=== PATIENT | female | born 1955 | race African-American/Black ===

== ENCOUNTER 2016-07-08 07:00 | Day surgery (SDC) | payer MEDICARE ==
[2016-07-04 11:07] LABS: HEMATOCRIT 27.6 % (36.0-47.0); HEMOGLOBIN 8.9 g/dL (12.0-15.5); HGB HCT DIFFERENCE -0.9; MEAN CORPUSCULAR HEMOGLOBIN 25.9 pg (27.0-33.4); MEAN CORPUSCULAR HGB CONC 32.2 g/dL (32.0-36.0); MEAN CORPUSCULAR VOLUME 81 fl (80-97); RED BLOOD COUNT 3.43 10^6/uL (3.72-5.28); RED CELL DISTRIBUTION WIDTH 14.9 % (11.5-14.0); WHITE BLOOD COUNT 9.8 10^3/uL (4.0-10.5)
[2016-07-04 11:33] LABS: ANION GAP 12 (5-19); BLOOD UREA NITROGEN 49 mg/dL (7-20); CALCIUM 9.1 mg/dL (8.4-10.2); CARBON DIOXIDE 24 mmol/L (22-30); CHLORIDE 107 mmol/L (98-107); CREATININE RESULT 3.34 mg/dL (0.52-1.25); GLUCOSE 105 mg/dL (75-110); POTASSIUM 4.7 mmol/L (3.6-5.0); SODIUM 142.8 mmol/L (137-145)
--- NOTE | 2016-07-04 18:55 | EKG REPORT ---
SEVERITY:- ABNORMAL ECG - SINUS RHYTHM LVH WITH SECONDARY REPOLARIZATION ABNORMALITY : Confirmed by: Oumar Gregory MD 04-Jul-2016 18:54:53
[~2016-07-08 07:00] MED LIST: BACITRACIN INJ 50,000 UNIT VIAL ONE; BUPIVACAINE HCL 0.25 % INJ/PF (2.5 MG/1 ML) 30 ML VIAL ONE; CEFAZOLIN SODIUM 1 GM in DEXTROSE 5%-WATER 50 ML IV PRN; HEPARIN SOD (PORCINE) 1,000 UNIT/ML 10 ML VIAL ONE; LIDOCAINE 0.5% INJ-PF (5 MG/ML) 50 ML SDV ONE; LIDOCAINE 0.5% INJ-PF (5 MG/ML) 50 ML SDV SUBCUT PRN; LIDOCAINE 1% INJ-PF (10 MG/ML) 30 ML SDV ONE; NORMAL SALINE 1000 ML (RENAL PATIENTS) IV PRN
[2016-07-08] MEDS ORDERED: NITROGLYCERIN/D5W 0 MG/0 ML RTUINJ IV ONE (09:23)
[2016-07-08] MEDS ORDERED: KETAMINE HCL INJ 500 MG/10 ML VIAL ONE (09:31)
[2016-07-08] MEDS ORDERED: PROPOFOL INJ 200 MG/20 ML VIAL IV ONE (09:31)
[2016-07-08] MEDS ORDERED: FENTANYL CITRATE INJ/PF 100 MCG/2 ML AMPUL ONE (09:31)
[2016-07-08] MEDS ORDERED: MIDAZOLAM 2 MG/2 ML INJ ONE (09:31)
[2016-07-08] MEDS ORDERED: DEXMEDETOMIDINE INJ 80 MCG/20 ML VIAL IV ONE (09:32)
[2016-07-08] MEDS ORDERED: MEPERIDINE HCL/PF INJ 25 MG/1 ML DISP.SYRIN IV PRN (10:41)
[2016-07-08] MEDS ORDERED: OXYCODONE-ACETAMINOPHEN 5-325 MG TABLET PO PRN ×2 (10:41)
[2016-07-08] MEDS ORDERED: MORPHINE SULFATE 10 MG/ML INJ IV PRN (10:41)
[2016-07-08] MEDS ORDERED: PROMETHAZINE HCL INJ 25 MG/1 ML VIAL IV PRN ×2 (10:41)
[2016-07-08] MEDS ORDERED: FENTANYL CITRATE INJ/PF 100 MCG/2 ML AMPUL IV PRN ×3 (10:41)
[2016-07-08] MEDS ORDERED: DIPHENHYDRAMINE HCL 50 MG/ML VIAL IV PRN (10:41)
--- NOTE | 2016-07-08 11:16 | PDOC DISCHARGE SUMMARY ---
Discharge Summary (SDC) - Discharge Final Diagnosis: #1 chronic kidney disease stage III #2 is mellitus type II. #3 legally blind. #4 hypertension. Date of Surgery: 07/08/16 Discharge Date: 07/08/16 Condition: Good Treatment or Instructions: #1 activities within moderation encouraged. #2 follow up in my office by appointment in about 1 week. Call for appointment. #3 the wounds covered clean and dry until office visit. #4 hold off on school/work until evaluation in office. #5 may shower in 48 hours, keep operated area as dry as possible. #6 discharge from ambulatory to when ASU criteria met. #7 medications per medication reconciliation sheet. #8 Percocet per prescription. May have a for hourly in ambulatory. Prescriptions: Oxycodone HCl/Acetaminophen [Percocet 5-325 mg Tablet] 1 tab PO ASDIR PRN #15 tab PRN Reason: Discharge Diet: Other (Comments) - Renal Respiratory Treatments at Home: Deep Breathing/Coughing Discharge Activity: Activity As Tolerated Report the Following to Your Physician Immediately: Shortness of Breath, Unusual Bleeding
--- NOTE | 2016-07-08 11:27 | Operative Report ---
Operative Report DATE OF SURGERY: 07/08/16 PREOPERATIVE DIAGNOSIS: #1 chronic kidney disease stage III. #2 is mellitus type II. #3 legally blind. #4 hypertension. POSTOPERATIVE DIAGNOSIS: #1 chronic kidney disease stage III. #2 is mellitus type II. #3 legally blind. #4 hypertension. OPERATION: Insertion of left forearm radiocephalic fistula. SURGEON: GT GRULLON RN PEDIATRIC: CAMMY HOOD ANESTHESIA: LMAC TISSUE REMOVED OR ALTERED: Not applicable COMPLICATIONS: None ESTIMATED BLOOD LOSS: 5 mils INTRAOPERATIVE FINDINGS: Of a satisfactory cephalic vein accommodating a 3.5 mm dilator without difficulty. Nice topographic fistula with appropriate bruit, flow in the proximal and distal radial artery after the procedure. The arterial wall was somewhat thickened but not much disease. The vein was soft and supple. The hope is for accessible fistula in 4 weeks plus. PROCEDURE: Operative Report PROCEDURE: After reviewing the procedure with the patient, she was taken to the operating room. The patient was sedated and the left upper external] prepared with chlorhexidine and draped out with sterile linen. After the "" universal timeout", in which it was verified that the patient [received IV antibiotics] the procedure commenced. The sterilely sheathed ultrasound probe was used to evaluate the size and topographic location of the existing cephalic vein in the forearm. This was transcribed topographical using a marking pen. Local anesthesia was infiltrated and a longitudinal incision started from just below the elbow and dissection proceeded down towards the wrist, on the posterior surface of the forearm. Sequential infiltration of local anesthesia, incision and dissection of the vein proceeded up to the distal most extent of usable vein. The cephalic vein was now dissected away from its branches which were either clipped and/or ligated and divided. In this way the cephalic vein was freed up for its usable length. The radial artery was now evaluated by ultrasound and a suitable location for its dissection marked. Local anesthesia was infiltrated in the radial artery was dissected out for a distance of about 2 cm. Rubber loops were placed on either end. The patient had been given 2500 units of heparin intravenously and the artery controlled proximally and distally with the rubber loops. The venotomy was made using the fish mouth technique. An arteriotomy was made 1.5 cm in length. The artery was irrigated with heparinized solution. The adjacent vein was now tailored to fit the arteriotomy and an end vein to side artery anastomosis constructed. The fistula was evaluated and found to be working fine. Closure was commenced. It was kept away from the vein, the wound was now closed using interrupted 3-0 PDS in the subcutaneous tissues. The skin was closed with a continuous subcutaneous suture of 4-0 Monocryl. Steri-Strips were applied over benzoin and then Telfa and then a Kerlix wrap. The procedure was concluded.
[2016-07-08] MEDS ORDERED: GLYCOPYRROLATE INJ 0.4 MG/2 ML VIAL ONE (11:59)
[2016-07-08] MEDS ORDERED: LIDOCAINE 2% INJ-PF (20 MG/ML) 10 ML AMPUL ONE (11:59)
[2016-07-08] MEDS ORDERED: DEXTROSE 50%-WATER 25 GM/50 ML DISP.SYRIN IV ONE (12:20)
[2016-07-08] MEDS ORDERED: ONDANSETRON HCL INJ/PF 4 MG/2 ML SDV ONE (12:59)
[2016-07-08 14:38] VITALS: BP 119/59
== END 2016-07-08 14:35 | disposition home or self-care (01) ==
LOC: OROUT 07:00
PROVIDERS: ATTEND Surgery
PROC: 05SF0ZZ Reposition Left Cephalic Vein, Open Approach (ICD-10-PCS; principal; 2016-07-08 09:30)
DX: E11.9 Type 2 diabetes mellitus without complications (principal); I12.9 Hypertensive chronic kidney disease with stage 1 through stage 4 chronic kidney disease, or unspecified chronic kidney disease; N18.3 Chronic kidney disease, stage 3 (moderate); I25.10 Atherosclerotic heart disease of native coronary artery without angina pectoris; G62.9 Polyneuropathy, unspecified; E61.1 Iron deficiency; H54.8 Legal blindness, as defined in USA; M19.90 Unspecified osteoarthritis, unspecified site; E55.9 Vitamin D deficiency, unspecified; E66.9 Obesity, unspecified; Z79.899 Other long term (current) drug therapy; Z79.4 Long term (current) use of insulin; Z79.82 Long term (current) use of aspirin; Z99.2 Dependence on renal dialysis; Z68.42 Body mass index [BMI] 45.0-49.9, adult
CPT/HCPCS: 93005; 36415 ×2; 82962; 84132; 85027; 80048; 71020; 93010; 36818; J2250; J3490 ×7; J0690; J3010; J1644; J2405; J2704

== ENCOUNTER 2016-08-16 14:55 | Outpatient (CLI) | payer MEDICARE ==
[2016-08-16] MEDS ORDERED: FUROSEMIDE INJ/PF 40 MG/4 ML SDV IV PRN (15:32)
[2016-08-16 16:36] LABS: HEMATOCRIT 22.9 % (36.0-47.0); HGB HCT DIFFERENCE 0.2; MEAN CORPUSCULAR HEMOGLOBIN 26.7 pg (27.0-33.4); MEAN CORPUSCULAR HGB CONC 33.4 g/dL (32.0-36.0); MEAN CORPUSCULAR VOLUME 80 fl (80-97); RED BLOOD COUNT 2.86 10^6/uL (3.72-5.28); RED CELL DISTRIBUTION WIDTH 14.4 % (11.5-14.0)
[2016-08-16 16:38] LABS: HEMOGLOBIN 7.7 g/dL (12.0-15.5)
[2016-08-17 00:50] LABS: HEMATOCRIT 35.2 % (36.0-47.0); HGB HCT DIFFERENCE -1.6; MEAN CORPUSCULAR HEMOGLOBIN 27.2 pg (27.0-33.4); RED BLOOD COUNT 4.13 10^6/uL (3.72-5.28); RED CELL DISTRIBUTION WIDTH 15.5 % (11.5-14.0); WHITE BLOOD COUNT 18.1 10^3/uL (4.0-10.5)
[2016-08-17 01:11] VITALS: BP 173/70
[2016-08-17 01:11] LABS: HEMOGLOBIN 11.2 g/dL (12.0-15.5); MEAN CORPUSCULAR VOLUME 85 fl (80-97)
== END 2016-08-17 00:32 | disposition home or self-care (01) ==
LOC: II 14:55 → 2N 14:57 → II 08-17 00:32
PROVIDERS: ATTEND Internal Medicine Nephrology
DX: N18.9 Chronic kidney disease, unspecified (principal)
CPT/HCPCS: 86900; 86901; 36415; 36430; 86850; 85027; 86920; P9016; J1940

== ENCOUNTER 2016-10-07 07:44 | Day surgery (SDC) | payer MEDICARE ==
[2016-10-07 08:33] LABS: HEMATOCRIT 29.2 % (36.0-47.0); HEMOGLOBIN 9.9 g/dL (12.0-15.5); HGB HCT DIFFERENCE 0.5; MEAN CORPUSCULAR HEMOGLOBIN 28.3 pg (27.0-33.4); MEAN CORPUSCULAR HGB CONC 33.7 g/dL (32.0-36.0); MEAN CORPUSCULAR VOLUME 84 fl (80-97); RED BLOOD COUNT 3.49 10^6/uL (3.72-5.28); RED CELL DISTRIBUTION WIDTH 15.1 % (11.5-14.0); WHITE BLOOD COUNT 9.3 10^3/uL (4.0-10.5)
[2016-10-07 08:49] LABS: ANION GAP 13 (5-19); BLOOD UREA NITROGEN 43 mg/dL (7-20); CALCIUM 9.8 mg/dL (8.4-10.2); CARBON DIOXIDE 25 mmol/L (22-30); CHLORIDE 104 mmol/L (98-107); CREATININE RESULT 4.25 mg/dL (0.52-1.25); GLUCOSE 302 mg/dL (75-110); POTASSIUM 5.5 mmol/L (3.6-5.0); SODIUM 142.3 mmol/L (137-145)
[2016-10-07] MEDS ORDERED: DIAZEPAM 5 MG TABLET ONE (09:04)
[2016-10-07] MEDS ORDERED: OXYCODONE-ACETAMINOPHEN 5-325 MG TABLET ONE (09:04)
[2016-10-07] MEDS ORDERED: FENTANYL CITRATE INJ/PF 100 MCG/2 ML AMPUL ONE (09:34)
[2016-10-07] MEDS ORDERED: MIDAZOLAM 2 MG/2 ML INJ ONE (09:34)
[2016-10-07] MEDS ORDERED: HEPARIN SOD (PORCINE) 5,000 UNIT/ML 1 ML SYRINGE ONE (09:34)
[2016-10-07] MEDS ORDERED: LIDOCAINE 0.5% INJ-PF (5 MG/ML) 50 ML SDV ONE (09:48)
--- NOTE | 2016-10-07 11:32 | PDOC H&P ---
General Chief Complaint: This patient with a relatively new fistula is being dialyzed. Access flows have been on the low side. She is therefore referred across for optimization. - Current Medications/Allergies Home Medications: Clonidine HCl [Catapres 0.1 mg Tablet] 2 mg PO TID 11/21/15 Furosemide [Lasix 40 mg Tablet] 40 mg PO QAM 11/21/15 Hydralazine HCl [Apresoline 50 mg Tablet] 100 mg PO TID 11/21/15 Insulin Lispro [Humalog Insulin 100 Unit/1 ml 3 ml Vial] See Protocol SUBCUT ACHS 11/21/15 Aspirin [Aspirin 325 mg Tablet] 325 mg PO DAILY 01/11/16 Cholecalciferol (Vitamin D3) [Vitamin D3] 50,000 unit PO DAILY 01/15/16 Febuxostat [Uloric 40 mg Tablet] 40 mg PO DAILY 07/04/16 Allergies/Adverse Reactions: No Known Allergies Allergy (Verified 04/18/16 11:25) Past Medical History Cardiac Medical History: Reports: Coronary Artery Disease - HX CARDIAC STENT, Hypertension - on meds Denies: Myocardial Infarction Pulmonary Medical History: Denies: Asthma, Bronchitis, Chronic Obstructive Pulmonary Disease (COPD), Pneumonia Neurological Medical History: Denies: Seizures Endocrine Medical History: Reports: Diabetes Mellitus Type 1, Diabetes Mellitus Type 2 Musculoskeltal Medical History: Reports: Arthritis - R SHOULDER, B/L KNEES Hematology: Reports: Anemia - CURRENT/IRON Past Surgical History Past Surgical History: Reports: Hysterectomy Family History Family History: Reviewed & Not Pertinent Parental Family History Reviewed: No Children Family History Reviewed: No Sibling(s) Family History Reviewed.: No Social History Smoking Status: Never Smoker Frequency of Alcohol Use: None Hx Recreational Drug Use: No Drugs: None Hx Prescription Drug Abuse: No Physical Exam Vital Signs: Temp Pulse Resp BP Pulse Ox 97.8 F 73 16 158/54 H 97 10/07/16 08:38 10/07/16 10:52 10/07/16 08:38 10/07/16 08:38 10/07/16 08:38 Intake & Output 10/06/16 10/07/16 10/08/16 06:59 06:59 06:59 Weight 112.491 kg Additional comments: A well-developed well-nourished -[place]ian female. Much increased body habitus. No acute distress. Eyes: Diminished visual acuity. Respiratory no shortness of breath. Breath sounds are normal and equal bilaterally. Cardiac: Heart sounds 1 and 2 heard, no murmurs. Upper extremities show normal range of movement and pulsatile to the radials. Normal capillary refill. A cephalic to radial fistula is appreciated. In the left upper extremity. Somewhat soft, suggesting inflow stenosis. Psychiatric the patient is alert, oriented, judgment, memory, insight normal Impression/Plan Impression: #1 malfunctioning AV fistula left radiocephalic. #2 end-stage renal disease on hemodialysis. #3 diabetes mellitus type II. #4 coronary artery disease. #5 hypertension. Plan: In this patient who is on dialysis through her arteriovenous fistula, optimalization is indicated to facilitate long-term use of fistula for dialysis access.
--- NOTE | 2016-10-07 11:33 | PDOC DISCHARGE SUMMARY ---
Discharge Summary (SDC) - Discharge Final Diagnosis: #1 malfunctioning AV fistula left radiocephalic. #2 end-stage renal disease on hemodialysis. #3 diabetes mellitus type II. #4 coronary artery disease. #5 hypertension. Date of Surgery: 10/07/16 Discharge Date: 10/07/16 Forms: Sedation D/C Instructions, Discharge POC-Surgical Service Treatment or Instructions: Call Dr. Orozco office tomorrow, and make a followup appt. for 1 week from today .#1 activities within moderation encouraged. #2 follow up in my office by appointment in about 1 week. Call for appointment. #3 the wounds covered clean and dry until hemodialysis. #4 hold off on school/work until evaluation in office. #5 may shower in 48 hours, keep operated area as dry as possible. #6 discharge from ambulatory when ASU criteria met. Referrals: GT OROZCO MD [ACTIVE STAFF] - Discharge Diet: Other (Comments) - Renal Respiratory Treatments at Home: Deep Breathing/Coughing Discharge Activity: Activity As Tolerated Home Care Assistance: None Needed Report the Following to Your Physician Immediately: Shortness of Breath, Nausea , Vomiting, Increase in Pain, Fever over 101 Degrees, Unusual Bleeding, Redness , Swelling, Warmth, Numbness, Tingling Sensation
--- NOTE | 2016-10-07 11:39 | Operative Report ---
Operative Report DATE OF SURGERY: 10/07/16 PREOPERATIVE DIAGNOSIS: #1 malfunctioning AV fistula left radiocephalic. #2 end -stage renal disease on hemodialysis. #3 diabetes mellitus type II. #4 coronary artery disease. #5 hypertension. POSTOPERATIVE DIAGNOSIS: #1 malfunctioning AV fistula left radiocephalic. #2 end-stage renal disease on hemodialysis. #3 diabetes mellitus type II. #4 coronary artery disease. #5 hypertension. OPERATION: #1 needle access into arteriovenous fistula under real-time ultrasound guidance. #2 ultrasound evaluation of fistula. #3 angioplasty in the arterial inflow. #4 angioplasty in the venous fistula. #5 angiogram and interpretation. SURGEON: GT GRULLON GRAFFITI CLEANER: none ANESTHESIA: Moderate Sedation TISSUE REMOVED OR ALTERED: Not applicable. COMPLICATIONS: None ESTIMATED BLOOD LOSS: 2 mL. INTRAOPERATIVE FINDINGS: Upper well-founded but relatively small arteriovenous fistula in the left forearm. Somewhat soft initially suggesting inflow stenosis. Angiogram demonstrated a narrowing at the artery to vein interface. Also noted is an area of stenosis about 70% at about 4 cm away from the arteriovenous anastomosis. Both of these were eliminated on angioplasty. In addition the main body of the fistula was gently dilated up to 6 mm. Ultrasound showed it to be 5 mm in diameter. Post angioplasty demonstrated improvement and examination of the fistula postprocedure demonstrated more appropriate slight firmness. Suggesting that the inflow stenosis had been eliminated functionally. PROCEDURE: PROCEDURE: After verifying the procedure and having obtained informed consent, the patient's left arm and forearm were prepared with Chlorhexidine and draped out with sterile linen. Local anesthesia infiltrated. Percutaneous access into the fistula ,[retrograde], obtained about [20 cm] from the arteriovenous anastomosis using a micro puncture needle followed by micro puncture wire and then a micro puncture catheter. This was done on ultrasound guidance using real-time access into the vein. Ultrasound was also used to size the vein. Angiogram demonstrated the aforementioned findings. Angioplasty was elected. A 0.035 [place] wire was inserted, and over this, a 6 Gibraltarian short introducer was placed, this was followed by a [5] angioplasty balloon . Angioplasty was now done at the distal radial artery just before the anastomosis and over the anastomotic and perianastomotic segment. This was done very carefully and in the up to estimated at 12 mame by hand injection for 1 minute. Angiogram demonstrated successful outcome. The balloon was now swapped over the wire for a 6 mm angioplasty balloon. Angioplasty was serially done from the upper fistula down to the introducer. Inflating up to 12 atmospheres for a minute at a time.]. Completion angiogram demonstrated [satisfactory result]. The instrumentation was now withdrawn over moderate hand pressure. Dressings applied, procedure concluded. Exposure time: 1.8 minutes Radiation: 1 dereck per centimeter squared Contrast: 25 mL of Isovue-M 300 low osmolality. DICTATING PHYSICIAN: GT VAUGHN M.D. cc: GT VAUGHN M.D. ([id number]) >>
[2016-10-07 13:19] VITALS: BP 155/59
== END 2016-10-07 12:45 | disposition home or self-care (01) ==
LOC: CCL 07:44
PROVIDERS: ATTEND Surgery
PROC: 057F3DZ Dilation of Left Cephalic Vein with Intraluminal Device, Percutaneous Approach (ICD-10-PCS; principal; 2016-10-07)
DX: T82.858A Stenosis of other vascular prosthetic devices, implants and grafts, initial encounter (principal); Y83.2 Surgical operation with anastomosis, bypass or graft as the cause of abnormal reaction of the patient, or of later complication, without mention of misadventure at the time of the procedure; E10.22 Type 1 diabetes mellitus with diabetic chronic kidney disease; I12.0 Hypertensive chronic kidney disease with stage 5 chronic kidney disease or end stage renal disease; N18.6 End stage renal disease; Z99.2 Dependence on renal dialysis; I25.10 Atherosclerotic heart disease of native coronary artery without angina pectoris; J44.9 Chronic obstructive pulmonary disease, unspecified; M19.011 Primary osteoarthritis, right shoulder; M17.0 Bilateral primary osteoarthritis of knee; E55.9 Vitamin D deficiency, unspecified; G62.9 Polyneuropathy, unspecified; H54.8 Legal blindness, as defined in USA; E61.1 Iron deficiency; Z79.82 Long term (current) use of aspirin; Z79.4 Long term (current) use of insulin; Z79.899 Other long term (current) drug therapy; Z98.61 Coronary angioplasty status
CPT/HCPCS: 36415; 85027; 80048; 36902; 76937; C1725 ×2; C1752; C1887; Q9967; C1769; J2250; J1644 ×2; A9270 ×2; J3010; J3490

== ENCOUNTER → 2016-10-28 | Outpatient (CLI) | payer MEDICARE | LOC: WI 14:27 | PROVIDERS: ATTEND Family Medicine | DX: Z12.31 Encounter for screening mammogram for malignant neoplasm of breast (principal) | CPT/HCPCS: 77063; G0202; 77067 ==

== ENCOUNTER 2016-11-25 06:55 | Day surgery (SDC) | payer MEDICARE ==
[2016-11-25] MEDS ORDERED: LIDOCAINE 0.5% INJ-PF (5 MG/ML) 50 ML SDV ONE (07:19)
[2016-11-25 07:33] LABS: HEMATOCRIT 34.2 % (36.0-47.0); HEMOGLOBIN 11.3 g/dL (12.0-15.5); HGB HCT DIFFERENCE -0.3; MEAN CORPUSCULAR HEMOGLOBIN 27.7 pg (27.0-33.4); MEAN CORPUSCULAR HGB CONC 32.9 g/dL (32.0-36.0); MEAN CORPUSCULAR VOLUME 84 fl (80-97); RED BLOOD COUNT 4.07 10^6/uL (3.72-5.28); WHITE BLOOD COUNT 9.4 10^3/uL (4.0-10.5)
[2016-11-25 07:56] LABS: ANION GAP 11 (5-19); BLOOD UREA NITROGEN 52 mg/dL (7-20); CALCIUM 9.4 mg/dL (8.4-10.2); CARBON DIOXIDE 23 mmol/L (22-30); CHLORIDE 107 mmol/L (98-107); CREATININE RESULT 5.63 mg/dL (0.52-1.25); GLUCOSE 131 mg/dL (75-110); POTASSIUM 4.7 mmol/L (3.6-5.0); SODIUM 141.4 mmol/L (137-145)
[2016-11-25] MEDS ORDERED: HEPARIN SOD (PORCINE) 5,000 UNIT/ML 1 ML SYRINGE ONE (08:09)
[2016-11-25] MEDS ORDERED: MIDAZOLAM 2 MG/2 ML INJ ONE (08:09)
[2016-11-25] MEDS ORDERED: FENTANYL CITRATE INJ/PF 100 MCG/2 ML AMPUL ONE (08:09)
--- NOTE | 2016-11-25 08:32 | PDOC H&P ---
General Chief Complaint: The patient was referred across from dialysis, as the fistula is" pulling clots ". - Current Medications/Allergies Home Medications: Clonidine HCl [Catapres 0.1 mg Tablet] 0.2 mg PO BID 11/21/15 Furosemide [Lasix 40 mg Tablet] 40 mg PO QAM 11/21/15 Hydralazine HCl [Apresoline 50 mg Tablet] 100 mg PO TID 11/21/15 Insulin Lispro [Humalog Insulin 100 Unit/1 ml 3 ml Vial] See Protocol SUBCUT ACHS 11/21/15 Aspirin [Aspirin 325 mg Tablet] 325 mg PO DAILY 01/11/16 Cholecalciferol (Vitamin D3) [Vitamin D3] 50,000 unit PO DAILY 01/15/16 Benzonatate 200 mg PO TID 11/25/16 Colchicine/Probenecid [Probenecid-Colchicine Tabs] 1 each PO BID 11/25/16 Ergocalciferol (Vitamin D2) [Vitamin D2] 50,000 unit PO ASDIR PRN 11/25/16 Hydromorphone HCl 2 mg PO TID PRN 11/25/16 Allergies/Adverse Reactions: No Known Allergies Allergy (Verified 04/18/16 11:25) Past Medical History Cardiac Medical History: Reports: Coronary Artery Disease - HX CARDIAC STENT, Hypertension - on meds Denies: Myocardial Infarction Pulmonary Medical History: Denies: Asthma, Bronchitis, Chronic Obstructive Pulmonary Disease (COPD), Pneumonia Neurological Medical History: Denies: Seizures Endocrine Medical History: Reports: Diabetes Mellitus Type 1, Diabetes Mellitus Type 2 Musculoskeltal Medical History: Reports: Arthritis - R SHOULDER, B/L KNEES Hematology: Reports: Anemia - CURRENT/IRON Past Surgical History Past Surgical History: Reports: Hysterectomy Family History Family History: Reviewed & Not Pertinent Parental Family History Reviewed: No Children Family History Reviewed: No Sibling(s) Family History Reviewed.: No Social History Smoking Status: Never Smoker Frequency of Alcohol Use: None Hx Recreational Drug Use: No Drugs: None Hx Prescription Drug Abuse: No Physical Exam Vital Signs: Temp Pulse Resp BP Pulse Ox 98.1 F 73 14 173/84 H 100 11/25/16 07:00 11/25/16 07:00 11/25/16 07:00 11/25/16 07:00 11/25/16 07:00 Intake & Output 11/24/16 11/25/16 11/26/16 06:59 06:59 06:59 Weight 113.398 kg Additional comments: Constitutional: Well-developed well-nourished -[place]ogolese lady, much increased body mass in. No apparent acute distress. Eyes: Legally blind ENT: Hearing grossly normal. External pinna normal to inspection. Teeth intact. Tongue normal to inspection. Chest: Normal to inspection. Respiratory breath sounds are present bilaterally, normal. Normal respiratory effort. Cardiac: Heart sounds 1 and 2 normal, no murmurs. Psychiatric: Judgment, memory, insight seem normal. Mood is pleasant and appropriate. Extremities: Upper extremities show normal range of movement. Pulses present noted to the radial arteries. Capillary refill normal. No cyanosis noted. No muscle wasting noted. Left forearm arteriovenous fistula, radiocephalic noted. Comparatively soft, suggesting inflow issues. Impression/Plan Impression: #1 malfunctioning AV fistula left radiocephalic. 2. End-stage renal disease on hemodialysis. 3. Diabetes mellitus type 2. 4. Hypertension. Plan: This patient who is fistula appears to be malfunctioning is indicated for angiogram possible angioplasty. Possibly inflow versus open lesions. The risks, benefits, expected outcome and alternatives are familiar to her. She wishes to proceed. Overall goal is to improve the function of the fistula so that adequate dialysis can be had on a routine. Also prolonged use of fistula.
--- NOTE | 2016-11-25 09:58 | PDOC DISCHARGE SUMMARY ---
Discharge Summary (SDC) - Discharge Final Diagnosis: #1 malfunctioning AV fistula left radiocephalic. Post angioplasty 2. End-stage renal disease on hemodialysis. 3. Diabetes mellitus type 2. 4. Hypertension. Date of Surgery: 11/25/16 Discharge Date: 11/25/16 Condition: Fair Treatment or Instructions: Discharge home [after recovery per ASU criteria]. Diet , [renal], diabetic, month as tolerated, when fully awake advance as tolerated. Activities within moderation encouraged. Follow up in my office by appointment in about [1 month]. Call for appointment. Leave wounds [covered], [keep clean and dry, until hemodialysis]. Hold of on school/work [until evaluation in office]. May shower [in 48 hrs], [try to keep operated area as dry as possible]. Discharge Diet: Other (Comments) - Renal, diabetic Respiratory Treatments at Home: Deep Breathing/Coughing Discharge Activity: Balance Activity w/Rest, No Lifting Over 10 Pounds, No Lifting/Push/Pulling Home Care Assistance: None Needed Report the Following to Your Physician Immediately: Increase in Pain, Fever over 101 Degrees, Unusual Bleeding, Redness, Swelling, Warmth, Numbness, Tingling Sensation
--- NOTE | 2016-11-25 10:02 | Operative Report ---
Operative Report DATE OF SURGERY: 11/25/16 PREOPERATIVE DIAGNOSIS: #1 malfunctioning AV fistula left radiocephalic. 2. End-stage renal disease on hemodialysis. 3. Diabetes mellitus type 2. 4. Hypertension. POSTOPERATIVE DIAGNOSIS: #1 malfunctioning AV fistula left radiocephalic. Post angioplasty. 2. End-stage renal disease on hemodialysis. 3. Diabetes mellitus type 2. 4. Hypertension. OPERATION: 1. Ultrasound evaluation left radiocephalic fistula. 2. Real-time ultrasound-guided active, needle into the fistula. 3. Angioplasty. 4. Angiogram and interpretation. SURGEON: GT GRULLON FLIGHT OPERATIONS INSPECTOR: None ANESTHESIA: Moderate Sedation TISSUE REMOVED OR ALTERED: Not applicable. COMPLICATIONS: None. ESTIMATED BLOOD LOSS: 2 mL. INTRAOPERATIVE FINDINGS: Of a well founded left radiocephalic fistula. Slightly firm. Ultrasound demonstrated clot within the lumen at about 17 cm for about 1-2 cm. This is concordant with the angiogram which demonstrated narrowing of this area. Otherwise flow was satisfactory. Good inflow with a decent size radial artery, nice side anastomosis need to be about 5 mm. Fistula up to about 7 mm.. Post angioplasty the area of stenosis and thrombus seen resolved on angiogram. PROCEDURE: PROCEDURE: After verifying the procedure and having obtained informed consent, the patient's left arm was prepared with Chlorhexidine and draped out with sterile linen. Local anesthesia infiltrated. Percutaneous access into the fistula ,[ antegrade], obtained about [2 cm] from the arteriovenous anastomosis using a micro puncture needle followed by micro puncture wire and then a micro puncture catheter. Angiogram demonstrated the aforementioned findings. Angioplasty was elected. A 0.035 [place] wire was inserted, and over this, a 6 Amharic short introducer was placed, this was followed by a [7-mm ] angioplasty balloon . Angioplasty was done from the upper fistula down to the introducer. Inflating by hand injection with 3 mils syringe for 2 minutes.]. Completion angiogram demonstrated [satisfactory result]. The instrumentation was now withdrawn over 10 pressure for 10 minutes. Dressings applied, procedure concluded. Exposure time: 0.7 minutes Radiation: 0.126 mcg/cm Contrast: 25 mL of Isovue-300, low osmolality. DICTATING PHYSICIAN: GT VAUGHN M.D. cc: GT VAUGHN M.D. ([id number]) >>
[2016-11-25 11:32] VITALS: BP 156/79
--- NOTE | 2016-11-25 14:48 | RADIOLOGY REPORT (SQ) ---
EXAM DESCRIPTION: FISTULAGRAM W/PLASTY COMPLETED DATE/TIME: 11/25/2016 1:07 pm REASON FOR STUDY: T82.858A T82.858A STENOSIS OF OTHER VASCULAR PROSTH DEV/GRFT, INIT Z79.899 OTHER JAIL (CURRENT) DRUG THERAPY COMPARISON: None. FLUOROSCOPY TIME: 0.7 minutes. 10 images saved to PACS. TECHNIQUE: Intra-operative images acquired during surgical procedure to evaluate progress. NUMBER OF IMAGES: 10 images. LIMITATIONS: None. FINDINGS: Imaging in fluoroscopy during upper extremity dialysis access evaluation and plasty by Dr. Orozco . Please refer to the operative report for further details. IMPRESSION: INTRA PROCEDURAL IMAGING ABOVE . COMMENT: Quality ID [id number]: Final reports for procedures using fluoroscopy that document radiation exp osure indices, or exposure time and number of fluorographic images (if radiation exposure indices are not available) Please consult full operative report of the attending physician for description of the procedure. TECHNICAL DOCUMENTATION: JOB ID: [id number] [employer]- All Rights Reserved
== END 2016-11-25 11:00 | disposition home or self-care (01) ==
LOC: CCL 06:55
PROVIDERS: ATTEND Surgery
PROC: 057F3DZ Dilation of Left Cephalic Vein with Intraluminal Device, Percutaneous Approach (ICD-10-PCS; principal; 2016-11-25)
DX: T82.858A Stenosis of other vascular prosthetic devices, implants and grafts, initial encounter (principal); Y83.2 Surgical operation with anastomosis, bypass or graft as the cause of abnormal reaction of the patient, or of later complication, without mention of misadventure at the time of the procedure; I12.0 Hypertensive chronic kidney disease with stage 5 chronic kidney disease or end stage renal disease; E10.22 Type 1 diabetes mellitus with diabetic chronic kidney disease; N18.6 End stage renal disease; Z99.2 Dependence on renal dialysis; I25.10 Atherosclerotic heart disease of native coronary artery without angina pectoris; M19.90 Unspecified osteoarthritis, unspecified site; D64.9 Anemia, unspecified; H54.8 Legal blindness, as defined in USA; Z98.61 Coronary angioplasty status; Z79.4 Long term (current) use of insulin; Z79.899 Other long term (current) drug therapy
CPT/HCPCS: 36415; 82962; 85027; 80048; 36902; 76937; C1725; Q9967; C1769; J2250; J1644 ×2; J3010; J3490

== ENCOUNTER 2017-02-01 17:01 | Emergency (ER) | payer MEDICARE ==
--- NOTE | 2017-02-01 17:42 | ER Document Report ---
ED Medical Screen (RME) - General Chief Complaint: Weakness Stated Complaint: WEAKNESS Time Seen by Provider: 02/01/17 17:36 Mode of Arrival: Ambulatory Information source: Patient TRAVEL OUTSIDE OF THE [place] IN LAST 30 DAYS: No - HPI Onset: Yesterday Quality of pain: No pain Severity: Moderate Associated Symptoms: Weakness Exacerbated by: Other - ANY ACTIVITY Relieved by: Other - REST Similar symptoms previously: Yes - BEFORE BEGINNING DIALYSIS Notes: 02/01/17 17:47 Patient states she normally receives hemodialysis on Friday, , and Friday. She had an uneventful dialysis session Friday, but yesterday and today the text at the dialysis clinic were unable to access her fistula. - Related Data Smoking: Non-smoker Frequency of alcohol use: None Drug Abuse: None Allergies/Adverse Reactions: No Known Allergies Allergy (Verified 02/01/17 17:33) Past Medical History - General Information source: Patient - Social History Cigarette use (# per day): No Chew tobacco use (# tins/day): No Frequency of alcohol use: None Drug Abuse: None - Past Medical History Cardiac Medical History: Reports: Hx Coronary Artery Disease - HX CARDIAC STENT , Hx Hypertension - on meds Denies: Hx Heart Attack Pulmonary Medical History: Denies: Hx Asthma, Hx Bronchitis, Hx COPD, Hx Pneumonia Neurological Medical History: Denies: Hx Cerebrovascular Accident, Hx Seizures Endocrine Medical History: Reports: Hx Diabetes Mellitus Type 1, Hx Diabetes Mellitus Type 2 Renal/ Medical History: Reports: Hx End Stage Renal Disease, Hx Hemodialysis. Denies: Hx Peritoneal Dialysis Musculoskeltal Medical History: Reports Hx Arthritis - R SHOULDER, B/L KNEES Past Surgical History: Reports: Hx Hysterectomy, Hx Kidney (Renal Surgery) - Immunizations Hx Diphtheria, Pertussis, Tetanus Vaccination: Yes Review of Systems - Review of Systems Constitutional: Weakness EENT: No symptoms reported Cardiovascular: No symptoms reported. denies: Chest pain, Palpitations, Edema Respiratory: No symptoms reported Gastrointestinal: No symptoms reported Female Genitourinary: Post menopausal Musculoskeletal: No symptoms reported Skin: No symptoms reported Neurological/Psychological: No symptoms reported Physical Exam - Vital signs Vitals: Temp Pulse Resp BP Pulse Ox 97.6 F 83 16 171/72 H 99 02/01/17 17:14 02/01/17 17:14 02/01/17 17:14 02/01/17 17:14 02/01/17 17:14 Interpretation: Hypertensive. No: Tachycardic, Tachypneic - General General appearance: Appears well, Alert In distress: None Course - Vital Signs Vital signs: Temp Pulse Resp BP Pulse Ox 97.6 F 83 16 171/72 H 99 02/01/17 17:14 02/01/17 17:14 02/01/17 17:14 02/01/17 17:14 02/01/17 17:14
[2017-02-01 18:39] LABS: ABSOLUTE BASOPHILS # (AUTO) 0.1 10^3/uL (0.0-0.2); ABSOLUTE EOSINOPHILS # (AUTO) 0.2 10^3/uL (0.0-0.6); ABSOLUTE LYMPHOCYTES (AUTO) 2.6 10^3/uL (0.5-4.7); ABSOLUTE MONOCYTES (AUTO) 0.5 10^3/uL (0.1-1.4); ABSOLUTE NEUT (AUTO) 5.5 10^3/uL (1.7-8.2); BASOPHILS % (AUTO) 0.7 % (0-2); EOSINOPHILS % (AUTO) 2.2 % (0-6); HEMATOCRIT 35.5 % (36.0-47.0); HGB HCT DIFFERENCE 0.5; LYMPHOCYTES % (AUTO) 29.1 % (13-45); MEAN CORPUSCULAR HEMOGLOBIN 27.6 pg (27.0-33.4); MEAN CORPUSCULAR HGB CONC 33.9 g/dL (32.0-36.0); MEAN CORPUSCULAR VOLUME 81 fl (80-97); MONOCYTES % (AUTO) 6.1 % (3-13); RED BLOOD COUNT 4.36 10^6/uL (3.72-5.28); RED CELL DISTRIBUTION WIDTH 16.9 % (11.5-14.0); SEGMENTED NEUTROPHILS % (AUTO) 61.9 % (42-78); WHITE BLOOD COUNT 8.9 10^3/uL (4.0-10.5)
[2017-02-01 18:57] LABS: ALANINE AMINOTRANSFERASE 22 U/L (9-52); ALBUMIN 4.3 g/dL (3.5-5.0); ALKALINE PHOSPHATASE 172 U/L (38-126); ANION GAP 16 (5-19); ASPARTATE AMINO TRANSFERASE 12 U/L (14-36); BILIRUBIN,DIRECT 0.5 mg/dL (0.0-0.4); BILIRUBIN,TOTAL 0.5 mg/dL (0.2-1.3); BLOOD UREA NITROGEN 69 mg/dL (7-20); CALCIUM 9.5 mg/dL (8.4-10.2); CARBON DIOXIDE 20 mmol/L (22-30); CHLORIDE 104 mmol/L (98-107); CREATININE RESULT 4.97 mg/dL (0.52-1.25); GLUCOSE 243 mg/dL (75-110); MAGNESIUM 1.9 mg/dL (1.6-2.3); PHOSPHORUS 4.8 mg/dL (2.5-4.5); POTASSIUM 5.3 mmol/L (3.6-5.0); SODIUM 139.8 mmol/L (137-145)
--- NOTE | 2017-02-01 19:22 | ER Document Report ---
HPI - HPI Pain Level: 2 Notes: Patient with a history of diabetes, hypertension, chronic kidney disease and on dialysis presents the ED complaining of general weakness 1 day. Patient is scheduled for dialysis on Tuesdays, , and Saturdays. Patient states that she was unable to have her dialysis session because they were unable to access her port. Patient states that she is scheduled on Friday with a vascular surgeon for work on her port/fistula. patient states that aside from the weakness she is otherwise feeling well. Patient states that she is still urinating normally and having normal BM's. Patient states that she is still ambulating with a single-point cane normally without any dyspnea on exertion or chest pain. Patient states that she is still eating and drinking without any difficulties. Patient denies any drug allergies. Her blade sharpener is Dr. Sadler and her PCM is Dr. Fontanez. Denies any headache, fever,neck pain/ stiffness, changes in vision/speech/mentation/hearing, URI, sore throat, chest pain, palpitations, syncope, cough, shortness of breath, wheeze, dyspnea, abdominal pain, nausea/vomiting/diarrhea, urinary retention, dysuria, hematuria , muscle paralysis/weakness, or rash. - ROS Notes: REVIEW OF SYSTEMS: CONSTITUTIONAL : Denies fever, chills, or sweats. Denies recent illness. EENT: Denies eye, ear, throat, or mouth pain or symptoms. Denies nasal or sinus congestion or discharge. Denies throat, tongue, or mouth swelling or difficulty swallowing. CARDIOVASCULAR: Denies chest pain. Denies palpitations or racing or irregular heart beat. Denies ankle edema. RESPIRATORY: Denies cough, cold, or chest congestion. Denies shortness of breath, difficulty breathing, or wheezing. GASTROINTESTINAL: Denies abdominal pain or distention. Denies nausea, vomiting , or diarrhea. Denies blood in vomitus, stools, or per rectum. Denies black, tarry stools. Denies constipation. GENITOURINARY: Denies difficulty urinating, painful urination, burning, frequency, blood in urine, or discharge. MUSCULOSKELETAL: chronic. Denies acute back or neck pain or stiffness. Denies joint pain or swelling. SKIN: Denies rash, lesions or sores. NEUROLOGICAL: Denies confusion or altered mental status. Denies passing out or loss of consciousness. Denies dizziness or lightheadedness. Denies headache. Denies weakness or paralysis or loss of use of either side. Denies problems with gait or speech. Denies sensory loss, numbness, or tingling. Denies seizures. PSYCHIATRIC: Denies anxiety or stress. Denies depression, suicidal ideation, or homicidal ideation. ALL OTHER SYSTEMS REVIEWED AND NEGATIVE. Dictation was performed using thesixtyone voice recognition software - REPRODUCTIVE Reproductive: DENIES: : - DERM Skin Color: Normal Past Medical History - General Information source: Patient - Social History Smoking Status: Never Smoker Cigarette use (# per day): No Chew tobacco use (# tins/day): No Frequency of alcohol use: None Drug Abuse: None Family History: Reviewed & Not Pertinent - Past Medical History Cardiac Medical History: Reports: Hx Coronary Artery Disease - HX CARDIAC STENT , Hx Hypertension - on meds Denies: Hx Heart Attack Pulmonary Medical History: Denies: Hx Asthma, Hx Bronchitis, Hx COPD, Hx Pneumonia Neurological Medical History: Denies: Hx Cerebrovascular Accident, Hx Seizures Endocrine Medical History: Reports: Hx Diabetes Mellitus Type 1, Hx Diabetes Mellitus Type 2 Renal/ Medical History: Reports: Hx End Stage Renal Disease, Hx Hemodialysis. Denies: Hx Peritoneal Dialysis Musculoskeltal Medical History: Reports Hx Arthritis - R SHOULDER, B/L KNEES Past Surgical History: Reports: Hx Hysterectomy, Hx Kidney (Renal Surgery) - Immunizations Hx Diphtheria, Pertussis, Tetanus Vaccination: Yes Vertical Provider Document - CONSTITUTIONAL Agree With Documented VS: Yes Notes: PHYSICAL EXAMINATION: GENERAL: Well-appearing, well-nourished and in no acute distress. HEAD: Atraumatic, normocephalic. EYES: Pupils equal round and reactive to light, extraocular movements intact, sclera anicteric, conjunctiva are normal. Lt eye blind-normal. ENT: Nares patent and without discharge. oropharynx clear without exudates. No tonsilar hypertrophy or erythema. Moist mucous membranes. NECK: Normal range of motion, supple without lymphadenopathy. No rigidity. LUNGS: Breath sounds clear to auscultation bilaterally and equal. No wheezes rales or rhonchi. HEART: Regular rate and rhythm without murmurs, rubs, gallops. ABDOMEN: Soft, nontender, nondistended abdomen. No guarding, no rebound. No masses appreciated. Normal bowel sounds present. No CVA tenderness bilaterally. Musculoskeletal: Ext b/l: FROM to passive/active. Strength 5+/5. No focal deficits noted Extremities: No cyanosis, clubbing, or edema b/l. Peripheral pulses 2+. Capillary refill less than 3 seconds. NEUROLOGICAL: MMSE intact. Cranial nerves grossly intact. Normal speech, normal gait. Normal sensory, motor exams. GILMA's intact. Pronator neg. heel: ashley, finger:nose intact. PSYCH: Normal mood, normal affect. SKIN: Warm, Dry, normal turgor, no rashes or lesions noted. - INFECTION CONTROL TRAVEL OUTSIDE OF THE [place] IN LAST 30 DAYS: No - RESPIRATORY O2 Sat by Pulse Oximetry: 99 Course - Re-evaluation Re-evalutation: 02/01/17 20:40 Patient is an afebrile, well-hydrated, 61-year-old female who presents the ED with general weakness, suspect due to not being dialyzed over her last two scheduled days due to accessing issues. vitals are stable. PE otherwise unremarkable for any focal neurological deficits. CBC, EKG, & CXR unremarkable. CMP showed mildly elevated potassium and stable chronic kidney disease. Patient is tolerating p.o. intake and is urinating. Reviewed with Dr. Pickett who recommended consult with a Bow Maker Machine Tender. We do not have any on -call from [place]. Called and spoke with [facility] Bow Maker Machine Tender Dr. Vanessa who recommended Kayexalate 15g daily until her next visit (Friday for fistula work with a vascular surgeon). He was not concerned about her current lab results. Kayexalate 15g given PO today. Low suspicion for any ACS, PE, dissection, pericarditis, pneumothorax, sepsis, meningitis, or other systemic emergent condition at this time. Patient is aware that condition can change from initial presentation and she needs to monitor symptoms closely and seek medical attention if any acute changes. Advised patient to call her blade sharpener and PCM in the next 1-2 days for a recheck. Return to the ED with any worsening/concerning symptoms otherwise as reviewed in discharge. Patient is in agreement. - Vital Signs Vital signs: Temp Pulse Resp BP Pulse Ox 97.6 F 83 16 171/72 H 99 02/01/17 17:14 02/01/17 17:14 02/01/17 17:14 02/01/17 17:14 02/01/17 17:14 - Laboratory Result Diagrams: 02/01/17 18:23 02/01/17 18:23 Laboratory results interpreted by me: 02/01/17 02/01/17 18:23 18:23 Hct 35.5 L RDW 16.9 H Potassium 5.3 H Carbon Dioxide 20 L BUN 69 H Creatinine 4.97 H Est GFR ( Amer) 11 L Est GFR (Non-Af Amer) 9 L Glucose 243 H Phosphorus 4.8 H Direct Bilirubin 0.5 H AST 12 L Alkaline Phosphatase 172 H Discharge - Discharge Clinical Impression: Generalized weakness, Chronic kidney disease, stage 3, End-stage renal disease on hemodialysis Condition: Stable Disposition: HOME, SELF-CARE Additional Instructions: Maintain adequate fluid and food intake Take medication as directed Make sure you are still urinating normally Monitor for any acute changes in her symptoms Recheck with her PCM in 1-2 days Call your blade sharpener in 1-2 days as well for recheck Return to the ED with any worsening symptoms and/or development of fever, headache, chest pain, palpitations, syncope, shortness of breath, trouble breathing, abdominal pain, n/v/d, blood in stool/urine, loss of control of bowel /bladder, urinary retention, muscle weakness/paralysis, saddle anesthesia, numbness/tingling, or other worsening symptoms that are concerning to you. Prescriptions: Sodium Polystyrene Sulfonate [Kayexalate 15 Gm/60 Ml Susp 60 Ml] 15 gm PO DAILY #1 bottle Forms: Elevated Blood Pressure Referrals: MACARIO FONTANEZ MD [Primary Care Provider] - 02/03/17 SHARLA SADLER MD [ACTIVE STAFF] - 02/03/17
[2017-02-01] MEDS ORDERED: SODIUM POLYSTYRENE SULFONATE 15 GM/60 ML PO ONE (19:57)
--- NOTE | 2017-02-01 20:32 | RADIOLOGY REPORT (SQ) ---
EXAM DESCRIPTION: CHEST SINGLE VIEW COMPLETED DATE/TIME: 02/01/2017 8:15 pm REASON FOR STUDY: ckd, elevated K+ COMPARISON: 07/04/2016 EXAM PARAMETERS: NUMBER OF VIEWS: One view. TECHNIQUE: Single frontal radiographic view of the chest acquired. RADIATION DOSE: NA LIMITATIONS: None. FINDINGS: LUNGS AND PLEURA: Chronic blunting right lateral costophrenic sulcus. No acute infiltrate s, pleural effusions, pneumothorax. MEDIASTINUM AND HILAR STRUCTURES: No masses. Contour normal. HEART AND VASCULAR STRUCTURES: Stable mild cardiomegaly. BONES: No acute findings. HARDWARE: None in the chest. OTHER: No other significant finding. IMPRESSION: No acute changes TECHNICAL DOCUMENTATION: JOB ID: [id number]
[2017-02-01 21:47] VITALS: BP 170/76
--- NOTE | 2017-02-02 07:26 | EKG REPORT ---
SEVERITY:- ABNORMAL ECG - SINUS RHYTHM LVH WITH SECONDARY REPOLARIZATION ABNORMALITY : Confirmed by: Oumar Gregory MD 02-Feb-2017 07:25:22
== END 2017-02-01 21:00 | disposition home or self-care (01) ==
LOC: ER 17:01
DX: R53.1 Weakness (principal); I12.0 Hypertensive chronic kidney disease with stage 5 chronic kidney disease or end stage renal disease; E11.22 Type 2 diabetes mellitus with diabetic chronic kidney disease; N18.6 End stage renal disease; Z99.2 Dependence on renal dialysis
CPT/HCPCS: 36415; 71010; 80053; 83735; 84100; 85025; 93005; 93010; 99285

== ENCOUNTER → 2017-02-01 | Outpatient (CLI) | payer MEDICARE | LOC: LAB 16:32 | PROVIDERS: ATTEND Internal Medicine Nephrology | DX: Z53.8 Procedure and treatment not carried out for other reasons (principal) | CPT/HCPCS: 36415; 84132 ==

== ENCOUNTER → 2017-12-26 | Outpatient (CLI) | payer MEDICARE ==
--- NOTE | 2017-12-26 13:48 | WOMENS IMAGING REPORT ---
EXAM DESCRIPTION: 3D SCREENING MAMMO BILAT COMPLETED DATE/TIME: 12/26/2017 11:12 am REASON FOR STUDY: BILATERAL SCREENING MAMMO 3D/Z12.31 Z12.31 ENCNTR SCREEN MAMMOGRAM FOR MALIGNANT NEOPLASM OF LAURIE COMPARISON: October 2016 and October 2015 TECHNIQUE: Standard craniocaudal and mediolateral oblique views of each breast recorded using digita l acquisition and breast tomosynthesis. LIMITATIONS: None. FINDINGS: Findings present which are benign by mammographic criteria. No suspicious masses, calcifi cations or architectural distortion. Pertinent benign findings: Bilateral benign-appearing vascular and ductal calcifications are identifi ed. Read with the assistance of CAD. .[facility] - R2 Cenova Version 1.3 .[facility] Imaging - R2 Cenova Version 1.3 .[facility] - R2 Cenova Version 2.4 .[facility] [place] - R2 Cenova Version 2.4 .[facility] - R2 Hairspring Setter Version 9.2 Benign mammographic findings may include one or more of the following: Smooth masses, popcorn/rim/co arse calcifications, asymmetries, post-procedure changes, and lesions with long-standing stability. IMPRESSION: BENIGN MAMMOGRAPHIC FINDINGS. BIRADS 2 BREAST DENSITY: b. There are scattered areas of fibroglandular density. BIRAD: 2 BENIGN FINDING(S) RECOMMENDATION: RECOMMENDATION: ROUTINE SCREENING COMMENT: The patient has been notified of the results by letter per SA requirements. Additional no tification policies are in place for contacting patient with suspicious or incomplete findings. Quality ID #225: The [employer] recommends an annual screening mammogram for women aged 40 years or over. This facility utilizes a reminder system to ensure that all patients receive reminder letters, and/or direct phone calls for appointments. This includes reminders for routine scr eening mammograms, diagnostic mammograms, or other Breast Imaging Interventions when appropriate. Th is patient will be placed in the appropriate reminder system. The [employer] (ACR) has developed recommendations for screening MRI of the breast s in certain patient populations, to be used in conjunction with mammography. Breast MRI surveillanc e may be appropriate for women with more than 20% lifetime risk of developing breast cancer as deter mined by genetic testing, significant family history of the disease, or history of mantle radiation f or Hodgkins Disease. ACR Practice Guidelines 2008. DBT Technology DBT is a type of tomographic mammography. With conventional mammography, overlapping breast tissue ma y make lesions difficult to detect, even with good compression. DBT uses an x-ray tube that rotates a round the breast, taking images at different angles. These images are then combined to create thin sl ices of the breast that the radiologist can view as a 3D reconstruction. The griddig unit can perform full-field digital mammograms (2D imaging); or DBT (3D imaging); or both, in a combination mode that quickly performs both the mammogram and the tomosynthesis scan while the breast is still compressed. PQRS 6045F: Fluoroscopic imaging is not utilized for breast tomosynthesis. TECHNICAL DOCUMENTATION: FINDING NUMBER: (1) ASSESSMENT: (1) JOB ID: [id number] [employer]- All Rights Reserved Reading location - IP/workstation name: [email or web address]
== END ==
LOC: WI 10:21
PROVIDERS: ATTEND Family Medicine
DX: Z12.31 Encounter for screening mammogram for malignant neoplasm of breast (principal)
CPT/HCPCS: 77063; 77067

== ENCOUNTER → 2018-12-23 | Outpatient (CLI) | payer MEDICARE ==
--- NOTE | 2018-12-23 11:31 | WOMENS IMAGING REPORT ---
EXAM DESCRIPTION: 3D SCREENING MAMMO BILAT COMPLETED DATE/TIME: 12/23/2018 9:08 am REASON FOR STUDY: Z12.31 ROUTINE 3D BILATERAL SCREENING Z12.31 ENCNTR SCREEN MAMMOGRAM FOR MALIGNAN T NEOPLASM OF LAURIE COMPARISON: Multiple since 2008 EXAM PARAMETERS: Standard craniocaudal and mediolateral oblique views of each breast recorded using digital acquisition and breast tomosynthesis. Read with the assistance of CAD. .[facility] - [employer] Ceramic Engineer Version 9.2 LIMITATIONS: None. FINDINGS: Findings present which are benign by mammographic criteria. No suspicious masses, calcific ations or architectural distortion. Pertinent benign findings: Benign bilateral breast parenchymal and vascular calcifications Benign mammographic findings may include one or more of the following: Smooth masses, popcorn/rim/coa rse calcifications, asymmetries, post-procedure changes, and lesions with long-standing stability. IMPRESSION: BENIGN MAMMOGRAPHIC FINDINGS. BIRADS 2 BREAST DENSITY: b. There are scattered areas of fibroglandular density. BIRAD: ASSESSMENT: 2 BENIGN FINDING(S) RECOMMENDATION: ROUTINE SCREENING COMMENT: The patient has been notified of the results by letter per SA requirements. Additional no tification policies are in place for contacting patient with suspicious or incomplete findings. Quality ID #225: The [employer] recommends an annual screening mammogram for women aged 40 years or over. This facility utilizes a reminder system to ensure that all patients receive reminder letters, and/or direct phone calls for appointments. This includes reminders for routine scr eening mammograms, diagnostic mammograms, or other Breast Imaging Interventions when appropriate. Th is patient will be placed in the appropriate reminder system. TECHNICAL DOCUMENTATION: FINDING NUMBER: (1) ASSESSMENT: (1) JOB ID: [id number] 1895 [employer]- All Rights Reserved Reading location - IP/workstation name: [email or web address]
== END ==
LOC: WI 08:41
PROVIDERS: ATTEND Family Medicine
DX: Z12.31 Encounter for screening mammogram for malignant neoplasm of breast (principal)
CPT/HCPCS: 77063; 77067

== ENCOUNTER 2019-08-06 09:58 | Emergency (ER) | payer MEDICARE ==
--- NOTE | 2019-08-06 10:07 | ER Document Report ---
ED General - General Chief Complaint: Flu Symptoms Stated Complaint: FLU SYMPTOMS Primary Care Provider: MACARIO KWOK MD [Primary Care Provider] - Follow up as needed Notes: 64-year-old female history of dialysis presents with chest pressure shortness of breath cough and malaise with fever onset about 2 days ago. History of dialysis Friday had a normal run of dialysis this past Friday TRAVEL OUTSIDE OF THE [place] IN LAST 30 DAYS: No - Related Data Allergies/Adverse Reactions: No Known Allergies Allergy (Verified 02/01/17 17:33) Past Medical History - Social History Smoking Status: Never Smoker Family History: Reviewed & Not Pertinent - Past Medical History Cardiac Medical History: Reports: Hx Coronary Artery Disease - HX CARDIAC STENT, Hx Hypertension - on meds Denies: Hx Heart Attack Pulmonary Medical History: Denies: Hx Asthma, Hx Bronchitis, Hx COPD, Hx Pneumonia Neurological Medical History: Denies: Hx Cerebrovascular Accident, Hx Seizures Endocrine Medical History: Reports: Hx Diabetes Mellitus Type 1, Hx Diabetes Me llitus Type 2 Renal/ Medical History: Reports: Hx End Stage Renal Disease, Hx Hemodialysis. Denies: Hx Peritoneal Dialysis Musculoskeletal Medical History: Reports Hx Arthritis - R SHOULDER, B/L KNEES Past Surgical History: Reports: Hx Hysterectomy, Hx Kidney (Renal Surgery) - Immunizations Hx Diphtheria, Pertussis, Tetanus Vaccination: Yes Physical Exam - Vital signs Vitals: Temp Pulse BP Pulse Ox 98.2 F 74 162/74 H 100 08/06/19 10:07 08/06/19 10:07 08/06/19 10:07 08/06/19 10:07 Course - Re-evaluation Re-evalutation: 08/06/19 11:24 Patient presents with chest pressure with some features typical for ACS and some not, missed dialysis yesterday. Saturation normal. EKG does not show acute T wave or QRS changes from prior. The patient does not have a history of IN. On her labs she has some hyperkalemia of 6.5 and an elevated troponin which is likely secondary to dialysis, however 08/06/19 11:34 Potassium 6.5. Influenza negative chest x-ray clear Mild white countcould be viral Troponin is detectable but not horribly elevated and with no EKG changes is likely secondary to renal failure Discussed with Dr. Gorman from renal. Recommended single dose IV calcium and that he will dialyze patient. Discussed with Dr. Sanchez the hospitalist service who does not want to admit yet but would rather repeat a troponin So plan at this time is to give IV calcium send patient up for dialysisher vitals are normal and she looks good at about 10:35 AM, then bring her back down repeat a troponin and decide on disposition. 08/06/19 16:09 Patient's dialysis went smoothly. Vital signs normal. Second troponin is runn ing lower so I do not think this reflects acute coronary syndrome especially given her normal EKG and atypical symptoms. Is likely a viral issue given her elevated white count I do not see any evidence of bacterial infection or sepsis. She will be discharged home to follow-up with her primary. I have discussed with the patient there likely diagnosis, aftercare plan, follow-up plans and my usual and customary return precautions. They verbalized understanding of this. - Vital Signs Vital signs: Temp Pulse Resp BP Pulse Ox 97.4 F 74 18 169/86 H 100 08/06/19 10:32 08/06/19 10:07 08/06/19 11:36 08/06/19 11:36 08/06/19 11:36 - Laboratory Result Diagrams: 08/06/19 10:20 08/06/19 10:20 Laboratory results interpreted by me: 08/06/19 08/06/19 10:20 10:20 WBC 13.9 H RBC 3.45 L Hgb 10.4 L Hct 29.4 L RDW 15.3 H Absolute Neuts (auto) 10.2 H Potassium 6.5 H* BUN 80 H Creatinine 10.34 H Est GFR ( Amer) 5 L Est GFR (MDRD) Non-Af 4 L Glucose 139 H - Diagnostic Test Radiology reviewed: Image reviewed, Reports reviewed - EKG Interpretation by Me EKG shows normal: Sinus rhythm Rate: Normal Rhythm: NSR Critical Care Note - Critical Care Note Total time excluding time spent on procedures (mins): 32 Comments: The above patient is critically ill. Not including procedures, but including direct re-evaluations, speaking with patient and/or consultants, interpreting results, and documenting, I spent the total amount of minute listed listed above on critical care time Discharge - Discharge Clinical Impression: Chest discomfort Condition: Good Disposition: HOME, SELF-CARE Instructions: Chest Pain of Unclear Cause ([facility]) Additional Instructions: No influenza detected. No pneumonia. No evidence of heart attack. You were dialyzed appropriately while in the emergency room and are safely discharged home. Please follow-up with your primary care on Friday Referrals: MACARIO KWOK MD [Primary Care Provider] - Follow up as needed
--- NOTE | 2019-08-06 10:34 | RADIOLOGY REPORT (SQ) ---
EXAM DESCRIPTION: CHEST SINGLE VIEW COMPLETED DATE/TIME: 08/06/2019 10:17 am REASON FOR STUDY: Chest pressure shortness of breath dialysis COMPARISON: None. NUMBER OF VIEWS: One view. TECHNIQUE: Single frontal radiographic view of the chest acquired. LIMITATIONS: None. FINDINGS: LUNGS AND PLEURA: No opacities, masses or pneumothorax. No pleural effusion. MEDIASTINUM AND HILAR STRUCTURES: No masses. Contour normal. HEART AND VASCULAR STRUCTURES: Heart enlarged without failure. Normal vasculature. BONES: No acute findings. HARDWARE: None in the chest. OTHER: No other significant finding. IMPRESSION: HEART ENLARGED WITHOUT FAILURE. NO OTHER SIGNIFICANT RADIOGRAPHIC FINDING IN THE CHEST. TECHNICAL DOCUMENTATION: JOB ID: [id number] 2010 [employer]- All Rights Reserved Reading location - IP/workstation name: [email or web address]
[2019-08-06 10:39] LABS: ABSOLUTE BASOPHILS # (AUTO) 0.1 10^3/uL (0.0-0.2); ABSOLUTE EOSINOPHILS # (AUTO) 0.6 10^3/uL (0.0-0.6); ABSOLUTE LYMPHOCYTES (AUTO) 2.2 10^3/uL (0.5-4.7); ABSOLUTE MONOCYTES (AUTO) 0.8 10^3/uL (0.1-1.4); ABSOLUTE NEUT (AUTO) 10.2 10^3/uL (1.7-8.2); BASOPHILS % (AUTO) 0.6 % (0-2); EOSINOPHILS % (AUTO) 4.3 % (0-6); HEMATOCRIT 29.4 % (36.0-47.0); HEMOGLOBIN 10.4 g/dL (12.0-15.5); LYMPHOCYTES % (AUTO) 15.9 % (13-45); MEAN CORPUSCULAR HGB CONC 35.2 g/dL (32.0-36.0); MEAN CORPUSCULAR VOLUME 85 fl (80-97); MONOCYTES % (AUTO) 5.4 % (3-13); PLATELET COUNT 371 10^3/uL (150-450); RED BLOOD COUNT 3.45 10^6/uL (3.72-5.28); RED CELL DISTRIBUTION WIDTH 15.3 % (11.5-14.0); SEGMENTED NEUTROPHILS % (AUTO) 73.8 % (42-78); TOTAL CELLS COUNTED % (AUTO) 100 %; WHITE BLOOD COUNT 13.9 10^3/uL (4.0-10.5)
[2019-08-06 10:41] LABS: A TYPE INFLUENZA AG NEGATIVE (NEGATIVE); B INFLUENZA AG NEGATIVE (NEGATIVE)
--- NOTE | 2019-08-06 10:42 | EKG REPORT ---
SEVERITY:- ABNORMAL ECG - SINUS RHYTHM LVH WITH SECONDARY REPOLARIZATION ABNORMALITY TALL R WAVE IN V2, CONSIDER RVH OR PMI : Confirmed by: Zelda Hernandez 06-Aug-2019 10:41:41
[2019-08-06 11:09] LABS: ANION GAP 15 (5-19); BLOOD UREA NITROGEN 80 mg/dL (7-20); CALCIUM 9.3 mg/dL (8.4-10.2); CARBON DIOXIDE 25 mmol/L (22-30); CHLORIDE 100 mmol/L (98-107); GLUCOSE 139 mg/dL (75-110)
[2019-08-06 11:14] LABS: POTASSIUM 6.5 mmol/L (3.6-5.0)
[2019-08-06] MEDS ORDERED: CALCIUM GLUCONATE 1000 MG/10 ML INJ IV ONE (11:28)
--- NOTE | 2019-08-06 16:40 | PDOC CONSULTATION ---
Consultation Consult Date: 08/06/19 Provider Consulted: Rocky [facility] Consult reason:: ESRD for dialysis. History of Present Illness Admission Date/PCP: MACARIO KWOK MD History of Present Illness: ANGELIC ROBIN is a 64 year old female with history of ESRD in the background of diabetes mellitus, hypertension with other comorbidities that includes CAD, COPD was admitted with history of progressive generalized myalgia, intermittent fever without chills, cough with no expectoration, intermittent diarrhea for the last couple of weeks. Her last dialysis was on Friday and she says she could not go for dialysis yesterday on because of her generalized myalgia and intermittent diarrhea and so she stayed home. Today she found that she was getting progressively worse and decided initially to go to the urgent care where she was referred to go to the ER. Currently she is being seen while undergoing dialysis. Has history of noncompliance with diet and medications and and well known to cut short her dialysis treatments in the past. No complaints of any fever or chills at the moment. Labs and medications were reviewed. Her potassium was high without any EKG changes. Dialysis orders were reviewed with the treating dialysis nurse. She denies any history of chest pain even though she has had generalized ache all over the chest as part of her generalized myalgia.She also has some shortness of breath which has been chronic. Past Medical History Cardiac Medical History: Reports: Coronary Artery Disease - HX CARDIAC STENT, Hypertension-primary Denies: Myocardial Infarction Pulmonary Medical History: Denies: Asthma, Bronchitis, Chronic Obstructive Pulmonary Disease (COPD), Pneumonia Neurological Medical History: Denies: Seizures Endocrine Medical History: Reports: Diabetes Mellitus Type 2 Renal/ Medical History: Reports: End Stage Renal Disease, Secondary Hyperparathyroidism Musculoskeltal Medical History: Reports: Arthritis - R SHOULDER, B/L KNEES Hematology Medical History: Reports Anemia of Chronic Kidney Disease Past Surgical History Past Surgical History: Reports: Hysterectomy Social History Smoking Status: Never Smoker Frequency of Alcohol Use: None Hx Recreational Drug Use: No Drugs: None Hx Prescription Drug Abuse: No Family History Parental Family History Reviewed: Yes - Negative for ESRD Children Family History Reviewed: No Sibling(s) Family History Reviewed.: No Medication/Allergy Allergies/Adverse Reactions: No Known Allergies Allergy (Verified 02/01/17 17:33) Review of Systems Constitutional: PRESENT: anorexia, fatigue, fever(s), weakness. ABSENT: chills, headache(s), night sweats Ears: ABSENT: hearing changes Nose, Mouth, and Throat: ABSENT: headache(s), mouth pain, sore throat Cardiovascular: PRESENT: dyspnea on exertion. ABSENT: chest pain, edema, orthropnea Respiratory: PRESENT: cough, dyspnea. ABSENT: hemoptysis Gastrointestinal: PRESENT: diarrhea. ABSENT: abdominal pain, bloating, coffee ground emesis, constipation, dysphagia, heartburn, hematemesis, hematochezia, nausea, vomiting Genitourinary: ABSENT: difficulty urinating, dysuria, hematuria Musculoskeletal: ABSENT: deformity, joint swelling Integumentary: ABSENT: lesions, pruritus, rash Neurological: ABSENT: abnormal movements, abnormal speech, confusion, focal weakness, frequent falls Hematologic/Lymphatic: ABSENT: easy bleeding, lymphadenopathy Physical Exam Vital Signs: Temp Pulse Resp BP Pulse Ox 97.4 F 74 18 169/86 H 100 08/06/19 10:32 08/06/19 10:07 08/06/19 11:36 08/06/19 11:36 08/06/19 11:36 Intake & Output 08/05/19 08/06/19 08/07/19 06:59 06:59 06:59 Intake Total 1000 Output Total 1573 Balance -573 Weight 102.5 kg General appearance: PRESENT: no acute distress Eye exam: PRESENT: EOMI, PERRLA. ABSENT: scleral icterus Ear exam: PRESENT: normal external ear exam Mouth exam: PRESENT: moist Neck exam: ABSENT: lymphadenopathy, meningismus, tenderness, thyromegaly, tracheal deviation Respiratory exam: PRESENT: clear to auscultation genia. ABSENT: crackles Cardiovascular exam: PRESENT: +S1, +S2 GI/Abdominal exam: PRESENT: normal bowel sounds, soft. ABSENT: organomegaly, tenderness Extremities exam: ABSENT: pedal edema Neurological exam: PRESENT: alert, awake, oriented to person, oriented to place Psychiatric exam: PRESENT: appropriate affect Skin exam: ABSENT: cyanosis, erythema, mottled Results Laboratory Results: 08/06/19 10:20 08/06/19 10:20 08/06/19 08/06/19 10:20 10:20 WBC 13.9 H RBC 3.45 L Hgb 10.4 L Hct 29.4 L MCV 85 MCH 30.0 MCHC 35.2 RDW 15.3 H Plt Count 371 Seg Neutrophils % 73.8 Sodium 139.7 Potassium 6.5 H* Chloride 100 Carbon Dioxide 25 Anion Gap 15 BUN 80 H Creatinine 10.34 H Est GFR ( Amer) 5 L Glucose 139 H Calcium 9.3 08/06/19 08/06/19 10:20 15:00 Troponin I 0.154 0.140 Impressions: Chest X-Ray 08/06/19 10:06 IMPRESSION: HEART ENLARGED WITHOUT FAILURE. NO OTHER SIGNIFICANT RADIOGRAPHIC FINDING IN THE CHEST. Assessment & Plan - Diagnosis (1) ESRD (end stage renal disease) on dialysis Plan: She is being dialyzed because of her hyperkalemia and the fact that she missed her last dialysis treatment. Dialysis is going well. Vital signs are stable. Plan to remove between 1-2 L of fluid. Dialysis is being supervised to ensure safe and smooth procedure. Dialysis orders were reviewed with the treating dialysis nurse. She denies any specific chest pain other than the generalized myalgia that she has. (2) Viral illness Plan: Symptoms are indicative of such. Influenza serologies negative. Further management as per hospitalist. (3) Hypertension Plan: Controlled. Monitor. See response to dialysis. (4) Diabetes mellitus Plan: Advised tight control.
[2019-08-06 17:28] VITALS: BP 133/62
== END 2019-08-06 17:27 | disposition home or self-care (01) ==
LOC: ER 09:58
DX: R07.89 Other chest pain (principal); E87.5 Hyperkalemia; I12.0 Hypertensive chronic kidney disease with stage 5 chronic kidney disease or end stage renal disease; N18.6 End stage renal disease; R53.81 Other malaise; Z99.2 Dependence on renal dialysis; Z91.15 Patient's noncompliance with renal dialysis; R06.02 Shortness of breath; R05 Cough; R50.9 Fever, unspecified; D72.829 Elevated white blood cell count, unspecified; I25.10 Atherosclerotic heart disease of native coronary artery without angina pectoris; R79.89 Other specified abnormal findings of blood chemistry; Z95.5 Presence of coronary angioplasty implant and graft
CPT/HCPCS: 93005; 99285; 96365; 36415; 85025; 80048; 84484; 87804; 71045; 93010; J0610; G0257

== ENCOUNTER 2019-08-15 23:20 | Emergency (ER) | payer MEDICARE ==
--- NOTE | 2019-08-15 23:26 | ER Document Report ---
ED General - General Stated Complaint: SHORTNESS OF BREATH Time Seen by Provider: 08/15/19 23:24 Primary Care Provider: HANS QUIROZ MD [ACTIVE STAFF] - Follow up as needed MACARIO KWOK MD [Primary Care Provider] - Follow up as needed Mode of Arrival: Medic Information source: Patient, Relative, Emergency Med Personnel TRAVEL OUTSIDE OF THE [place] IN LAST 30 DAYS: No - HPI Onset: This evening Onset/Duration: Gradual Quality of pain: Pressure Severity: Severe Pain Level: 3 Associated symptoms: Nonproductive cough, Shortness of breath Exacerbated by: Other - exertion Relieved by: Denies Similar symptoms previously: No Notes: 64 year old female with a history of ESRD (she missed dialysis friday), CAD, HTN, DM here for chest pain and shortness of breath since this evening. The patient says the pain feels like a pressure and she felt like she could not get a breath at all. The patient has had a recent viral illness in the last few weeks but she denies any fevers, chills, sweats. The patient denies radiation of chest pain. - Related Data Allergies/Adverse Reactions: No Known Allergies Allergy (Verified 02/01/17 17:33) Past Medical History - General Information source: Patient, Emergency Med Personnel - Social History Smoking Status: Former Smoker Frequency of alcohol use: None Drug Abuse: None Lives with: Spouse/Significant other Family History: Reviewed & Not Pertinent - Past Medical History Cardiac Medical History: Reports: Hx Coronary Artery Disease - HX CARDIAC STENT, Hx Hypertension - on meds Denies: Hx Heart Attack Pulmonary Medical History: Denies: Hx Asthma, Hx Bronchitis, Hx COPD, Hx Pneumonia Neurological Medical History: Denies: Hx Cerebrovascular Accident, Hx Seizures Endocrine Medical History: Reports: Hx Diabetes Mellitus Type 1, Hx Diabetes Mellitus Type 2 Renal/ Medical History: Reports: Hx End Stage Renal Disease, Hx Hemodialysis. Denies: Hx Peritoneal Dialysis Musculoskeletal Medical History: Reports Hx Arthritis - R SHOULDER, B/L KNEES Past Surgical History: Reports: Hx Hysterectomy, Hx Kidney (Renal Surgery) - Immunizations Hx Diphtheria, Pertussis, Tetanus Vaccination: Yes Review of Systems - Review of Systems Constitutional: No symptoms reported EENT: No symptoms reported Cardiovascular: Chest pain Respiratory: Cough, Short of breath, Wheezing Gastrointestinal: No symptoms reported Genitourinary: No symptoms reported Female Genitourinary: No symptoms reported Musculoskeletal: No symptoms reported Skin: No symptoms reported Hematologic/Lymphatic: No symptoms reported Neurological/Psychological: No symptoms reported -: Yes All other systems reviewed and negative Physical Exam - Vital signs Vitals: Resp 23 H 08/15/19 23:25 - Notes Notes: GENERAL: Short of breath with increased work or breathing, chronically ill- appearing, well-nourished and in no acute distress. HEAD: Atraumatic, normocephalic. EYES: Pupils equal round and reactive to light, extraocular movements intact, sclera anicteric, conjunctiva are normal. ENT: TMs normal, nares patent, oropharynx clear without exudates. Moist mucous membranes. NECK: Normal range of motion, supple without lymphadenopathy or JVD. LUNGS: Decreased breath sounds but clear to auscultation bilaterally and equal. Mild rales present. HEART: Tachycardic, normal rhythm without murmurs, rubs or gallops. ABDOMEN: Soft, nontender, normoactive bowel sounds. No guarding, no rebound. No masses appreciated. EXTREMITIES: Normal range of motion, no pitting or edema. No clubbing or cyanosis. NEUROLOGICAL: Cranial nerves II through XII grossly intact. Normal speech, nor mal gait. PSYCH: Normal mood, normal affect. SKIN: Warm, Dry, normal turgor, no rashes or lesions noted. Course - Re-evaluation Re-evalutation: 08/16/19 03:56 The patient came to the ER by EMS for shortness of breath and chest pain in the setting of skipping her dialysis this last Friday. Patient's K is only 5.5 and her chest xray is not terribly volume over loaded. The patient was kept on bipap for several hours until her breathing normalized. Patient is now stable but is in need of semi urgent dialysis. There is no dialysis available at [facility] at the moment since there is no Kids [employer] Attendant ventilation worker. Patient was told to call her Kids [employer] Attendant and have dialysis today (08/16/19) instead of waiting until her normall scheduled appointment on Friday since she skipped this last Friday. Patient also told to have an outpatient cardiac stress test. Patient's Trop is chronically elevated but around her baseline and her EKG is unremarkable. - Vital Signs Vital signs: Temp Pulse Resp BP Pulse Ox 97.9 F 17 149/67 H 100 08/16/19 01:45 08/16/19 03:46 08/16/19 03:31 08/16/19 03:46 - Laboratory Result Diagrams: 08/16/19 00:05 08/15/19 23:30 Laboratory results interpreted by me: 08/15/19 08/15/19 08/16/19 23:30 23:30 00:05 WBC 16.1 H RBC 3.15 L Hgb 9.3 L Hct 27.6 L RDW 15.2 H Lymph % (Auto) 8.5 L Absolute Neuts (auto) 13.4 H Seg Neutrophils % 83.4 H Potassium 5.5 H Carbon Dioxide 21 L BUN 62 H Creatinine 9.41 H Est GFR ( Amer) 5 L Est GFR (MDRD) Non-Af 4 L Glucose 323 H Calcium 8.0 L Direct Bilirubin 0.5 H NT-Pro-B Natriuret Pep 34439 H - Diagnostic Test Radiology reviewed: Image reviewed, Reports reviewed - EKG Interpretation by Me EKG shows normal: Sinus rhythm, [place], Intervals, QRS Complexes Rate: Normal Additional EKG results interpreted by me: 08/15/19 23:30 T wave inversions in I, aVR, aVL Discharge - Discharge Clinical Impression: End stage kidney disease Volume overload Qualifiers: Hypervolemia type: unspecified Qualified Code(s): E87.70 - Fluid overload, unspecified Condition: Stable Disposition: HOME, SELF-CARE Instructions: Chest Pain of Unclear Cause ([facility]), Kidney Failure ([facility]) Additional Instructions: Call your [facility] today and make an appointment for dialysis today (08/16/19). Tell your doctor you came to the ER for shortness of breath and chest pain in the setting of missing dialysis this last Friday. Follow up with your primary care doctor and with a Diet Clerk and schedule an outpatient Cardiac Stress test. Referrals: MACARIO KWOK MD [Primary Care Provider] - Follow up as needed HANS QUIROZ MD [ACTIVE STAFF] - Follow up as needed
[2019-08-15 23:56] LABS: ALBUMIN 3.5 g/dL (3.5-5.0); ALKALINE PHOSPHATASE 91 U/L (38-126); ANION GAP 17 (5-19); ASPARTATE AMINO TRANSFERASE 16 U/L (14-36); BILIRUBIN,DIRECT 0.5 mg/dL (0.0-0.4); BILIRUBIN,TOTAL 0.5 mg/dL (0.2-1.3); BLOOD UREA NITROGEN 62 mg/dL (7-20); CARBON DIOXIDE 21 mmol/L (22-30); CHLORIDE 102 mmol/L (98-107); GLUCOSE 323 mg/dL (75-110); POTASSIUM 5.5 mmol/L (3.6-5.0)
--- NOTE | 2019-08-16 00:01 | RADIOLOGY REPORT (SQ) ---
EXAM DESCRIPTION: XR CHEST 1 VIEW COMPLETED DATE/TME: 08/15/2019 23:27 CLINICAL HISTORY: 64 years, Female, short of breath COMPARISON: None. NUMBER OF VIEWS: TECHNIQUE: LIMITATIONS: None. FINDINGS: There is a small right pleural effusion. No evidence of pulmonary consolidation. The heart is top normal to mildly enlarged. Pulmonary vascularity appears normal. There are atherosclerotic changes and tortuosity of the thoracic aorta. IMPRESSION: Small right pleural effusion. copyright 2010 [employer]- All Rights Reserved
[2019-08-16 00:18] LABS: ABSOLUTE BASOPHILS # (AUTO) 0.1 10^3/uL (0.0-0.2); ABSOLUTE EOSINOPHILS # (AUTO) 0.4 10^3/uL (0.0-0.6); ABSOLUTE LYMPHOCYTES (AUTO) 1.4 10^3/uL (0.5-4.7); ABSOLUTE MONOCYTES (AUTO) 0.9 10^3/uL (0.1-1.4); ABSOLUTE NEUT (AUTO) 13.4 10^3/uL (1.7-8.2); BASOPHILS % (AUTO) 0.4 % (0-2); EOSINOPHILS % (AUTO) 2.3 % (0-6); HEMATOCRIT 27.6 % (36.0-47.0); HEMOGLOBIN 9.3 g/dL (12.0-15.5); LYMPHOCYTES % (AUTO) 8.5 % (13-45); MEAN CORPUSCULAR HEMOGLOBIN 29.7 pg (27.0-33.4); MEAN CORPUSCULAR HGB CONC 33.8 g/dL (32.0-36.0); MONOCYTES % (AUTO) 5.4 % (3-13); PLATELET COUNT 329 10^3/uL (150-450); RED BLOOD COUNT 3.15 10^6/uL (3.72-5.28); RED CELL DISTRIBUTION WIDTH 15.2 % (11.5-14.0); SEGMENTED NEUTROPHILS % (AUTO) 83.4 % (42-78); TOTAL CELLS COUNTED % (AUTO) 100 %; WHITE BLOOD COUNT 16.1 10^3/uL (4.0-10.5)
[2019-08-16 00:20] LABS: TROPONIN I 0.16 ng/mL
[2019-08-16 00:30] LABS: MEAN CORPUSCULAR VOLUME 88 fl (80-97)
[2019-08-16 03:58] VITALS: BP 149/67
--- NOTE | 2019-08-16 07:09 | EKG REPORT ---
SEVERITY:- ABNORMAL ECG - SINUS RHYTHM NONSPECIFIC T ABNORMALITIES DIFFUSE LEADS : Confirmed by: Oumar Gregory MD 16-Aug-2019 07:09:19
== END 2019-08-16 04:22 | disposition home or self-care (01) ==
LOC: ER 23:20
DX: I12.0 Hypertensive chronic kidney disease with stage 5 chronic kidney disease or end stage renal disease (principal); E11.22 Type 2 diabetes mellitus with diabetic chronic kidney disease; N18.6 End stage renal disease; Z99.2 Dependence on renal dialysis; Z91.15 Patient's noncompliance with renal dialysis; E87.70 Fluid overload, unspecified; I25.10 Atherosclerotic heart disease of native coronary artery without angina pectoris; R06.02 Shortness of breath; R06.2 Wheezing; R07.89 Other chest pain; Z87.891 Personal history of nicotine dependence; R00.0 Tachycardia, unspecified
CPT/HCPCS: 36415; 71045; 80053; 83605; 83735; 83880; 84484; 85025; 93005; 93010; 99285

== ENCOUNTER 2019-11-01 11:09 | Inpatient (IN) | payer MEDICARE ==
--- NOTE | 2019-11-01 11:21 | ER Document Report ---
ED General - General Chief Complaint: Shortness Of Breath Stated Complaint: SHORTNESS OF BREATH Primary Care Provider: MACARIO KWOK MD [Primary Care Provider] - Follow up as needed Information source: Patient Notes: Patient is a 64-year-old female presenting to the emergency department chief complaint of shortness of breath. At time of examination patient states that the shortness of breath is because of chest pain with deep inspiration. Patient states it is been ongoing for the past 2 to 3 days worse this morning. Patient states the pain is severe. She states that it is all the way across the front of her chest patient cannot localize. Patient is a Friday dialysis patient. Patient states on Friday it was normal dialysis. Patient denies fevers or chills cough or cold type symptoms patient denies nausea vomiting or diarrhea. TRAVEL OUTSIDE OF THE [place] IN LAST 30 DAYS: No - HPI Onset: Last week Onset/Duration: Intermittent, Worse Quality of pain: Throbbing Severity: Severe Pain Level: 5 Associated symptoms: Shortness of breath. denies: Chills, Nonproductive cough, Productive cough, Fever, Nausea, Vomiting Exacerbated by: Movement, Walking, Coughing, Deep breathing Relieved by: Denies Similar symptoms previously: No Recently seen / treated by doctor: No - Related Data Allergies/Adverse Reactions: No Known Allergies Allergy (Verified 02/01/17 17:33) Past Medical History - General Information source: Patient, [facility] Records - Social History Smoking Status: Unknown if Ever Smoked Cigarette use (# per day): No Chew tobacco use (# tins/day): No Smoking Education Provided: No Frequency of alcohol use: None Drug Abuse: None Lives with: Family Family History: Reviewed & Not Pertinent Patient has suicidal ideation: No Patient has homicidal ideation: No - Past Medical History Cardiac Medical History: Reports: Hx Coronary Artery Disease - HX CARDIAC STENT, Hx Hypertension - on meds Denies: Hx Heart Attack Pulmonary Medical History: Denies: Hx Asthma, Hx Bronchitis, Hx COPD, Hx Pneumonia Neurological Medical History: Denies: Hx Cerebrovascular Accident, Hx Seizures Endocrine Medical History: Reports: Hx Diabetes Mellitus Type 1, Hx Diabetes Mellitus Type 2 Renal/ Medical History: Reports: Hx End Stage Renal Disease, Hx Hemodialysis. Denies: Hx Peritoneal Dialysis Musculoskeletal Medical History: Reports Hx Arthritis - R SHOULDER, B/L KNEES Past Surgical History: Reports: Hx Hysterectomy, Hx Kidney (Renal Surgery) - Immunizations Hx Diphtheria, Pertussis, Tetanus Vaccination: Yes Review of Systems - Review of Systems Notes: REVIEW OF SYSTEMS: CONSTITUTIONAL : Denies fever, chills, or sweats. Denies recent illness. EENT: Denies eye, ear, throat, or mouth pain or symptoms. Denies nasal or sinus congestion. CARDIOVASCULAR: Per HPI RESPIRATORY: Per HPI GASTROINTESTINAL: Denies abdominal pain. Denies nausea, vomiting, or diarrhea. Denies constipation. GENITOURINARY: Denies difficulty urinating, painful urination, burning, frequency, or blood in urine. MUSCULOSKELETAL: Denies neck or back pain or joint pain or swelling. SKIN: Denies rash or skin lesions. HEMATOLOGIC : Denies easy bruising or bleeding. NEUROLOGICAL: Denies altered mental status or loss of consciousness. Denies headache. Denies weakness or paralysis or loss of use of either side. Denies problems with gait or speech. Denies sensory or motor loss. PSYCHIATRIC: Denies suicidal or homicidal ideations 10 Systems are negative unless otherwise specified above Physical Exam - Vital signs Vitals: Temp 98.7 F 11/01/19 11:19 - Notes Notes: PHYSICAL EXAMINATION: GENERAL: Patient is a 64-year-old female presenting to the emergency department chief complaint of chest pain and shortness of breath in obvious discomfort. HEAD: Atraumatic, normocephalic. EYES: Pupils equal round and reactive to light, extraocular movements intact, sclera anicteric, conjunctiva are normal. ENT: nares patent, oropharynx clear without exudates. Moist mucous membranes. NECK: Normal range of motion, supple without lymphadenopathy, no appreciable JVD LUNGS: Lungs clear to auscultation bilaterally poor excursion secondary to chest pain HEART: Regular rate and rhythm without murmurs ABDOMEN: Soft, nontender, normal bowel sounds. No guarding, no rebound. No masses appreciated. EXTREMITIES: Active full range of motion, palpable thrill to left arm/forearm fistula, lower extremity 1+ edema and firmness. NEUROLOGICAL: No focal neurological deficits. Moves all extremities spontaneously and on command. SKIN: Warm, Dry, and intact. Normal turgor, no rashes or lesions noted. Course - Re-evaluation Re-evalutation: 11/01/19 12:04 Called and spoke with Dr Saucedo, Cardiology communication lecturer and he states he will see the patient in the ER. 11/01/19 12:42 Patient has been seen by Dr. Vazquez the design analyst communication lecturer who did a bedside echo he feels that this is pericarditis and recommends patient be admitted under the hospitalist service to telemetry. I have spoken with Dr. Maldonado hospitalist communication lecturer who has accepted the patient tentatively and is requesting call back after laboratory studies have resulted. 11/01/19 14:15 Patient has been maintained on a residential support specialist and has been re-evaluated several times while in the ER. I have spoken to Dr. Sadler nephrology communication lecturer and she is agreeable with having the patient brought into the hospital for admission she is requesting that the patient be moved upstairs as soon as possible so dialysis may be accomplished today. I have spoken to the hospitalist he is aware of the patient's lab results and is agreeable with admission. Patient is stable at this time. - Vital Signs Vital signs: Temp Pulse Resp BP Pulse Ox 98.7 F 80 22 H 142/65 H 98 11/01/19 11:22 11/01/19 11:22 11/01/19 11:22 11/01/19 11:22 11/01/19 11:22 - Laboratory Result Diagrams: 11/01/19 11:55 11/01/19 11:55 Laboratory results interpreted by me: 11/01/19 11/01/19 11/01/19 11:55 11:55 11:55 WBC 15.2 H RBC 3.03 L Hgb 8.3 L Hct 24.8 L RDW 17.4 H Lymph % (Auto) 7.9 L Absolute Neuts (auto) 12.3 H Absolute Monos (auto) 1.5 H Seg Neutrophils % 80.9 H PT 17.2 H APTT 36.3 H D-Dimer 6.52 H Sodium Chloride BUN Creatinine Est GFR ( Amer) Est GFR (MDRD) Non-Af Glucose Direct Bilirubin ALT NT-Pro-B Natriuret Pep 54044 H 11/01/19 11:55 WBC RBC Hgb Hct RDW Lymph % (Auto) Absolute Neuts (auto) Absolute Monos (auto) Seg Neutrophils % PT APTT D-Dimer Sodium 132.1 L Chloride 91 L BUN 47 H Creatinine 9.74 H Est GFR ( Amer) 5 L Est GFR (MDRD) Non-Af 4 L Glucose 241 H Direct Bilirubin 0.5 H ALT 45 H NT-Pro-B Natriuret Pep - Diagnostic Test Radiology reviewed: Reports reviewed - EKG Interpretation by Me EKG shows normal: Sinus rhythm Rate: Normal Rhythm: NSR When compared to previous EKG there are: Previous EKG unavailable Additional EKG results interpreted by me: 11/01/19 13:[address] elevation in 2 aVF, V1 through V6 indicative of pericarditis At 1300 and repeat EKG was obtained demonstrating similar morphology rate of 80 bpm. Critical Care Note - Critical Care Note Total time excluding time spent on procedures (mins): 40 Comments: Please allow 40 minutes of critical care time spent obtaining history from patient or surrogate, discussions with consultants, development of treatment plan with patient or surrogate, evaluation of patient's response to treatment, examination of patient. This also includes ordering and reviewing laboratory, EKG and / or radiologic studies, performing and reassessing treatments and interventions as well as reviewing previous visits and old charts. This is exclusive of separately billable procedures. Discharge - Discharge Clinical Impression: ESRD (end stage renal disease) on dialysis Pericarditis Qualifiers: Pericarditis type: unspecified type Chronicity: acute Qualified Code(s): I30.9 - Acute pericarditis, unspecified Chest pain Qualifiers: Chest pain type: other chest pain Qualified Code(s): R07.89 - Other chest pain; R07.8 - Other chest pain Condition: Fair Disposition: ADMITTED INPATIENT Admitting Provider: Erica (Hospitalist) Unit Admitted: Telemetry Referrals: MACARIO KWOK MD [Primary Care Provider] - Follow up as needed
[2019-11-01] MEDS ORDERED: ASPIRIN 81 MG TABLET, CHEWABLE PO ONE (11:51)
[2019-11-01] MEDS ORDERED: NITROGLYCERIN 0.4 MG/TAB 25 TAB/BOTTLE SL PRN (11:52)
[2019-11-01 12:06] LABS: ABSOLUTE BASOPHILS # (AUTO) 0.1 10^3/uL (0.0-0.2); ABSOLUTE EOSINOPHILS # (AUTO) 0.2 10^3/uL (0.0-0.6); ABSOLUTE LYMPHOCYTES (AUTO) 1.2 10^3/uL (0.5-4.7); ABSOLUTE MONOCYTES (AUTO) 1.5 10^3/uL (0.1-1.4); ABSOLUTE NEUT (AUTO) 12.3 10^3/uL (1.7-8.2); BASOPHILS % (AUTO) 0.5 % (0-2); EOSINOPHILS % (AUTO) 1.1 % (0-6); HEMATOCRIT 24.8 % (36.0-47.0); HEMOGLOBIN 8.3 g/dL (12.0-15.5); LYMPHOCYTES % (AUTO) 7.9 % (13-45); MEAN CORPUSCULAR HEMOGLOBIN 27.4 pg (27.0-33.4); MEAN CORPUSCULAR HGB CONC 33.5 g/dL (32.0-36.0); MEAN CORPUSCULAR VOLUME 82 fl (80-97); MONOCYTES % (AUTO) 9.6 % (3-13); PLATELET COUNT 311 10^3/uL (150-450); RED BLOOD COUNT 3.03 10^6/uL (3.72-5.28); RED CELL DISTRIBUTION WIDTH 17.4 % (11.5-14.0); SEGMENTED NEUTROPHILS % (AUTO) 80.9 % (42-78); TOTAL CELLS COUNTED % (AUTO) 100 %; WHITE BLOOD COUNT 15.2 10^3/uL (4.0-10.5)
[2019-11-01 12:11] LABS: INTERNATIONAL RATION (INR) 1.39; PROTHROMBIN TIME 17.2 SEC (11.4-15.4)
[2019-11-01 12:12] LABS: PARTIAL THROMBOPLASTIN TIME 36.3 SEC (23.5-35.8)
[2019-11-01 12:36] LABS: CREATINE KINASE MB 2.1 ng/mL (<4.55)
[2019-11-01] MEDS ORDERED: COLCHICINE 0.6 MG TABLET PO ONE (12:42)
--- NOTE | 2019-11-01 12:46 | RADIOLOGY REPORT (SQ) ---
EXAM DESCRIPTION: CHEST SINGLE VIEW IMAGES COMPLETED DATE/TIME: 11/01/2019 12:31 pm REASON FOR STUDY: cp COMPARISON: 08/15/2019 EXAM PARAMETERS: NUMBER OF VIEWS: One view. TECHNIQUE: Single frontal radiographic view of the chest acquired. RADIATION DOSE: NA LIMITATIONS: None. FINDINGS: LUNGS AND PLEURA: Blunting the right costophrenic angle. There is ill-defined retrocardia c opacification on the left that blurred is the left hemidiaphragm. MEDIASTINUM AND HILAR STRUCTURES: No masses. Contour normal. HEART AND VASCULAR STRUCTURES: Cardiomegaly. No chantel pulmonary edema. BONES: No acute findings. HARDWARE: None in the chest. OTHER: No other significant finding. IMPRESSION: Cardiomegaly without pulmonary edema. Small pleural effusions. Cannot exclude limited left lower lobe pneumonia. TECHNICAL DOCUMENTATION: JOB ID: [id number] 2010 [employer]- All Rights Reserved Reading location - IP/workstation name: [email or web address]
[2019-11-01 12:48] LABS: D-DIMER 6.52 ug/mL (0.00-0.50)
[2019-11-01 12:52] LABS: TROPONIN I 0.23 ng/mL
[2019-11-01 13:38] LABS: ALBUMIN 3.6 g/dL (3.5-5.0); ALKALINE PHOSPHATASE 115 U/L (38-126); ANION GAP 16 (5-19); ASPARTATE AMINO TRANSFERASE 32 U/L (14-36); BILIRUBIN,DIRECT 0.5 mg/dL (0.0-0.4); BILIRUBIN,TOTAL 0.8 mg/dL (0.2-1.3); BLOOD UREA NITROGEN 47 mg/dL (7-20); CALCIUM 8.6 mg/dL (8.4-10.2); CARBON DIOXIDE 25 mmol/L (22-30); CHLORIDE 91 mmol/L (98-107); GLUCOSE 241 mg/dL (75-110); POTASSIUM 4.6 mmol/L (3.6-5.0); TOTAL PROTEIN 7.1 g/dL (6.3-8.2)
--- NOTE | 2019-11-01 14:17 | EKG REPORT ---
SEVERITY:- ABNORMAL ECG - SINUS RHYTHM ATRIAL PREMATURE COMPLEX ST ELEVATION SUGGESTS PERICARDITIS : Confirmed by: Brittanie Romero MD 01-Nov-2019 14:16:21
--- NOTE | 2019-11-01 14:17 | EKG REPORT ---
SEVERITY:- ABNORMAL ECG - SINUS RHYTHM ATRIAL PREMATURE COMPLEX ST ELEVATION SUGGESTS PERICARDITIS : Confirmed by: Brittanie Romero MD 01-Nov-2019 14:16:32
--- NOTE | 2019-11-01 16:47 | XCELERA REPORT ---
[address] [address] Transthoracic Echocardiogram Report Name: ANGELIC ROBIN Age: 64 yrs Gender: Female : 1955 Patient Status: Inpatient Patient Location: [place] [address]^A Study Date: 11/01/2019 12:35 PM Height: 63 in Weight: 240 lb BSA: 2.1 m2 Procedure: A complete two-dimensional transthoracic echocardiogram was performed (2D, M-mode, spectral and color flow Doppler). The study was technically difficult with many images being suboptimal in quality. Reason For Study: CP Ordering Physician: KIRK VAZQUEZ Performed By: Zoie Zhang Interpretation Summary The left ventricle is grossly normal size. The left ventricular ejection fraction is within normal limits. The Ejection Fraction estimate is 60-65%. Doppler measurements suggest impaired left ventricular relaxation, which is associated with grade I/IV or mild diastolic dysfunction. No regional wall motion abnormalities noted. There is no thrombus. Mild LAE. Trace MR, mild TR. Trace to small, hemodynamically insignificant posterior and apical pericardial effusion. No prior studies for comparison. MMode/2D Measurements & Calculations RVDd: 3.5 cm LVIDd: 4.0 cm FS: 41.1 % Ao root diam: 2.8 cm IVSd: 1.6 cm LVIDs: 2.3 cm EDV(Teich): 68.6 ml Ao root area: 6.3 cm2 LVPWd: 1.3 cm ESV(Teich): 18.8 ml LA dimension: 4.2 cm EF(Teich): 72.6 % Doppler Measurements & Calculations MV E max farhat: MV P1/2t max farhat: Ao V2 max: LV V1 max P.1 cm/sec 106.1 cm/sec 215.8 cm/sec 4.7 mmHg MV A max farhat: MV P1/2t: 66.9 msec Ao max PG: LV V1 max: 125.9 cm/sec MVA(P1/2t): 3.3 cm2 18.6 mmHg 108.1 cm/sec MV E/A: 0.84 MV dec slope: LV dP/dt: 2272 mmHg/s 464.4 cm/sec2 MV dec time: 0.23 sec PA V2 max: TR max farhat: MV P1/2t-pr_phl: 72.6 cm/sec 249.8 cm/sec 66.9 msec PA max P.1 mmHgTR max P.0 mmHg Left Ventricle The left ventricle is grossly normal size. The left ventricular ejection fraction is within normal limits. The Ejection Fraction estimate is 60-65%. Doppler measurements suggest impaired left ventricular relaxation, which is associated with grade I/IV or mild diastolic dysfunction. No regional wall motion abnormalities noted. There is no thrombus. Right Ventricle The right ventricle is grossly normal size. The right ventricular systolic function is normal. Atria The right atrium is normal. The left atrium is mildly dilated. Interarterial septum not well visualized and not well dopplered. Cannot comment on ASD/PFO presence. Mitral Valve Calcified mitral apparatus. No significant mitral valve stenosis. There is a trace amount of mitral regurgitation. Aortic Valve The aortic valve is calcified. No aortic regurgitation is present. Tricuspid Valve The tricuspid valve is not well visualized, but is grossly normal. There is a mild amount of tricuspid regurgitation. Pulmonic Valve The pulmonic valve is not well visualized. There is no pulmonic valvular regurgitation. Great Vessels The inferior vena cava appeared normal and decreased < 50% with respiration (RAP 10-15 mmHg). Effusions Trace to small, hemodynamically insignificant posterior and apical pericardial effusion. : KIRK VAZQUEZ, Kirk
[2019-11-01] MEDS ORDERED: NORMAL SALINE 1000 ML 1,000 ML IV PRN (16:49)
[2019-11-01] MEDS ORDERED: EPOETIN ALFA-EPBX 20,000 UNIT in SYRINGE, DISPOSABLE, 1 EACH IV PRN (16:49)
--- NOTE | 2019-11-01 17:24 | PDOC CONSULTATION ---
Consultation Consult Date: 11/01/19 Provider Consulted: SHARLA ARROYO Consult reason:: ESRD requiring HD History of Present Illness Admission Date/PCP: 11/01/19 14:24 MACARIO KWOK MD History of Present Illness: ANGELIC ROBIN is a 64 year old female known to me with history of end-stage renal disease on maintenance hemodialysis on Tuesdays, and Saturdays, coronary artery disease, diabetes mellitus type 2, and hypertension who presented to the emergency room today complaining of chest pains and shortness of breath. Patient stated that for the last 3 days she has been having this chest pain felt across her chest from right to left described as constant associated with shortness of breath. She otherwise denies any cough, fever, chills. She also mentioned that her ears are hurting while on dialysis more on the right than on the left. Her last dialysis was last Friday and she stated that she completed. It is worth mentioning though that the patient does Short h er dialysis treatments every once in a while may be more often than not. In the emergency room cardiology consult was obtained from Dr. Vazquez who did a bedside echo and I was told by Dr. Abreu, ED provider that Dr. Vazquez thought patient has acute pericarditis. So patient is admitted for further management for that. I am seeing the patient during dialysis treatment this afternoon. She is comfortably tolerating dialysis. Her system clotted one time that needed to be changed. Otherwise she thinks that she actually feels a little bit better than earlier today. She is being monitored closely. Past Medical History Cardiac Medical History: Reports: Coronary Artery Disease - HX CARDIAC STENT, Hypertension-primary Endocrine Medical History: Reports: Diabetes Mellitus Type 2 Complications of Diabetes: Reports: Autonomic Neuropathy, Nephropathy, Retinopathy Renal/ Medical History: Reports: End Stage Renal Disease, Proteinuria, Secondary Hyperparathyroidism Musculoskeltal Medical History: Reports: Arthritis - R SHOULDER, B/L KNEES, Gout Hematology Medical History: Reports Anemia of Chronic Kidney Disease, Reports Iron Deficiency Anemia Past Surgical History Past Surgical History: Reports: Coronary Stent, Dialysis Access Surgery AVF - Cataract surgery, Hysterectomy - Partial with oophorectomy, Tubal Ligation Social History Information Source: Patient, [facility] Records Lives with: Family Smoking Status: Former Smoker Frequency of Alcohol Use: None Hx Recreational Drug Use: No Drugs: None Hx Prescription Drug Abuse: No Family History Family History: Chronic Kidney Disease - Mother, Malignancy - Breast cancer on her paternal grandmother; lung cancer Father, Other - Sickle cell anemia, mother Parental Family History Reviewed: Yes Children Family History Reviewed: Yes Sibling(s) Family History Reviewed.: Yes Medication/Allergy Home Medications: Amlodipine Besylate [Norvasc 10 mg Tablet] 10 mg PO DAILY 11/01/19 Calcium Acetate [Phoslo 667 mg Capsule] 1,334 mg PO TID 11/01/19 Calcium Acetate [Phoslo 667 mg Capsule] 667 mg PO ASDIR PRN 11/01/19 Clonidine HCl [Catapres 0.2 mg Tablet] 0.2 mg PO Q6 11/01/19 Cyclobenzaprine HCl [Flexeril 10 mg Tablet] 10 mg PO BID 11/01/19 Ergocalciferol (Vitamin D2) [Drisdol 50,000 unit (1.25MG) Capsule] 50,000 unit PO MO@1000 11/01/19 Meloxicam [Mobic 7.5 mg Tablet] 7.5 mg PO ASDIR PRN 11/01/19 Allergies/Adverse Reactions: No Known Allergies Allergy (Verified 02/01/17 17:33) Review of Systems All systems: reviewed and no additional remarkable complaints except as stated Review of Systems: Constitutional: ABSENT: chills, fatigue, fever(s), headache(s), weight gain, [place] ght loss Eyes: ABSENT: visual disturbances Ears: ABSENT: hearing changes; admits bilateral ear pain more on the right than left. Cardiovascular: ABSENT: Edema, orthropnea, palpitations; admits chest pains and shortness of breath Respiratory: ABSENT: cough, dyspnea, hemoptysis Gastrointestinal: ABSENT: abdominal pain, constipation, diarrhea, hematemesis, hematochezia, nausea, vomiting Genitourinary: ABSENT: dysuria, hematuria Musculoskeletal: ABSENT: joint swelling Integumentary: ABSENT: rash, wounds Neurological: ABSENT: abnormal gait, abnormal speech, confusion, dizziness, focal weakness, numbness, syncope Psychiatric: ABSENT: anxiety, depression Endocrine: ABSENT: cold intolerance, heat intolerance, polydipsia, polyuria Hematologic/Lymphatic: ABSENT: easy bleeding, easy bruising, lymphadenopathy Physical Exam Vital Signs: Temp Pulse Resp BP Pulse Ox 98.7 F 80 21 H 148/91 H 92 11/01/19 11:22 11/01/19 11:22 11/01/19 14:01 11/01/19 14:01 11/01/19 14:01 Intake & Output 10/31/19 11/01/19 11/02/19 06:59 06:59 06:59 Weight 108.862 kg Vitals during dialysis: Blood pressure 168/85, heart rate of 80, blood flow rate of 400 mL/min and dialysate flow rate of 800 mL/min. Exam: General appearance: No acute distress, cooperative, well-developed, well- nourished Head exam: PRESENT: atraumatic, normocephalic Eye exam: PRESENT: Conjunctiva [place], EOMI, PERRLA. ABSENT: conjunctival injection, scleral icterus Mouth exam: PRESENT: moist, neck supple, tongue midline Neck exam: PRESENT: full ROM. ABSENT: carotid bruit, JVD, lymphadenopathy, thyromegaly Respiratory exam: PRESENT: clear but diminished to auscultation bilaterally. ABSENT: rales, rhonchi, stridor, wheezes Cardiovascular exam: PRESENT: RRR, +S1, +S2. Grade 2/6 systolic murmur; no pericardial rub heard Pulses: PRESENT: normal radial pulses, normal dorsalis pedis pulses GI/Abdominal exam: PRESENT: normal bowel sounds, soft. ABSENT: guarding, mass, tenderness Rectal exam: Deferred Extremities exam: PRESENT: full ROM. Lower extremity skin feels tight as always as her baseline. ABSENT: calf tenderness, pedal edema Musculoskeletal: PRESENT: full ROM. ABSENT: deformity Neurological exam: PRESENT: alert, Awake, Oriented to person, Oriented to place, Oriented to time, reflexes normal, CN II-XII grossly intact. ABSENT: motor sensory deficit Psychiatric exam: PRESENT: appropriate affect, normal mood. ABSENT: homicidal ideation, suicidal ideation Skin exam: PRESENT: intact, dry, warm. ABSENT: rash Results Laboratory Results: 11/01/19 11:55 11/01/19 11:55 11/01/19 11/01/19 11/01/19 11:55 11:55 11:55 WBC 15.2 H RBC 3.03 L Hgb 8.3 L Hct 24.8 L MCV 82 MCH 27.4 MCHC 33.5 RDW 17.4 H Plt Count 311 Seg Neutrophils % 80.9 H Sodium 132.1 L Potassium 4.6 Chloride 91 L Carbon Dioxide 25 Anion Gap 16 BUN 47 H Creatinine 9.74 H Est GFR ( Amer) 5 L Glucose 241 H Calcium 8.6 Total Bilirubin 0.8 AST 32 Alkaline Phosphatase 115 Total Protein 7.1 Albumin 3.6 Lipase 44.8 11/01/19 11/01/19 11:55 11:55 Creatine Kinase 68 CK-MB (CK-2) 2.10 Troponin I 0.230 NT-Pro-B Natriuret Pep [id number] H Impressions: Chest X-Ray 11/01/19 11:50 IMPRESSION: Cardiomegaly without pulmonary edema. Small pleural effusions. Cannot exclude limited left lower lobe pneumonia. Assessment & Plan - Diagnosis (1) ESRD (end stage renal disease) on dialysis Is this a current diagnosis for this admission?: Yes Plan: We will do dialysis today for 3 hours, using the patient's AV fistula, with 2 potassium bath, blood flow rate of 400 mL per minute, dialysate flow rate of 800 mL per minute, ultrafiltration 3 L as tolerated, no heparin and Procrit with 20,000 units during dialysis intravenously. Patient will be monitored continuously throughout dialysis treatment. Will optimize dialysis while here in the hospital. (2) Pericarditis Qualifiers: Pericarditis type: unspecified type Chronicity: acute Qualified Code(s): I30.9 - Acute pericarditis, unspecified Is this a current diagnosis for this admission?: Yes Plan: Will optimize dialysis treatment. Will wait for the official echocardiogram report and see if she also has associated pericardial effusion. If she has significant pericardial effusion she might need daily dialysis. I also advised the patient that she should be compliant with her treatment prescription for dialysis so that she does not get off early like previously as an outpatient. Skidder Operator, Dr. Vazquez is on the case. (3) Anemia in chronic kidney disease (CKD) Is this a current diagnosis for this admission?: Yes Plan: I will give Retacrit as needed. (4) Hypertension Is this a current diagnosis for this admission?: Yes Plan: Resume home blood pressure medications. (5) Diabetes mellitus Is this a current diagnosis for this admission?: Yes - Notes Notes: Thank you very much for this consultation. Discussed with Luis Masters Jr, MARY. - Time Time Spent: 50 to 70 Minutes
[2019-11-01] MEDS ORDERED: ONDANSETRON HCL INJ/PF 4 MG/2 ML SDV IV PRN (17:29)
[2019-11-01] MEDS ORDERED: MAG HYDROX/AL HYDROX/SIMETH SUSP 30 ML UDCUP PO PRN (17:29)
[2019-11-01] MEDS ORDERED: ACETAMINOPHEN 325 MG TABLET PO PRN (17:29)
[2019-11-01] MEDS ORDERED: OXYCODONE-ACETAMINOPHEN 5-325 MG TABLET PO PRN (17:29)
[2019-11-01] MEDS ORDERED: ONDANSETRON 4 MG TAB.RAPDIS PO PRN (17:29)
--- NOTE | 2019-11-01 17:54 | PDOC CONSULTATION ---
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 The patient had been in her usual state of health until 3 days prior to admission when she began with progressive chest discomfort which she describes as a severe pressure, diffusely across her chest, worse when laying flat, better when sitting up, worsened by deep inspiration, constant in nature and without relief for at least 3 days and not associated with palpitations, dizziness, lightheadedness, syncope or presyncope. Past Medical History Cardiac Medical History: Reports: Coronary Artery Disease - HX CARDIAC STENT, Hypertension - on meds Denies: Myocardial Infarction Pulmonary Medical History: Denies: Asthma, Bronchitis, Chronic Obstructive Pulmonary Disease (COPD), Pneumonia Neurological Medical History: Denies: Seizures Endocrine Medical History: Reports: Diabetes Mellitus Type 1, Diabetes Mellitus Type 2 Renal/ Medical History: Reports: End Stage Renal Disease Musculoskeltal Medical History: Reports: Arthritis - R SHOULDER, B/L KNEES Hematology: Reports: Anemia - CURRENT/IRON Past Surgical History Past Surgical History: Reports: Hysterectomy Social History Lives with: Family Smoking Status: Unknown if Ever Smoked Frequency of Alcohol Use: None Hx Recreational Drug Use: No Drugs: None Hx Prescription Drug Abuse: No Family History Family History: Reviewed & Not Pertinent Parental Family History Reviewed: Yes Children Family History Reviewed: Yes Sibling(s) Family History Reviewed.: Yes Medication/Allergy Home Medications: Amlodipine Besylate [Norvasc 10 mg Tablet] 10 mg PO DAILY 11/01/19 Calcium Acetate [Phoslo 667 mg Capsule] 1,334 mg PO TID 11/01/19 Calcium Acetate [Phoslo 667 mg Capsule] 667 mg PO ASDIR PRN 11/01/19 Clonidine HCl [Catapres 0.2 mg Tablet] 0.2 mg PO Q6 11/01/19 Cyclobenzaprine HCl [Flexeril 10 mg Tablet] 10 mg PO BID 11/01/19 Ergocalciferol (Vitamin D2) [Drisdol 50,000 unit (1.25MG) Capsule] 50,000 unit PO MO@1000 11/01/19 Meloxicam [Mobic 7.5 mg Tablet] 7.5 mg PO ASDIR PRN 11/01/19 Allergies/Adverse Reactions: No Known Allergies Allergy (Verified 02/01/17 17:33) Physical Exam Vital Signs: Temp Pulse Resp BP Pulse Ox 98.7 F 80 21 H 148/91 H 92 11/01/19 11:22 11/01/19 11:22 11/01/19 14:01 11/01/19 14:01 11/01/19 14:01 Intake & Output 10/31/19 11/01/19 11/02/19 06:59 06:59 06:59 Weight 108.862 kg General appearance: PRESENT: cooperative, disheveled, morbidly obese, severe distress - The patient is in severe pain and appears uncomfortable., well- developed, well-nourished. ABSENT: no acute distress Head exam: PRESENT: atraumatic, normocephalic Neck exam: ABSENT: carotid bruit, JVD Respiratory exam: PRESENT: clear to auscultation genia. ABSENT: accessory muscle use, chest wall tenderness Cardiovascular exam: PRESENT: RRR, +S1, +S2. ABSENT: gallop, rubs, systolic murmur Pulses: PRESENT: normal carotid pulses Vascular exam: PRESENT: normal capillary refill Extremities exam: PRESENT: +1 edema Neurological exam: PRESENT: alert, awake, oriented to place, oriented to time Results Laboratory Results: 11/01/19 11:55 11/01/19 11:55 11/01/19 11/01/19 11/01/19 11:55 11:55 11:55 WBC 15.2 H RBC 3.03 L Hgb 8.3 L Hct 24.8 L MCV 82 MCH 27.4 MCHC 33.5 RDW 17.4 H Plt Count 311 Seg Neutrophils % 80.9 H Sodium 132.1 L Potassium 4.6 Chloride 91 L Carbon Dioxide 25 Anion Gap 16 BUN 47 H Creatinine 9.74 H Est GFR ( Amer) 5 L Glucose 241 H Calcium 8.6 Total Bilirubin 0.8 AST 32 Alkaline Phosphatase 115 Total Protein 7.1 Albumin 3.6 Lipase 44.8 11/01/19 11/01/19 11:55 11:55 Creatine Kinase 68 CK-MB (CK-2) 2.10 Troponin I 0.230 NT-Pro-B Natriuret Pep [id number] H Impressions: Chest X-Ray 11/01/19 11:50 IMPRESSION: Cardiomegaly without pulmonary edema. Small pleural effusions. Cannot exclude limited left lower lobe pneumonia. 11/01/19 11:55 11/01/19 11:55 MCV 82 fl (80-97) 11/01/19 11:55 MCH 27.4 pg (27.0-33.4) 11/01/19 11:55 MCHC 33.5 g/dL (32.0-36.0) 11/01/19 11:55 RDW 17.4 % (11.5-14.0) H 11/01/19 11:55 Seg Neutrophils % 80.9 % (42-78) H 11/01/19 11:55 Chloride 91 mmol/L (98-107) L 11/01/19 11:55 Carbon Dioxide 25 mmol/L (22-30) 11/01/19 11:55 Anion Gap 16 (5-19) 11/01/19 11:55 Est GFR ( Amer) 5 (>60) L 11/01/19 11:55 Glucose 241 mg/dL (75-110) H 11/01/19 11:55 Calcium 8.6 mg/dL (8.4-10.2) 11/01/19 11:55 Total Bilirubin 0.8 mg/dL (0.2-1.3) 11/01/19 11:55 AST 32 U/L (14-36) 11/01/19 11:55 Alkaline Phosphatase 115 U/L (38-126) 11/01/19 11:55 Total Protein 7.1 g/dL (6.3-8.2) 11/01/19 11:55 Albumin 3.6 g/dL (3.5-5.0) 11/01/19 11:55 Lipase 44.8 U/L (23-300) 11/01/19 11:55 11/01/19 11/01/19 11:55 11:55 Creatine Kinase 68 CK-MB (CK-2) 2.10 Troponin I 0.230 NT-Pro-B Natriuret Pep [id number] H Current Medication List Generic Name Dose Route Start Last Admin Trade Name Freq PRN Reason Stop Dose Admin Sodium Chloride 1,000 mls @ 0 mls/hr 11/01/19 16:49 Nacl 0.9% 1000 Ml Iv Soln IV 11/01/19 23:59 .DIALYSIS PRN THIS MED IS NOT "PRN" As Directed Epoetin Devan-epbx 20,000 unit/ 2 mls @ 0 mls/hr 11/01/19 16:49 Syringe IV 11/01/19 23:59 .DIALYSIS PRN THIS MED IS NOT "PRN" As Directed Nitroglycerin 1 tab 11/01/19 11:52 Nitrostat 0.4 Mg (1/150 Gr) Tabs 25/Bottle SL 12/01/19 11:51 Q5MP PRN FOR CHEST PAIN Discontinued Medications Generic Name Dose Route Start Last Admin Trade Name Freq PRN Reason Stop Dose Admin Aspirin 324 mg 11/01/19 11:51 11/01/19 12:22 Aspirin 81 Mg Chewable Tablet PO 11/01/19 11:52 Not Given NOW ONE Colchicine 0.6 mg 11/01/19 12:42 11/01/19 13:17 Colcrys 0.6 Mg Tablet PO 11/01/19 12:43 0.6 mg NOW ONE Administration Assessment & Plan - Diagnosis (1) Pericarditis Qualifiers: Pericarditis type: unspecified type Chronicity: acute Qualified Code(s): I30.9 - Acute pericarditis, unspecified Is this a current diagnosis for this admission?: Yes Plan: The patient has classical symptoms of pericarditis/myopericarditis. Her ekg is compatible with acute pericarditis with diffuse ST elevation, mild NH depression with an echocardiogram demonstrating normal LVSF with trace to minimal and hemodynamically insignificant pericardial effusion. She does have a mildly elevated troponin with a significant elevation in her proBNP which may indicate myopericarditis vs just plain pericarditis however her ESRD can actually explain both cardiac marker elevations particularly when she is almost due to be dialyzed again. She does not have clinical evidence of HF. We will treat her conservatively with pain control management, anti-inflammatory medications and colchicine. Recommendations: -Continue trending cardiac enzymes. -Daily ekg's. -Pain control. -Anti-inflammatory of your choice. -Colchicine 0.6mg bid. -Cardiac telemetry. -Avoid steroids. (2) Hypertension Qualifiers: Hypertension type: essential hypertension Qualified Code(s): I10 - Esse ntial (primary) hypertension Is this a current diagnosis for this admission?: Yes Plan: The patient is followed by nephrology. Recommendations: -Defer further management to nephrology and primary team. (3) ESRD (end stage renal disease) on dialysis Plan: Patient is followed by Dr. Sadler.
--- NOTE | 2019-11-01 18:10 | PDOC H&P ---
History of Present Illness Admission Date/PCP: 11/01/19 14:24 MACARIO KWOK MD History of Present Illness: ANGELIC ROBIN is a 64 year old female presented to the emergency room for a history of chest pain for 1 week but worsening in the last 3 to 4 days. Patient tells me she is also more short of breath in the last 3 to 4 days.. Patient has been on hemodialysis for some time now and comes on every Friday and Friday. Patient admits that occasionally she will cut her dialysis short. Patient describes her chest pain is a pressure all across the entire chest, she denies lightheadedness or syncope, or crushing type chest pain. In the emergency room patient was seen by cardiology who feels that she has classic physical findings as well as EKG findings of pericarditis. Pericardial effusion is very minimal and patient will be treated medically with the colchi cine twice daily for anti-inflammation as well as pain medication. Patient will also aggressively be dialyzed the possibility of a mild CHF component. She is also complained of some right ear pain the last few days. 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 Patient will be seen by cardiology as well as nephrology. Past Medical History Cardiac Medical History: Reports: Coronary Artery Disease - HX CARDIAC STENT, Hypertension - on meds Denies: Myocardial Infarction Pulmonary Medical History: Denies: Asthma, Bronchitis, Chronic Obstructive Pulmonary Disease (COPD), Pneumonia Neurological Medical History: Denies: Seizures Endocrine Medical History: Reports: Diabetes Mellitus Type 1, Diabetes Mellitus Type 2 Renal/ Medical History: Reports: End Stage Renal Disease Musculoskeltal Medical History: Reports: Arthritis - R SHOULDER, B/L KNEES, Gout Hematology: Reports: Anemia - CURRENT/IRON Past Surgical History Past Surgical History: Reports: Coronary Stent, Hysterectomy, Tubal Ligation Social History Lives with: Family Smoking Status: Unknown if Ever Smoked Frequency of Alcohol Use: None Hx Recreational Drug Use: No Drugs: None Hx Prescription Drug Abuse: No - Advance Directive Resuscitation Status: Full Code Family History Family History: Reviewed & Not Pertinent Parental Family History Reviewed: No Children Family History Reviewed: No Sibling(s) Family History Reviewed.: No Medication/Allergy Home Medications: Amlodipine Besylate [Norvasc 10 mg Tablet] 10 mg PO DAILY 11/01/19 Calcium Acetate [Phoslo 667 mg Capsule] 1,334 mg PO TID 11/01/19 Calcium Acetate [Phoslo 667 mg Capsule] 667 mg PO ASDIR PRN 11/01/19 Clonidine HCl [Catapres 0.2 mg Tablet] 0.2 mg PO Q6 11/01/19 Cyclobenzaprine HCl [Flexeril 10 mg Tablet] 10 mg PO BID 11/01/19 Ergocalciferol (Vitamin D2) [Drisdol 50,000 unit (1.25MG) Capsule] 50,000 unit PO MO@1000 11/01/19 Meloxicam [Mobic 7.5 mg Tablet] 7.5 mg PO ASDIR PRN 11/01/19 Allergies/Adverse Reactions: No Known Allergies Allergy (Verified 02/01/17 17:33) Review of Systems Constitutional: ABSENT: chills, fever(s), headache(s), weight gain, weight loss Eyes: ABSENT: visual disturbances Ears: ABSENT: hearing changes Cardiovascular: PRESENT: chest pain, dyspnea on exertion Respiratory: PRESENT: dyspnea Neurological: ABSENT: abnormal gait, abnormal speech, confusion, dizziness, focal weakness, syncope Psychiatric: ABSENT: anxiety, depression, homidical ideation, suicidal ideation Physical Exam Vital Signs: Temp Pulse Resp BP Pulse Ox 98.7 F 80 21 H 148/91 H 92 11/01/19 11:22 11/01/19 11:22 11/01/19 14:01 11/01/19 14:01 11/01/19 14:01 Intake & Output 10/31/19 11/01/19 11/02/19 06:59 06:59 06:59 Weight 108.862 kg General appearance: PRESENT: mild distress - Secondary to shortness of breath and chest pain Ear exam: PRESENT: other - Both TMs are visualized no bulging or redness patient's external canals are full of cerumen Respiratory exam: PRESENT: decreased breath sounds Cardiovascular exam: PRESENT: RRR. ABSENT: diastolic murmur, rubs, systolic murmur Neurological exam: PRESENT: alert, awake, oriented to person, oriented to place, oriented to time, oriented to situation, CN II-XII grossly intact. ABSENT: motor sensory deficit Psychiatric exam: PRESENT: appropriate affect, normal mood. ABSENT: homicidal i deation, suicidal ideation Results Laboratory Results: 11/01/19 11:55 11/01/19 11:55 11/01/19 11/01/19 11/01/19 11:55 11:55 11:55 WBC 15.2 H RBC 3.03 L Hgb 8.3 L Hct 24.8 L MCV 82 MCH 27.4 MCHC 33.5 RDW 17.4 H Plt Count 311 Seg Neutrophils % 80.9 H Sodium 132.1 L Potassium 4.6 Chloride 91 L Carbon Dioxide 25 Anion Gap 16 BUN 47 H Creatinine 9.74 H Est GFR ( Amer) 5 L Glucose 241 H Calcium 8.6 Total Bilirubin 0.8 AST 32 Alkaline Phosphatase 115 Total Protein 7.1 Albumin 3.6 Lipase 44.8 11/01/19 11/01/19 11:55 11:55 Creatine Kinase 68 CK-MB (CK-2) 2.10 Troponin I 0.230 NT-Pro-B Natriuret Pep 81040 H Impressions: Chest X-Ray 11/01/19 11:50 IMPRESSION: Cardiomegaly without pulmonary edema. Small pleural effusions. Cannot exclude limited left lower lobe pneumonia. Assessment and Plan - Plan Summary Summary: Patient will be managed medically with dialysis as well as nonsteroidal anti- inflammatory drugs and pain medication. She has already had a dose of colchicine in the ER. I had originally written for her to just double up on her Mobic, twice daily since she was taking this Friday and Saturdays with dialysis , but will instead defer to cardiology's recommendation Colchicine 0.6 mg twice daily. The patient will be followed with serial labs as well as serial EKGs, possibly repeat echo if patient fails to improve or worsens, treat her medical problems with her routine medicines. Watch patient closely on IMCU. I believe patient's right ear pain is coming from impacted cerumen and have ordered a lavage therapy for tomorrow - Time Time Spent with patient: 35 or more minutes
[2019-11-01] MEDS ORDERED: MELOXICAM 7.5 MG TABLET PO SCH (19:00)
[2019-11-01 20:21] LABS: ANION GAP 17 (5-19); BLOOD UREA NITROGEN 28 mg/dL (7-20); CARBON DIOXIDE 26 mmol/L (22-30); CHLORIDE 94 mmol/L (98-107); GLUCOSE 141 mg/dL (75-110); POTASSIUM 3.8 mmol/L (3.6-5.0)
[2019-11-01 20:33] LABS: CREATINE KINASE MB 2.1 ng/mL (<4.55)
[2019-11-01 20:40] LABS: TROPONIN I 0.264 ng/mL
[2019-11-01] MEDS: CALCIUM ACETATE 667 MG CAPSULE PO SCH (21:34)
[2019-11-01] MEDS: CLONIDINE HCL 0.2 MG TABLET PO SCH (21:34)
[2019-11-01] MEDS: CYCLOBENZAPRINE HCL 10 MG TABLET PO SCH (21:35)
[2019-11-01] MEDS: HEPARIN SOD (PORCINE) 5,000 UNIT/ML 1 ML VIAL SUBCUT SCH (21:36)
[2019-11-02] MEDS: CLONIDINE HCL 0.2 MG TABLET PO SCH ×4 (00:58→17:47)
[2019-11-02 03:18] LABS: CREATINE KINASE MB 1.62 ng/mL (<4.55)
[2019-11-02 03:23] LABS: TROPONIN I 0.172 ng/mL
[2019-11-02] MEDS ORDERED: PANTOPRAZOLE SODIUM 20 MG TABLET.DR PO SCH (06:00)
[2019-11-02] MEDS: HEPARIN SOD (PORCINE) 5,000 UNIT/ML 1 ML VIAL SUBCUT SCH ×3 (06:16→23:26)
--- NOTE | 2019-11-02 08:12 | EKG REPORT ---
SEVERITY:- ABNORMAL ECG - SINUS RHYTHM LEFT VENTRICULAR HYPERTROPHY INFEROLATERA ST ELEVATION CONSISTENT WITH PERICARDITIS. : Confirmed by: Brittanie Romero MD 02-Nov-2019 08:12:19
[2019-11-02 08:35] LABS: ABSOLUTE BASOPHILS # (AUTO) 0.1 10^3/uL (0.0-0.2); ABSOLUTE EOSINOPHILS # (AUTO) 0.2 10^3/uL (0.0-0.6); ABSOLUTE LYMPHOCYTES (AUTO) 1.5 10^3/uL (0.5-4.7); ABSOLUTE MONOCYTES (AUTO) 1.2 10^3/uL (0.1-1.4); BASOPHILS % (AUTO) 0.4 % (0-2); EOSINOPHILS % (AUTO) 1.9 % (0-6); HEMATOCRIT 24.6 % (36.0-47.0); HEMOGLOBIN 8.1 g/dL (12.0-15.5); LYMPHOCYTES % (AUTO) 11.4 % (13-45); MEAN CORPUSCULAR HGB CONC 33.1 g/dL (32.0-36.0); MEAN CORPUSCULAR VOLUME 82 fl (80-97); MONOCYTES % (AUTO) 9.1 % (3-13); PLATELET COUNT 272 10^3/uL (150-450); RED BLOOD COUNT 3.01 10^6/uL (3.72-5.28); RED CELL DISTRIBUTION WIDTH 17.2 % (11.5-14.0); SEGMENTED NEUTROPHILS % (AUTO) 77.2 % (42-78); TOTAL CELLS COUNTED % (AUTO) 100 %
[2019-11-02 09:40] LABS: TROPONIN I 0.169 ng/mL
[2019-11-02] MEDS: CYCLOBENZAPRINE HCL 10 MG TABLET PO SCH ×2 (09:45→17:47)
[2019-11-02] MEDS: CALCIUM ACETATE 667 MG CAPSULE PO SCH ×3 (09:45→17:48)
[2019-11-02] MEDS: COLCHICINE 0.6 MG TABLET PO SCH ×2 (09:45→23:26)
[2019-11-02] MEDS ORDERED: DOCUSATE SODIUM 100 MG CAPSULE PO SCH (10:00)
[2019-11-02] MEDS ORDERED: AMLODIPINE BESYLATE 10 MG TABLET PO SCH (10:00)
--- NOTE | 2019-11-02 11:58 | PDOC PROGRESS REPORT ---
Subjective Progress Note for:: 11/02/19 Subjective:: ANGELIC ROBIN is a 64 year old female with multiple medical problems most notable for hypertension, hyperlipidemia, DM, obesity, left eye blindness from bleeding, ESRD with dialysis on Friday, and Friday who is consulted to our service for evaluation of chest pain. The patient had been in her usual state of health until 3 days prior to admission when she began with progressive chest discomfort which she describes as a severe pressure, diffusely across her chest, worse when laying flat, better when sitting up, worsened by deep inspiration, constant in nature and without relief for at least 3 days and not associated with palpitations, dizziness, lightheadedness, syncope or presyncope. 11/02/2019: The patient had an uneventful night. She is found sleep, lying flat on her back and easily arousable. She underwent dialysis yesterday without complications. She feels 100% better and with complete resolution of her chest pain. There has been no recurrence of it. Her troponin is downtrending. Her EKG continues to show diffuse ST elevations and essentially unchanged from her prior one. Her echocardiogram yesterday demonstrated a normal ejection fraction with grossly normal wall motion among other findings. Her telemetry shows normal sinus rhythm with artifact and no sustained dysrhythmias. Physical exam on 11/02/2019: GENERAL: Pleasant and conversational. Oriented x3 with normal mood. Not in acute distress. Well groomed and well developed. Morbidly obese. HEENT: Normocephalic, atraumatic. Pupils equal. Sclerae anicteric. Oropharynx moist. NECK: No JVD. No carotid bruits. LUNGS: Clear to auscultation bilaterally. Normal respiratory effort without the use of accessory muscles or intercostal retractions. CARDIOVASCULAR: Regular rate and rhythm, normal S1 and S2 without murmurs, rubs, or gallops. PMI not displaced. EXTREMITIES: Trace pitting edema, no cyanosis, no clubbing. +2 pulses femoral and pedal pulses bilaterally. SKIN: No lesions or rashes. MUSCULOSKELETAL: No chest tenderness to palpation. NEUROLOGIC: Nonfocal. No gross sensory or motor deficits bilateral upper or lower extremities. Cardiac studies: Echocardiogram on 11/01/2019: -LV is normal in size. -EF 60 to 65%. -Grade 1 diastolic dysfunction. -No wall motion abnormalities. -Mild LAE. -Trace MR, mild TR. -Trace to small, hemodynamically insignificant posterior and apical pericardial effusion. -No prior studies for comparison. Reason For Visit: ESRD ON HEMODIALYSIS,PERICARDITIS,SHORTNESS OF LAURIE Physical Exam Vital Signs: Temp Pulse Resp BP Pulse Ox 98.6 F 76 18 108/54 L 95 11/02/19 03:05 11/02/19 03:05 11/02/19 03:05 11/02/19 03:05 11/02/19 03:05 Intake & Output 10/31/19 11/01/19 11/02/19 06:59 06:59 06:59 Intake Total 210 Output Total 2800 Balance -2590 Weight 108.8 kg Results Laboratory Results: 11/01/19 11:55 11/01/19 19:57 11/01/19 11/01/19 11/01/19 11:55 11:55 11:55 WBC 15.2 H RBC 3.03 L Hgb 8.3 L Hct 24.8 L MCV 82 MCH 27.4 MCHC 33.5 RDW 17.4 H Plt Count 311 Seg Neutrophils % 80.9 H Sodium 132.1 L Potassium 4.6 Chloride 91 L Carbon Dioxide 25 Anion Gap 16 BUN 47 H Creatinine 9.74 H Est GFR ( Amer) 5 L Glucose 241 H Calcium 8.6 Phosphorus Total Bilirubin 0.8 AST 32 Alkaline Phosphatase 115 Total Protein 7.1 Albumin 3.6 Lipase 44.8 11/01/19 11/01/19 11:55 19:57 WBC RBC Hgb Hct MCV MCH MCHC RDW Plt Count Seg Neutrophils % Sodium 136.5 L Potassium 3.8 Chloride 94 L Carbon Dioxide 26 Anion Gap 17 BUN 28 H Creatinine 6.02 H Est GFR ( Amer) 8 L Glucose 141 H Calcium 9.0 Phosphorus 5.8 H Total Bilirubin AST Alkaline Phosphatase Total Protein Albumin Lipase 11/01/19 11/01/19 11/01/19 11:55 11:55 19:57 Creatine Kinase 68 70 CK-MB (CK-2) 2.10 Troponin I 0.230 NT-Pro-B Natriuret Pep 90049 H 11/01/19 11/02/19 11/02/19 19:57 02:13 02:13 Creatine Kinase 58 CK-MB (CK-2) 2.10 1.62 Troponin I 0.264 0.172 NT-Pro-B Natriuret Pep Impressions: Chest X-Ray 11/01/19 11:50 IMPRESSION: Cardiomegaly without pulmonary edema. Small pleural effusions. Cannot exclude limited left lower lobe pneumonia. 11/01/19 11:55 11/01/19 19:57 MCV 82 fl (80-97) 11/01/19 11:55 MCH 27.4 pg (27.0-33.4) 11/01/19 11:55 MCHC 33.5 g/dL (32.0-36.0) 11/01/19 11:55 RDW 17.4 % (11.5-14.0) H 11/01/19 11:55 Seg Neutrophils % 80.9 % (42-78) H 11/01/19 11:55 Chloride 94 mmol/L (98-107) L 11/01/19 19:57 Carbon Dioxide 26 mmol/L (22-30) 11/01/19 19:57 Anion Gap 17 (5-19) 11/01/19 19:57 Est GFR ( Amer) 8 (>60) L 11/01/19 19:57 Glucose 141 mg/dL (75-110) H 11/01/19 19:57 Calcium 9.0 mg/dL (8.4-10.2) 11/01/19 19:57 Phosphorus 5.8 mg/dL (2.5-4.5) H 11/01/19 11:55 Total Bilirubin 0.8 mg/dL (0.2-1.3) 11/01/19 11:55 AST 32 U/L (14-36) 11/01/19 11:55 Alkaline Phosphatase 115 U/L (38-126) 11/01/19 11:55 Total Protein 7.1 g/dL (6.3-8.2) 11/01/19 11:55 Albumin 3.6 g/dL (3.5-5.0) 11/01/19 11:55 Lipase 44.8 U/L (23-300) 11/01/19 11:55 11/01/19 11/01/19 11/01/19 11:55 11:55 19:57 Creatine Kinase 68 70 CK-MB (CK-2) 2.10 Troponin I 0.230 NT-Pro-B Natriuret Pep 51681 H 11/01/19 11/02/19 11/02/19 19:57 02:13 02:13 Creatine Kinase 58 CK-MB (CK-2) 2.10 1.62 Troponin I 0.264 0.172 NT-Pro-B Natriuret Pep Current Medication List Generic Name Dose Route Start Last Admin Trade Name Freq PRN Reason Stop Dose Admin Acetaminophen 650 mg 11/01/19 17:29 Tylenol 325 Mg Tablet PO 12/01/19 17:28 Q4HP PRN FOR PAIN OR TEMP Al Hydrox/Mg Hydrox/Simethicone 30 ml 11/01/19 17:29 Maalox Plus Susp 30 Udcup PO 12/01/19 17:28 Q6HP PRN [facility] Amlodipine Besylate 10 mg 11/02/19 10:00 Norvasc 10 Mg Tablet PO 12/02/19 09:59 DAILY [facility] Calcium Acetate 1,334 mg 11/01/19 18:00 11/01/19 21:34 Phoslo 667 Mg Capsule PO 12/01/19 17:59 Not Given TID [facility] Clonidine 0.2 mg 11/01/19 18:00 11/02/19 06:16 Catapres 0.2 Mg Tablet PO 12/01/19 17:59 Not Given Q6 [facility] Colchicine 0.6 mg 11/02/19 08:00 Colcrys 0.6 Mg Tablet PO 12/02/19 07:59 Q12 [facility] Cyclobenzaprine HCl 10 mg 11/01/19 18:00 11/01/19 21:35 Flexeril 10 Mg Tablet PO 12/01/19 17:59 10 mg BID [facility] Administration Docusate Sodium 100 mg 11/02/19 10:00 Colace 100 Mg Capsule PO 12/02/19 09:59 DAILY [facility] Ergocalciferol 50,000 unit 11/08/19 10:00 Drisdol 50,000 Unit (1.25mg) Capsule PO 12/08/19 09:59 MO@1000 [facility] Heparin Sodium (Porcine) 5,000 unit 11/01/19 22:00 11/02/19 06:16 Heparin Inj 5,000 Units/Ml 1 Ml Vial SUBCUT 12/01/19 21:59 Not Given Q8 [facility] Nitroglycerin 1 tab 11/01/19 11:52 Nitrostat 0.4 Mg (1/150 Gr) Tabs 25/Bottle SL 12/01/19 11:51 Q5MP PRN FOR CHEST PAIN Ondansetron HCl 4 mg 11/01/19 17:29 Zofran Odt 4 Mg Tablet PO 12/01/19 17:28 Q6HP PRN FOR NAUSEA/VOMITING Ondansetron HCl 4 mg 11/01/19 17:29 Zofran Inj/Pf 4 Mg/2 Ml Sdv IV 12/01/19 17:28 Q6HP PRN FOR NAUSEA/VOMITING Oxycodone/Acetaminophen 1 tab 11/01/19 17:29 Percocet 5-325 Mg Tablet PO 11/08/19 17:28 Q4HP PRN FOR PAIN Pantoprazole Sodium 20 mg 11/02/19 06:00 11/02/19 06:[address] Tablet PO 12/02/19 05:59 Not Given Q6AM [facility] Discontinued Medications Generic Name Dose Route Start Last Admin Trade Name Freq PRN Reason Stop Dose Admin Aspirin 324 mg 11/01/19 11:51 11/01/19 12:22 Aspirin 81 Mg Chewable Tablet PO 11/01/19 11:52 Not Given NOW ONE Colchicine 0.6 mg 11/01/19 12:42 11/01/19 13:17 Colcrys 0.6 Mg Tablet PO 11/01/19 12:43 0.6 mg NOW ONE Administration Sodium Chloride 1,000 mls @ 0 mls/hr 11/01/19 16:49 Nacl 0.9% 1000 Ml Iv Soln IV 11/01/19 23:59 .DIALYSIS PRN THIS MED IS NOT "PRN" As Directed Epoetin Devan-epbx 20,000 unit/ 2 mls @ 0 mls/hr 11/01/19 16:49 11/01/19 18:00 Syringe IV 11/01/19 23:59 20,000 mls/hr .DIALYSIS PRN Administration THIS MED IS NOT "PRN" As Directed Meloxicam 7.5 mg 11/01/19 19:00 Mobic 7.5 Mg Tablet PO 12/01/19 18:59 BIDPCBS [facility] Assessment & Plan - Diagnosis (1) Pericarditis Qualifiers: Pericarditis type: unspecified type Chronicity: acute Qualified Code(s): I30.9 - Acute pericarditis, unspecified Is this a current diagnosis for this admission?: Yes Plan: The patient feels 100% better and continues to be hemodynamically stable. She has remained also electrically stable. At this point she can be discharged with cardiology follow-up with in 1 week. Recommendations: -Continue with anti-inflammatory of your choice. -Continue with colchicine 0.6mg bid. -Avoid steroids. -Follow-up with Dr. Foreman in 1 week, I will arrange for that follow-up. (2) Hypertension Qualifiers: Hypertension type: essential hypertension Qualified Code(s): I10 - Essential (primary) hypertension Plan: The patient is followed by nephrology. Recommendations: -Defer further management to nephrology and primary team. (3) ESRD (end stage renal disease) on dialysis Plan: Patient is followed by Dr. Sadler.
--- NOTE | 2019-11-02 13:55 | PDOC PROGRESS REPORT ---
Subjective Progress Note for:: 11/02/19 Subjective:: Patient states her chest pain has improved. Denies any shortness of breath at this time. Denies using oxygen at home. Reason For Visit: ESRD ON HEMODIALYSIS,PERICARDITIS,SHORTNESS OF LAURIE Physical Exam Vital Signs: Temp Pulse Resp BP Pulse Ox 98.1 F 81 16 105/42 L 98 11/02/19 11:31 11/02/19 11:31 11/02/19 11:31 11/02/19 11:31 11/02/19 11:31 Intake & Output 11/01/19 11/02/19 11/03/19 06:59 06:59 06:59 Intake Total 210 Output Total 2800 Balance -2590 Weight 108.8 kg General appearance: PRESENT: no acute distress, cooperative Eye exam: ABSENT: scleral icterus Mouth exam: PRESENT: neck supple Respiratory exam: PRESENT: symmetrical, unlabored. ABSENT: crackles, tachypnea, wheezes Cardiovascular exam: PRESENT: rubs, +S1, +S2. ABSENT: tachycardia GI/Abdominal exam: PRESENT: soft. ABSENT: rebound, rigid, tenderness Neurological exam: PRESENT: alert, awake, oriented to person, oriented to place, oriented to time Psychiatric exam: ABSENT: agitated, anxious Focused psych exam: ABSENT: pressured speech Skin exam: ABSENT: jaundice Results Laboratory Results: 11/02/19 08:12 11/01/19 19:57 11/01/19 11/01/19 11/02/19 11:55 19:57 08:12 WBC 13.0 H RBC 3.01 L Hgb 8.1 L Hct 24.6 L MCV 82 MCH 27.0 MCHC 33.1 RDW 17.2 H Plt Count 272 Seg Neutrophils % 77.2 Sodium 136.5 L Potassium 3.8 Chloride 94 L Carbon Dioxide 26 Anion Gap 17 BUN 28 H Creatinine 6.02 H Est GFR ( Amer) 8 L Glucose 141 H Calcium 9.0 Phosphorus 5.8 H Magnesium 11/02/19 08:12 WBC RBC Hgb Hct MCV MCH MCHC RDW Plt Count Seg Neutrophils % Sodium Potassium Chloride Carbon Dioxide Anion Gap BUN Creatinine Est GFR ( Amer) Glucose Calcium Phosphorus Magnesium 1.9 11/01/19 11/01/19 11/01/19 11:55 11:55 19:57 Creatine Kinase 68 70 CK-MB (CK-2) 2.10 Troponin I 0.230 NT-Pro-B Natriuret Pep 16530 H 11/01/19 11/02/19 11/02/19 19:57 02:13 02:13 Creatine Kinase 58 CK-MB (CK-2) 2.10 1.62 Troponin I 0.264 0.172 NT-Pro-B Natriuret Pep 11/02/19 11/02/19 08:12 08:12 Creatine Kinase 66 CK-MB (CK-2) 2.00 Troponin I 0.169 NT-Pro-B Natriuret Pep Impressions: Chest X-Ray 11/01/19 11:50 IMPRESSION: Cardiomegaly without pulmonary edema. Small pleural effusions. Cannot exclude limited left lower lobe pneumonia. Assessment and Plan - Diagnosis (3) Chest pain Qualifiers: Chest pain type: other chest pain Qualified Code(s): R07.89 - Other chest pain; R07.8 - Other chest pain Is this a current diagnosis for this admission?: Yes (4) ESRD (end stage renal disease) on dialysis Is this a current diagnosis for this admission?: Yes - Plan Summary Summary: 11/02/2019 Continue colchicine for treatment of pericarditis. EKG reviewed showing multiple ST elevations. Troponin trend was flat. Findings suggestive of pericarditis. Patient evaluated by cardiology. Denies any symptoms of viral illness. ESRD and states that she misses dialysis only once in a while. Continue scheduled dialysis sessions. Nephrology following. Patient is still on 5 L nasal cannula this morning. We will try to wean off oxygen today. Denies history of home oxygen. Hopefully fluid removal during dialysis will help allow for this. Continue to monitor blood count. - Time Time Spent with patient: Less than 15 minutes
[2019-11-02] MEDS ORDERED: HYDROXYZINE HCL 2 MG/ML SYRUP 60 ML PO PRN (17:38)
[2019-11-02] MEDS ORDERED: MINERAL OIL ENEMA 133 ML PR ONE ×2 (22:30→23:04)
[2019-11-02 23:23] VITALS: BP 121/66
[2019-11-03] MEDS: CLONIDINE HCL 0.2 MG TABLET PO SCH (00:30)
[2019-11-03] MEDS ORDERED: EPOETIN ALFA-EPBX 20,000 UNIT in SYRINGE, DISPOSABLE, 1 EACH IV PRN (05:00)
[2019-11-03] MEDS ORDERED: NORMAL SALINE 1000 ML 1,000 ML IV PRN (05:00)
--- NOTE | 2019-11-03 19:09 | Left Against Medical Advice ---
Against Medical Advice Admission Date/Time: 11/01/19 14:24 Primary Care Provider: MACARIO KWOK MD Date of Patient Emigration: 11/03/19 - Diagnosis: (1) Acute pericarditis Is this a current diagnosis for this admission?: Yes (2) Chest pain Is this a current diagnosis for this admission?: Yes (3) ESRD (end stage renal disease) on dialysis Is this a current diagnosis for this admission?: Yes - Summary: Summary: Please see Admission and Progress Notes as well. ANGELIC ROBIN is a 64 F, who LEFT AGAINST MEDICAL ADVICE. The Patient was admitted on 11/01/19 14:24. Please see nursing notes of 3:13 AM. Patient adamant to leave AGAINST MEDICAL ADVICE despite multiple attempts to accommodate her wishes and extensive education. She denies homicidal or suicidal ideation she is awake and alert oriented with reasonable insight but insistent on leaving AGAINST MEDICAL ADVICE.
[2019-11-08] MEDS ORDERED: ERGOCALCIFEROL (VITAMIN D2) 50000 UNIT (1.25 MG) CAPSULE PO SCH (10:00)
== END 2019-11-03 04:17 | disposition left against medical advice (07) | DRG 314 ==
LOC: ER 11:09 → EH 14:24 → 3W 19:15
PROVIDERS: ADMIT Hospitalist; ATTEND Hospitalist
PROC: 5A1D70Z Performance of Urinary Filtration, Intermittent, Less than 6 Hours Per Day (ICD-10-PCS; principal; 2019-11-01)
PROC: B24BZZZ Ultrasonography of Heart with Aorta (ICD-10-PCS; 2019-11-01)
DX: I30.9 Acute pericarditis, unspecified (principal); N18.6 End stage renal disease; I12.0 Hypertensive chronic kidney disease with stage 5 chronic kidney disease or end stage renal disease; I25.10 Atherosclerotic heart disease of native coronary artery without angina pectoris; M17.0 Bilateral primary osteoarthritis of knee; M19.011 Primary osteoarthritis, right shoulder; D63.1 Anemia in chronic kidney disease; E11.22 Type 2 diabetes mellitus with diabetic chronic kidney disease; E78.5 Hyperlipidemia, unspecified; E66.9 Obesity, unspecified; H54.40 Blindness, one eye, unspecified eye; Z78.1 Physical restraint status; Z95.5 Presence of coronary angioplasty implant and graft; Z90.710 Acquired absence of both cervix and uterus
CPT/HCPCS: 36415; 71045; 80053; 82550; 82553; 83036; 83690; 83735; 83880; 84100; 84484; 85025; 85379; 85610; 85730; 93005; 93010; 93306; 99291; J3490; Q5105

== ENCOUNTER 2019-11-25 16:07 | Outpatient (CLI) | payer MEDICARE ==
[~2019-11-25 16:07] MED LIST changes: +ACETAMINOPHEN 325 MG TABLET PO PRN; -BACITRACIN INJ 50,000 UNIT VIAL ONE; -BUPIVACAINE HCL 0.25 % INJ/PF (2.5 MG/1 ML) 30 ML VIAL ONE; -CEFAZOLIN SODIUM 1 GM in DEXTROSE 5%-WATER 50 ML IV PRN; +DIPHENHYDRAMINE HCL 25 MG CAPSULE PO PRN; -HEPARIN SOD (PORCINE) 1,000 UNIT/ML 10 ML VIAL ONE; -LIDOCAINE 0.5% INJ-PF (5 MG/ML) 50 ML SDV ONE; -LIDOCAINE 0.5% INJ-PF (5 MG/ML) 50 ML SDV SUBCUT PRN; -LIDOCAINE 1% INJ-PF (10 MG/ML) 30 ML SDV ONE; -NORMAL SALINE 1000 ML (RENAL PATIENTS) IV PRN
[2019-11-25] MEDS ORDERED: NORMAL SALINE 250 ML IV PRN (18:30)
[2019-11-25] MEDS ORDERED: FUROSEMIDE INJ/PF 20 MG/2 ML SDV IV PRN (19:24)
[2019-11-26 03:52] VITALS: BP 145/77
== END 2019-11-26 05:49 | disposition home or self-care (01) ==
LOC: II 16:07 → 4N 16:08 → II 11-26 05:49
PROVIDERS: ATTEND Internal Medicine Nephrology
DX: N18.6 End stage renal disease (principal); D63.1 Anemia in chronic kidney disease; E11.22 Type 2 diabetes mellitus with diabetic chronic kidney disease
CPT/HCPCS: 86900; 86901; 36415; 36430; 86850; 82962; 86920; 96374; P9016; A9270 ×2; J1940; J7050

== ENCOUNTER 2019-11-27 10:34 | Emergency (ER) | payer MEDICARE ==
[2019-11-27] MEDS ORDERED: NORMAL SALINE 1000 ML 1,000 ML IV ONE (10:48)
[2019-11-27] MEDS ORDERED: PIPERACILLIN/TAZOBACTAM 2.25 GM VIAL IV ONE (10:52)
[2019-11-27] MEDS ORDERED: VANCOMYCIN HCL INJ 1000 MG VIAL IV ONE (10:52)
--- NOTE | 2019-11-27 10:55 | ER Document Report ---
ED Medical Screen (RME) - General Chief Complaint: Foot Pain Stated Complaint: FOOT PAIN,SKIN SORES Time Seen by Provider: 11/27/19 10:43 Mode of Arrival: Wheelchair Information source: Patient Notes: 64-year-old female presented to ED with a diabetic infected foot. Her third toe is very decayed. She does have multiple ulcers to the top of her foot. She is a diabetic. She states she was sent over by the wound care at [facility] to get IV antibiotics. She states she has been being treated at the wound care for this foot. Patient is alert oriented respirations regular nonlabored speaking in full sentences. She does have end-stage renal disease as well as diabetes. I have greeted and performed a rapid initial assessment of this patient. A comprehensive ED assessment and evaluation of the patient, analysis of test results and completion of medical decision making process will be conducted by an additional ED providers. TRAVEL OUTSIDE OF THE [place] IN LAST 30 DAYS: No - Related Data Allergies/Adverse Reactions: No Known Allergies Allergy (Verified 11/27/19 10:43) Past Medical History - Social History Chew tobacco use (# tins/day): No Frequency of alcohol use: None Drug Abuse: None - Past Medical History Cardiac Medical History: Reports: Hx Coronary Artery Disease - HX CARDIAC STENT, Hx Hypertension - on meds Denies: Hx Heart Attack Pulmonary Medical History: Denies: Hx Asthma, Hx Bronchitis, Hx COPD, Hx Pneumonia Neurological Medical History: Denies: Hx Cerebrovascular Accident, Hx Seizures Endocrine Medical History: Reports: Hx Diabetes Mellitus Type 1, Hx Diabetes Mellitus Type 2 Renal/ Medical History: Reports: Hx End Stage Renal Disease, Hx Hemodialysis. Denies: Hx Peritoneal Dialysis Musculoskeltal Medical History: Reports Hx Arthritis - R SHOULDER, B/L KNEES, Reports Hx Gout Psychiatric Medical History: Denies: Hx Depression Past Surgical History: Reports: Hx Coronary Stent, Hx Hysterectomy, Hx Kidney (Renal Surgery), Hx Tubal Ligation - Immunizations Hx Diphtheria, Pertussis, Tetanus Vaccination: Yes Physical Exam - Vital signs Vitals: Temp Pulse Resp BP Pulse Ox 97.9 F 40 L 18 151/78 H 93 11/27/19 10:40 11/27/19 10:40 11/27/19 10:40 11/27/19 10:40 11/27/19 10:40 Course - Vital Signs Vital signs: Temp Pulse Resp BP Pulse Ox 97.9 F 40 L 18 151/78 H 93 11/27/19 10:44 11/27/19 10:40 11/27/19 10:40 11/27/19 10:40 11/27/19 10:40
[2019-11-27 11:34] LABS: ABSOLUTE BASOPHILS # (AUTO) 0.1 10^3/uL (0.0-0.2); ABSOLUTE EOSINOPHILS # (AUTO) 0.1 10^3/uL (0.0-0.6); ABSOLUTE LYMPHOCYTES (AUTO) 1.5 10^3/uL (0.5-4.7); ABSOLUTE MONOCYTES (AUTO) 0.9 10^3/uL (0.1-1.4); ABSOLUTE NEUT (AUTO) 14.5 10^3/uL (1.7-8.2); BASOPHILS % (AUTO) 0.4 % (0-2); EOSINOPHILS % (AUTO) 0.5 % (0-6); HEMATOCRIT 27.5 % (36.0-47.0); LYMPHOCYTES % (AUTO) 8.6 % (13-45); MEAN CORPUSCULAR HEMOGLOBIN 27.3 pg (27.0-33.4); MEAN CORPUSCULAR HGB CONC 32.8 g/dL (32.0-36.0); MEAN CORPUSCULAR VOLUME 83 fl (80-97); MONOCYTES % (AUTO) 5.5 % (3-13); PLATELET COUNT 279 10^3/uL (150-450); RED BLOOD COUNT 3.31 10^6/uL (3.72-5.28); RED CELL DISTRIBUTION WIDTH 18.2 % (11.5-14.0); TOTAL CELLS COUNTED % (AUTO) 100 %; WHITE BLOOD COUNT 17.1 10^3/uL (4.0-10.5)
--- NOTE | 2019-11-27 11:39 | RADIOLOGY REPORT (SQ) ---
EXAM DESCRIPTION: FOOT BILATERAL 3 VIEWS IMAGES COMPLETED DATE/TIME: 11/27/2019 11:18 am REASON FOR STUDY: diabetic ulcers COMPARISON: None. NUMBER OF VIEWS: Six views. TECHNIQUE: AP, lateral and oblique radiographic images acquired of the right and left foot. LIMITATIONS: None. FINDINGS: MINERALIZATION: Normal. BONES: Cortical thinning of the 2nd through 4th metatarsal heads and of the 4th and 5th phalanges. N o aggressive periosteal reaction. No high-grade cortical destruction. Calcaneal enthesophytes. JOINTS: No effusions. SOFT TISSUES: No soft tissue swelling. No foreign body. OTHER: Vascular calcifications. IMPRESSION: Cortical thinning of the 2nd through 4th metatarsal heads and of the 4th and 5th phalang es compatible with osteopenia. Underlying acute osteomyelitis is difficult to exclude, although ther e is no high-grade cortical destruction. TECHNICAL DOCUMENTATION: JOB ID: [id number] 2010 [employer]- All Rights Reserved Reading location - IP/workstation name: [email or web address]
[2019-11-27 11:54] LABS: ALKALINE PHOSPHATASE 109 U/L (38-126); ANION GAP 16 (5-19); ASPARTATE AMINO TRANSFERASE 34 U/L (14-36); BILIRUBIN,DIRECT 0.9 mg/dL (0.0-0.4); BILIRUBIN,TOTAL 1.8 mg/dL (0.2-1.3); BLOOD UREA NITROGEN 36 mg/dL (7-20); CALCIUM 9.8 mg/dL (8.4-10.2); CARBON DIOXIDE 30 mmol/L (22-30); CHLORIDE 91 mmol/L (98-107); GLUCOSE 107 mg/dL (75-110); POTASSIUM 4.2 mmol/L (3.6-5.0); TOTAL PROTEIN 7.9 g/dL (6.3-8.2)
[2019-11-27] MEDS ORDERED: MORPHINE SULFATE 10 MG/ML INJ IV ONE ×2 (11:55→15:34)
[2019-11-27] MEDS ORDERED: ONDANSETRON HCL INJ/PF 4 MG/2 ML SDV IV ONE ×2 (11:56→15:34)
[2019-11-27 12:01] LABS: INTERNATIONAL RATION (INR) 1.45; PROTHROMBIN TIME 17.8 SEC (11.4-15.4)
[2019-11-27 12:02] LABS: PARTIAL THROMBOPLASTIN TIME 31.5 SEC (23.5-35.8)
[2019-11-27 12:23] LABS: TROPONIN I 0.231 ng/mL
[2019-11-27] MEDS ORDERED: NORMAL SALINE 250 ML IV ONE (12:26)
--- NOTE | 2019-11-27 12:35 | RADIOLOGY REPORT (SQ) ---
EXAM DESCRIPTION: CHEST SINGLE VIEW IMAGES COMPLETED DATE/TIME: 11/27/2019 12:24 pm REASON FOR STUDY: renal failure/htn COMPARISON: Chest radiographs 11/01/2019. EXAM PARAMETERS: NUMBER OF VIEWS: One view. TECHNIQUE: Single frontal radiographic view of the chest acquired. RADIATION DOSE: NA LIMITATIONS: None. FINDINGS: LUNGS AND PLEURA: Stable blunting of the right costophrenic angle. Resolved previous left basilar consolidation. No pneumothorax. MEDIASTINUM AND HILAR STRUCTURES: No masses. Contour normal. HEART AND VASCULAR STRUCTURES: Cardiomegaly. Normal vasculature. BONES: No acute findings. HARDWARE: None in the chest. OTHER: No other significant finding. IMPRESSION: Chronic blunting of the right costophrenic angle. Resolved previous left basilar consol idation. Cardiomegaly. TECHNICAL DOCUMENTATION: JOB ID: [id number] 2010 [employer]- All Rights Reserved Reading location - IP/workstation name: [email or web address]
--- NOTE | 2019-11-27 15:17 | RADIOLOGY REPORT (SQ) ---
EXAM DESCRIPTION: CTA RIGHT LOWER EXTREMITY; CTA LEFT LOWER EXTREMITY IMAGES COMPLETED DATE/TIME: 11/27/2019 2:44 pm; 11/27/2019 2:43 pm REASON FOR STUDY: decreased pulses/ foot ulcer; diminished pulses/foot ulcers COMPARISON: None. TECHNIQUE: CT scan of the body and lower extremities performed with intravenous contrast using helic al scanning technique with dynamic intravenous contrast injection. Images reviewed with lung, soft ti ssue, and bone windows. Reconstructed coronal and sagittal MPR images reviewed. All images stored on PACS. Advanced 3D imaging as volume-rendering, MIPs, SSD performed? yes All CT scanners at this facility use dose modulation, iterative reconstruction, and/or weight based d osing when appropriate to reduce radiation dose to as low as reasonably achievable (ALARA). [facility]: Dose Right [facility]: CareDose [facility]: Dose Right [facility]: Teradose 4D [facility]: [employer] CONTRAST TYPE AND DOSE: None reported RENAL FUNCTION: None reported LIMITATIONS: None. FINDINGS: NON-CONTRASTED IMAGING: No significant renal or bladder calcifications. No other significa nt organ calcifications. POST-CONTRAST IMAGING: AORTA AND VESSELS: No aneurysm. No dissection. TAY without stenosis. LOWER ABDOMEN/PELVIS: Pelvic floor structures extend 5.5 cm below the pubococcygeal line. LOWER EXTREMITIES: Limited evaluation of the lower extremity arteries due to overall poor opacification prominent circum ferential vascular calcifications throughout the majority of the lower extremity arterial vasculature . However, branching and terminal arterial flow within the feet from the anterior tibial, posterior tibial and peroneal arteries appear patent bilaterally. IMPRESSION: Limited lower extremity runoff evaluation due to poor contrast opacification of the pollo rial vasculature and prominent circumferential atherosclerotic calcifications. Patent branching and terminal arterial flow within the feet suggestive of three-vessel runoff patency, although areas of s tenosis are not well assessed. Pelvic floor prolapse. TECHNICAL DOCUMENTATION: JOB ID: [id number] Quality ID # [id number]: Final reports with documentation of one or more dose reduction techniques (e.g., Au tomated exposure control, adjustment of the mA and/or kV according to patient size, use of iterative reconstruction technique) 2010 [employer]- All Rights Reserved Reading location - IP/workstation name: [email or web address]
--- NOTE | 2019-11-27 15:17 | RADIOLOGY REPORT (SQ) ---
EXAM DESCRIPTION: CTA RIGHT LOWER EXTREMITY; CTA LEFT LOWER EXTREMITY IMAGES COMPLETED DATE/TIME: 11/27/2019 2:44 pm; 11/27/2019 2:43 pm REASON FOR STUDY: decreased pulses/ foot ulcer; diminished pulses/foot ulcers COMPARISON: None. TECHNIQUE: CT scan of the body and lower extremities performed with intravenous contrast using helic al scanning technique with dynamic intravenous contrast injection. Images reviewed with lung, soft ti ssue, and bone windows. Reconstructed coronal and sagittal MPR images reviewed. All images stored on PACS. Advanced 3D imaging as volume-rendering, MIPs, SSD performed? yes All CT scanners at this facility use dose modulation, iterative reconstruction, and/or weight based d osing when appropriate to reduce radiation dose to as low as reasonably achievable (ALARA). [facility]: Dose Right [facility]: CareDose [facility]: Dose Right [facility]: Teradose 4D [facility]: [employer] CONTRAST TYPE AND DOSE: None reported RENAL FUNCTION: None reported LIMITATIONS: None. FINDINGS: NON-CONTRASTED IMAGING: No significant renal or bladder calcifications. No other significa nt organ calcifications. POST-CONTRAST IMAGING: AORTA AND VESSELS: No aneurysm. No dissection. TAY without stenosis. LOWER ABDOMEN/PELVIS: Pelvic floor structures extend 5.5 cm below the pubococcygeal line. LOWER EXTREMITIES: Limited evaluation of the lower extremity arteries due to overall poor opacification prominent circum ferential vascular calcifications throughout the majority of the lower extremity arterial vasculature . However, branching and terminal arterial flow within the feet from the anterior tibial, posterior tibial and peroneal arteries appear patent bilaterally. IMPRESSION: Limited lower extremity runoff evaluation due to poor contrast opacification of the pollo rial vasculature and prominent circumferential atherosclerotic calcifications. Patent branching and terminal arterial flow within the feet suggestive of three-vessel runoff patency, although areas of s tenosis are not well assessed. Pelvic floor prolapse. TECHNICAL DOCUMENTATION: JOB ID: [id number] Quality ID # [id number]: Final reports with documentation of one or more dose reduction techniques (e.g., Au tomated exposure control, adjustment of the mA and/or kV according to patient size, use of iterative reconstruction technique) 2010 [employer]- All Rights Reserved Reading location - IP/workstation name: [email or web address]
[2019-11-27] MEDS ORDERED: HYDROCODONE/ACETAMINOPHEN 5-325 MG (6 TAB/ER DISP) PO PRN (19:16)
--- NOTE | 2019-11-27 19:22 | ER Document Report ---
Entered by LILIANA MCDONALD SCRIBE 11/27/19 1205 Acting as scribe for:MACK AGUILAR MD ED General - General Chief Complaint: Foot Pain Stated Complaint: FOOT PAIN,SKIN SORES Time Seen by Provider: 11/27/19 10:43 Mode of Arrival: Wheelchair Information source: Patient Notes: This 64-year-old female with Type 1 diabetes, diabetes neuropathy and hypertension presents to the emergency department complaining of foot pain that has been getting progressively worse over the past week. Patient explains that she went to [facility] a week ago and had her right foot debrided. Patient explained that she had blisters on her right foot at the time but not on her left foot. Patient said that after the debridement, they wrapped up her right foot and told her to follow up in a few days after the appointment. Patient stated that she did not go to her follow-up appointment this past Friday due to the amount of pain she was in that day. Patient said that the pain has been getting progressively worse and that she was unable to go to her dialysis appointment today due to pain. Patient said that she went to [facility] today and they sent her to this emergency department for further evaluation. Patient states that her last dialysis appointment was two days ago. TRAVEL OUTSIDE OF THE [place] IN LAST 30 DAYS: No - Related Data Allergies/Adverse Reactions: No Known Allergies Allergy (Verified 11/27/19 10:43) Past Medical History - General Information source: Patient - Social History Smoking Status: Never Smoker Cigarette use (# per day): No Chew tobacco use (# tins/day): No Frequency of alcohol use: None Drug Abuse: None Family History: Reviewed & Not Pertinent Patient has homicidal ideation: No - Past Medical History Cardiac Medical History: Reports: Hx Coronary Artery Disease - HX CARDIAC STENT, Hx Hypertension - on meds Endocrine Medical History: Reports: Hx Diabetes Mellitus Type 1, Hx Diabetes Mellitus Type 2 Renal/ Medical History: Reports: Hx End Stage Renal Disease, Hx Hemodialysis Musculoskeletal Medical History: Reports Hx Arthritis - R SHOULDER, B/L KNEES, Reports Hx Gout Past Surgical History: Reports: Hx Coronary Stent, Hx Hysterectomy, Hx Kidney (Renal Surgery), Hx Tubal Ligation - Immunizations Hx Diphtheria, Pertussis, Tetanus Vaccination: Yes Review of Systems - Review of Systems Constitutional: See HPI. denies: Fever EENT: No symptoms reported Cardiovascular: See HPI. denies: Chest pain Respiratory: See HPI. denies: Short of breath, Sputum Gastrointestinal: No symptoms reported Genitourinary: No symptoms reported Female Genitourinary: No symptoms reported Musculoskeletal: See HPI, Other - Foot Pain bilateral Skin: See HPI, Other - Blistering on right foot Hematologic/Lymphatic: No symptoms reported Neurological/Psychological: No symptoms reported -: Yes All other systems reviewed and negative Physical Exam - Vital signs Vitals: Temp Pulse Resp BP Pulse Ox 97.9 F 40 L 18 151/78 H 93 11/27/19 10:40 11/27/19 10:40 11/27/19 10:40 11/27/19 10:40 11/27/19 10:40 - Notes Notes: Physical Exam: General: Alert, appears uncomfortable. HEENT: Normocephalic. Atraumatic. PERRL. Extraocular movements intact. Oropharynx clear. Neck: Supple. Non-tender. Respiratory: No respiratory distress. Clear and equal breath sounds bilaterally. Cardiovascular: Regular rate and rhythm. Abdominal: Obese. Non-tender. Distended. Normal Bowel Sounds. Back: No gross abnormalities. Extremities: Moves all four extremities. Upper extremities: Normal ROM. Left forearm fistula access. Lower extremities: No edema. Normal ROM. Skin on feet is blistering bilaterally. Right foot has been debrided and is darkened. Left foot has bl istering without debridement. Neurological: Normal cognition. AAOx4. Normal speech. Psychological: Normal affect. Normal Mood. Skin: Warm. Dry. Normal color. Course - Re-evaluation Re-evalutation: 11/27/19 19:00 Patient resting comfortably states that her foot pain is improved and that she does not need any pain medication at this time. 11/27/19 19:06 Case discussed with the violent in [place] who assigned patient to be accepted at [facility]. Case discussed with the hospitalist who indicated patient did not appear the need to be transferred for any emergency dialyzed dialysis inasmuch as she has no evidence of overt failure normal potassium and is not uremic at this time. Therefore patient can be managed as an outpatient and be dialyzed on Friday at the very local [facility] dialysis center. - Vital Signs Vital signs: Temp Pulse Resp BP Pulse Ox 97.9 F 40 L 12 183/105 H 100 06/13/20 10:44 11/27/19 10:40 11/27/19 18:01 11/27/19 18:01 11/27/19 18:01 11/27/19 19:01 Patient's vital signs shows systolic diastolic hypertension 183/105. Pulse ox 100% patient has not taken her clonidine tablets today. Patient was given 0.2 mg clonidine to bring her blood pressure down. Patient reports she has antibiotics that he takes for her diabetic foot ulcers. Patient is explained that she has missed her dialysis today and that inasmuch as her potassium is normal and she is not showing overt signs of congestive heart failure with hypoxia that patient can be discharged home and to have dialysis on Friday she is has been instructed to call the [facility] dialysis center on Friday for an emergent dialysis on Friday even though her normal days are Friday. Patient understood this instruction and stated she did not think that she would have any problem getting in on Friday for dialysis. Patient states she is going to continue her antibiotic therapy that she is on and to follow-up with the [facility] that has been debriding her wounds. - Laboratory Result Diagrams: 11/27/19 11:00 11/27/19 11:00 Laboratory results interpreted by me: 11/27/19 11/27/19 11/27/19 11:00 11:00 11:00 WBC 17.1 H RBC 3.31 L Hgb 9.0 L D Hct 27.5 L RDW 18.2 H Lymph % (Auto) 8.6 L Absolute Neuts (auto) 14.5 H Seg Neutrophils % 85.0 H PT 17.8 H Sodium 136.8 L Chloride 91 L BUN 36 H Creatinine 7.39 H Est GFR ( Amer) 7 L Est GFR (MDRD) Non-Af 6 L Total Bilirubin 1.8 H Direct Bilirubin 0.9 H NT-Pro-B Natriuret Pep 11/27/19 11:00 WBC RBC Hgb Hct RDW Lymph % (Auto) Absolute Neuts (auto) Seg Neutrophils % PT Sodium Chloride BUN Creatinine Est GFR ( Amer) Est GFR (MDRD) Non-Af Total Bilirubin Direct Bilirubin NT-Pro-B Natriuret Pep [id number] H 11/27/19 19:03 Patient has elevated white blood cell count of 17,000 consistent with cellulitis. Patient was given IV antibiotics of cefepime and vancomycin. - Diagnostic Test Radiology reviewed: Image reviewed, Reports reviewed Radiology results interpreted by me: 11/27/19 19:03 Chest x-ray shows cardiomegaly no definite infiltrate and there is no pleural effusions chest x-ray is consistent with chronic congestive heart failure. 11/27/19 19:04 Right foot plain film x-ray shows inflammatory changes and cortical thinning of the metatarsal heads in her toes. Radiologist is uncertain unable to define osteomyelitis on plain film x-ray. CTA of both lower extremities with contrast runoff shows patent flow to both feet without any evidence of blockage. There was no comment on the bone structure whether or not there was osteomyelitis. 11/27/19 19:06 Twelve-lead EKG shows a normal sinus rhythm rate of 77 probable left atrial abnormality. Minimal ST depression in anterior lateral leads borderline prolonged QT interval. Discharge - Discharge Clinical Impression: Cellulitis of both feet, End stage renal failure on dialysis, Hypertension, Diabetes mellitus type 2 in nonobese, Foot pain, right Condition: Good Disposition: HOME, SELF-CARE Additional Instructions: Kidney Failure When your kidneys no longer filter the blood adequately, we call this "kidney failure." While kidney failure can happen suddenly, usually it's the result of many years of slow damage. Kidneys can be injured by many different medical problems including infections, diabetes, high blood pressure, kidney stones, drug toxicity, and immune reactions. The symptoms of kidney failure do not develop until most of the normal kidney tissue has been lost. Early kidney failure usually has no symptoms. As it gets worse, symptoms can include weakness, confusion, high blood pressure, swelling, nausea, anemia, and itching. The seriousness of kidney failure is determined by measuring kidney function tests such as BUN or creatinine. The cause of kidney failure may be obvious from the medical history, but occasionally requires special tests such as an angiogram or kidney biopsy. Kidney failure can cause high blood pressure, and uncontrolled hypertension damages kidneys. Good control of blood pressure is important. If you have diabe rafa, good blood sugar control helps prevent further kidney damage. Fluid retention can be monitored by checking your weight daily. It's best to eat a diet low in protein, potassium, and salt. When kidney failure becomes severe, dialysis or kidney transplant may be required. Call the doctor or return if you develop significant weakness, repeated vomiting, severe lightheadedness, confusion, severe headache, or other serious change in your health. Cellulitis You have an infection of your skin and underlying soft tissues called cellulitis. This is due to bacteria, which can enter through any break in the skin, or even through an irritated hair follicle. Untreated, cellulitis will usually worsen. Antibiotics are required. Usually, warm packs or warm soaks, and elevation of the infected area are recommended. You should start getting better within 24 to 36 hours. Most infections respond quickly to the right medication. Follow-up care is important, however, to check for abscess (boil) formation, unsuspected foreign body, or resistant infection. If you develop fever, chills, or if the area of infection is becoming rapidly more swollen or painful, call the doctor at once. You have cellulitis of both feet right greater than left. You report that you are on antibiotics that you take twice a day and that you have been getting debridement of your skin tissue on your feet done at the [facility] we encourage you to follow-up with a [facility] for further evaluation and treatment continue the antibiotics that you are currently taking we will provide you with a Dosepak of pain medications to go home with today. If for any reason you have complications or further problems of his cellulitis of your foot do not hesitate to come back to the emergency department. You have missed your dialysis day today due to being in the emergency department with foot pain and cellulitis. Inasmuch as you are not in a position that you necessarily have to have emergency dialysis we are recommending that you continue to take your medications as you are doing and called the [facility] dialysis center on Friday for a emergent add-on case to be dialyzed on Friday. Forms: Elevated Blood Pressure I personally performed the services described in the documentation, reviewed and edited the documentation which was dictated to the scribe in my presence, and it accurately records my words and actions.
[2019-11-27 20:11] VITALS: BP 135/79
--- NOTE | 2019-11-27 21:52 | EKG REPORT ---
SEVERITY:- BORDERLINE ECG - SINUS RHYTHM PROBABLE LEFT ATRIAL ABNORMALITY MINIMAL ST DEPRESSION, ANTEROLATERAL LEADS BORDERLINE PROLONGED QT INTERVAL : Confirmed by: Brittanie Romero MD 27-Nov-2019 21:52:00
== END 2019-11-27 20:11 | disposition home or self-care (01) ==
LOC: ER 10:34
DX: L03.116 Cellulitis of left lower limb (principal); L03.115 Cellulitis of right lower limb; M79.671 Pain in right foot; M79.672 Pain in left foot; E10.40 Type 1 diabetes mellitus with diabetic neuropathy, unspecified; I12.0 Hypertensive chronic kidney disease with stage 5 chronic kidney disease or end stage renal disease; E10.22 Type 1 diabetes mellitus with diabetic chronic kidney disease; N18.6 End stage renal disease; Z99.2 Dependence on renal dialysis; I25.10 Atherosclerotic heart disease of native coronary artery without angina pectoris; Z79.899 Other long term (current) drug therapy
CPT/HCPCS: 93005; 99284; 96361; 96374; 96375; 36415; 87040; 82962; 83605; 83690; 85025; 85610; 85730; 80053; 84484; 83880; 71045; 73630; 73706 ×2; 93010; J2270; J2405; J7050; J3370; J2543; A9270

== ENCOUNTER 2019-12-13 16:46 | Inpatient (IN) | payer MEDICARE ==
[2019-12-13] MEDS ORDERED: MORPHINE SULFATE 10 MG/ML INJ IV ONE (17:43)
--- NOTE | 2019-12-13 17:59 | ER Document Report ---
ED Medical Screen (RME) - General Chief Complaint: Foot Pain Stated Complaint: FEET PAIN/SWELLING Time Seen by Provider: 12/13/19 17:33 Primary Care Provider: FADUMO KEITA PA-C [Primary Care Provider] - Follow up as needed Information source: Patient Notes: Patient presents with bilateral lower extremity swelling and blackening of the feet bilaterally. Patient denies any recent injury or fever. Patient does have a history of diabetes, hypertension and dialyzes on Saturdays. Patient has not missed dialysis. I have greeted and performed a rapid initial assessment of this patient. A comprehensive ED assessment and evaluation of the patient, analysis of test results and completion of the medical decision making process will be conducted by additional ED providers. TRAVEL OUTSIDE OF THE [place] IN LAST 30 DAYS: No - Related Data Allergies/Adverse Reactions: No Known Allergies Allergy (Verified 11/27/19 10:43) Home Medications: insulin Past Medical History - Past Medical History Cardiac Medical History: Reports: Hx Coronary Artery Disease - HX CARDIAC STENT, Hx Hypertension - on meds Denies: Hx Heart Attack Pulmonary Medical History: Denies: Hx Asthma, Hx Bronchitis, Hx COPD, Hx Pneumonia Neurological Medical History: Denies: Hx Cerebrovascular Accident, Hx Seizures Endocrine Medical History: Reports: Hx Diabetes Mellitus Type 1, Hx Diabetes Mellitus Type 2 Renal/ Medical History: Reports: Hx End Stage Renal Disease, Hx Hemodialysis. Denies: Hx Peritoneal Dialysis Musculoskeltal Medical History: Reports Hx Arthritis - R SHOULDER, B/L KNEES, Reports Hx Gout Psychiatric Medical History: Denies: Hx Depression Past Surgical History: Reports: Hx Coronary Stent, Hx Hysterectomy, Hx Kidney (Renal Surgery), Hx Tubal Ligation - Immunizations Hx Diphtheria, Pertussis, Tetanus Vaccination: Yes Physical Exam - Vital signs Vitals: Temp Pulse Resp BP Pulse Ox 99.1 F 93 16 143/78 H 94 12/13/19 16:52 12/13/19 16:52 12/13/19 16:52 12/13/19 16:52 12/13/19 16:52 - General General appearance: Alert Notes: 3-4+ bilateral lower extremity edema, skin shiny, patient with dry gangrene to the toes of left and right foot, right worse than left Course - Re-evaluation Re-evalutation: 12/13/19 17:[address] Dunn, Dr. Dunn to bedside for examination. Advises imaging, pain control and recommends consultation with surgery. - Vital Signs Vital signs: Temp Pulse Resp BP Pulse Ox 99.1 F 93 16 143/78 H 94 12/13/19 17:34 12/13/19 16:52 12/13/19 16:52 12/13/19 16:52 12/13/19 16:52 Doctor's Discharge - Discharge Referrals: FADUMO KEITA PA-C [Primary Care Provider] - Follow up as needed
--- NOTE | 2019-12-13 18:01 | ER Document Report ---
Doctor's Note Notes: 12/13/19 17:58 Midlevel provider asked me to look at this patient in triage area with her initially. This is elderly female dialysis patient who has severe peripheral vascular disease presenting now with increased pain and swelling both lower legs and feet. She is previously had CTA with runoff done about 2 weeks ago showing extensive diffuse vascular disease although this was not a good technical study. 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 She has no palpable pulses in her feet on either side. She has tight brawny edema of both lower legs with no obvious crepitus. She is very tender to touch along pretibial area bilaterally. She has a temperature here of 99.1. I think this lady will ultimately need admission for management of her pain and consultation with surgery for amputation of multiple toes and perhaps a transmetatarsal amputation bilaterally. I suggested giving her some morphine for pain at this time and ordering comprehensive metabolic profile and CBC as well as electrocardiogram chest x-ray and plain films of both feet.
--- NOTE | 2019-12-13 18:52 | RADIOLOGY REPORT (SQ) ---
EXAM DESCRIPTION: CHEST SINGLE VIEW IMAGES COMPLETED DATE/TIME: 12/13/2019 6:22 pm REASON FOR STUDY: peripheral edema COMPARISON: 11/27/2019 EXAM PARAMETERS: NUMBER OF VIEWS: One view. TECHNIQUE: Single frontal radiographic view of the chest acquired. RADIATION DOSE: NA LIMITATIONS: None. FINDINGS: LUNGS AND PLEURA: As on the prior examination, mild pleuroparenchymal changes on the righ t may represent small pleural effusion and some atelectasis. The left lung stable in appearance. No pneumothorax. MEDIASTINUM AND HILAR STRUCTURES: No masses. Contour normal. HEART AND VASCULAR STRUCTURES: Cardiomegaly, unchanged finding. Normal vasculature. BONES: No acute findings. HARDWARE: None in the chest. OTHER: No other significant finding. IMPRESSION: 1. No significant interval changes since the prior examination dated 11/27/2019. Stable mild pleuroparenchymal changes on the right with small pleural effusion again suggested. 2. Cardiomegaly, unchanged finding. TECHNICAL DOCUMENTATION: JOB ID: [id number] 2010 [email or web address]- All Rights Reserved Reading location - IP/workstation name: [email or web address]
[2019-12-13 19:00] LABS: ABSOLUTE LYMPHOCYTES (AUTO) 1.3 10^3/uL (0.5-4.7); ABSOLUTE NEUT (AUTO) 13.6 10^3/uL (1.7-8.2); BASOPHILS % (AUTO) 0.3 % (0-2); EOSINOPHILS % (AUTO) 0.1 % (0-6); HEMATOCRIT 28.2 % (36.0-47.0); LYMPHOCYTES % (AUTO) 8.3 % (13-45); MEAN CORPUSCULAR HEMOGLOBIN 27.5 pg (27.0-33.4); MEAN CORPUSCULAR HGB CONC 31.9 g/dL (32.0-36.0); MEAN CORPUSCULAR VOLUME 86 fl (80-97); MONOCYTES % (AUTO) 6.4 % (3-13); PLATELET COUNT 174 10^3/uL (150-450); RED BLOOD COUNT 3.27 10^6/uL (3.72-5.28); RED CELL DISTRIBUTION WIDTH 20.5 % (11.5-14.0); SEGMENTED NEUTROPHILS % (AUTO) 84.9 % (42-78); TOTAL CELLS COUNTED % (AUTO) 100 %; WHITE BLOOD COUNT 16.1 10^3/uL (4.0-10.5)
[2019-12-13 19:16] LABS: ALBUMIN 3.8 g/dL (3.5-5.0); ALKALINE PHOSPHATASE 76 U/L (38-126); ASPARTATE AMINO TRANSFERASE 22 U/L (14-36); BILIRUBIN,DIRECT 0.9 mg/dL (0.0-0.4); BILIRUBIN,TOTAL 1.6 mg/dL (0.2-1.3); BLOOD UREA NITROGEN 41 mg/dL (7-20); CALCIUM 9.4 mg/dL (8.4-10.2); CHLORIDE 81 mmol/L (98-107); GLUCOSE 124 mg/dL (75-110); POTASSIUM 4.1 mmol/L (3.6-5.0); TOTAL PROTEIN 7.5 g/dL (6.3-8.2)
--- NOTE | 2019-12-13 19:21 | RADIOLOGY REPORT (SQ) ---
EXAM DESCRIPTION: FOOT BILATERAL 3 VIEWS IMAGES COMPLETED DATE/TIME: 12/13/2019 6:22 pm REASON FOR STUDY: dry gangrene, LE swelling COMPARISON: 11/27/2019 NUMBER OF VIEWS: Three views. TECHNIQUE: AP, lateral and oblique radiographic images acquired of the right and left foot. LIMITATIONS: None. FINDINGS: MINERALIZATION: Osteopenia. BONES: No acute fracture or dislocation. No worrisome bone lesions. Calcaneal spurs. JOINTS: No effusions. SOFT TISSUES: No soft tissue swelling. No foreign body. OTHER: No other significant finding. IMPRESSION: Osteopenia. Calcaneal spurs. TECHNICAL DOCUMENTATION: JOB ID: [id number] 2010 [employer]- All Rights Reserved Reading location - IP/workstation name: [email or web address]
[2019-12-13 19:25] LABS: ANION GAP 13 (5-19)
[2019-12-13 19:27] LABS: CARBON DIOXIDE 44 mmol/L (22-30)
[2019-12-13] MEDS ORDERED: OXYCODONE-ACETAMINOPHEN 5-325 MG TABLET PO ONE (20:00)
--- NOTE | 2019-12-14 01:04 | EKG REPORT ---
SEVERITY:- BORDERLINE ECG - SINUS RHYTHM PROBABLE LEFT ATRIAL ABNORMALITY BORDERLINE PROLONGED QT INTERVAL : Confirmed by: Brittanie Romero MD 14-Dec-2019 01:03:40
[2019-12-14] MEDS ORDERED: MORPHINE SULFATE 10 MG/ML INJ IV ONE (01:24)
[2019-12-14] MEDS ORDERED: ONDANSETRON HCL INJ/PF 4 MG/2 ML SDV IV ONE (01:25)
[2019-12-14] MEDS ORDERED: PIPERACILLIN/TAZOBACTAM 3.375 GM VIAL IV ONE (01:25)
--- NOTE | 2019-12-14 01:26 | ER Document Report ---
Entered by DAQUAN DWYER SCRIBE 12/14/19 0118 Acting as scribe for:CLARICE CRAWFORD, DO ED Extremity Problem, Lower - General Chief Complaint: Foot Pain Stated Complaint: FEET PAIN/SWELLING Time Seen by Provider: 12/13/19 17:33 Primary Care Provider: FADUMO KEITA PA-C [Primary Care Provider] - Follow up as needed Mode of Arrival: Wheelchair Information source: Patient Notes: This 64 year old female patient with a history of diabetes, ESRD on HD (,,Fri), PVD, and HTN presents to the ED today with complaints of bilateral lower extremity pain and swelling for the past x1 week. She states that the ulcers on her feet need to be cleaned. She reports that she noticed an odor to feet x1 week ago. Patient dialyzed x3 days ago. Denies fever. TRAVEL OUTSIDE OF THE [place] IN LAST 30 DAYS: No - Related Data Allergies/Adverse Reactions: No Known Allergies Allergy (Verified 11/27/19 10:43) Home Medications: insulin Past Medical History - General Information source: Patient, [facility] Records - Social History Smoking Status: Unknown if Ever Smoked Cigarette use (# per day): No Chew tobacco use (# tins/day): No Smoking Education Provided: No Family History: Reviewed & Not Pertinent Patient has suicidal ideation: No Patient has homicidal ideation: No - Past Medical History Cardiac Medical History: Reports: Hx Coronary Artery Disease - HX CARDIAC STENT, Hx Hypertension - on meds Endocrine Medical History: Reports: Hx Diabetes Mellitus Type 1, Hx Diabetes Mellitus Type 2 Renal/ Medical History: Reports: Hx End Stage Renal Disease, Hx Hemodialysis - , , Fri Musculoskeletal Medical History: Reports Hx Arthritis - R SHOULDER, B/L KNEES, Reports Hx Gout Past Surgical History: Reports: Hx Coronary Stent, Hx Hysterectomy, Hx Kidney (Renal Surgery), Hx Tubal Ligation - Immunizations Hx Diphtheria, Pertussis, Tetanus Vaccination: Yes Review of Systems - Review of Systems Constitutional: See HPI. denies: Fever EENT: No symptoms reported Cardiovascular: No symptoms reported Respiratory: No symptoms reported Gastrointestinal: No symptoms reported Genitourinary: No symptoms reported Female Genitourinary: No symptoms reported Musculoskeletal: See HPI, Leg swelling, Other - Leg pain Skin: See HPI Hematologic/Lymphatic: No symptoms reported Neurological/Psychological: No symptoms reported -: Yes All other systems reviewed and negative Physical Exam - Vital signs Vitals: Temp Pulse Resp BP Pulse Ox 99.1 F 93 16 143/78 H 94 12/13/19 16:52 12/13/19 16:52 12/13/19 16:52 12/13/19 16:52 12/13/19 16:52 - General General appearance: Alert In distress: None - HEENT Head: Normocephalic, Atraumatic Eyes: Normal Pupils: PERRL - Respiratory Respiratory status: No respiratory distress Chest status: Nontender Breath sounds: Normal Chest palpation: Normal - Cardiovascular Rhythm: Regular Heart sounds: Normal auscultation Murmur: No Friction rub: No Gallop: None auscultated - Abdominal Inspection: Normal Distension: No distension Bowel sounds: Normal Tenderness: Nontender - Abdomen soft Organomegaly: No organomegaly - Back Back: Normal, Nontender - Extremities General lower extremity: Edema - Trace peripheral edema to bilateral lower extremities, Other - Skin changes related to poor circulation noted to bilateral LE Forearm: Other - Palpable thrill noted to left forearm Foot: Other - 2nd and 3rd toes on the left foot are dark, black, and necrotic in appearance. The great, 2nd and 3rd toes on the right foot up to the MTP joint shown signs of necrosis and dry gangrene. - Neurological Neuro grossly intact: Yes Orientation: AAOx4 Hai Coma Scale Eye Opening: Spontaneous Hai Coma Scale Verbal: Oriented Hai Coma Scale Motor: Obeys Commands [place] Coma Scale Total: 15 - Psychological Associated symptoms: Normal affect, Normal mood - Skin Skin irregularity: other - 2nd and 3rd toes on the left foot are dark, black, and necrotic in appearance. The great, 2nd and 3rd toes on the right foot up to the MTP joint shown signs of necrosis and dry gangrene. Skin changes related to poor circulation noted to bilateral LE Course - Re-evaluation Re-evalutation: 12/14/19 01:26 MDM 64 year old vasculopath with PAD and gangrene of both feet. Friday, and Friday HD pt. She is willing to stay and get her feet taken care of. We have addressed pain and given antibiotics. She expressed understanding of treatment and plan. 12/14/19 01:31 I have discussed with Dr. Salder and she will consult regarding this pt. 12/14/19 01:55 I have called and discussed with Dr. Kuo too and he will be happy to consult regarding this pt. - Vital Signs Vital signs: Temp Pulse Resp BP Pulse Ox 99.1 F 93 16 143/78 H 94 12/13/19 17:34 12/13/19 16:52 12/13/19 16:52 12/13/19 16:52 12/13/19 16:52 - Laboratory Result Diagrams: 12/13/19 18:33 12/13/19 18:33 Laboratory results interpreted by me: 12/13/19 12/13/19 18:33 18:33 WBC 16.1 H RBC 3.27 L Hgb 9.0 L Hct 28.2 L MCHC 31.9 L RDW 20.5 H Lymph % (Auto) 8.3 L Absolute Neuts (auto) 13.6 H Seg Neutrophils % 84.9 H Chloride 81 L Carbon Dioxide 44 H* BUN 41 H Creatinine 7.35 H Est GFR ( Amer) 7 L Est GFR (MDRD) Non-Af 6 L Glucose 124 H Total Bilirubin 1.6 H Direct Bilirubin 0.9 H Discharge - Discharge Clinical Impression: Gangrene, ESRD (end stage renal disease) on dialysis Condition: Stable Disposition: ADMITTED INPATIENT Admitting Provider: Rajesh (Hospitalist) Unit Admitted: Medical Floor Referrals: FADUMO KEITA PA-C [Primary Care Provider] - Follow up as needed I personally performed the services described in the documentation, reviewed and edited the documentation which was dictated to the scribe in my presence, and it accurately records my words and actions.
--- NOTE | 2019-12-14 03:04 | PDOC H&P ---
History of Present Illness Admission Date/PCP: 12/14/19 02:03 FADUMO KEITA Patient complains of: Bilateral foot pain History of Present Illness: ANGELIC VILLASENOR is a 64 year old female who presents the emergency room with a one-week history of bilateral foot pain. She admits the abrupt onset of pain in both feet 1 week ago. Her pain is a moderate dull pressure at rest but turns into a severe sharp searing pain with weightbearing. Her foot pain was accompanied by the development of "blisters" of her right great, second and third toes as well as her left second and third toes. The blisters have "broken" over time, becoming darkened skin with a foul odor. Her foot pain was associated with swelling in her bilateral lower extremities below the knee. She denies other associated or accompanying signs and symptoms. She she denies prior similar episodes. She has not identified any additional aggravating or ameliorating factors for her foot pain. In the emergency room she was found to have gangrene of the right great second and third toes as well as the left second and third toes. Surgical consultation with Dr. Kuo was obtained by the emergency room provider and he asked for the hospitalist service to admit the patient and consult him as well as Dr. Sadler for nephrology. Patient was subsequently admitted to the hospital for further evaluation treatment. Past Medical History Cardiac Medical History: Reports: Coronary Artery Disease, Hypertension Denies: Myocardial Infarction Pulmonary Medical History: Denies: Asthma, Bronchitis, Chronic Obstructive Pulmonary Disease (COPD), Pneumonia EENT Medical History: Reports: Eyes - Diabetic retinopathy with left eye blindness Denies: Cataracts, Ears - Hearing aids Neurological Medical History: Denies: Hemorrhagic CVA, Ischemic CVA, Seizures Endocrine Medical History: Reports: Diabetes Mellitus Type 2, Obesity Denies: Hyperthyroidism, Hypothyroidism Renal/ Medical History: Reports: End Stage Renal Disease Denies: Nephrolithiasis Malignancy Medical History: Reports: None GI Medical History: Reports: Other - Cholelithiasis Denies: Cirrhosis, Hepatitis, Peptic Ulcer Disease Musculoskeltal Medical History: Reports: Arthritis - R SHOULDER, B/L KNEES, Gout Skin Medical History: Denies: Eczema, Psoriasis Psychiatric Medical History: Denies: Alcohol Dependency, Depression, Substance Abuse, Tobacco Dependency Traumatic Medical History: Reports: None Hematology: Reports: Anemia - Chronic anemia secondary to renal disease Denies: Bleeding Tendencies Infectious Medical History: Reports: None Past Surgical History Past Surgical History: Reports: Coronary Stent, Hysterectomy, Tubal Ligation, Va scular Surgery - Fistula placement for dialysis, Other - Bilateral oophorectomy, retinal surgery Social History Information Source: Patient Lives with: Spouse/Significant other Smoking Status: Former Smoker Electronic Cigarette use?: No Frequency of Alcohol Use: None Hx Recreational Drug Use: No Drugs: None Hx Prescription Drug Abuse: No - Advance Directive Resuscitation Status: Full Code Surrogate healthcare decision maker:: Marta Villasenor Family History Family History: CAD, DM, Malignancy, Other - Sickle cell disease, kidney disease Parental Family History Reviewed: Yes Children Family History Reviewed: No Sibling(s) Family History Reviewed.: Yes Medication/Allergy Home Medications: Amlodipine Besylate [Norvasc 10 mg Tablet] 10 mg PO DAILY 11/01/19 Calcium Acetate [Phoslo 667 mg Capsule] 1,334 mg PO TID 11/01/19 Calcium Acetate [Phoslo 667 mg Capsule] 667 mg PO ASDIR PRN 11/01/19 Clonidine HCl [Catapres 0.2 mg Tablet] 0.2 mg PO Q6 11/01/19 Cyclobenzaprine HCl [Flexeril 10 mg Tablet] 10 mg PO BID 11/01/19 Ergocalciferol (Vitamin D2) [Drisdol 50,000 unit (1.25MG) Capsule] 50,000 unit PO MO@1000 11/01/19 Meloxicam [Mobic 7.5 mg Tablet] 7.5 mg PO ASDIR PRN 11/01/19 Allergies/Adverse Reactions: No Known Allergies Allergy (Verified 12/14/19 02:00) Review of Systems Constitutional: ABSENT: chills, fever(s) Eyes: ABSENT: visual disturbances, other - Eye pain Ears: ABSENT: hearing changes, other - Ear pain Nose, Mouth, and Throat: ABSENT: headache(s), sore throat Cardiovascular: ABSENT: chest pain, palpitations Respiratory: ABSENT: cough, dyspnea Gastrointestinal: ABSENT: abdominal pain, constipation, diarrhea, nausea, vomiting Genitourinary: ABSENT: dysuria, hematuria Musculoskeletal: PRESENT: as per HPI, other - Bilateral foot pain. ABSENT: back pain, joint swelling Integumentary: ABSENT: pruritus, rash Neurological: ABSENT: confusion, convulsions, focal weakness, memory loss, syncope Psychiatric: ABSENT: anxiety, depression Endocrine: ABSENT: cold intolerance, heat intolerance Hematologic/Lymphatic: ABSENT: easy bleeding, easy bruising Allergic/Immunologic: ABSENT: seasonal rhinorrhea Physical Exam Vital Signs: Temp Pulse Resp BP Pulse Ox 98.4 F 93 21 H 167/79 H 94 12/14/19 02:21 12/13/19 16:52 12/14/19 02:11 12/14/19 02:11 12/14/19 02:11 Intake & Output 12/12/19 12/13/19 12/14/19 23:59 23:59 23:59 Weight 99.79 kg General appearance: PRESENT: no acute distress, cooperative, obese Head exam: PRESENT: atraumatic, normocephalic Eye exam: PRESENT: conjunctiva pink. ABSENT: conjunctival injection, scleral icterus Ear exam: PRESENT: normal external ear exam. ABSENT: bleeding, drainage Mouth exam: PRESENT: dry mucosa, neck supple Neck exam: ABSENT: thyromegaly, tracheal deviation Respiratory exam: PRESENT: clear to auscultation genia, symmetrical, unlabored Cardiovascular exam: PRESENT: RRR. ABSENT: clicks, gallop, rubs Pulses: PRESENT: normal radial pulses. ABSENT: normal dorsalis pedis pul - Dorsalis pedis pulses trace present on left absent on right Vascular exam: PRESENT: normal capillary refill. ABSENT: pallor GI/Abdominal exam: PRESENT: normal bowel sounds, soft Rectal exam: PRESENT: deferred Extremities exam: PRESENT: tenderness - Tenderness to palpation of the bilateral feet, other - Pretibial edema of the bilateral lower extremities noted Musculoskeletal exam: PRESENT: tenderness - Right first second and third toes, left second and third toes with obvious dry gangrene changes. ABSENT: deformity, dislocation Neurological exam: PRESENT: alert, oriented to person, oriented to place, o riented to time, oriented to situation. ABSENT: CN II-XII grossly intact - Left eye blindness noted, motor sensory deficit Psychiatric exam: PRESENT: appropriate affect, normal mood Skin exam: PRESENT: dry, warm, other - Gangrene involving bilateral toes as noted above. ABSENT: jaundice, rash, urticaria Results Laboratory Results: 12/13/19 18:33 12/13/19 18:33 12/13/19 12/13/19 18:33 18:33 WBC 16.1 H RBC 3.27 L Hgb 9.0 L Hct 28.2 L MCV 86 MCH 27.5 MCHC 31.9 L RDW 20.5 H Plt Count 174 Seg Neutrophils % 84.9 H Sodium 138.2 Potassium 4.1 Chloride 81 L Carbon Dioxide 44 H* Anion Gap 13 BUN 41 H Creatinine 7.35 H Est GFR ( Amer) 7 L Glucose 124 H Calcium 9.4 Total Bilirubin 1.6 H AST 22 Alkaline Phosphatase 76 Total Protein 7.5 Albumin 3.8 Impressions: Chest X-Ray 12/13/19 17:55 IMPRESSION: 1. No significant interval changes since the prior examination dated 11/27/2019. Stable mild pleuroparenchymal changes on the right with small pleural effusion again suggested. 2. Cardiomegaly, unchanged finding. Foot X-Ray 12/13/19 17:55 IMPRESSION: Osteopenia. Calcaneal spurs. Assessment and Plan - Diagnosis (1) Gangrene associated with type 2 diabetes mellitus Is this a current diagnosis for this admission?: Yes (2) Peripheral vascular disease of foot Is this a current diagnosis for this admission?: Yes (3) Peripheral vascular disease in diabetes mellitus Is this a current diagnosis for this admission?: Yes (4) Diabetes mellitus type 2 in obese Is this a current diagnosis for this admission?: Yes (5) Hypertension Qualifiers: Hypertension type: essential hypertension Qualified Code(s): I10 - Essential (primary) hypertension Is this a current diagnosis for this admission?: Yes (6) ESRD (end stage renal disease) on dialysis Is this a current diagnosis for this admission?: Yes (7) Anemia in chronic kidney disease (CKD) Qualifiers: Chronic kidney disease stage: on chronic dialysis Qualified Code(s): N18.6 - End stage renal disease; D63.1 - Anemia in chronic kidney disease; Z99.2 - Dependence on renal dialysis Is this a current diagnosis for this admission?: Yes (8) Obesity Qualifiers: Obesity type: due to excess calories Obesity classification: adult class 2 (BMI 35 - 39.9) Serious obesity comorbidity presence: with serious comorbidity Body mass index: BMI 39.0-39.9 Qualified Code(s): E66.01 - Morbid (severe) obesity due to excess calories; Z68.39 - Body mass index (BMI) 39.0-39.9, adult Is this a current diagnosis for this admission?: Yes - Plan Summary Summary: Patient is admitted to the medical floor where she will receive routine supportive and symptomatic cares. Dr. Kuo will be consulted for surgical evaluation and treatment of her bilateral gangrene. Dr. Sadler will be consulted for evaluation and treatment of her end-stage renal disease on dialysis. Patient will receive morphine sulfate 2 to 4 mg IV every 2 hours as needed for pain. She will use Ativan 1 mg IV every 4 hours as needed for anxiety or restlessness. She will receive intravenous Zosyn with dosage adjusted for end-stage renal disease by pharmacy. She will receive vancomycin IV with dosage to be calculated by pharmacy. She will be on a cardiac, diabetic and dialysis restricted diet. CBCs, metabolic profiles, magnesium levels and other laboratory and/or radiographic evaluations will be obtained as appropriate. Before meals and at bedtime Accu-Cheks will be obtained with sliding scale insulin used for hyperglycemia and a hypoglycemic protocol in place. - Time Time Spent with patient: 25-34 minutes Medications reviewed and adjusted accordingly: Yes Anticipated discharge: Acute Rehab - Inpatient Certification Based on my medical assessment, after consideration of the patient's comorbidities, presenting symptoms, or acuity I expect that the services needed warrant INPATIENT care.: Yes I certify that my determination is in accordance with my understanding of [facility]'s requirements for reasonable and necessary INPATIENT services [42 CFR 412.3e].: Yes Medical Necessity: Significant Comorbidiites Make Outpatient Treatment Too Risky, Need Close Monitoring Due to Risk of Patient Decompensation, Need for Pain Control, Need for IV Antibiotics, Need for Surgery, Risk of Complication if Not Cared For in Hospital
[2019-12-14] MEDS ORDERED: METOPROLOL TARTRATE PF/INJ 5 MG/5 ML SDV IV PRN (03:08)
[2019-12-14] MEDS ORDERED: HYDRALAZINE HCL INJ/PF 20 MG/1 ML SDV IV PRN (03:08)
[2019-12-14] MEDS ORDERED: INSULIN REG, HUMAN 100 UNIT/ML 3 ML VIAL (PYX) SUBCUT PRN (03:08)
[2019-12-14] MEDS ORDERED: PROMETHAZINE HCL INJ 25 MG/1 ML VIAL IV PRN (03:08)
[2019-12-14] MEDS ORDERED: GUAIFENESIN SYRP 200 MG/10 ML UDC PO PRN (03:08)
[2019-12-14] MEDS ORDERED: MAG HYDROX/AL HYDROX/SIMETH SUSP 30 ML UDCUP PO PRN (03:08)
[2019-12-14] MEDS ORDERED: LORAZEPAM INJ 2 MG/1 ML VIAL IV PRN (03:08)
[2019-12-14] MEDS ORDERED: MORPHINE SULFATE 10 MG/ML INJ IV PRN (03:08)
[2019-12-14] MEDS ORDERED: DEXTROSE 40% GEL 15 GM TUBE PO PRN (03:09)
[2019-12-14] MEDS ORDERED: GLUCAGON,HUMAN RECOMB 1 MG INJ IM PRN (03:09)
[2019-12-14] MEDS ORDERED: MELATONIN 5 MG TABLET PO PRN (03:15)
[2019-12-14] MEDS ORDERED: PIPERACILLIN/TAZOBACTAM 3.375 GM VIAL IV SCH (03:15)
[2019-12-14] MEDS ORDERED: VANCOMYCIN HCL INJ 1000 MG VIAL IV ONE (04:00)
[2019-12-14] MEDS: HEPARIN SOD (PORCINE) 5,000 UNIT/ML 1 ML VIAL SUBCUT SCH ×3 (06:51→22:31)
[2019-12-14] MEDS: PANTOPRAZOLE SODIUM 40 MG TABLET.DR PO SCH (06:51)
--- NOTE | 2019-12-14 08:33 | PDOC CONSULTATION ---
Consultation Consult Date: 12/14/19 Provider Consulted: SURGICAL SURGICALIST MD Consult reason:: gangrene bilateral feet History of Present Illness Admission Date/PCP: 12/14/19 02:03 FADUMO KEITA History of Present Illness: ANGELIC ROBIN is a 64 year old female seen in consultation at the request of the hospitalist service. This is a diabetic female, renal failure patient with progressive, ongoing dry gangrene of bilateral feet. On the right foot, the dry gangrene involves the first, second, third toe with extension up the midfoot. On the left foot, the gangrene involves the second and third toes, to the metatarsal joint. The patient denies foul odor, but does report a throbbing, a angelia pain. Her pain has worsened significantly over the last several days. She presented to the emergency department because of the pain. She rates it as 6 out of 10. It does not radiate. Nothing makes it better. Nothing makes it worse. It is constant. At present, she denies fevers, chills, nausea, vomiting, headache, dizziness, orthostasis, blurry vision, chest pain, shortness of breath, melena, hematochezia, hematemesis, abdominal pain. She is due for dialysis today. Past Medical History Cardiac Medical History: Reports: Coronary Artery Disease, Hypertension Denies: Myocardial Infarction Pulmonary Medical History: Denies: Asthma, Bronchitis, Chronic Obstructive Pulmonary Disease (COPD), Pneumonia EENT Medical History: Reports: Eyes - Diabetic retinopathy with left eye blindness Denies: Cataracts, Ears - Hearing aids Neurological Medical History: Denies: Hemorrhagic CVA, Ischemic CVA, Seizures Endocrine Medical History: Reports: Diabetes Mellitus Type 1, Diabetes Mellitus Type 2, Obesity Denies: Hyperthyroidism, Hypothyroidism Renal/ Medical History: Reports: End Stage Renal Disease Denies: Nephrolithiasis Malignancy Medical History: Reports: None GI Medical History: Reports: Other - Cholelithiasis Denies: Cirrhosis, Hepatitis, Peptic Ulcer Disease Musculoskeltal Medical History: Reports: Arthritis - R SHOULDER, B/L KNEES, Gout Skin Medical History: Denies: Eczema, Psoriasis Psychiatric Medical History: Denies: Alcohol Dependency, Depression, Substance Abuse, Tobacco Dependency Traumatic Medical History: Reports: None Hematology: Reports: Anemia - Chronic anemia secondary to renal disease Denies: Bleeding Tendencies Infectious Medical History: Reports: None Past Surgical History Past Surgical History: Reports: Coronary Stent, Hysterectomy, Tubal Ligation, Vascular Surgery - Fistula placement for dialysis, Other - Bilateral oophorectomy, retinal surgery Social History Lives with: Spouse/Significant other Smoking Status: Former Smoker Electronic Cigarette use?: No Frequency of Alcohol Use: None Hx Recreational Drug Use: No Drugs: None Hx Prescription Drug Abuse: No - Advance Directive Resuscitation Status: Full Code Family History Family History: CAD, DM, Malignancy, Other - Sickle cell disease, kidney disease Parental Family History Reviewed: Yes Children Family History Reviewed: Yes Sibling(s) Family History Reviewed.: Yes Medication/Allergy Home Medications: Amlodipine Besylate [Norvasc 10 mg Tablet] 10 mg PO DAILY 11/01/19 Calcium Acetate [Phoslo 667 mg Capsule] 1,334 mg PO TID 11/01/19 Calcium Acetate [Phoslo 667 mg Capsule] 667 mg PO ASDIR PRN 11/01/19 Clonidine HCl [Catapres 0.2 mg Tablet] 0.2 mg PO Q6 11/01/19 Cyclobenzaprine HCl [Flexeril 10 mg Tablet] 10 mg PO BID 11/01/19 Ergocalciferol (Vitamin D2) [Drisdol 50,000 unit (1.25MG) Capsule] 50,000 unit PO MO@1000 11/01/19 Meloxicam [Mobic 7.5 mg Tablet] 7.5 mg PO ASDIR PRN 11/01/19 Allergies/Adverse Reactions: No Known Allergies Allergy (Verified 12/14/19 02:00) Review of Systems Constitutional: ABSENT: anorexia, chills, fatigue, fever(s), headache(s) Eyes: ABSENT: visual disturbances Ears: ABSENT: hearing changes Nose, Mouth, and Throat: ABSENT: sore throat Cardiovascular: ABSENT: chest pain Respiratory: ABSENT: cough, dyspnea Gastrointestinal: ABSENT: abdominal pain, bloating, hematemesis, hematochezia, melena, nausea, vomiting Genitourinary: ABSENT: dysuria Musculoskeletal: PRESENT: other - Bilateral foot pain, throbbing/aching. Her pain has worsened significantly over the last several days.. ABSENT: back pain Integumentary: PRESENT: other - Skin changes and gangrene of the bilateral feet Neurological: ABSENT: confusion, convulsions, dizziness Psychiatric: ABSENT: anxiety, depression Endocrine: ABSENT: cold intolerance, heat intolerance Hematologic/Lymphatic: ABSENT: easy bleeding, easy bruising Physical Exam Vital Signs: Temp Pulse Resp BP Pulse Ox 99 F 93 11 L 143/78 H 89 L 12/14/19 06:53 12/13/19 16:52 12/14/19 07:01 12/14/19 07:01 12/14/19 07:01 Intake & Output 12/13/19 12/14/19 12/15/19 06:59 06:59 06:59 Weight 99.79 kg General appearance: PRESENT: no acute distress, cooperative Head exam: PRESENT: atraumatic Eye exam: ABSENT: scleral icterus Mouth exam: PRESENT: moist, neck supple Neck exam: ABSENT: meningismus, tenderness, tracheal deviation, tracheostomy Respiratory exam: PRESENT: unlabored. ABSENT: tachypnea, wheezes Cardiovascular exam: ABSENT: tachycardia Pulses: PRESENT: other - No distal palpable lower extremity pulses (DP or PT) bilaterally. Vascular exam: PRESENT: pallor GI/Abdominal exam: PRESENT: soft. ABSENT: distended, firm, guarding, tenderness Rectal exam: PRESENT: deferred Extremities exam: PRESENT: other - Right foot with dry gangrene extending across the first, second, and third toes. The gangrene extends up the midfoot. There is no erythema or drainage of the right foot. The left foot has gangrene involving the second and third toes. There is evidence of drainage, and minimal erythema. The left foot appears to be developing wet gangrene. Neurological exam: PRESENT: alert, awake, oriented to person, oriented to place Psychiatric exam: ABSENT: agitated, anxious, depressed Focused psych exam: ABSENT: delusional Skin exam: PRESENT: erythema, other - Sloughing of a large amount of skin over the right first and second toe, as well as the right midfoot. ABSENT: jaundice Results Laboratory Results: 12/13/19 18:33 12/13/19 18:33 12/13/19 12/13/19 18:33 18:33 WBC 16.1 H RBC 3.27 L Hgb 9.0 L Hct 28.2 L MCV 86 MCH 27.5 MCHC 31.9 L RDW 20.5 H Plt Count 174 Seg Neutrophils % 84.9 H Sodium 138.2 Potassium 4.1 Chloride 81 L Carbon Dioxide 44 H* Anion Gap 13 BUN 41 H Creatinine 7.35 H Est GFR ( Amer) 7 L Glucose 124 H Calcium 9.4 Total Bilirubin 1.6 H AST 22 Alkaline Phosphatase 76 Total Protein 7.5 Albumin 3.8 Impressions: Chest X-Ray 12/13/19 17:55 IMPRESSION: 1. No significant interval changes since the prior examination dated 11/27/2019. Stable mild pleuroparenchymal changes on the right with small pleural effusion again suggested. 2. Cardiomegaly, unchanged finding. Foot X-Ray 12/13/19 17:55 IMPRESSION: Osteopenia. Calcaneal spurs. Assessment & Plan - Diagnosis (1) Diabetes mellitus type 2 in obese Is this a current diagnosis for this admission?: Yes (2) Gangrene associated with type 2 diabetes mellitus Is this a current diagnosis for this admission?: Yes - Plan Summary Plan Summary: This is a 64-year-old female with gangrene of bilateral lower extremities. The extent of the her dry gangrene is worse on the right. She has dry gangrene involving the first, second, and third toes. There is extension onto the midfoot, with significant skin sloughing and tissue loss. I do not believe that the right foot is salvageable. I have recommended amputation of at least the midfoot, but likely below-knee amputation will be required. I will order PAD's and ABIs to assess her vascular flow. If flow is extremely limited, BKA will certainly be the most appropriate next step. The left foot has less involvement with gangrene, however there does appear to be a component of infection present. The gangrene on the left second and third toe appears to be wet, with a small amount of drainage and erythema. Continue antibiotics. Hopefully, amputation of the second and third toe will be curative on the left side. Again, I will await her PAD's and ABIs before further planning. She is also due for her dialysis today. It would be prudent to wait until after dialysis, before scheduling surgical intervention. Surgery will continue to follow the patient very closely with you. I have discussed this with the patient at length. She wishes to talk with her before making any decisions regarding intervention.
[2019-12-14 09:49] LABS: BLOOD UREA NITROGEN 45 mg/dL (7-20); CALCIUM 9.1 mg/dL (8.4-10.2); CHLORIDE 79 mmol/L (98-107); GLUCOSE 171 mg/dL (75-110); POTASSIUM 4.3 mmol/L (3.6-5.0)
[2019-12-14 09:57] LABS: ANION GAP 13 (5-19); CARBON DIOXIDE 44 mmol/L (22-30)
[2019-12-14] MEDS: DOCUSATE SODIUM 100 MG CAPSULE PO SCH ×2 (10:55→17:56)
[2019-12-14] MEDS: PIPERACILLIN SODIUM/TAZOBACTAM 2.25 GM in NORMAL SALINE 50 ML IV SCH ×2 (10:55→22:36)
[2019-12-14 11:47] LABS: ARTERIAL BLOOD BASE EXCESS 15.6 mmol/L; ARTERIAL BLOOD H2CO3 1.74 mmol/L (1.05-1.35); ARTERIAL BLOOD HCO3 41.4 mmol/L (20-24); ARTERIAL BLOOD O2 SATURATION 98.9 % (94-98); ARTERIAL BLOOD PCO2 57.9 mmHg (35-45); ARTERIAL BLOOD PH 7.47 (7.35-7.45); ARTERIAL BLOOD PO2 146.5 mmHg (80-100); ARTERIAL BLOOD TOTAL CO2 43.2 mmol/L (21-25)
[2019-12-14 11:48] LABS: ARTERIAL BLOOD FIO2 32%
--- NOTE | 2019-12-14 11:54 | PDOC CONSULTATION ---
Consultation Consult Date: 12/14/19 Provider Consulted: SHARLA ARROYO Consult reason:: ESRD requirinf Dialysis History of Present Illness Admission Date/PCP: 12/14/19 02:03 FADUMO KEITA History of Present Illness: ANGELIC ROBIN is a 64 year old -[place] lady known to me with histor y of ESRD on maintenance hemodialysis on TT, coronary artery disease, diabetes mellitus type 2, hypertension, recent finding of pericarditis in October 2019 likely due to noncompliance with hemodialysis treatment and anxiety who presented to the emergency room because of worsening total blisters in her words. Patient stated that she noted her toe lesions about 2 weeks ago involving the right foot first two third toes and also the left foot 2nd-3rd toes. She said the pain is just too much. She denied any fever. He said she saw a provider in [facility] urgent care and she was given some medications that she could not tell me. However the skin lesions is gotten worse so she presented to the emergency room. In the emergency room she was found to have foul-smelling gangrene of her right foot first second and third toes and a dry gangrene of the left second and third toes. Surgery was consulted care of Dr. Kuo who recommended possible amputation of the toes. She was started on IV Zosyn and vancomycin in the emergency room. Her last dialysis was last Friday. Currently she does not appear to be fluid overloaded or short of breath. Her electrolytes are acceptable and there is no urgent need for acute hemodialysis today. She has no other complaints otherwise. Past Medical History Cardiac Medical History: Reports: Coronary Artery Disease, Hypertension-primary, Peripheral Vascular Disease EENT Medical History: Reports: Eyes - Diabetic retinopathy with left eye blindness Endocrine Medical History: Reports: Diabetes Mellitus Type 2, Obesity Complications of Diabetes: Reports: Autonomic Neuropathy, Nephropathy, Retinopathy Renal/ Medical History: Reports: End Stage Renal Disease, Renal Osteodystropy, Secondary Hyperparathyroidism GI Medical History: Reports: Other - Cholelithiasis Musculoskeltal Medical History: Reports: Arthritis - R SHOULDER, B/L KNEES, Gout Psychiatric Medical History: Reports: General Anxiety Disorder Hematology Medical History: Reports Anemia of Chronic Kidney Disease Past Surgical History Past Surgical History: Reports: Coronary Stent, Dialysis Access Surgery AVF - Cataract surgery, Hysterectomy, Tubal Ligation, Vascular Surgery - Fistula placement for dialysis, Other - Bilateral oophorectomy, retinal surgery Social History Information Source: Patient, [facility] Records Lives with: Spouse/Significant other Smoking Status: Former Smoker Electronic Cigarette use?: No Frequency of Alcohol Use: None Hx Recreational Drug Use: No Drugs: None Hx Prescription Drug Abuse: No - Advance Directive Resuscitation Status: Full Code Family History Family History: Chronic Kidney Disease - Mother, Malignancy - Breast cancer, paternal grandmother; lung cancer Father, Other - Sickle cell anemia on her mother Parental Family History Reviewed: Yes Children Family History Reviewed: Yes Sibling(s) Family History Reviewed.: Yes Medication/Allergy Home Medications: Clonidine HCl [Catapres 0.2 mg Tablet] 0.2 mg PO Q6 11/01/19 Acetaminophen [Tylenol 325 mg Tablet] 650 mg PO Q6HP PRN 12/14/19 Allergies/Adverse Reactions: No Known Allergies Allergy (Verified 12/14/19 02:00) Review of Systems All systems: reviewed and no additional remarkable complaints except as stated Review of Systems: Constitutional: ABSENT: chills, fatigue, fever(s), headache(s), weight gain, weight loss Eyes: ABSENT: visual disturbances Ears: ABSENT: hearing changes Cardiovascular: ABSENT: chest pain, dyspnea on exertion, edema, orthropnea, palpitations Respiratory: ABSENT: cough, dyspnea, hemoptysis Gastrointestinal: ABSENT: abdominal pain, constipation, diarrhea, hematemesis, hematochezia, nausea, vomiting Genitourinary: ABSENT: dysuria, hematuria Musculoskeletal: ABSENT: joint swelling Integumentary: ABSENT: rash; positive for ulcers on both feet Neurological: ABSENT: abnormal gait, abnormal speech, confusion, dizziness, focal weakness, numbness, syncope Psychiatric: ABSENT: anxiety, depression Endocrine: ABSENT: cold intolerance, heat intolerance, polydipsia, polyuria Hematologic/Lymphatic: ABSENT: easy bleeding, easy bruising, lymphadenopathy Physical Exam Vital Signs: Temp Pulse Resp BP Pulse Ox 99 F 93 11 L 143/78 H 89 L 12/14/19 06:53 12/13/19 16:52 12/14/19 07:01 12/14/19 07:01 12/14/19 07:01 Intake & Output 12/13/19 12/14/19 12/15/19 06:59 06:59 06:59 Weight 99.79 kg Exam: General appearance: No acute distress, cooperative, well-developed, well- nourished Head exam: PRESENT: atraumatic, normocephalic Eye exam: PRESENT: Conjunctiva [place], EOMI, PERRLA. ABSENT: conjunctival injection, scleral icterus Mouth exam: PRESENT: moist, neck supple, tongue midline Neck exam: PRESENT: full ROM. ABSENT: carotid bruit, JVD, lymphadenopathy, thyromegaly Respiratory exam: PRESENT: clear to auscultation bilaterally. ABSENT: rales, rhonchi, stridor, wheezes Cardiovascular exam: PRESENT: RRR, +S1, +S2. Grade 3/6 systolic murmur Pulses: PRESENT: normal radial pulses, normal dorsalis pedis pulses GI/Abdominal exam: PRESENT: normal bowel sounds, soft. ABSENT: guarding, mass, tenderness Rectal exam: Deferred Extremities exam: PRESENT: full ROM. Grade 1 bilateral lower extremity pitting edema. There is an obvious ulceration and gangrene involving the right first, second and third toes of her right foot with foul-smelling discharge. There is dry gangrene in the left second and third toes ABSENT: calf tenderness Musculoskeletal: PRESENT: full ROM. ABSENT: deformity Neurological exam: PRESENT: alert, Awake, Oriented to person, Oriented to place, Oriented to time, reflexes normal, CN II-XII grossly intact. ABSENT: motor sensory deficit Psychiatric exam: PRESENT: appropriate affect, normal mood. ABSENT: homicidal ideation, suicidal ideation Skin exam: PRESENT: intact, dry, warm. ABSENT: rash Results Laboratory Results: 12/13/19 18:33 12/13/19 18:33 12/13/19 12/13/19 18:33 18:33 WBC 16.1 H RBC 3.27 L Hgb 9.0 L Hct 28.2 L MCV 86 MCH 27.5 MCHC 31.9 L RDW 20.5 H Plt Count 174 Seg Neutrophils % 84.9 H Sodium 138.2 Potassium 4.1 Chloride 81 L Carbon Dioxide 44 H* Anion Gap 13 BUN 41 H Creatinine 7.35 H Est GFR ( Amer) 7 L Glucose 124 H Calcium 9.4 Total Bilirubin 1.6 H AST 22 Alkaline Phosphatase 76 Total Protein 7.5 Albumin 3.8 Impressions: Chest X-Ray 12/13/19 17:55 IMPRESSION: 1. No significant interval changes since the prior examination dated 11/27/2019. Stable mild pleuroparenchymal changes on the right with small pleural effusion again suggested. 2. Cardiomegaly, unchanged finding. Foot X-Ray 12/13/19 17:55 IMPRESSION: Osteopenia. Calcaneal spurs. Assessment & Plan - Diagnosis (1) Gangrene Is this a current diagnosis for this admission?: Yes Plan: Involving the right first, second and third toes with foul-smelling drainage and dry gangrene in the left second and third toes. Dr. Kuo recommended amputation. Continue IV antibiotics started in the emergency room with IV Zosyn and vancomycin. (2) ESRD (end stage renal disease) on dialysis Is this a current diagnosis for this admission?: Yes Plan: Patient does not need urgent dialysis today. We will plan dialysis tomorrow morning. (3) Diabetes mellitus type 2 in obese Is this a current diagnosis for this admission?: Yes (4) Peripheral vascular disease in diabetes mellitus Is this a current diagnosis for this admission?: Yes (5) Anemia in chronic kidney disease (CKD) Qualifiers: Chronic kidney disease stage: on chronic dialysis Qualified Code(s): N18.6 - End stage renal disease; D63.1 - Anemia in chronic kidney disease; Z99.2 - Dependence on renal dialysis Is this a current diagnosis for this admission?: Yes Plan: We will give Retacrit on dialysis. (6) Hypertension Qualifiers: Hypertension type: essential hypertension Qualified Code(s): I10 - Essential (primary) hypertension Is this a current diagnosis for this admission?: Yes Plan: Acceptable control currently. - Notes Notes: Thank you very much for this consultation. - Time Time Spent: 50 to 70 Minutes
--- NOTE | 2019-12-14 17:11 | Progress Note ---
Provider Note Provider Note: Seen and evaluated patient today. Plan as depicted in H&P. Patient will continue on IV antibiotics for gangrene. Patient will need amputation to control source of this infection as infection is likely to spread and cause severe sepsis without source procedure being performed. Dialysis been planned by nephrology.
[2019-12-14] MEDS: CLONIDINE HCL 0.2 MG TABLET PO SCH ×2 (17:56→23:43)
[2019-12-15] MEDS: HEPARIN SOD (PORCINE) 5,000 UNIT/ML 1 ML VIAL SUBCUT SCH ×3 (02:00→21:08)
[2019-12-15 04:59] LABS: HEMOGLOBIN 8.3 g/dL (12.0-15.5); MEAN CORPUSCULAR HEMOGLOBIN 28.4 pg (27.0-33.4); MEAN CORPUSCULAR HGB CONC 33.2 g/dL (32.0-36.0); MEAN CORPUSCULAR VOLUME 86 fl (80-97); PLATELET COUNT 158 10^3/uL (150-450); RED BLOOD COUNT 2.92 10^6/uL (3.72-5.28); RED CELL DISTRIBUTION WIDTH 19.6 % (11.5-14.0); WHITE BLOOD COUNT 13.6 10^3/uL (4.0-10.5)
[2019-12-15] MEDS ORDERED: EPOETIN ALFA-EPBX 10,000 UNIT in SYRINGE, DISPOSABLE, 1 EACH IV PRN (05:00)
[2019-12-15] MEDS ORDERED: NORMAL SALINE 1000 ML 1,000 ML IV PRN (05:00)
[2019-12-15 05:30] LABS: BLOOD UREA NITROGEN 55 mg/dL (7-20); CALCIUM 9.1 mg/dL (8.4-10.2); CHLORIDE 80 mmol/L (98-107); GLUCOSE 100 mg/dL (75-110)
[2019-12-15 05:36] LABS: ANION GAP 14 (5-19)
[2019-12-15 05:39] LABS: CARBON DIOXIDE 44 mmol/L (22-30)
[2019-12-15] MEDS: CLONIDINE HCL 0.2 MG TABLET PO SCH ×4 (05:41→23:40)
[2019-12-15] MEDS: PANTOPRAZOLE SODIUM 40 MG TABLET.DR PO SCH (05:41)
--- NOTE | 2019-12-15 06:26 | RADIOLOGY REPORT (SQ) ---
EXAM DESCRIPTION: US LOWER EXTREMITY ARTERIES BILATERAL COMPLETED DATE/TME: 12/14/2019 00:00 CLINICAL HISTORY: 64 years Female, Art Duplex, with BABITA bilat for severe PAD Comparison: CTA, 11/27/2019. TECHNIQUE: Doppler sonogram. Targeted exam for requested parameters. LIMITATIONS: No BABITA. Extensive atherosclerotic calcification. FINDINGS: Extensive atherosclerotic calcification throughout peripheral arterial system of bilateral lower extremities as correlated with CT from 17 days ago. 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 Targeted exam for requested parameters. 2. Extensive atherosclerotic calcification suggestive of advanced peripheral arterial disease. 3. No BABITA. Extensive atherosclerotic calcification.
[2019-12-15] MEDS: DEXTROSE 50%-WATER 25 GM/50 ML DISP.SYRIN IV PRN (07:00)
[2019-12-15] MEDS ORDERED: EPOETIN ALFA-EPBX 10,000 UNIT/ML VIAL (RENAL) IV ONE (09:30)
[2019-12-15] MEDS ORDERED: EPOETIN ALFA-EPBX 20,000 UNIT in SYRINGE, DISPOSABLE, 1 EACH IV PRN (09:33)
[2019-12-15] MEDS: HYDROMORPHONE HCL INJ/PF 2 MG/ML AMPULE IV PRN ×2 (11:36→19:37)
[2019-12-15] MEDS: PIPERACILLIN SODIUM/TAZOBACTAM 2.25 GM in NORMAL SALINE 50 ML IV SCH ×2 (11:37→21:13)
[2019-12-15] MEDS: DOCUSATE SODIUM 100 MG CAPSULE PO SCH ×2 (11:38→18:00)
--- NOTE | 2019-12-15 11:52 | PDOC PROGRESS REPORT ---
Subjective Progress Note for:: 12/15/19 Subjective:: I am seeing the patient during dialysis this morning. She states that she feels fine with a little bit anxious for her surgery. She is going to be tested for COVID-19 prior to surgery scheduled at around 4 PM. She states that she still has pain on her feet and toes. She is tolerating dialysis ago without any issues this morning. She is currently being monitored closely. Reason For Visit: GANGRENE BILATERAL TOES,ESRD ON DIALYSIS,PERIPHER Physical Exam Vital Signs: Temp Pulse Resp BP Pulse Ox 98.0 F 74 17 157/77 H 100 12/15/19 00:00 12/15/19 00:00 12/15/19 00:00 12/15/19 00:00 12/15/19 06:04 Intake & Output 12/14/19 12/15/19 12/16/19 06:59 06:59 06:59 Intake Total 200 Balance 200 Weight 99.79 kg 99.79 kg Vitals during dialysis: Blood pressure 126/69, heart rate of 68, blood flow rate of 450 mL/min and dialysate flow rate of 800 mL/min. Exam: General appearance: PRESENT: no acute distress, cooperative, well-developed, well-nourished Head exam: PRESENT: atraumatic, normocephalic Eye exam: PRESENT: conjunctiva slightly pale, PERRLA. ABSENT: scleral icterus Neck exam: ABSENT: JVD Respiratory exam: PRESENT: Normal breath sounds. ABSENT: crackles, rales, rhonchi, unlabored, wheezes Cardiovascular exam: PRESENT: Regular rate rhythm -+S1, +S2. ABSENT: diastolic murmur, systolic murmur GI/Abdominal exam: PRESENT: normal bowel sounds, soft. ABSENT: guarding, mass, tenderness Extremities exam: Grade 1 bilateral lower extremity pitting edema; gangrene involving the right first, second and third toes and the forefoot; gangrene on the left second and third toes of the left foot Neurological exam: PRESENT: alert, awake, oriented to person, place and time. Skin exam: PRESENT: dry, warm, Results Laboratory Results: 12/15/19 04:23 12/15/19 04:30 12/14/19 12/14/19 12/15/19 05:37 11:27 04:23 WBC 13.6 H RBC 2.92 L Hgb 8.3 L Hct 25.0 L MCV 86 MCH 28.4 MCHC 33.2 RDW 19.6 H Plt Count 158 Carbonic Acid 1.74 H HCO3/H2CO3 Ratio 23:1 ABG pH 7.47 H ABG pCO2 57.9 H ABG pO2 146.5 H ABG HCO3 41.4 H ABG O2 Saturation 98.9 H ABG Base Excess 15.6 FiO2 32% Sodium 136.1 L Potassium 4.3 Chloride 79 L Carbon Dioxide 44 H* Anion Gap 13 BUN 45 H Creatinine 7.90 H Est GFR ( Amer) 6 L Glucose 171 H Calcium 9.1 Magnesium 12/15/19 04:30 WBC RBC Hgb Hct MCV MCH MCHC RDW Plt Count Carbonic Acid HCO3/H2CO3 Ratio ABG pH ABG pCO2 ABG pO2 ABG HCO3 ABG O2 Saturation ABG Base Excess FiO2 Sodium 138.1 Potassium 5.0 Chloride 80 L Carbon Dioxide 44 H* Anion Gap 14 BUN 55 H Creatinine 9.40 H Est GFR ( Amer) 5 L Glucose 100 Calcium 9.1 Magnesium 2.0 12/14/19 01:47 Blood Blood Culture (PCR) - Final Impressions: Chest X-Ray 12/13/19 17:55 IMPRESSION: 1. No significant interval changes since the prior examination dated 11/27/2019. Stable mild pleuroparenchymal changes on the right with small pleural effusion again suggested. 2. Cardiomegaly, unchanged finding. Foot X-Ray 12/13/19 17:55 IMPRESSION: Osteopenia. Calcaneal spurs. Assessment & Plan - Diagnosis (1) Gangrene Is this a current diagnosis for this admission?: Yes Plan: Involving the right foot first, second and third toes and the left foot second and third toes. Patient scheduled for surgery this afternoon. Patient also on IV antibiotics. (2) ESRD (end stage renal disease) on dialysis Is this a current diagnosis for this admission?: Yes Plan: We will do dialysis today for 3 hours, using the patient's AV fistula, with 3 potassium bath, blood flow rate of 450 mL per minute, dialysate flow rate of 800 mL per minute, ultrafiltration 3 L as tolerated, no heparin and Retacrit with 20,000 units during dialysis intravenously. Patient being monitored closely d uring dialysis treatment. (3) Diabetes mellitus type 2 in obese Is this a current diagnosis for this admission?: Yes Plan: Controlled. (4) Peripheral vascular disease in diabetes mellitus Is this a current diagnosis for this admission?: Yes (5) Anemia in chronic kidney disease (CKD) Qualifiers: Chronic kidney disease stage: on chronic dialysis Qualified Code(s): N18.6 - End stage renal disease; D63.1 - Anemia in chronic kidney disease; Z99.2 - Dependence on renal dialysis Is this a current diagnosis for this admission?: Yes Plan: Retrofit to be given on dialysis as needed. (6) Hypertension Qualifiers: Hypertension type: essential hypertension Qualified Code(s): I10 - Essential (primary) hypertension Is this a current diagnosis for this admission?: Yes Plan: Controlled. - Time Time with patient: 15-25 minutes
[2019-12-15] MEDS ORDERED: DEXAMETHASONE SOD PHOSPHATE INJ 4 MG/1 ML VIAL ONE (15:01)
[2019-12-15] MEDS ORDERED: ONDANSETRON HCL INJ/PF 4 MG/2 ML SDV ONE (15:01)
[2019-12-15] MEDS ORDERED: MIDAZOLAM 2 MG/2 ML INJ ONE (15:01)
[2019-12-15] MEDS ORDERED: MORPHINE SULFATE 10 MG/ML INJ ONE (15:01)
[2019-12-15] MEDS ORDERED: FENTANYL CITRATE INJ/PF 100 MCG/2 ML AMPUL ONE ×2 (15:01→18:47)
[2019-12-15] MEDS ORDERED: PROPOFOL INJ 200 MG/20 ML VIAL IV ONE (15:02)
--- NOTE | 2019-12-15 15:13 | PDOC PROGRESS REPORT ---
Subjective Progress Note for:: 12/15/19 Subjective:: Patient was doing well this morning during encounter. Receiving dialysis and comfortably sitting up. Denied any shortness of breath. C/o leg pain at time. Denied hx of OK, Afib, chest pain or palpitations. Reason For Visit: GANGRENE BILATERAL TOES,ESRD ON DIALYSIS,PERIPHER Physical Exam Vital Signs: Temp Pulse Resp BP Pulse Ox 98.0 F 69 12 142/69 H 100 12/15/19 00:00 12/15/19 11:22 12/15/19 11:22 12/15/19 11:22 12/15/19 11:22 Intake & Output 12/14/19 12/15/19 12/16/19 06:59 06:59 06:59 Intake Total 200 Output Total 3200 Balance 200 -3200 Weight 99.79 kg 99.79 kg General appearance: PRESENT: no acute distress, cooperative Neck exam: ABSENT: JVD Respiratory exam: PRESENT: symmetrical, unlabored. ABSENT: accessory muscle use, chest wall tenderness, retraction, tachypnea, wheezes Cardiovascular exam: PRESENT: +S1, +S2, systolic murmur. ABSENT: irregular rhythm, tachycardia GI/Abdominal exam: PRESENT: soft. ABSENT: rebound, rigid, tenderness Extremities exam: PRESENT: other - gangrenous feet. lower extremity edema. diminished dp pulses Neurological exam: PRESENT: alert, awake, oriented to person, oriented to place, oriented to time Psychiatric exam: ABSENT: agitated, anxious Results Laboratory Results: 12/15/19 04:23 12/15/19 04:30 12/15/19 12/15/19 04:23 04:30 WBC 13.6 H RBC 2.92 L Hgb 8.3 L Hct 25.0 L MCV 86 MCH 28.4 MCHC 33.2 RDW 19.6 H Plt Count 158 Sodium 138.1 Potassium 5.0 Chloride 80 L Carbon Dioxide 44 H* Anion Gap 14 BUN 55 H Creatinine 9.40 H Est GFR ( Amer) 5 L Glucose 100 Calcium 9.1 Magnesium 2.0 12/14/19 01:47 Blood Blood Culture (PCR) - Final Impressions: Chest X-Ray 12/13/19 17:55 IMPRESSION: 1. No significant interval changes since the prior examination dated 11/27/2019. Stable mild pleuroparenchymal changes on the right with small pleural effusion again suggested. 2. Cardiomegaly, unchanged finding. Foot X-Ray 12/13/19 17:55 IMPRESSION: Osteopenia. Calcaneal spurs. Assessment and Plan - Diagnosis (1) Gangrene associated with type 2 diabetes mellitus Is this a current diagnosis for this admission?: Yes Plan: Patient is on broad spectrum antibioics at this time. Blood cx is growing gram negative rods. Patient is scheduled for the OR and may likely need b/l BKA in order to control infection and prevent what will likely be life threatening sepsis. Patient will be provided with adequate pain control. (2) Diabetes mellitus type 2 in obese Is this a current diagnosis for this admission?: Yes Plan: currently npo for procedure. will be managed with SSI and accuchecks q6h (3) ESRD (end stage renal disease) on dialysis Is this a current diagnosis for this admission?: Yes Plan: received HD this morning. Nephrology is following. Patient states that she still makes urine. (4) Peripheral vascular disease in diabetes mellitus Is this a current diagnosis for this admission?: Yes Plan: This may be a very significant limiting factor and determing the extent of amputation as would limit wound healing in both LEs. (5) Anemia in chronic kidney disease (CKD) Qualifiers: Chronic kidney disease stage: on chronic dialysis Qualified Code(s): N18.6 - End stage renal disease; D63.1 - Anemia in chronic kidney disease; Z99.2 - Dependence on renal dialysis Is this a current diagnosis for this admission?: Yes (6) Hypertension Qualifiers: Hypertension type: essential hypertension Qualified Code(s): I10 - Essential (primary) hypertension Is this a current diagnosis for this admission?: Yes Plan: Continue to clonidine. - Time Time Spent with patient: Less than 15 minutes
--- NOTE | 2019-12-15 15:39 | PDOC PROGRESS REPORT ---
Subjective Reason For Visit: GANGRENE BILATERAL TOES,ESRD ON DIALYSIS,PERIPHER Mummified feet feet right greater than left Physical Exam Vital Signs: Temp Pulse Resp BP Pulse Ox 98 F 69 12 142/69 H 100 12/15/19 14:59 12/15/19 14:59 12/15/19 14:59 12/15/19 14:59 12/15/19 14:59 Intake & Output 12/14/19 12/15/19 12/16/19 06:59 06:59 06:59 Intake Total 200 Output Total 3200 Balance 200 -3200 Weight 99.79 kg 99.79 kg General appearance: PRESENT: other - Patient seen on dialysis this morning, then again on the fourth floor. Awake alert communicative. Musculoskeletal exam: PRESENT: other - Right foot with all 5 toes dry gangrene, 5 distal foot; toes 2 and 3 with dry gangrene. Chronic ischemic changes to the skin both feet. Multiple extensive diabetic skin lesions to the lower extremities. Palpable femoral pulses bilaterally Results Laboratory Results: 12/15/19 04:23 12/15/19 04:30 12/15/19 12/15/19 04:23 04:30 WBC 13.6 H RBC 2.92 L Hgb 8.3 L Hct 25.0 L MCV 86 MCH 28.4 MCHC 33.2 RDW 19.6 H Plt Count 158 Sodium 138.1 Potassium 5.0 Chloride 80 L Carbon Dioxide 44 H* Anion Gap 14 BUN 55 H Creatinine 9.40 H Est GFR ( Amer) 5 L Glucose 100 Calcium 9.1 Magnesium 2.0 12/14/19 01:47 Blood Blood Culture (PCR) - Final Impressions: Chest X-Ray 12/13/19 17:55 IMPRESSION: 1. No significant interval changes since the prior examination dated 11/27/2019. Stable mild pleuroparenchymal changes on the right with small pleural effusion again suggested. 2. Cardiomegaly, unchanged finding. Foot X-Ray 12/13/19 17:55 IMPRESSION: Osteopenia. Calcaneal spurs. Assessment & Plan - Plan Summary Plan Summary: Impression : This 4-year-old Afro-Iranian female with end-stage renal failure, currently dialyzing Friday, with mummified feet, right greater than left involving the right forefoot, all 5 toes, and the left toes 2 and 3. Arterial duplex study shows severe peripheral vascular disease from the superficial femoral artery distally with monophasic flow only. Patient has rest pain, and moist foul-smelling drainage from the right foot Recommendations: 1. Agree with the plan for amputation; unfortunately patient is not completely cognizant of the magnitude of this plan. I have spoken with Dr. Sadler, the jet engine mechanic, , the hospitalist as well as the patient's and patient's daughter. I have explained to the patient not only has dry and moist gangrene of the right foot, and left toes 2 and 3, patient has severe peripheral vascular disease to the lower extremities. Unfortunately she is not a candidate for revascularization given the advanced gangrenous changes to her distal tissue. Therefore treatment will result only in wounds that will not heal. That is why at least a right below the knee amputation should be offered, on the right side for now. I would hold off on debriding the left toes 2 and 3 given their dry nature, and the eventual need for a left [id number] amputation. 2. I also explained to all parties involved including the and daughter that [id number] amputation not heal and [id number] amputation may be required. I believe they understand and abel me permission to proceed with the right [id number] amputation today. 3. Again I am concerned the patient is not fully cognizant of what is being presented. I am uncertain as to the etiology of her cognitive dysfunction. I discussed this with the patient's and daughter, and they attributed her considered understanding to shock factor, anxiety, and fear.
[2019-12-15] MEDS ORDERED: FENTANYL CITRATE INJ/PF 100 MCG/2 ML AMPUL IV PRN ×3 (17:09)
[2019-12-15] MEDS ORDERED: OXYCODONE-ACETAMINOPHEN 5-325 MG TABLET PO PRN ×2 (17:09)
[2019-12-15] MEDS ORDERED: MORPHINE SULFATE 10 MG/ML INJ IV PRN (17:09)
[2019-12-15] MEDS ORDERED: PROMETHAZINE HCL INJ 25 MG/1 ML VIAL IV PRN (17:09)
--- NOTE | 2019-12-15 18:06 | Operative Report ---
Operative Report DATE OF SURGERY: 12/15/19 PREOPERATIVE DIAGNOSIS: Gangrene right foot. Severe peripheral vascular diseas e. ESRD POSTOPERATIVE DIAGNOSIS: Same OPERATION: Right below the knee amputation SURGEON: KEN RIOS ANESTHESIA: GA TISSUE REMOVED OR ALTERED: Right lower leg COMPLICATIONS: None ESTIMATED BLOOD LOSS: 250 cc INTRAOPERATIVE FINDINGS: See below PROCEDURE: The patient was seen in the preop holding where the right leg was marked. She was then taken to the main operating room and also more hospital where she underwent general anesthesia via LMA. The left foot had a bootie placed on it. The right foot was isolated with a tight elastic wrap. The right leg was then prepped from the groin to the ankle. The right foot was now covered with an Ioban dressing, then the leg prepped and draped in sterile fashion. Surgical plan and surgical timeout were conducted. Markings were made on the skin for a standard right below the knee amputation. Of note there was significant edema +3-4 to the lower extremity. In addition patient had diffuse skin lesions, small, consistent with diabetic changes. The marking was made on the skin approximately 1 handbreadth below the tibial tuberosity. The posterior flap was marked accordingly. The skin was now incised with a #10 blade. Subcutaneous tissue was if he can for marked edema. Small arterial and venous tributaries were cauterized as encountered. Muscle was divided with electrocautery as was the fascia. The anterior tibial artery and vein complex were ligated with 0 silk suture. The periosteum of the tibia was stripped away with a periosteal elevator and electrocautery. A suitable site for division of the tibia was identified, and the bone divided with the pneumatic, oscillating saw. The peroneal and posterior tibial arteries and respective vein were ligated with 0 silk suture. The fibula was cleared of muscle, and then subsequently divided with the oscillating saw. The peroneal nerve was ligated with a silk suture and divided as well. The remaining posterior compartment divided with electrocautery. The sural nerve was similarly divided and ligated. The leg was passed off to pathology. In order to excessively closed the BKA, some additional soleus, and gastroc muscle was removed with electrocautery. In addition approximately 2 cm shortening of the view was performed with the oscillating saw. We checked for any mechanical bleeding and there was none. All suture ligatures were felt to be secure. The muscle and fascia was so washed several times with saline. We now completed a layered myodesis with 0 and 2-0 Vicryl suture. This brought the posterior flap up to the anterior fascia with minimal tension. Skin was then closed with several running 3-0 Ethilon sutures and approximated selected areas with genesis. Xeroform 4 x 4's Kerlix and Bakari wrap applied. Patient tolerated the procedure well, extubated, taken to recovery in stable condition.
[2019-12-15] MEDS ORDERED: NALOXONE HCL INJ/PF 0.4 MG/1 ML SDV ONE (19:51)
[2019-12-15] MEDS ORDERED: NALOXONE HCL INJ/PF 0.4 MG/1 ML SDV IV ONE (21:00)
[2019-12-15] MEDS: ACETAMINOPHEN 325 MG TABLET PO PRN (21:13)
[2019-12-15] MEDS: ACETAMINOPHEN INJ/PF 1000 MG/100 ML SDV IV SCH (23:40)
[2019-12-16] MEDS: HEPARIN SOD (PORCINE) 5,000 UNIT/ML 1 ML VIAL SUBCUT SCH ×3 (05:12→21:07)
[2019-12-16] MEDS: CLONIDINE HCL 0.2 MG TABLET PO SCH ×4 (05:15→23:40)
[2019-12-16] MEDS: ACETAMINOPHEN INJ/PF 1000 MG/100 ML SDV IV SCH ×2 (05:15→11:31)
[2019-12-16] MEDS: PANTOPRAZOLE SODIUM 40 MG TABLET.DR PO SCH (05:15)
[2019-12-16 05:33] LABS: HEMATOCRIT 23.7 % (36.0-47.0); MEAN CORPUSCULAR HEMOGLOBIN 28.6 pg (27.0-33.4); MEAN CORPUSCULAR HGB CONC 33.2 g/dL (32.0-36.0); MEAN CORPUSCULAR VOLUME 86 fl (80-97); PLATELET COUNT 149 10^3/uL (150-450); RED BLOOD COUNT 2.75 10^6/uL (3.72-5.28); RED CELL DISTRIBUTION WIDTH 19.5 % (11.5-14.0); WHITE BLOOD COUNT 13.4 10^3/uL (4.0-10.5)
[2019-12-16 05:37] LABS: HEMOGLOBIN 7.9 g/dL (12.0-15.5)
[2019-12-16 05:54] LABS: ANION GAP 13 (5-19); BLOOD UREA NITROGEN 38 mg/dL (7-20); CALCIUM 8.6 mg/dL (8.4-10.2); CARBON DIOXIDE 34 mmol/L (22-30); CHLORIDE 91 mmol/L (98-107); GLUCOSE 100 mg/dL (75-110); POTASSIUM 4.6 mmol/L (3.6-5.0)
--- NOTE | 2019-12-16 09:40 | PDOC PROGRESS REPORT ---
Subjective Progress Note for:: 12/16/19 Reason For Visit: GANGRENE BILATERAL TOES,ESRD ON DIALYSIS,PERIPHER Physical Exam Vital Signs: Temp Pulse Resp BP Pulse Ox 97.7 F 69 16 116/57 L 94 12/16/19 08:03 12/16/19 08:03 12/16/19 08:03 12/16/19 08:03 12/16/19 08:03 Intake & Output 12/15/19 12/16/19 12/17/19 06:59 06:59 06:59 Intake Total 200 575 Output Total 3200 Balance 200 -2625 Weight 99.79 kg 100.2 kg Results Laboratory Results: 12/16/19 04:59 12/16/19 04:59 12/15/19 12/16/19 12/16/19 15:40 04:59 04:59 WBC 13.4 H RBC 2.75 L Hgb 7.9 L Hct 23.7 L MCV 86 MCH 28.6 MCHC 33.2 RDW 19.5 H Plt Count 149 L Sodium 137.7 Potassium 4.2 4.6 Chloride 91 L Carbon Dioxide 34 H Anion Gap 13 BUN 38 H Creatinine 6.75 H Est GFR ( Amer) 7 L Glucose 100 Calcium 8.6 Magnesium 2.1 12/14/19 01:47 Blood Blood Culture (PCR) - Final Impressions: Chest X-Ray 12/13/19 17:55 IMPRESSION: 1. No significant interval changes since the prior examination dated 11/27/2019. Stable mild pleuroparenchymal changes on the right with small pleural effusion again suggested. 2. Cardiomegaly, unchanged finding. Foot X-Ray 12/13/19 17:55 IMPRESSION: Osteopenia. Calcaneal spurs. Assessment & Plan - Diagnosis (1) Diabetes mellitus type 2 in obese Is this a current diagnosis for this admission?: Yes (2) Gangrene associated with type 2 diabetes mellitus Is this a current diagnosis for this admission?: Yes - Plan Summary Plan Summary: 64-year-old female status post right below-knee amputation for gangrene. Patient still has necrotic toes on the left foot. They appear to be stable today. Her right below-knee amputation stump dressing is in place. She is slightly confused today, likely related to pain medication administration. She would likely benefit from a vascular surgery evaluation. I will request this as an outpatient. I discussed treatment with the patient's today. He understands that the patient's left second and third toes are completely necrotic and will require removal at some point. He is in agreement that vascular surgery evaluation would likely be beneficial. Continue with routine care for right below-knee amputation site. Surgery will continue to follow with you.
[2019-12-16] MEDS: DOCUSATE SODIUM 100 MG CAPSULE PO SCH ×2 (09:43→18:08)
[2019-12-16] MEDS: PIPERACILLIN SODIUM/TAZOBACTAM 2.25 GM in NORMAL SALINE 50 ML IV SCH ×2 (09:43→21:16)
[2019-12-16] MEDS ORDERED: SUCCINYLCHOLINE CHLORIDE INJ 200 MG/10 ML VIAL ONE (11:26)
--- NOTE | 2019-12-16 15:18 | PDOC PROGRESS REPORT ---
Subjective Progress Note for:: 12/16/19 Subjective:: Patient was seen sitting up in her bed with her by her side. At the time she was emotional and crying. She had a right BKA yesterday and will at some point need removal of her necrotic toes on the left foot (2nd and 3rd toe). She denies fevers and chills. She denies chest pain or SOB. Reason For Visit: GANGRENE BILATERAL TOES,ESRD ON DIALYSIS,PERIPHER Physical Exam Vital Signs: Temp Pulse Resp BP Pulse Ox 97.7 F 69 16 116/57 L 94 12/16/19 08:03 12/16/19 08:03 12/16/19 08:03 12/16/19 08:03 12/16/19 08:03 Intake & Output 12/15/19 12/16/19 12/17/19 06:59 06:59 06:59 Intake Total 200 575 50 Output Total 3200 Balance 200 -2625 50 Weight 99.79 kg 100.2 kg General appearance: PRESENT: well-developed, well-nourished, other - -crying at the time Mouth exam: PRESENT: moist, neck supple Neck exam: ABSENT: JVD, tracheal deviation Respiratory exam: PRESENT: clear to auscultation genia. ABSENT: crackles, rales, rhonchi, wheezes Cardiovascular exam: PRESENT: +S1, +S2 GI/Abdominal exam: PRESENT: soft. ABSENT: tenderness Extremities exam: PRESENT: +1 edema. ABSENT: pedal edema, tenderness, +2 edema Musculoskeletal exam: PRESENT: deformity - -right BKA, tenderness. ABSENT: normal inspection - -left foot with necrotic 2nd and 3rd toe Neurological exam: PRESENT: alert, awake, oriented to person, oriented to place, oriented to time, oriented to situation Skin exam: PRESENT: dry, intact, warm. ABSENT: cyanosis Results Laboratory Results: 12/16/19 04:59 12/16/19 04:59 12/15/19 12/16/19 12/16/19 15:40 04:59 04:59 WBC 13.4 H RBC 2.75 L Hgb 7.9 L Hct 23.7 L MCV 86 MCH 28.6 MCHC 33.2 RDW 19.5 H Plt Count 149 L Sodium 137.7 Potassium 4.2 4.6 Chloride 91 L Carbon Dioxide 34 H Anion Gap 13 BUN 38 H Creatinine 6.75 H Est GFR ( Amer) 7 L Glucose 100 Calcium 8.6 Magnesium 2.1 12/14/19 01:47 Blood Blood Culture (PCR) - Final 12/14/19 01:47 Blood Blood Culture - Final Serratia Marcescens Impressions: Chest X-Ray 12/13/19 17:55 IMPRESSION: 1. No significant interval changes since the prior examination dated 11/27/2019. Stable mild pleuroparenchymal changes on the right with small pleural effusion again suggested. 2. Cardiomegaly, unchanged finding. Foot X-Ray 12/13/19 17:55 IMPRESSION: Osteopenia. Calcaneal spurs. Assessment & Plan - Diagnosis (1) Gangrene associated with type 2 diabetes mellitus Is this a current diagnosis for this admission?: Yes Plan: Had recent BKA of the right leg. Still has gangrene of the left foot with necrotic 2nd and 3rd toe. Following with general surgery. She is supposed to follow with vascular surgery on discharge. (2) ESRD (end stage renal disease) on dialysis Is this a current diagnosis for this admission?: Yes Plan: Will look to continue with dialysis tomorrow. (3) Anemia in chronic kidney disease (CKD) Qualifiers: Chronic kidney disease stage: on chronic dialysis Qualified Code(s): N18.6 - End stage renal disease; D63.1 - Anemia in chronic kidney disease; Z99.2 - Dependence on renal dialysis Is this a current diagnosis for this admission?: Yes Plan: currently asymptomatic with a 7.9 hemoglobin. Likely decreased from blood loss with the recent BKA. Will look to give retacrit tomorrow. (4) Hypertension Qualifiers: Hypertension type: essential hypertension Qualified Code(s): I10 - Essential (primary) hypertension Is this a current diagnosis for this admission?: Yes Plan: currently improving (5) Peripheral vascular disease of foot Is this a current diagnosis for this admission?: Yes Plan: evaluation vascular surgery on discharge (6) Obesity Qualifiers: Obesity type: due to excess calories Obesity classification: adult class 2 (BMI 35 - 39.9) Serious obesity comorbidity presence: with serious comorbidity Body mass index: BMI 39.0-39.9 Qualified Code(s): E66.01 - Morbid (severe) obesity due to excess calories; Z68.39 - Body mass index (BMI) 39.0-39.9, adult Is this a current diagnosis for this admission?: Yes (7) Diabetes mellitus type 2 in obese Is this a current diagnosis for this admission?: Yes
--- NOTE | 2019-12-16 16:20 | PDOC PROGRESS REPORT ---
Subjective Progress Note for:: 12/16/19 Subjective:: Patient was devastated today about losing her foot. She also is devastated about potential of losing her toes in the left leg. She complains of pain in her lower extremities. Denies any fever chills or shortness of breath at the time. Reason For Visit: GANGRENE BILATERAL TOES,ESRD ON DIALYSIS,PERIPHER Physical Exam Vital Signs: Temp Pulse Resp BP Pulse Ox 97.7 F 69 16 116/57 L 94 12/16/19 08:03 12/16/19 08:03 12/16/19 08:03 12/16/19 08:03 12/16/19 08:03 Intake & Output 12/15/19 12/16/19 12/17/19 06:59 06:59 06:59 Intake Total 200 575 50 Output Total 3200 Balance 200 -2625 50 Weight 99.79 kg 100.2 kg General appearance: PRESENT: no acute distress, cooperative Neck exam: ABSENT: JVD Respiratory exam: PRESENT: clear to auscultation genia, symmetrical, unlabored. ABSENT: tachypnea, wheezes Cardiovascular exam: PRESENT: RRR, +S1, +S2, systolic murmur. ABSENT: tachycardia GI/Abdominal exam: PRESENT: soft. ABSENT: rebound, rigid, tenderness Neurological exam: PRESENT: alert, awake, oriented to person, oriented to place Results Laboratory Results: 12/16/19 04:59 12/16/19 04:59 12/15/19 12/16/19 12/16/19 15:40 04:59 04:59 WBC 13.4 H RBC 2.75 L Hgb 7.9 L Hct 23.7 L MCV 86 MCH 28.6 MCHC 33.2 RDW 19.5 H Plt Count 149 L Sodium 137.7 Potassium 4.2 4.6 Chloride 91 L Carbon Dioxide 34 H Anion Gap 13 BUN 38 H Creatinine 6.75 H Est GFR ( Amer) 7 L Glucose 100 Calcium 8.6 Magnesium 2.1 12/14/19 01:47 Blood Blood Culture (PCR) - Final 12/14/19 01:47 Blood Blood Culture - Final Serratia Marcescens Impressions: Chest X-Ray 12/13/19 17:55 IMPRESSION: 1. No significant interval changes since the prior examination dated 11/27/2019. Stable mild pleuroparenchymal changes on the right with small pleural effusion again suggested. 2. Cardiomegaly, unchanged finding. Foot X-Ray 12/13/19 17:55 IMPRESSION: Osteopenia. Calcaneal spurs. Assessment and Plan - Diagnosis (1) Gangrene associated with type 2 diabetes mellitus Is this a current diagnosis for this admission?: Yes Plan: Patient had right BKA performed 12/15/2019. Patient has been informed by the surgeon that she would likely need to have amputation of her second and third left toes at some point as they are completely necrotic. Gram-negative gloria bacteremia. Blood cx is growing Serratia in 1 blood culture set. Repeat blood cultures Patient will be provided with adequate pain control. (2) Diabetes mellitus type 2 in obese Is this a current diagnosis for this admission?: Yes Plan: Has history of diabetes mellitus type 2 but does not seem to be on any anti- glycemic agents according to med rec. Hemoglobin A1c is also 6.4. I will leave patient on sliding scale insulin as well as Accu-Cheks AC and at bedtime. (3) ESRD (end stage renal disease) on dialysis Is this a current diagnosis for this admission?: Yes Plan: Continue patient's regular hemodialysis schedule. Patient still makes urine. Nephrology is following. (4) Peripheral vascular disease in diabetes mellitus Is this a current diagnosis for this admission?: Yes Plan: Per extensive peripheral vascular disease with highly calcific vessels noted on CTA as well as arterial Dopplers of lower extremities that were done outpatient. This may be a very significant limiting factor and determing the extent of amputation as would limit wound healing in both LEs. Patient will require vascular surgery consultation as outpatient. We will put patient on aspirin and atorvastatin. Check lipid panel in a.m. (5) Anemia in chronic kidney disease (CKD) Qualifiers: Chronic kidney disease stage: on chronic dialysis Qualified Code(s): N18.6 - End stage renal disease; D63.1 - Anemia in chronic kidney disease; Z99.2 - Dependence on renal dialysis Is this a current diagnosis for this admission?: Yes Plan: Monitor on CBC. (6) Hypertension Qualifiers: Hypertension type: essential hypertension Qualified Code(s): I10 - Essential (primary) hypertension Is this a current diagnosis for this admission?: Yes Plan: Continue clonidine. Blood pressure is optimal at this time. - Time Time Spent with patient: 15-24 minutes
[2019-12-16] MEDS ORDERED: VANCOMYCIN HCL 1,500 MG in DEXTROSE 5%-WATER 250 ML IV ONE (17:00)
[2019-12-16] MEDS: OXYCODONE HCL IR 5 MG TABLET PO PRN (17:05)
[2019-12-16] MEDS: ACETAMINOPHEN 1,000 MG/100 ML RTUPB IV SCH ×2 (18:09→23:40)
[2019-12-16] MEDS ORDERED: ATORVASTATIN CALCIUM 40 MG TABLET PO SCH (22:00)
[2019-12-17] MEDS: OXYCODONE HCL IR 5 MG TABLET PO PRN ×3 (03:06→20:24)
[2019-12-17] MEDS ORDERED: EPOETIN ALFA-EPBX 30,000 UNIT in SYRINGE, DISPOSABLE, 1 EACH IV PRN (05:00)
[2019-12-17] MEDS: HEPARIN SOD (PORCINE) 5,000 UNIT/ML 1 ML VIAL SUBCUT SCH ×3 (05:49→21:23)
[2019-12-17] MEDS: CLONIDINE HCL 0.2 MG TABLET PO SCH ×3 (05:49→17:19)
[2019-12-17] MEDS: PANTOPRAZOLE SODIUM 40 MG TABLET.DR PO SCH (05:49)
[2019-12-17] MEDS: ACETAMINOPHEN 1,000 MG/100 ML RTUPB IV SCH ×3 (05:49→17:19)
[2019-12-17 06:05] LABS: HEMATOCRIT 22.5 % (36.0-47.0); MEAN CORPUSCULAR HEMOGLOBIN 28.5 pg (27.0-33.4); MEAN CORPUSCULAR HGB CONC 33.4 g/dL (32.0-36.0); MEAN CORPUSCULAR VOLUME 85 fl (80-97); PLATELET COUNT 152 10^3/uL (150-450); RED BLOOD COUNT 2.64 10^6/uL (3.72-5.28); RED CELL DISTRIBUTION WIDTH 19.5 % (11.5-14.0); WHITE BLOOD COUNT 13.1 10^3/uL (4.0-10.5)
[2019-12-17 06:15] LABS: HEMOGLOBIN 7.5 g/dL (12.0-15.5)
[2019-12-17 06:16] LABS: ANION GAP 19 (5-19); BLOOD UREA NITROGEN 47 mg/dL (7-20); CALCIUM 8.9 mg/dL (8.4-10.2); CARBON DIOXIDE 29 mmol/L (22-30); CHLORIDE 88 mmol/L (98-107); CHOLESTEROL 101.82 mg/dL (0-200); CREATINE KINASE 499 U/L (30-135); GLUCOSE 133 mg/dL (75-110); POTASSIUM 4.9 mmol/L (3.6-5.0); TRIGLYCERIDES 135 mg/dL (<150)
[2019-12-17 06:26] LABS: DIRECT LDL 34 mg/dL (<100)
--- NOTE | 2019-12-17 09:11 | PDOC PROGRESS REPORT ---
Subjective Progress Note for:: 12/17/19 Subjective:: undergoing dialysis Reason For Visit: GANGRENE BILATERAL TOES,ESRD ON DIALYSIS,PERIPHER Physical Exam Vital Signs: Temp Pulse Resp BP Pulse Ox 97.1 F 71 18 152/72 H 99 12/16/19 23:33 12/16/19 23:33 12/16/19 23:33 12/16/19 23:33 12/16/19 23:33 Intake & Output 12/16/19 12/17/19 12/18/19 06:59 06:59 06:59 Intake Total 575 650 Output Total 3200 Balance -2625 650 Weight 100.2 kg 100.2 kg General appearance: PRESENT: no acute distress Head exam: PRESENT: normocephalic Eye exam: PRESENT: EOMI Ear exam: PRESENT: normal external ear exam Mouth exam: PRESENT: moist Teeth exam: PRESENT: poor dentation Neck exam: PRESENT: full ROM Respiratory exam: PRESENT: clear to auscultation genia Cardiovascular exam: PRESENT: RRR Pulses: PRESENT: other - non palp popliteal pulse or distal pulses on left lower ext Vascular exam: PRESENT: pallor, other - non palp popliteal pulse or distal pulses on left lower ext cool foot dry gangrene 2nds and 3rd toes Breast: PRESENT: Normal GI/Abdominal exam: PRESENT: soft Rectal exam: PRESENT: deferred Extremities exam: PRESENT: full ROM Neurological exam: PRESENT: altered, awake Psychiatric exam: PRESENT: appropriate affect Results Laboratory Results: 12/17/19 05:45 12/17/19 05:45 12/17/19 12/17/19 12/17/19 05:45 05:45 05:45 WBC 13.1 H RBC 2.64 L Hgb 7.5 L Hct 22.5 L MCV 85 MCH 28.5 MCHC 33.4 RDW 19.5 H Plt Count 152 Sodium 136.0 L Potassium 4.9 Chloride 88 L Carbon Dioxide 29 Anion Gap 19 BUN 47 H Creatinine 7.91 H Est GFR ( Amer) 6 L Glucose 133 H Calcium 8.9 Magnesium 2.1 Triglycerides 135 Cholesterol 101.82 LDL Cholesterol Direct 34 VLDL Cholesterol 27.0 HDL Cholesterol 38 L Blood Type B POSITIVE Antibody Screen NEGATIVE 12/14/19 01:47 Blood Blood Culture (PCR) - Final 12/14/19 01:47 Blood Blood Culture - Final Serratia Marcescens 12/17/19 05:45 Creatine Kinase 499 H Impressions: Chest X-Ray 12/13/19 17:55 IMPRESSION: 1. No significant interval changes since the prior examination dated 11/27/2019. Stable mild pleuroparenchymal changes on the right with small pleural effusion again suggested. 2. Cardiomegaly, unchanged finding. Foot X-Ray 12/13/19 17:55 IMPRESSION: Osteopenia. Calcaneal spurs. Assessment & Plan - Plan Summary Plan Summary: s/p rt bka, dressing in place will remove tomorrw left foot cool, poor vas inflow cta reviewd no specific stenosis mostly small vessel will most likely need rt bka transmet of foot will not heal plan will remove rt bka dressing in am pt still discussing plans for a vascular consult.
[2019-12-17] MEDS ORDERED: VANCOMYCIN HCL INJ 1000 MG VIAL IV SCH (10:00)
--- NOTE | 2019-12-17 12:07 | PDOC PROGRESS REPORT ---
Subjective Progress Note for:: 12/17/19 Reason For Visit: Patient seen on dialysis today. She is undergoing dialysis without any issues. She denies any history of chest pain, shortness of breath, fever or chills. She is status post right BKA. She still has gangrene of left feet but is deciding on a vascular consult in a tertiary hospital. Labs and medications were reviewed. Dialysis orders were reviewed with the treating dialysis nurse. Physical Exam Vital Signs: Temp Pulse Resp BP Pulse Ox 97.1 F 71 18 152/72 H 99 12/16/19 23:33 12/16/19 23:33 12/16/19 23:33 12/16/19 23:33 12/16/19 23:33 Intake & Output 12/16/19 12/17/19 12/18/19 06:59 06:59 06:59 Intake Total 575 650 Output Total 3200 Balance -2625 650 Weight 100.2 kg 100.2 kg General appearance: PRESENT: no acute distress Respiratory exam: PRESENT: clear to auscultation genia, decreased breath sounds. ABSENT: crackles Cardiovascular exam: PRESENT: +S1, +S2 GI/Abdominal exam: PRESENT: soft. ABSENT: organomegaly, tenderness Extremities exam: ABSENT: pedal edema Neurological exam: PRESENT: alert, awake, oriented to person, oriented to place Psychiatric exam: PRESENT: anxious Results Laboratory Results: 12/17/19 05:45 12/17/19 05:45 12/17/19 12/17/19 12/17/19 05:45 05:45 05:45 WBC 13.1 H RBC 2.64 L Hgb 7.5 L Hct 22.5 L MCV 85 MCH 28.5 MCHC 33.4 RDW 19.5 H Plt Count 152 Sodium 136.0 L Potassium 4.9 Chloride 88 L Carbon Dioxide 29 Anion Gap 19 BUN 47 H Creatinine 7.91 H Est GFR ( Amer) 6 L Glucose 133 H Calcium 8.9 Magnesium 2.1 Triglycerides 135 Cholesterol 101.82 LDL Cholesterol Direct 34 VLDL Cholesterol 27.0 HDL Cholesterol 38 L Blood Type B POSITIVE Antibody Screen NEGATIVE 12/14/19 01:47 Blood Blood Culture (PCR) - Final 12/14/19 01:47 Blood Blood Culture - Final Serratia Marcescens 12/17/19 05:45 Creatine Kinase 499 H Impressions: Chest X-Ray 12/13/19 17:55 IMPRESSION: 1. No significant interval changes since the prior examination dated 11/27/2019. Stable mild pleuroparenchymal changes on the right with small pleural effusion again suggested. 2. Cardiomegaly, unchanged finding. Foot X-Ray 12/13/19 17:55 IMPRESSION: Osteopenia. Calcaneal spurs. Assessment & Plan - Diagnosis (1) ESRD (end stage renal disease) on dialysis Is this a current diagnosis for this admission?: Yes Plan: Currently undergoing dialysis without any issues. Vital signs are stable. Dialysis being supervised. Plan to remove approximately 1.5-2 L as tolerated. Dialysis orders were reviewed with the treating dialysis nurse. Adjust erythropoietin on dialysis. (2) Peripheral vascular disease in diabetes mellitus Is this a current diagnosis for this admission?: Yes Plan: Status post right BKA. She is got evidences of severe peripheral vascular disease with gangrene of her left toes as well. However she is requesting/thinking of having vascular consult in a tertiary hospital. (3) Hypertension Qualifiers: Hypertension type: essential hypertension Qualified Code(s): I10 - Essential (primary) hypertension Is this a current diagnosis for this admission?: Yes Plan: Fairly well controlled. See response to dialysis and ultrafiltration. Monitor. (4) Diabetes mellitus type 2 in obese Is this a current diagnosis for this admission?: Yes Plan: Advised tight control which she has not done in the past as she is been a very noncompliant patient. (5) Anemia in chronic kidney disease (CKD) Qualifiers: Chronic kidney disease stage: on chronic dialysis Qualified Code(s): N18.6 - End stage renal disease; D63.1 - Anemia in chronic kidney disease; Z99.2 - Dependence on renal dialysis Is this a current diagnosis for this admission?: Yes Plan: Adjust erythropoietin on dialysis.
[2019-12-17] MEDS: PIPERACILLIN SODIUM/TAZOBACTAM 2.25 GM in NORMAL SALINE 50 ML IV SCH ×2 (12:41→21:20)
[2019-12-17] MEDS: ASPIRIN 81 MG TABLET, ENT COATED PO SCH (13:01)
[2019-12-17] MEDS: DOCUSATE SODIUM 100 MG CAPSULE PO SCH ×2 (13:01→17:19)
--- NOTE | 2019-12-17 15:47 | PDOC PROGRESS REPORT ---
Subjective Progress Note for:: 12/17/19 Subjective:: Patient feels fine today. Still concerned about possibly getting amputation of her left lower extremity. Denies any shortness of breath at the time of encounter. Denies chest pain. Reason For Visit: GANGRENE BILATERAL TOES,ESRD ON DIALYSIS,PERIPHER Physical Exam Vital Signs: Temp Pulse Resp BP Pulse Ox 97.4 F 90 16 157/90 H 96 12/17/19 11:37 12/17/19 11:37 12/17/19 11:37 12/17/19 11:37 12/17/19 12:00 Intake & Output 12/16/19 12/17/19 12/18/19 06:59 06:59 06:59 Intake Total 575 750 Output Total 3200 2700 Balance -2625 750 -2700 Weight 100.2 kg 100.2 kg General appearance: PRESENT: no acute distress, cooperative Neck exam: ABSENT: JVD Respiratory exam: PRESENT: symmetrical, unlabored. ABSENT: accessory muscle use, retraction, tachypnea Cardiovascular exam: ABSENT: tachycardia GI/Abdominal exam: PRESENT: soft. ABSENT: rebound, rigid, tenderness Extremities exam: PRESENT: other - Right BKA in dressing without significant drainage. Site covered with clean dressing. Did not unwrap the dressing. Dry gangrene of the right lower extremity. Neurological exam: PRESENT: alert, awake, oriented to person, oriented to place, oriented to time Results Laboratory Results: 12/17/19 05:45 12/17/19 05:45 12/17/19 12/17/19 12/17/19 05:45 05:45 05:45 WBC 13.1 H RBC 2.64 L Hgb 7.5 L Hct 22.5 L MCV 85 MCH 28.5 MCHC 33.4 RDW 19.5 H Plt Count 152 Sodium 136.0 L Potassium 4.9 Chloride 88 L Carbon Dioxide 29 Anion Gap 19 BUN 47 H Creatinine 7.91 H Est GFR ( Amer) 6 L Glucose 133 H Calcium 8.9 Magnesium 2.1 Triglycerides 135 Cholesterol 101.82 LDL Cholesterol Direct 34 VLDL Cholesterol 27.0 HDL Cholesterol 38 L Blood Type B POSITIVE Antibody Screen NEGATIVE 12/14/19 01:47 Blood Blood Culture (PCR) - Final 12/14/19 01:47 Blood Blood Culture - Final Serratia Marcescens 12/17/19 05:45 Creatine Kinase 499 H Impressions: Chest X-Ray 12/13/19 17:55 IMPRESSION: 1. No significant interval changes since the prior examination dated 11/27/2019. Stable mild pleuroparenchymal changes on the right with small pleural effusion again suggested. 2. Cardiomegaly, unchanged finding. Foot X-Ray 12/13/19 17:55 IMPRESSION: Osteopenia. Calcaneal spurs. Assessment and Plan - Diagnosis (1) Diabetic wet gangrene of the foot Is this a current diagnosis for this admission?: Yes Plan: With gangrene of the right foot. Patient had right BKA performed 12/15/2019. Gram-negative gloria bacteremia. Blood cx is growing Serratia in 1 blood culture set. Repeat blood cultures were sent. Pain control with oxycodone as needed. Patient has not required Dilaudid and as such I will discontinue. Surgical wound and dressing management as per surgeon Physical and Occupational Therapy consult (2) Dry gangrene Is this a current diagnosis for this admission?: Yes Plan: Patient has dry gangrene of her left foot mostly second and third toes. Does seem to extend past the toes however. I discussed with surgeon today who has recommended vascular consultation for potential revascularization before visiting amputation of the toes noting that would otherwise be very difficult for the surgical wound to heal and may be better served by BKA. I have consulted with vascular surgeon Dr. Ishan Archuleta from [facility] via telephone consult and I forwarded her recent lower extremity arterial Dopplers as well as her lower extremity CTA for him to review the images directly. Dr. Archuleta recommended that though patient has extensive calcification of her arteries, he does not see any thorough occlusion to flow on his review of the imaging that will need revascularization at this time and recommends that patient should have adequate healing of her wounds if only toes amputation is pursued. He does not feel that patient requires revascularization or arteriogram prior to surgical amputation of her toes. (3) Diabetes mellitus type 2 in obese Is this a current diagnosis for this admission?: Yes Plan: Has history of diabetes mellitus type 2 but does not seem to be on any anti- glycemic agents according to med rec. Hemoglobin A1c is also 6.4. I will leave patient on sliding scale insulin as well as Accu-Cheks AC and at bedtime. (4) ESRD (end stage renal disease) on dialysis Is this a current diagnosis for this admission?: Yes Plan: Continue patient's regular hemodialysis schedule. Patient still makes urine. Nephrology is following. (5) Peripheral vascular disease in diabetes mellitus Is this a current diagnosis for this admission?: Yes Plan: highly calcific vessels suggestive of advanced PVD noted on CTA as well as pollo rial Dopplers of lower extremities that were done outpatient and during this admission. Refer to above for vascular surgery recommendations. Have patient on aspirin. LDL is actually quite low so have held off on atorvastatin. (6) Anemia in chronic kidney disease (CKD) Qualifiers: Chronic kidney disease stage: on chronic dialysis Qualified Code(s): N18.6 - End stage renal disease; D63.1 - Anemia in chronic kidney disease; Z99.2 - Dependence on renal dialysis Is this a current diagnosis for this admission?: Yes Plan: Monitor on CBC. Receiving EPO. (7) Hypertension Qualifiers: Hypertension type: essential hypertension Qualified Code(s): I10 - Essential (primary) hypertension Is this a current diagnosis for this admission?: Yes Plan: Continue clonidine. - Time Time Spent with patient: 15-24 minutes
[2019-12-17] MEDS ORDERED: VANCOMYCIN HCL 750 MG in DEXTROSE 5%-WATER 250 ML IV SCH (18:00)
[2019-12-18] MEDS: CLONIDINE HCL 0.2 MG TABLET PO SCH ×4 (00:18→17:59)
[2019-12-18] MEDS: ACETAMINOPHEN 1,000 MG/100 ML RTUPB IV SCH ×4 (00:18→19:45)
[2019-12-18] MEDS: HYDROXYZINE PAMOATE 25 MG CAPSULE PO PRN ×2 (00:18→11:45)
[2019-12-18] MEDS: HEPARIN SOD (PORCINE) 5,000 UNIT/ML 1 ML VIAL SUBCUT SCH ×3 (05:33→21:29)
[2019-12-18] MEDS: PANTOPRAZOLE SODIUM 40 MG TABLET.DR PO SCH (05:54)
[2019-12-18] MEDS ORDERED: EPINEPHRINE INJ 1 MG/10 ML DISP.SYRIN ONE (09:00)
[2019-12-18] MEDS: OXYCODONE HCL IR 5 MG TABLET PO PRN (09:18)
[2019-12-18] MEDS: ASPIRIN 81 MG TABLET, ENT COATED PO SCH (09:18)
[2019-12-18] MEDS: DOCUSATE SODIUM 100 MG CAPSULE PO SCH (09:18)
[2019-12-18 09:33] LABS: HEMATOCRIT 23.5 % (36.0-47.0); MEAN CORPUSCULAR HGB CONC 32.6 g/dL (32.0-36.0); MEAN CORPUSCULAR VOLUME 86 fl (80-97); PLATELET COUNT 160 10^3/uL (150-450); RED BLOOD COUNT 2.74 10^6/uL (3.72-5.28); RED CELL DISTRIBUTION WIDTH 19.2 % (11.5-14.0); WHITE BLOOD COUNT 12.9 10^3/uL (4.0-10.5)
[2019-12-18 09:38] LABS: HEMOGLOBIN 7.7 g/dL (12.0-15.5)
[2019-12-18] MEDS: PIPERACILLIN SODIUM/TAZOBACTAM 2.25 GM in NORMAL SALINE 50 ML IV SCH ×2 (11:39→21:30)
[2019-12-18] MEDS ORDERED: OXYCODONE-ACETAMINOPHEN 5-325 MG TABLET PO PRN (12:07)
[2019-12-18] MEDS ORDERED: POLYETHYLENE GLYCOL 3350 POWDER 17 GM/1 PACKET PO PRN (12:08)
--- NOTE | 2019-12-18 12:10 | PDOC PROGRESS REPORT ---
Subjective Progress Note for:: 12/18/19 Subjective:: Patient is very anxious about potential of having to lose part of her left foot. She seems to get very agitated about it very easily. She does seem to have some cognitive impairment which limits her from understanding exactly what I am trying to say. However she is able to understand that she will eventually lose part of her left foot. Reason For Visit: GANGRENE BILATERAL TOES,ESRD ON DIALYSIS,PERIPHER Physical Exam Vital Signs: Temp Pulse Resp BP Pulse Ox 97.1 F 76 18 149/77 H 100 12/18/19 07:43 12/18/19 07:43 12/18/19 07:43 12/18/19 07:43 12/18/19 08:14 Intake & Output 12/17/19 12/18/19 12/19/19 06:59 06:59 06:59 Intake Total 750 900 Output Total 2700 Balance 750 -1800 Weight 100.2 kg 100.2 kg General appearance: PRESENT: no acute distress, cooperative Neck exam: ABSENT: JVD Respiratory exam: PRESENT: clear to auscultation genia, unlabored. ABSENT: tachypnea, wheezes Cardiovascular exam: PRESENT: RRR, +S1, +S2. ABSENT: tachycardia GI/Abdominal exam: PRESENT: soft. ABSENT: tenderness Neurological exam: PRESENT: alert, awake, oriented to person, oriented to place, oriented to time Results Laboratory Results: 12/18/19 09:06 12/17/19 05:45 12/18/19 09:06 WBC 12.9 H RBC 2.74 L Hgb 7.7 L Hct 23.5 L MCV 86 MCH 28.0 MCHC 32.6 RDW 19.2 H Plt Count 160 12/17/19 05:45 Creatine Kinase 499 H Impressions: Chest X-Ray 12/13/19 17:55 IMPRESSION: 1. No significant interval changes since the prior examination dated 11/27/2019. Stable mild pleuroparenchymal changes on the right with small pleural effusion again suggested. 2. Cardiomegaly, unchanged finding. Foot X-Ray 12/13/19 17:55 IMPRESSION: Osteopenia. Calcaneal spurs. Assessment and Plan - Diagnosis (1) Diabetic wet gangrene of the foot Is this a current diagnosis for this admission?: Yes Plan: With gangrene of the right foot. Patient had right BKA performed 12/15/2019. Gram-negative gloria bacteremia. Blood cx is growing Serratia in 1 blood culture set. Repeat blood cultures were sent. Pain control with oxycodone as needed. Patient has not required Dilaudid and as such I will discontinue. Bowel regimen Continue antibiotics Surgical wound and dressing management as per surgeon. Dressing changed by surgeon today and has cleared patient for discharge from a surgical perspective. Physical and Occupational Therapy evaluation I have discussed plan with family about patient's care. Discussed via phone call with patient's Jaylon as well as patient's daughter who have voiced to me that they would prefer that patient goes to rehabilitation at a SNF for short-term rehab before coming home because they do not have the necessary equipment, wheelchair ramp and other things in place for patient to come home just yet given her BKA. Discharge planning consulted for rehab placement. (2) Dry gangrene Is this a current diagnosis for this admission?: Yes Plan: Patient has dry gangrene of her left foot mostly second and third toes. Does seem to extend past the toes however. I discussed with surgeon today who has recommended vascular consultation for potential revascularization before visiting amputation of the toes noting that would otherwise be very difficult for the surgical wound to heal and may be better served by BKA. I have consulted with vascular surgeon Dr. Ishan Archuleta from [facility] via telephone consult and I forwarded her recent lower extremity arterial Dopplers as well as her lower extremity CTA for him to review the images directly. Dr. Archuleta recommended that though patient has extensive calcification of her arteries, he does not see any thorough occlusion to flow on his review of the imaging that will need revascularization at this time and recommends that patient should have adequate healing of her wounds if only toes amputation is pursued. He does not feel that patient requires revascularization or arteriogram prior to surgical amputation of her toes. Discussed our conversation with Dr. Hines who recommends that there is no urgent need for amputation of the left lower extremity and that he would prefer to patient has an in person consultation with vascular surgery for a full assessment as outpatient prior to pursuing amputation of the left foot. Does not feel that amputation will be sufficient given the significant PVD and cold extremity. Suggests that patient would likely end up needing a BKA of left lower extremity as well. (3) Acute respiratory failure with hypoxia Is this a current diagnosis for this admission?: Yes Plan: Patient still on oxygen today. I suspect patient is on this secondary to ESRD. We have been able to wean her from 5 L nasal cannula to 2 L during encounter this morning. If unable to wean patient off oxygen, will get a repeat chest x- ray to reevaluate cause of hypoxia. (4) Diabetes mellitus type 2 in obese Is this a current diagnosis for this admission?: Yes Plan: Has history of diabetes mellitus type 2 but does not seem to be on any anti- glycemic agents according to med rec. Hemoglobin A1c is also 6.4. I will leave patient on sliding scale insulin as well as Accu-Cheks AC and at bedtime. (5) ESRD (end stage renal disease) on dialysis Is this a current diagnosis for this admission?: Yes Plan: Continue patient's regular hemodialysis schedule. Patient still makes urine. Nephrology is following. (6) Peripheral vascular disease in diabetes mellitus Is this a current diagnosis for this admission?: Yes Plan: highly calcific vessels suggestive of advanced PVD noted on CTA as well as arterial Dopplers of lower extremities that were done outpatient and during this admission. Refer to above for vascular surgery recommendations. Have patient on aspirin. LDL is actually quite low so have held off on atorvastatin. (7) Anemia in chronic kidney disease (CKD) Qualifiers: Chronic kidney disease stage: on chronic dialysis Qualified Code(s): N18.6 - End stage renal disease; D63.1 - Anemia in chronic kidney disease; Z99.2 - Dependence on renal dialysis Is this a current diagnosis for this admission?: Yes Plan: Secondary to ESRD and complicated by blood loss from surgery. Hemoglobin holding steady in the 7s. Monitor on CBC. Receiving EPO. (8) Hypertension Qualifiers: Hypertension type: essential hypertension Qualified Code(s): I10 - Essential (primary) hypertension Is this a current diagnosis for this admission?: Yes Plan: Continue clonidine. (9) Delirium due to another medical condition Is this a current diagnosis for this admission?: Yes Plan: Patient's family voiced that patient has had some gradual decline in her memory and that she has always been an anxious person. However her recent confusion seems very much acute. May be delirium secondary to infection/pain. At the same time, I do believe the patient does have a baseline mild cognitive impairment. - Time Time Spent with patient: 15-24 minutes
[2019-12-18] MEDS: DEXTROSE 50%-WATER 25 GM/50 ML DISP.SYRIN IV PRN ×2 (12:13→13:04)
[2019-12-18] MEDS ORDERED: DEXTROSE 5%-NORMAL SALINE 1,000 ML IV PRN (12:58)
[2019-12-18] MEDS ORDERED: GABAPENTIN 100 MG CAPSULE PO SCH ×2 (13:00→14:45)
--- NOTE | 2019-12-18 13:12 | PDOC PROGRESS REPORT ---
Subjective Progress Note for:: 12/18/19 Subjective:: Status post right BKA Reason For Visit: GANGRENE BILATERAL TOES,ESRD ON DIALYSIS,PERIPHER Physical Exam Vital Signs: Temp Pulse Resp BP Pulse Ox 97.1 F 76 18 149/77 H 100 12/18/19 07:43 12/18/19 07:43 12/18/19 07:43 12/18/19 07:43 12/18/19 08:14 Intake & Output 12/17/19 12/18/19 12/19/19 06:59 06:59 06:59 Intake Total 750 900 Output Total 2700 Balance 750 -1800 Weight 100.2 kg 100.2 kg General appearance: PRESENT: no acute distress Head exam: PRESENT: normocephalic Eye exam: PRESENT: EOMI Ear exam: PRESENT: normal external ear exam Mouth exam: PRESENT: moist Teeth exam: PRESENT: poor dentation Neck exam: PRESENT: full ROM Respiratory exam: PRESENT: clear to auscultation genia Cardiovascular exam: PRESENT: RRR Pulses: PRESENT: other - No palpable pulses below the femoral on the left side left foot is cool to touch Breast: PRESENT: Normal GI/Abdominal exam: PRESENT: soft Rectal exam: PRESENT: deferred Extremities exam: PRESENT: full ROM Musculoskeletal exam: PRESENT: full ROM Neurological exam: PRESENT: awake, other - Patient is confused lack of memory cannot carry on conversation. Skin exam: PRESENT: dry Results Laboratory Results: 12/18/19 09:06 12/17/19 05:45 12/18/19 09:06 WBC 12.9 H RBC 2.74 L Hgb 7.7 L Hct 23.5 L MCV 86 MCH 28.0 MCHC 32.6 RDW 19.2 H Plt Count 160 12/17/19 05:45 Creatine Kinase 499 H Impressions: Chest X-Ray 12/13/19 17:55 IMPRESSION: 1. No significant interval changes since the prior examination dated 11/27/2019. Stable mild pleuroparenchymal changes on the right with small pleural effusion again suggested. 2. Cardiomegaly, unchanged finding. Foot X-Ray 12/13/19 17:55 IMPRESSION: Osteopenia. Calcaneal spurs. Assessment & Plan - Plan Summary Plan Summary: Impression status post right BKA stump is examined this morning appears to be clean without evidence of a fluid collection or cellulitis or infection. The staple line is intact. The dressing is been removed and a new piece of Xeroform gauze is been placed on the staple line in the BKA stump has been rewrapped. The left foot still has dry gangrene of the second and third toes there is no evidence of purulence or ascending infection at this point. There is still consternation of the family what to do about the left foot at this point she still refusing any form of treatment which would most likely require a left BKA. I do not feel that a transmetatarsal amputation or a second and third toe amputation would heal. From a surgical standpoint no further intervention is required at this time the family does acquiesce to treatment of the left foot please reconsult surgery as necessary.
[2019-12-18] MEDS: ACETAMINOPHEN 325 MG TABLET PO PRN (14:08)
[2019-12-18 15:10] LABS: ARTERIAL BLOOD H2CO3 1.54 mmol/L (1.05-1.35); ARTERIAL BLOOD HCO3 19.6 mmol/L (20-24); ARTERIAL BLOOD O2 SATURATION 54.4 % (94-98); ARTERIAL BLOOD TOTAL CO2 21.2 mmol/L (21-25)
[2019-12-18 15:10] LABS: ABSOLUTE EOSINOPHILS # (AUTO) 0.1 10^3/uL (0.0-0.6); ABSOLUTE MONOCYTES (AUTO) 1.2 10^3/uL (0.1-1.4); ABSOLUTE NEUT (AUTO) 10.8 10^3/uL (1.7-8.2); BASOPHILS % (AUTO) 0.3 % (0-2); EOSINOPHILS % (AUTO) 0.6 % (0-6); HEMATOCRIT 24.1 % (36.0-47.0); MEAN CORPUSCULAR HEMOGLOBIN 28.2 pg (27.0-33.4); MEAN CORPUSCULAR VOLUME 88 fl (80-97); MONOCYTES % (AUTO) 8.7 % (3-13); PLATELET COUNT 155 10^3/uL (150-450); RED BLOOD COUNT 2.74 10^6/uL (3.72-5.28); RED CELL DISTRIBUTION WIDTH 19.6 % (11.5-14.0); SEGMENTED NEUTROPHILS % (AUTO) 76.4 % (42-78); TOTAL CELLS COUNTED % (AUTO) 100 %; WHITE BLOOD COUNT 14.2 10^3/uL (4.0-10.5)
[2019-12-18 15:11] LABS: ARTERIAL BLOOD FIO2 100%
[2019-12-18 15:13] LABS: ARTERIAL BLOOD PO2 34.9 mmHg (80-100)
[2019-12-18 15:13] LABS: HEMOGLOBIN 7.7 g/dL (12.0-15.5)
[2019-12-18 15:18] LABS: ALBUMIN 3.4 g/dL (3.5-5.0); ALKALINE PHOSPHATASE 81 U/L (38-126); ASPARTATE AMINO TRANSFERASE 55 U/L (14-36); BILIRUBIN,DIRECT 1.3 mg/dL (0.0-0.4); BLOOD UREA NITROGEN 31 mg/dL (7-20); CALCIUM 9.2 mg/dL (8.4-10.2); CREATINE KINASE 468 U/L (30-135); GLUCOSE 174 mg/dL (75-110); POTASSIUM 4.6 mmol/L (3.6-5.0); TOTAL PROTEIN 6.9 g/dL (6.3-8.2)
[2019-12-18 15:23] LABS: CARBON DIOXIDE 14 mmol/L (22-30); CHLORIDE 93 mmol/L (98-107)
[2019-12-18 15:27] LABS: ANION GAP 27 (5-19)
[2019-12-18 15:28] LABS: PROTHROMBIN TIME 18.3 SEC (11.4-15.4)
[2019-12-18 15:30] LABS: TROPONIN I 0.026 ng/mL
--- NOTE | 2019-12-18 15:36 | RADIOLOGY REPORT (SQ) ---
EXAM DESCRIPTION: CT HEAD WITHOUT IMAGES COMPLETED DATE/TIME: 12/18/2019 3:23 pm REASON FOR STUDY: possible stroke COMPARISON: None. TECHNIQUE: Axial images acquired through the brain without intravenous contrast. Images reviewed wi th bone, brain and subdural windows. Additional sagittal and coronal reconstructions were generated. Images stored on PACS. All CT scanners at this facility use dose modulation, iterative reconstruction, and/or weight based d osing when appropriate to reduce radiation dose to as low as reasonably achievable (ALARA). [facility]: Dose Right [facility]: CareDose [facility]: Dose Right [facility]: Teradose 4D [facility]: Smart [employer] RADIATION DOSE: CT Rad equipment meets quality standard of care and radiation dose reduction techniq ues were employed. CTDIvol: 53.2 mGy. DLP: 1017 mGy-cm. mGy. LIMITATIONS: None. FINDINGS: VENTRICLES: Normal size and contour. CEREBRUM: No masses. No hemorrhage. No midline shift. No evidence for acute infarction. Normal gra y/white matter differentiation. No areas of low density in the white matter. CEREBELLUM: No masses. No hemorrhage. No alteration of density. No evidence for acute infarction. EXTRAAXIAL SPACES: No fluid collections. No masses. ORBITS AND GLOBE: No intra- or extraconal masses. Normal contour of globe without masses. CALVARIUM: No fracture. PARANASAL SINUSES: No fluid or mucosal thickening. SOFT TISSUES: No mass or hematoma. OTHER: No other significant finding. IMPRESSION: NO ACUTE INTRACRANIAL IMAGING FINDINGS. EVIDENCE OF ACUTE STROKE: NO. COMMENT: Pertinent positive or negative findings of the imaging study reported as a CRITICAL EXAM jaida JACOBSON MD at15:30 on 12/18/2019. Category of Critical Exam: 1 Quality ID # [id number]: Final reports with documentation of one or more dose reduction techniques (e.g., Au tomated exposure control, adjustment of the mA and/or kV according to patient size, use of iterative reconstruction technique) TECHNICAL DOCUMENTATION: JOB ID: [id number] 2010 [employer]- All Rights Reserved Reading location - IP/workstation name: [email or web address]
[2019-12-18] MEDS ORDERED: ZIPRASIDONE MESYLATE INJ/PF 20 MG SDV IM ONE (16:01)
[2019-12-18] MEDS ORDERED: MORPHINE SULFATE 10 MG/ML INJ IV PRN (16:02)
[2019-12-18] MEDS ORDERED: DEXMEDETOMIDINE IN 0.9 % NACL 400 MCG/100 ML RTUPB IV PRN (16:44)
--- NOTE | 2019-12-18 16:44 | PDOC CRITICAL CARE PROG REPORT ---
General Date:: 12/18/19 ICU Day:: 1 Hospital Day:: 6 Resuscitation Status: Full Code Events in the past 12 to 24 Hours:: This 64-year-old obese -Indian female is seen in consultation at the request of Dr. Harish Durham for recommendations on further evaluation and management of agonal respirations. The patient is seen on the floor, where rapid response team had been called for agonal breathing and altered mental status. At the time of clinical interview, the patient is being supported by bag mask ventilation, although she quickly does demonstrate spontaneous respirations. She is hemodynamically stable. Systolic blood pressure 120-130. Heart rate 110, appears sinus on the monitor. She is arousable to noxious stimuli. She does follow some commands. However, she is unable to provide clinical history at this time. Initially, the patient appeared to have rightward gaze preference and decreased to response on the right side; however, after a few minutes of bag mask ventilation, the patient became more arousable. The patient went to CT to rule out an acute hemorrhagic stroke. While in the CT, she was reported to be howling and uncooperative. She subsequently transferred to the ICU, where she is now demonstrating rambling speech. She does show understanding and follows some commands. She is uncooperative and combative. She is hemodynamically stable and satting 99 to 100% on room air. Discussion with Dr. Durham at the bedside reveals that this is an end-stage renal disease patient, who is hemodialysis dependent. She presented on 12/13/2019 to the emergency department with dry gangrene involving multiple toes of both feet. She reported increased pain and swelling in the lower extremities.. She underwent right BKA (12/15, Dr. Buchanan). She is currently on Zosyn/vancomycin. Blood cultures obtained on 12/13 isolated Serratia marcescens, resistant to ampicillin, Unasyn and cefazolin. Subsequent blood cultures have shown no growth to date. Of note, the patient received Percocet a couple of hours prior to calling the rapid response team. Narcan was not administered. 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 daily Calcium acetate 1334 mg p.o. 3 times daily and 667 mg p.o. as needed Clonidine 0.2 mg p.o. every 6 hours Cyclobenzaprine 10 mg p.o. twice daily Ergocalciferol 50,000 units p.o. q. Friday Meloxicam 7.5 mg p.o. as needed Review of systems relevant to events:: Respiratory: Agonal breathing Neurologic: Confusion (apparently at her baseline) - Medications: Medications reviewed and adjusted accordingly: Yes Physical Exam Vital Signs: Temp Pulse Resp BP Pulse Ox 97.6 F 93 18 152/70 H 100 12/18/19 11:46 12/18/19 11:46 12/18/19 11:46 12/18/19 11:46 12/18/19 08:14 Intake & Output 12/17/19 12/18/19 12/19/19 06:59 06:59 06:59 Intake Total 750 900 150 Output Total 2700 Balance 750 -1800 150 Weight 100.2 kg 100.2 kg Weight/Height Weight 100.2 kg Height 1.6 m General appearance: PRESENT: no acute distress, obese, well-developed, well-nourished. ABSENT: cooperative Head exam: PRESENT: atraumatic, normocephalic Eye exam: PRESENT: conjunctiva pink, EOMI, PERRLA, other - OD exotropia. ABSE NT: scleral icterus Mouth exam: PRESENT: moist, tongue midline, other - Copious amounts of foodstuffs in her mouth Neck exam: ABSENT: carotid bruit, JVD, lymphadenopathy, thyromegaly Respiratory exam: PRESENT: clear to auscultation genia. ABSENT: rales, rhonchi, wheezes Cardiovascular exam: PRESENT: RRR. ABSENT: diastolic murmur, rubs, systolic murmur GI/Abdominal exam: PRESENT: normal bowel sounds, soft. ABSENT: distended, guarding, mass, organolmegaly, rebound, tenderness Extremities exam: PRESENT: full ROM, other - Left BKA. Left upper extremity AV fistula. ABSENT: calf tenderness, clubbing, pedal edema Neurological exam: PRESENT: alert, awake, oriented to person, oriented to place, oriented to time, oriented to situation, CN II-XII grossly intact. ABSENT: motor sensory deficit Psychiatric exam: PRESENT: agitated, anxious Focused psych exam: PRESENT: psychomotor agitation Skin exam: PRESENT: dry, intact, warm. ABSENT: cyanosis, rash Laboratory/Radiographs Laboratory Results: 12/18/19 09:06 WBC 12.9 H RBC 2.74 L Hgb 7.7 L Hct 23.5 L MCV 86 MCH 28.0 MCHC 32.6 RDW 19.2 H Plt Count 160 12/17/19 05:45 Creatine Kinase 499 H Impressions: Chest X-Ray 12/13/19 17:55 IMPRESSION: 1. No significant interval changes since the prior examination dated 11/27/2019. Stable mild pleuroparenchymal changes on the right with small pleural effusion again suggested. 2. Cardiomegaly, unchanged finding. Foot X-Ray 12/13/19 17:55 IMPRESSION: Osteopenia. Calcaneal spurs. All labs, radiographs, diagnostic studies and EKGs were personally reviewed: Yes In addition, reports of radiographic and diagnostic studies were read: Yes Assessment and Plan - Diagnosis (1) Delirium due to another medical condition Is this a current diagnosis for this admission?: Yes Plan: Patient's family voiced that patient has had some gradual decline in her memory and that she has always been an anxious person. Appears to be at baseline based on Dr. Durham's documentation. Geodon 10 mg IM. May need Precedex. (2) Adverse effect of narcotic Qualifiers: Encounter type: initial encounter Qualified Code(s): T40.605A - Adverse effect of unspecified narcotics, initial encounter Is this a current diagnosis for this admission?: Yes Plan: Hold Percocet (3) Abnormal EKG Is this a current diagnosis for this admission?: Yes Plan: Trend troponin. EKG suspicious for posterior wall infarction. Repeat EKG in a.m. (4) Diabetes mellitus type 2 in obese Is this a current diagnosis for this admission?: Yes Plan: Hemoglobin A1c 6.4. Accu-Cheks every 6 hours. Sliding scale insulin. (5) Diabetic wet gangrene of the foot Is this a current diagnosis for this admission?: Yes Plan: Status post right BKA (12/16/2019). Serratia bacteremia. Stop oxycodone. Morphine test dose. Bowel regimen. Continue antibiotics Surgical wound and dressing management as per surgeon. Dressing changed by surgeon today and has cleared patient for discharge from a surgical perspective. Physical and Occupational Therapy evaluation (6) ESRD (end stage renal disease) on dialysis Is this a current diagnosis for this admission?: Yes Plan: Hemodialysis per nephrology. (7) Peripheral vascular disease in diabetes mellitus Is this a current diagnosis for this admission?: Yes Plan Summary: We will monitor this patient. Trend troponin while in ICU. Repeat EKG in a.m. However, ICU level of care is not required. She is appropriate for IMCU. Critical Time Critical Time (minutes): 90 Level of Care: ICU -: 1. The care of a critical patient is a dynamic process. This note is a rental sales representative synopsis but static in nature. The timeframe for treatments given in order is not necessarily the actual time these treatments may have been done. 2. This patient requires critical care secondary to ongoing requirements for therapy not offered or safe outside the critical care environment. Transfer to a lower level of care will result in altered life or limb morbidity and mortality. 3. Multidisciplinary rounds completed. 4. ABCDE bundle addressed.
[2019-12-18] MEDS ORDERED: FENTANYL CITRATE INJ/PF 100 MCG/2 ML AMPUL IV ONE (16:58)
[2019-12-18] MEDS ORDERED: FENTANYL CITRATE INJ/PF 100 MCG/2 ML AMPUL ONE (17:01)
[2019-12-18] MEDS: SENNOSIDES/DOCUSATE 8.6-50 MG 1 EACH TABLET PO SCH (17:59)
[2019-12-18] MEDS ORDERED: ACETAMINOPHEN 1,000 MG/100 ML RTUPB IV PRN (18:43)
--- NOTE | 2019-12-18 21:51 | EKG REPORT ---
SEVERITY:- ABNORMAL ECG - SINUS TACHYCARDIA NONSPECIFIC REPOL ABNORMALITY, ANTERIOR LEADS : Confirmed by: Brittanie Romero MD 18-Dec-2019 21:51:05
[2019-12-18] MEDS ORDERED: DEXTROSE 10%-WATER 1,000 ML IV PRN (22:03)
[2019-12-18] MEDS: FENTANYL 12 MCG/HR PATCH.TD72 TD SCH (23:32)
[2019-12-19] MEDS: CLONIDINE HCL 0.2 MG TABLET PO SCH ×4 (00:06→18:54)
[2019-12-19] MEDS ORDERED: KETOROLAC TROMETHAMINE INJ/PF 30 MG/1 ML SDV IV ONE (04:29)
[2019-12-19] MEDS ORDERED: ACETAMINOPHEN 1,000 MG/100 ML RTUPB IV ONE (04:40)
[2019-12-19] MEDS ORDERED: KETOROLAC TROMETHAMINE INJ/PF 30 MG/1 ML SDV ONE (04:53)
[2019-12-19] MEDS: PANTOPRAZOLE SODIUM 40 MG TABLET.DR PO SCH (05:11)
[2019-12-19] MEDS: HEPARIN SOD (PORCINE) 5,000 UNIT/ML 1 ML VIAL SUBCUT SCH ×3 (05:12→22:40)
[2019-12-19 07:29] LABS: ABSOLUTE EOSINOPHILS # (AUTO) 0.1 10^3/uL (0.0-0.6); ABSOLUTE LYMPHOCYTES (AUTO) 1.5 10^3/uL (0.5-4.7); ABSOLUTE MONOCYTES (AUTO) 1.3 10^3/uL (0.1-1.4); ABSOLUTE NEUT (AUTO) 9.4 10^3/uL (1.7-8.2); BASOPHILS % (AUTO) 0.2 % (0-2); EOSINOPHILS % (AUTO) 0.7 % (0-6); HEMATOCRIT 23.9 % (36.0-47.0); LYMPHOCYTES % (AUTO) 12.3 % (13-45); MEAN CORPUSCULAR HEMOGLOBIN 28.2 pg (27.0-33.4); MEAN CORPUSCULAR HGB CONC 32.6 g/dL (32.0-36.0); MEAN CORPUSCULAR VOLUME 86 fl (80-97); MONOCYTES % (AUTO) 10.7 % (3-13); PLATELET COUNT 166 10^3/uL (150-450); RED BLOOD COUNT 2.77 10^6/uL (3.72-5.28); RED CELL DISTRIBUTION WIDTH 19.6 % (11.5-14.0); SEGMENTED NEUTROPHILS % (AUTO) 76.1 % (42-78); TOTAL CELLS COUNTED % (AUTO) 100 %; WHITE BLOOD COUNT 12.4 10^3/uL (4.0-10.5)
[2019-12-19 07:30] LABS: HEMOGLOBIN 7.8 g/dL (12.0-15.5)
[2019-12-19 07:43] LABS: ANION GAP 16 (5-19); BLOOD UREA NITROGEN 40 mg/dL (7-20); CALCIUM 9.6 mg/dL (8.4-10.2); CHLORIDE 93 mmol/L (98-107); GLUCOSE 146 mg/dL (75-110); POTASSIUM 5.1 mmol/L (3.6-5.0)
[2019-12-19 07:44] LABS: CARBON DIOXIDE 27 mmol/L (22-30)
--- NOTE | 2019-12-19 08:53 | RADIOLOGY REPORT (SQ) ---
EXAM DESCRIPTION: CHEST SINGLE VIEW IMAGES COMPLETED DATE/TIME: 12/19/2019 8:40 am REASON FOR STUDY: aspiration COMPARISON: Chest films 08/06/2019, 11/01/2019, 11/27/2019, 03/05/2020 EXAM PARAMETERS: NUMBER OF VIEWS: One view. TECHNIQUE: Single frontal radiographic view of the chest acquired. RADIATION DOSE: NA LIMITATIONS: None. FINDINGS: LUNGS AND PLEURA: Mild pulmonary vascular prominence. No gross alveolar or interstitial p ulmonary edema. No pleural effusions. MEDIASTINUM AND HILAR STRUCTURES: No masses. Contour normal. HEART AND VASCULAR STRUCTURES: Moderate cardiomegaly, stable BONES: No acute findings. HARDWARE: None in the chest. OTHER: No other significant finding. IMPRESSION: Pulmonary vascular prominence without pulmonary edema or pleural effusion Stable cardiomegaly TECHNICAL DOCUMENTATION: JOB ID: [id number] 2010 [employer]- All Rights Reserved Reading location - IP/workstation name: [email or web address]
[2019-12-19] MEDS: SENNOSIDES/DOCUSATE 8.6-50 MG 1 EACH TABLET PO SCH ×2 (09:35→19:07)
[2019-12-19] MEDS: ASPIRIN 81 MG TABLET, ENT COATED PO SCH (09:35)
[2019-12-19] MEDS: PIPERACILLIN SODIUM/TAZOBACTAM 2.25 GM in NORMAL SALINE 50 ML IV SCH ×2 (10:04→22:31)
[2019-12-19 10:39] LABS: ARTERIAL BLOOD BASE EXCESS -9.3 mmol/L; ARTERIAL BLOOD H2CO3 0.89 mmol/L (1.05-1.35); ARTERIAL BLOOD HCO3 15.7 mmol/L (20-24); ARTERIAL BLOOD O2 SATURATION 72.2 % (94-98); ARTERIAL BLOOD PCO2 29.6 mmHg (35-45); ARTERIAL BLOOD PH 7.34 (7.35-7.45); ARTERIAL BLOOD TOTAL CO2 16.6 mmol/L (21-25)
[2019-12-19 10:40] LABS: ARTERIAL BLOOD FIO2 ROOM AIR
[2019-12-19 10:42] LABS: ARTERIAL BLOOD PO2 39.4 mmHg (80-100)
--- NOTE | 2019-12-19 11:00 | PDOC CRITICAL CARE PROG REPORT ---
General Date:: 12/19/19 ICU Day:: 2 Hospital Day:: 7 Resuscitation Status: Full Code Events in the past 12 to 24 Hours:: 12/18: Patient transferred to the ICU after rapid response was called for "agonal breathing". The patient has been monitored in the ICU overnight. She did not require endotracheal intubation. In fact, she has required quite a bit of medication for anxiety and agitation. In retrospect, it appears the patient was having adverse reactions to narcotic analgesics provided for postoperative pain. At this time, the patient has a Duragesic patch applied. She is afebrile. Her SPO2 on room air is in the 90s; however, she was placed on supplemental oxygen at 2 LPM via nasal cannula after observed brief episodes of sleep apnea. Discussion with the patient's reveals that he was already aware that she demonstrates abnormal respirations during sleep. Also, the adds that the patient has a very low threshold for pain and becomes quite uncooperative and combative when in pain. The family is also rather dissatisfied with the lack of communication from the care team about what this patient's post-hospital ization needs will be (placement, equipment, physical therapy, etc.). Review of systems relevant to events:: Respiratory: Agonal breathing Neurologic: Confusion (apparently at her baseline) - Medications: Medications reviewed and adjusted accordingly: Yes Physical Exam Vital Signs: Temp Pulse Resp BP Pulse Ox 98.6 F 74 10 L 138/44 H 95 12/18/19 19:36 12/19/19 08:00 12/19/19 10:00 12/19/19 09:17 12/19/19 10:00 Intake & Output 12/18/19 12/19/19 12/20/19 06:59 06:59 06:59 Intake Total 900 461 Output Total 2700 0 Balance -1800 461 Weight 100.2 kg 96 kg Weight/Height Weight 96 kg Height 1.6 m General appearance: PRESENT: no acute distress, well-developed, well-nourished Head exam: PRESENT: atraumatic, normocephalic Eye exam: PRESENT: conjunctiva pink, EOMI, PERRLA, other - Amblyopia. ABSENT: scleral icterus Mouth exam: PRESENT: moist, tongue midline Neck exam: ABSENT: carotid bruit, JVD, lymphadenopathy, thyromegaly Respiratory exam: PRESENT: clear to auscultation genia. ABSENT: rales, rhonchi, wheezes Cardiovascular exam: PRESENT: RRR. ABSENT: diastolic murmur, rubs, systolic murmur Pulses: PRESENT: normal dorsalis pedis pul GI/Abdominal exam: PRESENT: normal bowel sounds, soft. ABSENT: distended, guarding, mass, organolmegaly, rebound, tenderness Extremities exam: PRESENT: full ROM, other - Ischemic necrosis of the left second and third toes. Right BKA.. ABSENT: calf tenderness, clubbing, pedal edema Neurological exam: PRESENT: awake, CN II-XII grossly intact. ABSENT: motor sensory deficit Psychiatric exam: PRESENT: agitated, anxious Skin exam: PRESENT: other - Ischemic changes of the left second and third toes. Laboratory/Radiographs Laboratory Results: 12/19/19 07:00 12/19/19 07:00 12/18/19 12/18/19 12/18/19 14:30 14:30 15:00 WBC 14.2 H RBC 2.74 L Hgb 7.7 L Hct 24.1 L MCV 88 MCH 28.2 MCHC 32.0 RDW 19.6 H Plt Count 155 Seg Neutrophils % 76.4 Carbonic Acid 1.54 H HCO3/H2CO3 Ratio 12:1 ABG pH 7.20 L* ABG pCO2 51.0 H ABG pO2 34.9 L* ABG HCO3 19.6 L ABG O2 Saturation 54.4 L ABG Base Excess -8.0 FiO2 100% Sodium 134.3 L Potassium 4.6 Chloride 93 L Carbon Dioxide 14 L Anion Gap 27 H BUN 31 H Creatinine 6.72 H Est GFR ( Amer) 7 L Glucose 174 H Calcium 9.2 Magnesium 2.2 Total Bilirubin 2.0 H AST 55 H Alkaline Phosphatase 81 Total Protein 6.9 Albumin 3.4 L 12/19/19 12/19/19 07:00 07:00 WBC 12.4 H RBC 2.77 L Hgb 7.8 L Hct 23.9 L MCV 86 MCH 28.2 MCHC 32.6 RDW 19.6 H Plt Count 166 Seg Neutrophils % 76.1 Carbonic Acid HCO3/H2CO3 Ratio ABG pH ABG pCO2 ABG pO2 ABG HCO3 ABG O2 Saturation ABG Base Excess FiO2 Sodium 136.2 L Potassium 5.1 H Chloride 93 L Carbon Dioxide 27 D Anion Gap 16 BUN 40 H Creatinine 7.63 H Est GFR ( Amer) 6 L Glucose 146 H Calcium 9.6 Magnesium Total Bilirubin AST Alkaline Phosphatase Total Protein Albumin 12/14/19 02:59 Blood Blood Culture - Final NO GROWTH IN 5 DAYS 12/17/19 12/18/19 12/18/19 05:45 14:30 14:30 Creatine Kinase 499 H 468 H CK-MB (CK-2) 5.00 H Troponin I 0.026 NT-Pro-B Natriuret Pep [id number] H 12/19/19 12/19/19 00:13 07:00 Creatine Kinase CK-MB (CK-2) Troponin I 0.044 0.060 NT-Pro-B Natriuret Pep Impressions: Foot X-Ray 12/13/19 17:55 IMPRESSION: Osteopenia. Calcaneal spurs. Head CT 12/18/19 00:00 IMPRESSION: NO ACUTE INTRACRANIAL IMAGING FINDINGS. EVIDENCE OF ACUTE STROKE: NO. Chest X-Ray 12/19/19 08:29 IMPRESSION: Pulmonary vascular prominence without pulmonary edema or pleural effusion Stable cardiomegaly All labs, radiographs, diagnostic studies and EKGs were personally reviewed: Yes In addition, reports of radiographic and diagnostic studies were read: Yes Assessment and Plan - Diagnosis (1) Delirium due to another medical condition Is this a current diagnosis for this admission?: Yes Plan: Patient's family voiced that patient has had some gradual decline in her memory and that she has always been an anxious person. Appears to tolerate Duragesic patch better than morphine or Percocet. Continue Tylenol p.o./IV as needed for postoperative pain. Haldol 5 mg IV every 6 hours as needed for delirium. (2) Adverse effect of narcotic Qualifiers: Encounter type: initial encounter Qualified Code(s): T40.605A - Adverse effect of unspecified narcotics, initial encounter Is this a current diagnosis for this admission?: Yes Plan: Currently, on a Duragesic 12 mcg/h transdermal (3) Diabetes mellitus type 2 in obese Is this a current diagnosis for this admission?: Yes (4) Diabetic wet gangrene of the foot Is this a current diagnosis for this admission?: Yes Plan: Status post right BKA (12/16/2019). Serratia bacteremia. Continue Zosyn. Stop vancomycin. Surgical wound and dressing management as per surgeon. Dressing changed by surgeon today and has cleared patient for discharge from a surgical perspective. Physical and Occupational Therapy evaluation. Consult case management/social work for placement/discharge needs. (5) ESRD (end stage renal disease) on dialysis Is this a current diagnosis for this admission?: Yes Plan: Hemodialysis per nephrology. (6) Peripheral vascular disease in diabetes mellitus Is this a current diagnosis for this admission?: Yes Plan: * highly calcific vessels suggestive of advanced PVD noted on CTA as well as arterial Dopplers of lower extremities that were done outpatient and during this admission. * Refer to above for vascular surgery recommendations. The family has concerns and would like assurances that [facility]. * on aspirin. LDL is actually quite low so have held off on atorvastatin. (7) Abnormal EKG Is this a current diagnosis for this admission?: Yes Plan: * EKG suspicious for posterior wall infarction. EKG changes have normalized. * Continue to trend troponins, which have been within the normal range but are uptrending. Critical Time Critical Time (minutes): 60 Level of Care: ICU -: 1. The care of a critical patient is a dynamic process. This note is a sales representative girls' apparel synopsis but static in nature. The timeframe for treatments given in order is not necessarily the actual time these treatments may have been done. 2. This patient requires critical care secondary to ongoing requirements for therapy not offered or safe outside the critical care environment. Transfer to a lower level of care will result in altered life or limb morbidity and mortality. 3. Multidisciplinary rounds completed. 4. ABCDE bundle addressed.
[2019-12-19] MEDS ORDERED: PATIROMER 8.4 GM SUSP PACKET PO ONE (14:00)
--- NOTE | 2019-12-19 15:11 | Progress Note ---
Provider Note Provider Note: Patient seen by me. Stable at this time. Still very confused and somewhat difficult to understand still. We will continue to monitor. Continue current plan of action.
--- NOTE | 2019-12-19 17:21 | EKG REPORT ---
SEVERITY:- ABNORMAL ECG - SINUS RHYTHM PROBABLE LEFT ATRIAL ABNORMALITY CONSIDER POSTERIOR INFARCT BORDERLINE REPOL ABNORMALITY, ANT-LAT LEADS : Confirmed by: Brittanie Romero MD 19-Dec-2019 17:20:27
[2019-12-19] MEDS ORDERED: PATIROMER 8.4 GM SUSP PACKET ONE (21:16)
[2019-12-20] MEDS: CLONIDINE HCL 0.2 MG TABLET PO SCH ×4 (00:35→17:21)
[2019-12-20] MEDS ORDERED: HEPARIN SOD (PORCINE) 1,000 UNIT/ML 10 ML VIAL IV PRN (05:00)
[2019-12-20] MEDS ORDERED: EPOETIN ALFA-EPBX 2,000 UNIT, EPOETIN ALFA-EPBX 3,000 UNIT, EPOETIN ALFA-EPBX 20,000 UN... IV PRN ×4 (05:00)
[2019-12-20] MEDS: PANTOPRAZOLE SODIUM 40 MG TABLET.DR PO SCH (06:02)
[2019-12-20] MEDS: HEPARIN SOD (PORCINE) 5,000 UNIT/ML 1 ML VIAL SUBCUT SCH ×3 (06:02→21:53)
[2019-12-20] MEDS: DEXTROSE 50%-WATER 25 GM/50 ML DISP.SYRIN IV PRN (06:16)
[2019-12-20 08:12] LABS: ABSOLUTE EOSINOPHILS # (AUTO) 0.3 10^3/uL (0.0-0.6); ABSOLUTE LYMPHOCYTES (AUTO) 0.9 10^3/uL (0.5-4.7); ABSOLUTE MONOCYTES (AUTO) 0.9 10^3/uL (0.1-1.4); ABSOLUTE NEUT (AUTO) 9.6 10^3/uL (1.7-8.2); BASOPHILS % (AUTO) 0.3 % (0-2); EOSINOPHILS % (AUTO) 2.3 % (0-6); HEMATOCRIT 21.4 % (36.0-47.0); LYMPHOCYTES % (AUTO) 7.3 % (13-45); MEAN CORPUSCULAR HEMOGLOBIN 28.4 pg (27.0-33.4); MEAN CORPUSCULAR HGB CONC 32.8 g/dL (32.0-36.0); MEAN CORPUSCULAR VOLUME 87 fl (80-97); MONOCYTES % (AUTO) 7.7 % (3-13); PLATELET COUNT 167 10^3/uL (150-450); RED BLOOD COUNT 2.47 10^6/uL (3.72-5.28); RED CELL DISTRIBUTION WIDTH 20.1 % (11.5-14.0); SEGMENTED NEUTROPHILS % (AUTO) 82.4 % (42-78); TOTAL CELLS COUNTED % (AUTO) 100 %; WHITE BLOOD COUNT 11.7 10^3/uL (4.0-10.5)
[2019-12-20 08:29] LABS: ANION GAP 19 (5-19); BLOOD UREA NITROGEN 52 mg/dL (7-20); CALCIUM 9.3 mg/dL (8.4-10.2); CARBON DIOXIDE 22 mmol/L (22-30); CHLORIDE 94 mmol/L (98-107); GLUCOSE 259 mg/dL (75-110); POTASSIUM 4.9 mmol/L (3.6-5.0)
--- NOTE | 2019-12-20 10:36 | PDOC PROGRESS REPORT ---
Subjective Progress Note for:: 12/20/19 Reason For Visit: Patient seen today on dialysis. She is rather confused. She does not look to be any severe pains. She is breathing normally and does not show any form of distress. She keeps quiet for a while and then starts talking about her daughter who was here from [place] but could not see her apparently. Labs and medications were reviewed. Dialysis orders were reviewed with the treating dialysis nurse. Physical Exam Vital Signs: Temp Pulse Resp BP Pulse Ox 97.2 F 74 17 172/92 H 93 12/20/19 05:36 12/20/19 08:00 12/20/19 05:36 12/20/19 05:36 12/20/19 08:12 Intake & Output 12/19/19 12/20/19 12/21/19 06:59 06:59 06:59 Intake Total 461 250 Output Total 0 Balance 461 250 Weight 96 kg 96 kg General appearance: PRESENT: no acute distress, disheveled Eye exam: PRESENT: EOMI, PERRLA. ABSENT: scleral icterus Neck exam: ABSENT: lymphadenopathy, meningismus, tenderness, thyromegaly, tracheal deviation Respiratory exam: PRESENT: clear to auscultation genia, decreased breath sounds. ABSENT: crackles Cardiovascular exam: PRESENT: +S1, +S2 GI/Abdominal exam: PRESENT: soft. ABSENT: organomegaly, tenderness Extremities exam: ABSENT: pedal edema Neurological exam: PRESENT: altered Results Laboratory Results: 12/20/19 07:15 12/20/19 07:15 12/19/19 12/20/19 12/20/19 10:30 07:15 07:15 WBC 11.7 H RBC 2.47 L Hgb 7.0 L Hct 21.4 L MCV 87 MCH 28.4 MCHC 32.8 RDW 20.1 H Plt Count 167 Seg Neutrophils % 82.4 H Carbonic Acid 0.89 L HCO3/H2CO3 Ratio 17:1 ABG pH 7.34 L ABG pCO2 29.6 L ABG pO2 39.4 L* ABG HCO3 15.7 L ABG O2 Saturation 72.2 L ABG Base Excess -9.3 FiO2 ROOM AIR Sodium 135.2 L Potassium 4.9 Chloride 94 L Carbon Dioxide 22 Anion Gap 19 BUN 52 H Creatinine 8.55 H Est GFR ( Amer) 6 L Glucose 259 H Calcium 9.3 12/17/19 12/18/19 12/18/19 05:45 14:30 14:30 Creatine Kinase 499 H 468 H CK-MB (CK-2) 5.00 H Troponin I 0.026 NT-Pro-B Natriuret Pep [id number] H 12/19/19 12/19/19 12/19/19 00:13 07:00 12:05 Creatine Kinase CK-MB (CK-2) Troponin I 0.044 0.060 0.062 NT-Pro-B Natriuret Pep Impressions: Foot X-Ray 12/13/19 17:55 IMPRESSION: Osteopenia. Calcaneal spurs. Head CT 12/18/19 00:00 IMPRESSION: NO ACUTE INTRACRANIAL IMAGING FINDINGS. EVIDENCE OF ACUTE STROKE: NO. Chest X-Ray 12/19/19 08:29 IMPRESSION: Pulmonary vascular prominence without pulmonary edema or pleural effusion Stable cardiomegaly Assessment & Plan - Diagnosis (1) ESRD (end stage renal disease) on dialysis Is this a current diagnosis for this admission?: Yes Plan: Currently undergoing dialysis without any issues. Vital signs are stable. Dialysis being supervised. Plan to remove approximately 1.5-2 L as tolerated. Dialysis orders were reviewed with the treating dialysis nurse. Adjust erythropoietin on dialysis. (2) Peripheral vascular disease in diabetes mellitus Is this a current diagnosis for this admission?: Yes Plan: Status post right BKA. She is got evidences of severe peripheral vascular disease with gangrene of her left toes as well. However she is requesting/thinking of having vascular consult in a tertiary hospital. (3) Hypertension Qualifiers: Hypertension type: essential hypertension Qualified Code(s): I10 - Essential (primary) hypertension Is this a current diagnosis for this admission?: Yes Plan: Fairly well controlled. See response to dialysis and ultrafiltration. Monitor. (4) Diabetes mellitus type 2 in obese Is this a current diagnosis for this admission?: Yes Plan: Advised tight control which she has not done in the past as she is been a very noncompliant patient.Not hypoglycemic currently. (5) Anemia in chronic kidney disease (CKD) Qualifiers: Chronic kidney disease stage: on chronic dialysis Qualified Code(s): N18.6 - End stage renal disease; D63.1 - Anemia in chronic kidney disease; Z99.2 - Dependence on renal dialysis Is this a current diagnosis for this admission?: Yes Plan: Adjust erythropoietin on dialysis. (6) Delirium due to another medical condition Is this a current diagnosis for this admission?: Yes Plan: Likely multifactorial in this very anxiety prone lady. As per hospitalist.
[2019-12-20] MEDS: SENNOSIDES/DOCUSATE 8.6-50 MG 1 EACH TABLET PO SCH ×2 (10:46→17:21)
[2019-12-20] MEDS: ASPIRIN 81 MG TABLET, ENT COATED PO SCH (10:46)
[2019-12-20] MEDS: PIPERACILLIN SODIUM/TAZOBACTAM 2.25 GM in NORMAL SALINE 50 ML IV SCH (10:46)
[2019-12-20] MEDS: ACETAMINOPHEN 325 MG TABLET PO PRN (12:07)
[2019-12-20] MEDS: DEXTROSE 5%-NORMAL SALINE 1,000 ML IV PRN (13:52)
--- NOTE | 2019-12-20 15:18 | PDOC PROGRESS REPORT ---
Subjective Progress Note for:: 12/20/19 Subjective:: Patient today is very much awake and talkative. She is a bit stillborn in terms of responding to questions. She states she is not eating because she does not feel like it but I have convinced her to try to eat a little bit more. She keeps stating that she would like to go home but have explained to her that her daughter and want her to go to SNF for rehab. She denies any chest pain or trouble breathing. Still has pain in her knee and lower extremity. Reason For Visit: GANGRENE BILATERAL TOES,ESRD ON DIALYSIS,PERIPHER Physical Exam Vital Signs: Temp Pulse Resp BP Pulse Ox 97.3 F 85 18 147/77 H 94 12/20/19 11:25 12/20/19 11:25 12/20/19 11:25 12/20/19 11:25 12/20/19 11:25 Intake & Output 12/19/19 12/20/19 12/21/19 06:59 06:59 06:59 Intake Total 461 250 120 Output Total 0 1700 Balance 461 250 -1580 Weight 96 kg 96 kg 96 kg General appearance: PRESENT: no acute distress, cooperative Neck exam: ABSENT: JVD Respiratory exam: PRESENT: clear to auscultation genia, symmetrical, unlabored. ABSENT: tachypnea, wheezes Cardiovascular exam: PRESENT: irregular rhythm, +S1, +S2, other - Flow murmur. ABSENT: tachycardia GI/Abdominal exam: PRESENT: soft. ABSENT: rebound, rigid, tenderness Neurological exam: PRESENT: alert, awake, oriented to person, oriented to place, other - Noted to be moving all extremities easily of the bed. Strength in extremities is similar to before event. At baseline, she has gaze deviation of her right eye.. ABSENT: aphasic Results Laboratory Results: 12/20/19 07:15 12/20/19 07:15 12/20/19 12/20/19 07:15 07:15 WBC 11.7 H RBC 2.47 L Hgb 7.0 L Hct 21.4 L MCV 87 MCH 28.4 MCHC 32.8 RDW 20.1 H Plt Count 167 Seg Neutrophils % 82.4 H Sodium 135.2 L Potassium 4.9 Chloride 94 L Carbon Dioxide 22 Anion Gap 19 BUN 52 H Creatinine 8.55 H Est GFR ( Amer) 6 L Glucose 259 H Calcium 9.3 12/17/19 12/18/19 12/18/19 05:45 14:30 14:30 Creatine Kinase 499 H 468 H CK-MB (CK-2) 5.00 H Troponin I 0.026 NT-Pro-B Natriuret Pep [id number] H 12/19/19 12/19/19 12/19/19 00:13 07:00 12:05 Creatine Kinase CK-MB (CK-2) Troponin I 0.044 0.060 0.062 NT-Pro-B Natriuret Pep Impressions: Foot X-Ray 12/13/19 17:55 IMPRESSION: Osteopenia. Calcaneal spurs. Head CT 12/18/19 00:00 IMPRESSION: NO ACUTE INTRACRANIAL IMAGING FINDINGS. EVIDENCE OF ACUTE STROKE: NO. 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 Was on vancomycin and Zosyn. I will discontinue Zosyn and put patient on doxycycline for a few more days. Has been cleared by Dr. Hines for discharge from a surgical perspective. Physical and Occupational Therapy evaluation. Patient's and daughter prefer that patient go to a SNF for rehabilitation first before coming home. Discharge planning working on placement. (2) Dry gangrene Is this a current diagnosis for this admission?: Yes Plan: Patient has dry gangrene of her left foot mostly second and third toes. Does seem to extend past the toes however. Surgeon recommended vascular consultation for potential revascularization before visiting amputation of the toes noting that it would otherwise be very difficult for the surgical wound to heal and may be better served by BKA. I consulted vascular surgeon Dr. Ishan Archuleta from [facility] via telephone consult and I forwarded her recent lower extremity arterial Dopplers as well as her lower extremity CTA for him to review the images directly. Dr. Archuleta recommended that, though patient has extensive calcific ation of her arteries, he does not see any thorough occlusion to flow on his review of the imaging that will need revascularization at this time and states that no revascularization is needed prior to surgical amputation of her toes. Discussed our conversation with Dr. Hines who recommends that there is no urgent need for amputation of the left lower extremity and that he would prefer that patient has an in person consultation with vascular surgery for a full assessment as outpatient prior to pursuing partial amputation of the left foot. (3) Episode of transient neurologic symptoms Is this a current diagnosis for this admission?: Yes Plan: Patient had an episode 2 days ago where she was noted to have slurring of the face as well as worsening of eye deviation, grinding of teeth and became unresponsive. [employer] had been called. Patient was initially thought to have a stroke but then while taking patient down for CT scan, she gradually became fully alert again and moving all extremities with resolution of her prior symptoms. Head CT was normal. I do not believe that episode was caused by oxycodone 5 mg she received several hours before the episode. It is possible that she could have had a TIA. Her family denies any history of seizures. We will go ahead and work-up for TIA and obtain carotid Dopplers. Had echo already 2 months ago. (4) Hypoxia Is this a current diagnosis for this admission?: Yes Plan: The reading on pulse oximetry may be partially skewed by her cold extremities/PVD and I have instructed nursing staff to use ear lobes for pulse oximetry. SpO2 was normal on room air yesterday and while in the ICU. (5) Diabetes mellitus type 2 in obese Is this a current diagnosis for this admission?: Yes Plan: Hemoglobin A1c 6.4. Accu-Cheks every 6 hours. Sliding scale insulin. Patient was placed on gentle D5 NS due to episodes of hypoglycemia. I have instructed nursing staff to only perform Accu-Cheks on her left fingers as I was informed that the right hand measurements often falsely depicted hypoglycemia. I will also encourage patient to improve her p.o. intake and added some supplements with meals. (6) ESRD (end stage renal disease) on dialysis Is this a current diagnosis for this admission?: Yes Plan: Hemodialysis per nephrology. (7) Peripheral vascular disease in diabetes mellitus Is this a current diagnosis for this admission?: Yes Plan: highly calcific vessels suggestive of advanced PVD noted on CTA as well as arterial Dopplers of lower extremities that were done outpatient and during this admission. Outpatient vascular surgery evaluation. on aspirin. LDL is actually quite low so have held off on atorvastatin. (8) Serratia infection Is this a current diagnosis for this admission?: Yes Plan: Serratia noted in 1 blood culture set. Has been on Zosyn since admission with repeat negative blood cultures. I discontinued Zosyn today. Susceptibility report shows susceptible to tetracycline so should be covered by doxycycline. 10 days of antibiotic therapy should be sufficient. (9) Anemia in chronic kidney disease (CKD) Qualifiers: Chronic kidney disease stage: on chronic dialysis Qualified Code(s): N18.6 - End stage renal disease; D63.1 - Anemia in chronic kidney disease; Z99.2 - Dependence on renal dialysis Is this a current diagnosis for this admission?: Yes Plan: Secondary to ESRD and complicated by blood loss from surgery. Hemoglobin holding steady in the 7s. Monitor on CBC. Receiving EPO. (10) Hypertension Qualifiers: Hypertension type: essential hypertension Qualified Code(s): I10 - Essential (primary) hypertension Is this a current diagnosis for this admission?: Yes Plan: Continue clonidine. (11) Delirium due to another medical condition Is this a current diagnosis for this admission?: Yes Plan: Patient's family voiced that patient has had some gradual decline in her memory and that she has always been an anxious person. Patient clearly seems to have some baseline cognitive impairment. I recommended to family that she has a thorough evaluation for dementia by neurosurgery in outpatient setting. Sometimes seems more delirious than usual. - Time Time Spent with patient: 15-24 minutes
[2019-12-20] MEDS: DOXYCYCLINE HYCLATE 100 MG TABLET PO SCH (22:02)
[2019-12-21] MEDS: CLONIDINE HCL 0.2 MG TABLET PO SCH ×4 (00:20→17:57)
[2019-12-21 05:55] LABS: HEMATOCRIT 23.9 % (36.0-47.0); MEAN CORPUSCULAR HEMOGLOBIN 28.6 pg (27.0-33.4); MEAN CORPUSCULAR HGB CONC 32.8 g/dL (32.0-36.0); MEAN CORPUSCULAR VOLUME 87 fl (80-97); PLATELET COUNT 166 10^3/uL (150-450); RED BLOOD COUNT 2.74 10^6/uL (3.72-5.28); WHITE BLOOD COUNT 11.3 10^3/uL (4.0-10.5)
[2019-12-21] MEDS: PANTOPRAZOLE SODIUM 40 MG TABLET.DR PO SCH (05:58)
[2019-12-21] MEDS: HEPARIN SOD (PORCINE) 5,000 UNIT/ML 1 ML VIAL SUBCUT SCH ×3 (05:58→21:32)
[2019-12-21 06:04] LABS: HEMOGLOBIN 7.8 g/dL (12.0-15.5)
[2019-12-21] MEDS: DEXTROSE 5%-NORMAL SALINE 1,000 ML IV PRN (06:55)
--- NOTE | 2019-12-21 08:42 | RADIOLOGY REPORT (SQ) ---
EXAM DESCRIPTION: CAROTID DOPPLER IMAGES COMPLETED DATE/TIME: 12/20/2019 8:13 pm REASON FOR STUDY: possible TIA COMPARISON: CT brain 12/18/2019 TECHNIQUE: Grayscale ultrasound, Doppler velocity and spectra, and color Doppler images acquired of the extra-cranial carotid and vertebral arteries. Images stored on PACS. LIMITATIONS: None. FINDINGS: RIGHT CAROTID CCA Velocities: Within normal limits. Common carotid artery peak systolic velocity 0.44 m/sec ICA Velocities Peak systolic 1.17 m/s. End diastolic 0.25 m/s. Proximal ICA/CCA peak systolic ratio 2.9. There is mixed calcific and noncalcific plaque at the right carotid bifurcation partially shadowing jaida sharpe proximal right internal carotid artery. ICA to CCA peak systolic ratio suggests 50 to 69% diamete r narrowing. LEFT CAROTID CCA Velocities: Within normal limits. Common carotid artery peak systolic velocity 0.72 m/sec ICA Velocities Peak systolic 0.78 m/s. End diastolic 0.13 m/s. Proximal ICA/CCA peak systolic ratio 1.4. Mixed calcific and noncalcific plaque at the left carotid bifurcation with less than 50% diameter geraldine nosis by velocity criteria. VERTEBRAL ARTERIES: Antegrade flow. Normal waveforms. SUBCLAVIAN ARTERIES: Not evaluated OTHER: No other significant finding. IMPRESSION: 50 to 69% narrowing proximal right ICA by systolic velocity ratio Less than 50% diameter narrowing proximal left ICA COMMENT: Quality ID #[id number]: Velocity criteria are extrapolated from the diameter data as defined by jaida sharpe Society of Radiologists in Ultrasound Consensus Conference. Radiology 2003: 229; 340-346. TECHNICAL DOCUMENTATION: JOB ID: [id number] 2010 [employer]- All Rights Reserved Reading location - IP/workstation name: [email or web address]
[2019-12-21] MEDS: ASPIRIN 81 MG TABLET, ENT COATED PO SCH (10:46)
[2019-12-21] MEDS: SENNOSIDES/DOCUSATE 8.6-50 MG 1 EACH TABLET PO SCH ×2 (10:46→17:57)
[2019-12-21] MEDS: DOXYCYCLINE HYCLATE 100 MG TABLET PO SCH ×2 (10:47→21:31)
--- NOTE | 2019-12-21 16:37 | PDOC PROGRESS REPORT ---
Subjective Progress Note for:: 12/21/19 Subjective:: ANGELIC ROBIN is a 64 year old female who presents the emergency room with a one-week history of bilateral foot pain. She admits the abrupt onset of pain in both feet 1 week ago. Her pain is a moderate dull pressure at rest but turns into a severe sharp searing pain with weightbearing. Her foot pain was accompanied by the development of "blisters" of her right great, second and third toes as well as her left second and third toes. The blisters have "broken" over time, becoming darkened skin with a foul odor. Her foot pain was associated with swelling in her bilateral lower extremities below the knee. She denies other associated or accompanying signs and symptoms. She she denies prior similar episodes. She has not identified any additional aggravating or ameliorating factors for her foot pain. In the emergency room she was found to have gangrene of the right great second and third toes as well as the left second and third toes. Surgical consultation with Dr. Kuo was obtained by the emergency room provider and he asked for the hospitalist service to admit the patient and consult him as well as Dr. Sadler for nephrology. Patient was subsequently admitted to the hospital for further evaluation treatment. 12/21/2019. No acute events overnight. Resting in bed no apparent distress, accompanied with relatives, very tearful about possibility of losing her other foot, otherwise denies any fever, chills, nausea, vomiting, diarrhea, cons tipation. Reason For Visit: GANGRENE BILATERAL TOES,ESRD ON DIALYSIS,PERIPHER Physical Exam Vital Signs: Temp Pulse Resp BP Pulse Ox 97.4 F 65 16 166/76 H 100 12/21/19 15:34 12/21/19 15:34 12/21/19 15:34 12/21/19 15:34 12/21/19 15:34 Intake & Output 12/20/19 12/21/19 12/22/19 06:59 06:59 06:59 Intake Total 250 1365 60 Output Total 1700 0 Balance 250 -335 60 Weight 96 kg 94.1 kg General appearance: PRESENT: obese Head exam: PRESENT: atraumatic, normocephalic Respiratory exam: PRESENT: clear to auscultation genia. ABSENT: rales, rhonchi, wheezes Cardiovascular exam: PRESENT: RRR. ABSENT: diastolic murmur, rubs, systolic murmur GI/Abdominal exam: PRESENT: normal bowel sounds, soft. ABSENT: distended, guarding, mass, organolmegaly, rebound, tenderness Extremities exam: PRESENT: full ROM, other - Right lower extremity status post BKA. Left lower extremity second and third toes dry gangrene. No sign of infection.. ABSENT: calf tenderness, clubbing, pedal edema Neurological exam: PRESENT: alert, awake, oriented to person, oriented to place, oriented to time, oriented to situation, CN II-XII grossly intact. ABSENT: motor sensory deficit Results Laboratory Results: 12/21/19 05:22 12/20/19 07:15 12/21/19 05:22 WBC 11.3 H RBC 2.74 L Hgb 7.8 L Hct 23.9 L MCV 87 MCH 28.6 MCHC 32.8 RDW 20.0 H Plt Count 166 12/17/19 12/18/19 12/18/19 05:45 14:30 14:30 Creatine Kinase 499 H 468 H CK-MB (CK-2) 5.00 H Troponin I 0.026 NT-Pro-B Natriuret Pep [id number] H 12/19/19 12/19/19 12/19/19 00:13 07:00 12:05 Creatine Kinase CK-MB (CK-2) Troponin I 0.044 0.060 0.062 NT-Pro-B Natriuret Pep Impressions: Foot X-Ray 12/13/19 17:55 IMPRESSION: Osteopenia. Calcaneal spurs. Head CT 12/18/19 00:00 IMPRESSION: NO ACUTE INTRACRANIAL IMAGING FINDINGS. EVIDENCE OF ACUTE STROKE: NO. 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 Was on vancomycin and Zosyn. I will discontinue Zosyn and put patient on doxycycline for a few more days. Has been cleared by Dr. Hines for discharge from a surgical perspective. Physical and Occupational Therapy evaluation. Patient's and daughter prefer that patient go to a SNF for rehabilitation first before coming home. Discharge planning working on placement. (2) Diabetes mellitus type 2 in obese Is this a current diagnosis for this admission?: Yes Plan: Hemoglobin A1c 6.4. Accu-Cheks every 6 hours. Sliding scale insulin. Patient was placed on gentle D5 NS due to episodes of hypoglycemia. I have instructed nursing staff to only perform Accu-Cheks on her left fingers as I was informed that the right hand measurements often falsely depicted hypoglycemia. I will also encourage patient to improve her p.o. intake and added some supplements with meals. (3) Dry gangrene Is this a current diagnosis for this admission?: Yes Plan: Patient has dry gangrene of her left foot mostly second and third toes. Does seem to extend past the toes however. Surgeon recommended vascular consultation for potential revascularization before visiting amputation of the toes noting that it would otherwise be very difficult for the surgical wound to heal and may be better served by BKA. I consulted vascular surgeon Dr. Ishan Archuleta from [facility] via telephone consult and I forwarded her recent lower extremity arterial Dopplers as well as her lower extremity CTA for him to review the images directly. Dr. Archuleta recommended that, though patient has extensive calcification of her arteries, he does not see any thorough occlusion to flow on his review of the imaging that will need revascularization at this time and states that no revascularization is needed prior to surgical amputation of her toes. Discussed our conversation with Dr. Hines who recommends that there is no urgent need for amputation of the left lower extremity and that he would prefer that patient has an in person consultation with vascular surgery for a full assessment as outpatient prior to pursuing partial amputation of the left foot. (4) Anemia in chronic kidney disease (CKD) Qualifiers: Chronic kidney disease stage: on chronic dialysis Qualified Code(s): N18.6 - End stage renal disease; D63.1 - Anemia in chronic kidney disease; Z99.2 - Dependence on renal dialysis Is this a current diagnosis for this admission?: Yes Plan: Secondary to ESRD and complicated by blood loss from surgery. Hemoglobin holding steady in the 7s. Monitor on CBC. Receiving EPO. (5) Delirium due to another medical condition Is this a current diagnosis for this admission?: Yes Plan: Patient's family voiced that patient has had some gradual decline in her memory and that she has always been an anxious person. Patient clearly seems to have some baseline cognitive impairment. I recommended to family that she has a thorough evaluation for dementia by neurosurgery in outpatient setting. Sometimes seems more delirious than usual. (6) Episode of transient neurologic symptoms Is this a current diagnosis for this admission?: Yes Plan: Patient had an episode 2 days ago where she was noted to have slurring of the face as well as worsening of eye deviation, grinding of teeth and became unresponsive. [employer] had been called. Patient was initially thought to have a stroke but then while taking patient down for CT scan, she gradually became f ully alert again and moving all extremities with resolution of her prior symptoms. Head CT was normal. I do not believe that episode was caused by oxycodone 5 mg she received several hours before the episode. It is possible that she could have had a TIA. Her family denies any history of seizures. We will go ahead and work-up for TIA and obtain carotid Dopplers. Had echo already 2 months ago. (7) ESRD (end stage renal disease) on dialysis Is this a current diagnosis for this admission?: Yes Plan: Hemodialysis per nephrology. (8) Hypertension Qualifiers: Hypertension type: essential hypertension Qualified Code(s): I10 - Essential (primary) hypertension Is this a current diagnosis for this admission?: Yes Plan: Continue clonidine. (9) Hypoxia Is this a current diagnosis for this admission?: Yes Plan: The reading on pulse oximetry may be partially skewed by her cold extremities/PVD and I have instructed nursing staff to use ear lobes for pulse oximetry. SpO2 was normal on room air yesterday and while in the ICU. (10) Peripheral vascular disease in diabetes mellitus Is this a current diagnosis for this admission?: Yes Plan: highly calcific vessels suggestive of advanced PVD noted on CTA as well as arterial Dopplers of lower extremities that were done outpatient and during this admission. Outpatient vascular surgery evaluation. on aspirin. LDL is actually quite low so have held off on atorvastatin. (11) Serratia infection Is this a current diagnosis for this admission?: Yes Plan: Serratia noted in 1 blood culture set. Has been on Zosyn since admission with repeat negative blood cultures. I discontinued Zosyn today. Susceptibility report shows susceptible to tetracycline so should be covered by doxycycline. 10 days of antibiotic therapy should be sufficient.
[2019-12-21] MEDS: FENTANYL 12 MCG/HR PATCH.TD72 TD SCH (21:32)
[2019-12-22] MEDS: CLONIDINE HCL 0.2 MG TABLET PO SCH ×5 (00:30→23:46)
[2019-12-22] MEDS ORDERED: EPOETIN ALFA-EPBX 2,000 UNIT, EPOETIN ALFA-EPBX 3,000 UNIT, EPOETIN ALFA-EPBX 20,000 UN... IV PRN ×4 (05:00)
[2019-12-22 05:52] LABS: HEMATOCRIT 23.5 % (36.0-47.0); MEAN CORPUSCULAR HEMOGLOBIN 29.3 pg (27.0-33.4); MEAN CORPUSCULAR HGB CONC 33.2 g/dL (32.0-36.0); MEAN CORPUSCULAR VOLUME 88 fl (80-97); PLATELET COUNT 168 10^3/uL (150-450); RED BLOOD COUNT 2.66 10^6/uL (3.72-5.28); RED CELL DISTRIBUTION WIDTH 20.1 % (11.5-14.0); WHITE BLOOD COUNT 10.6 10^3/uL (4.0-10.5)
[2019-12-22 05:54] LABS: HEMOGLOBIN 7.8 g/dL (12.0-15.5)
[2019-12-22 06:07] LABS: ANION GAP 15 (5-19); BLOOD UREA NITROGEN 42 mg/dL (7-20); CALCIUM 9.6 mg/dL (8.4-10.2); CARBON DIOXIDE 23 mmol/L (22-30); CHLORIDE 97 mmol/L (98-107); GLUCOSE 192 mg/dL (75-110); POTASSIUM 4.4 mmol/L (3.6-5.0)
[2019-12-22] MEDS: HEPARIN SOD (PORCINE) 5,000 UNIT/ML 1 ML VIAL SUBCUT SCH ×3 (06:09→21:52)
[2019-12-22] MEDS: ACETAMINOPHEN 325 MG TABLET PO PRN ×3 (06:10→21:50)
[2019-12-22] MEDS: PANTOPRAZOLE SODIUM 40 MG TABLET.DR PO SCH (06:10)
[2019-12-22] MEDS: ASPIRIN 81 MG TABLET, ENT COATED PO SCH (11:02)
[2019-12-22] MEDS: SENNOSIDES/DOCUSATE 8.6-50 MG 1 EACH TABLET PO SCH ×2 (11:02→17:22)
[2019-12-22] MEDS: DOXYCYCLINE HYCLATE 100 MG TABLET PO SCH ×2 (11:03→21:50)
--- NOTE | 2019-12-22 12:25 | PDOC TRANSFER SUMMARY ---
Impression - Admit/DC Date/PCP Admission Date/Primary Care Provider: 12/14/19 02:03 FADUMO KEITA Discharge Date: 12/22/19 - Discharge Diagnosis (1) Diabetic wet gangrene of the foot Is this a current diagnosis for this admission?: Yes (2) Diabetes mellitus type 2 in obese Is this a current diagnosis for this admission?: Yes (3) Dry gangrene Is this a current diagnosis for this admission?: Yes (4) Anemia in chronic kidney disease (CKD) Is this a current diagnosis for this admission?: Yes (5) Delirium due to another medical condition Is this a current diagnosis for this admission?: Yes (6) Episode of transient neurologic symptoms Is this a current diagnosis for this admission?: Yes (7) ESRD (end stage renal disease) on dialysis Is this a current diagnosis for this admission?: Yes (8) Hypertension Is this a current diagnosis for this admission?: Yes (9) Hypoxia Is this a current diagnosis for this admission?: Yes (10) Peripheral vascular disease in diabetes mellitus Is this a current diagnosis for this admission?: Yes (11) Serratia infection Is this a current diagnosis for this admission?: Yes - Additional Information Resuscitation Status: Full Code Referrals: [facility] [Provider Group] [facility] [Outside] Home Medications: Clonidine HCl [Catapres 0.2 mg Tablet] 0.2 mg PO Q6 11/01/19 Acetaminophen [Tylenol 325 mg Tablet] 650 mg PO Q6HP PRN 12/14/19 History of Present Illiness History of Present Illness: ANGELIC ROBIN is a 64 year old female who presents the emergency room with a one-week history of bilateral foot pain. She admits the abrupt onset of pain in both feet 1 week ago. Her pain is a moderate dull pressure at rest but turns into a severe sharp searing pain with weightbearing. Her foot pain was accompanied by the development of "blisters" of her right great, second and third toes as well as her left second and third toes. The blisters have "broken" over time, becoming darkened skin with a foul odor. Her foot pain was associated with swelling in her bilateral lower extremities below the knee. She denies other associated or accompanying signs and symptoms. She she denies prior similar episodes. She has not identified any additional aggravating or ameliorating factors for her foot pain. In the emergency room she was found to have gangrene of the right great second and third toes as well as the left second and third toes. Surgical consultation with Dr. Kuo was obtained by the emergency room provider and he asked for the hospitalist service to admit the patient and consult him as well as Dr. Sadler for nephrology. Patient was subsequently admitted to the hospital for further evaluation treatment. 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 Pathology report negative for osteomyelitis or malignancy. Initially started on vancomycin and Zosyn. Switched to doxycycline 100 mg p.o. on 12/20/2019. Continue doxycycline 100 mg p.o. twice daily for another 8 days. Surgical wound looks clean. No sign of infection. Continue wound care. Follow-up with Dr. Hines surgeon as outpatient. (2) Dry gangrene Patient has dry gangrene of her left foot mostly second and third toes. Does seem to extend past the toes however. Surgeon recommended vascular consultation for potential revascularization before visiting amputation of the toes noting that it would otherwise be very difficult for the surgical wound to heal and may be better served by BKA. Vascular surgeon Dr. Ishan Archuleta from [facility] via telephone consulted and went over lower extremity arterial Dopplers as well as her lower extremity CTA. Dr. Archuleta recommended that, though patient has extensive calcification of her arteries, he does not see any thorough occlusion to flow on his review of the imaging that will need revascularization at this time and states that no revascularization is needed prior to surgical amputation of her toes. Dr. Hines who recommends that there is no urgent need for amputation of the left lower extremity and that he would prefer that patient has an in person consultation with vascular surgery for a full assessment as outpatient prior to pursuing partial amputation of the left foot. Please follow-up with Dr. Ishan Archuleta or any vascular surgeon as outpatient. (3) Episode of transient neurologic symptoms While inpatient patient was noted to have slurring of the face as well as worsening of eye deviation, grinding of teeth and became unresponsive. RET[employer] TECHNICIAN had been called. Patient was initially thought to have a stroke but then while taking patient down for CT scan, she gradually became fully alert again and moving all extremities with resolution of her prior symptoms. Head CT was normal. This episode was either caused by oxycodone 5 mg that she received several hours before the episode or she could have had a TIA. Her family denies any history of seizures. 2D echo 2 months ago was unremarkable. Carotid Doppler 50 to 69% narrowing of proximal right ICA, less than 50% diameter narrowing proximal left ICA. Patient is to continue high sensitive statin, optimize BP and diabetic control. Is to follow-up with vascular surgeon for further evaluation and intervention. (4) Hypoxia SPO2 WNL on RA. Pulse oximetry may be partially skewed by her cold extremities/PVD. Please use earlobes for pulse oximetry instead. (5) Diabetes mellitus type 2 in obese Hemoglobin A1c 6.4, down from 9.0. Accu-Cheks every 6 hours. Patient noted to be hypoglycemic and was started on D5NS. Patient does not need to be on anti-diabetic anymore based on her hypoglycemic episodes and hemoglobin A1c. Continue Accu-Chek frequently, hypoglycemia protocol, monitor blood glucose levels frequently. Encourage frequent snacking. Follow-up with PCP for evaluation of diabetes and diabetic management. (6) ESRD (end stage renal disease) on dialysis Hemodialysis per nephrology. Follow-up with Dr. Sadler as outpatient. (7) Peripheral vascular disease in diabetes mellitus Highly calcific vessels suggestive of advanced PVD noted on CTA as well as arterial Dopplers of lower extremities that were done outpatient and during this admission. Outpatient vascular surgery evaluation. Continue aspirin and statins. (8) Serratia infection Serratia noted in 1 blood culture set. Initially was receiving Vanco and Zosyn for osteomyelitis. Currently switch on doxycycline p.o. Sensitive to tetracycline should be covered with doxycycline. Day 2/10 of doxycycline p.o. 100 mg twice daily. (9) Anemia in chronic kidney disease (CKD) Secondary to ESRD and complicated by blood loss from surgery. Hemoglobin holding steady in the 7s. Monitor on CBC. Receiving EPO by nephrology.. (10) Hypertension Continue clonidine. (11) Delirium due to another medical condition Patient's family voiced that patient has had some gradual decline in her memory and that she has always been an anxious person. Patient clearly seems to have some baseline cognitive impairment. Highly recommended to follow-up with neurology as outpatient. Closely monitor SPO2, electrolytes and blood glucose levels. Physical Exam Vital Signs: Temp Pulse Resp BP Pulse Ox 97.3 F 69 17 159/92 H 100 07/08/20 04:45 12/22/19 04:45 12/22/19 04:45 12/22/19 04:45 12/22/19 12:23 Intake & Output 12/21/19 12/22/19 12/23/19 06:59 06:59 06:59 Intake Total 4657 247 7199 Output Total 1700 0 2300 Balance -335 280 -1300 Weight 94.1 kg 95 kg General appearance: PRESENT: no acute distress, obese, well-developed, well- nourished Head exam: PRESENT: atraumatic, normocephalic Respiratory exam: PRESENT: clear to auscultation genia. ABSENT: rales, rhonchi, wheezes GI/Abdominal exam: PRESENT: normal bowel sounds, soft. ABSENT: distended, guarding, mass, organolmegaly, rebound, tenderness Extremities exam: PRESENT: full ROM, other - Right BKA. Left foot second and third toes dry gangrene. No sign of infection.. ABSENT: calf tenderness, clubbing, pedal edema Neurological exam: PRESENT: alert, awake, oriented to person, oriented to place, CN II-XII grossly intact. ABSENT: motor sensory deficit Results Laboratory Results: WBC 10.6 10^3/uL (4.0-10.5) H 12/22/19 05:12 RBC 2.66 10^6/uL (3.72-5.28) L 12/22/19 05:12 Hgb 7.8 g/dL (12.0-15.5) L 12/22/19 05:12 Hct 23.5 % (36.0-47.0) L 12/22/19 05:12 MCV 88 fl (80-97) 12/22/19 05:12 MCH 29.3 pg (27.0-33.4) 12/22/19 05:12 MCHC 33.2 g/dL (32.0-36.0) 12/22/19 05:12 RDW 20.1 % (11.5-14.0) H 12/22/19 05:12 Plt Count 168 10^3/uL (150-450) 12/22/19 05:12 Lymph % (Auto) 7.3 % (13-45) L 12/20/19 07:15 Polk % (Auto) 7.7 % (3-13) 12/20/19 07:15 Eos % (Auto) 2.3 % (0-6) 12/20/19 07:15 Baso % (Auto) 0.3 % (0-2) 12/20/19 07:15 Absolute Neuts (auto) 9.6 10^3/uL (1.7-8.2) H 12/20/19 07:15 Absolute Lymphs (auto) 0.9 10^3/uL (0.5-4.7) 12/20/19 07:15 Absolute Monos (auto) 0.9 10^3/uL (0.1-1.4) 12/20/19 07:15 Absolute Eos (auto) 0.3 10^3/uL (0.0-0.6) 12/20/19 07:15 Absolute Basos (auto) 0.0 10^3/uL (0.0-0.2) 12/20/19 07:15 Seg Neutrophils % 82.4 % (42-78) H 12/20/19 07:15 PT 18.3 SEC (11.4-15.4) H 12/18/19 14:30 INR 1.50 12/18/19 14:30 Carbonic Acid 0.89 mmol/L (1.05-1.35) L 12/19/19 10:30 HCO3/H2CO3 Ratio 17:1 12/19/19 10:30 ABG pH 7.34 (7.35-7.45) L 12/19/19 10:30 ABG pCO2 29.6 mmHg (35-45) L 12/19/19 10:30 ABG pO2 39.4 mmHg (80-100) L* 12/19/19 10:30 ABG HCO3 15.7 mmol/L (20-24) L 12/19/19 10:30 ABG Total CO2 16.6 mmol/L (21-25) L 12/19/19 10:30 ABG O2 Saturation 72.2 % (94-98) L 12/19/19 10:30 ABG Base Excess -9.3 mmol/L 12/19/19 10:30 FiO2 ROOM AIR 12/19/19 10:30 Sodium 135.3 mmol/L (137-145) L 12/22/19 05:12 Potassium 4.4 mmol/L (3.6-5.0) 12/22/19 05:12 Chloride 97 mmol/L (98-107) L 12/22/19 05:12 Carbon Dioxide 23 mmol/L (22-30) 12/22/19 05:12 Anion Gap 15 (5-19) 12/22/19 05:12 BUN 42 mg/dL (7-20) H 12/22/19 05:12 Creatinine 6.74 mg/dL (0.52-1.25) H 12/22/19 05:12 Est GFR ( Amer) 7 (>60) L 12/22/19 05:12 Est GFR (MDRD) Non-Af 6 (>60) L 12/22/19 05:12 Glucose 192 mg/dL (75-110) H 12/22/19 05:12 POC Glucose 117 mg/dL (70-110) H 12/22/19 11:04 Hemoglobin A1c % 6.4 % (4.7-6.0) H 12/15/19 04:30 Calcium 9.6 mg/dL (8.4-10.2) 12/22/19 05:12 Magnesium 2.2 mg/dL (1.6-2.3) 12/18/19 14:30 Total Bilirubin 2.0 mg/dL (0.2-1.3) H 12/18/19 14:30 Direct Bilirubin 1.3 mg/dL (0.0-0.4) H 12/18/19 14:30 Neonat Total Bilirubin Not Reportable 12/18/19 14:30 Neonat Direct Bilirubin Not Reportable 12/18/19 14:30 Neonat Indirect Bili Not Reportable 12/18/19 14:30 AST 55 U/L (14-36) H 12/18/19 14:30 ALT 24 U/L (<35) 12/18/19 14:30 Alkaline Phosphatase 81 U/L (38-126) 12/18/19 14:30 Creatine Kinase 468 U/L (30-135) H 12/18/19 14:30 CK-MB (CK-2) 5.00 ng/mL (<4.55) H 12/18/19 14:30 Troponin I 0.062 ng/mL 12/19/19 12:05 NT-Pro-B Natriuret Pep [id number] pg/mL (<125) H 12/18/19 14:30 Total Protein 6.9 g/dL (6.3-8.2) 12/18/19 14:30 Albumin 3.4 g/dL (3.5-5.0) L 12/18/19 14:30 Triglycerides 135 mg/dL (<150) 12/17/19 05:45 Cholesterol 101.82 mg/dL (0-200) 12/17/19 05:45 LDL Cholesterol Direct 34 mg/dL (<100) 12/17/19 05:45 VLDL Cholesterol 27.0 mg/dL (10-31) 12/17/19 05:45 HDL Cholesterol 38 mg/dL (>40) L 12/17/19 05:45 Time Trough Drawn 0715 12/20/19 07:15 Vancomycin Trough 20.0 ug/mL (5.0-20.0) 12/20/19 07:15 SARS-CoV-2 (PCR) NEGATIVE (NEGATIVE) 12/15/19 09:50 Blood Type B POSITIVE 12/17/19 05:45 Antibody Screen NEGATIVE 12/17/19 05:45 12/18/19 12/19/19 12/19/19 14:30 00:13 07:00 CK-MB (CK-2) 5.00 H Troponin I 0.026 0.044 0.060 NT-Pro-B Natriuret Pep [id number] H 12/19/19 12:05 CK-MB (CK-2) Troponin I 0.062 NT-Pro-B Natriuret Pep Impressions: Chest X-Ray 12/13/19 17:55 IMPRESSION: 1. No significant interval changes since the prior examination dated 11/27/2019. Stable mild pleuroparenchymal changes on the right with small pleural effusion again suggested. 2. Cardiomegaly, unchanged finding. Foot X-Ray 12/13/19 17:55 IMPRESSION: Osteopenia. Calcaneal spurs. Head CT 12/18/19 00:00 IMPRESSION: NO ACUTE INTRACRANIAL IMAGING FINDINGS. EVIDENCE OF ACUTE STROKE: NO. Chest X-Ray 12/19/19 08:29 IMPRESSION: Pulmonary vascular prominence without pulmonary edema or pleural effusion Stable cardiomegaly Carotid Doppler Study 12/20/19 00:00 IMPRESSION: 50 to 69% narrowing proximal right ICA by systolic velocity ratio Less than 50% diameter narrowing proximal left ICA Stroke Is this a Stroke Patient?: No Acute Heart Failure - Is this a Heart Failure Patient?: No
--- NOTE | 2019-12-22 16:36 | PDOC PROGRESS REPORT ---
Subjective Progress Note for:: 12/22/19 Reason For Visit: She is seen currently undergoing dialysis. Patient looks comfortable and in no distress. She is requesting to go home. She denies any history of fever or chills. Appetite is improving. Labs and medications were reviewed. Dialysis orders were reviewed with the treating dialysis nurse. Physical Exam Vital Signs: Temp Pulse Resp BP Pulse Ox 97.5 F 133 H 24 H 154/68 H 97 12/22/19 11:10 12/22/19 11:10 12/22/19 11:10 12/22/19 14:25 12/22/19 16:06 Intake & Output 12/21/19 12/22/19 12/23/19 06:59 06:59 06:59 Intake Total 0063 692 2782 Output Total 1700 0 2300 Balance -335 280 -1300 Weight 94.1 kg 95 kg General appearance: PRESENT: no acute distress Respiratory exam: PRESENT: clear to auscultation genia, decreased breath sounds. ABSENT: crackles Cardiovascular exam: PRESENT: +S1, +S2 GI/Abdominal exam: PRESENT: soft. ABSENT: organomegaly, tenderness Neurological exam: PRESENT: alert, awake, oriented to person, oriented to place Psychiatric exam: PRESENT: anxious Results Laboratory Results: 12/22/19 05:12 12/22/19 05:12 12/22/19 12/22/19 05:12 05:12 WBC 10.6 H RBC 2.66 L Hgb 7.8 L Hct 23.5 L MCV 88 MCH 29.3 MCHC 33.2 RDW 20.1 H Plt Count 168 Sodium 135.3 L Potassium 4.4 Chloride 97 L Carbon Dioxide 23 Anion Gap 15 BUN 42 H Creatinine 6.74 H Est GFR ( Amer) 7 L Glucose 192 H Calcium 9.6 12/16/19 17:24 Blood Blood Culture - Final NO GROWTH IN 5 DAYS 12/16/19 16:34 Blood Blood Culture - Final NO GROWTH IN 5 DAYS 12/17/19 12/18/19 12/18/19 05:45 14:30 14:30 Creatine Kinase 499 H 468 H CK-MB (CK-2) 5.00 H Troponin I 0.026 NT-Pro-B Natriuret Pep [id number] H 12/19/19 12/19/19 12/19/19 00:13 07:00 12:05 Creatine Kinase CK-MB (CK-2) Troponin I 0.044 0.060 0.062 NT-Pro-B Natriuret Pep Impressions: Foot X-Ray 12/13/19 17:55 IMPRESSION: Osteopenia. Calcaneal spurs. Head CT 12/18/19 00:00 IMPRESSION: NO ACUTE INTRACRANIAL IMAGING FINDINGS. EVIDENCE OF ACUTE STROKE: NO. Chest X-Ray 12/19/19 08:29 IMPRESSION: Pulmonary vascular prominence without pulmonary edema or pleural effusion Stable cardiomegaly Carotid Doppler Study 12/20/19 00:00 IMPRESSION: 50 to 69% narrowing proximal right ICA by systolic velocity ratio Less than 50% diameter narrowing proximal left ICA Assessment & Plan - Diagnosis (1) ESRD (end stage renal disease) on dialysis Is this a current diagnosis for this admission?: Yes Plan: Currently undergoing dialysis without any issues. Vital signs are stable. Dialysis being supervised. Plan to remove approximately 1.5-2 L as tolerated. Dialysis orders were reviewed with the treating dialysis nurse. Adjust erythropoietin on dialysis. (2) Peripheral vascular disease in diabetes mellitus Is this a current diagnosis for this admission?: Yes Plan: Status post right BKA. She is got evidences of severe peripheral vascular disease with gangrene of her left toes as well. However she is requesting/thinking of having vascular consult in a tertiary hospital.However that has been discussed with the vascular surgeon in [facility] and recommendations were to proceed with amputation of the toes after being evaluated as an outpatient as patient does not want to do anything at the moment. (3) Hypertension Qualifiers: Hypertension type: essential hypertension Qualified Code(s): I10 - Essential (primary) hypertension Is this a current diagnosis for this admission?: Yes Plan: Fairly well controlled. See response to dialysis and ultrafiltration. Monitor. (4) Diabetes mellitus type 2 in obese Is this a current diagnosis for this admission?: Yes Plan: Advised tight control which she has not done in the past as she is been a very noncompliant patient.Not hypoglycemic currently. (5) Anemia in chronic kidney disease (CKD) Qualifiers: Chronic kidney disease stage: on chronic dialysis Qualified Code(s): N18.6 - End stage renal disease; D63.1 - Anemia in chronic kidney disease; Z99.2 - Dependence on renal dialysis Is this a current diagnosis for this admission?: Yes Plan: Adjust erythropoietin on dialysis. (6) Delirium due to another medical condition Is this a current diagnosis for this admission?: Yes Plan: Likely multifactorial in this very anxiety prone lady. Improved. As per hospitalist.
--- NOTE | 2019-12-22 18:29 | PDOC PROGRESS REPORT ---
Subjective Progress Note for:: 12/22/19 Subjective:: ANGELIC ROBIN is a 64 year old female who presents the emergency room with a one-week history of bilateral foot pain. She admits the abrupt onset of pain in both feet 1 week ago. Her pain is a moderate dull pressure at rest but turns into a severe sharp searing pain with weightbearing. Her foot pain was accompanied by the development of "blisters" of her right great, second and third toes as well as her left second and third toes. The blisters have "broken" over time, becoming darkened skin with a foul odor. Her foot pain was associated with swelling in her bilateral lower extremities below the knee. She denies other associated or accompanying signs and symptoms. She she denies prior similar episodes. She has not identified any additional aggravating or ameliorating factors for her foot pain. In the emergency room she was found to have gangrene of the right great second and third toes as well as the left second and third toes. Surgical consultation with Dr. Kuo was obtained by the emergency room provider and he asked for the hospitalist service to admit the patient and consult him as well as Dr. Sadler for nephrology. Patient was subsequently admitted to the hospital for further evaluation treatment. 12/21/2019. No acute events overnight. Resting in bed no apparent distress, accompanied with relatives, very tearful about possibility of losing her other foot, otherwise denies any fever, chills, nausea, vomiting, diarrhea, cons tipation. 12/22/2019. No acute events overnight. Patient still very emotional, however cooperative with physical examination. Alert and oriented. Patient was supposed to be transferred to SNF today however they refused to accept her because patient was placed on soft restraints for some reason overnight. Reason For Visit: GANGRENE BILATERAL TOES,ESRD ON DIALYSIS,PERIPHER Physical Exam Vital Signs: Temp Pulse Resp BP Pulse Ox 96.0 F L 70 20 147/67 H 97 12/22/19 15:55 12/22/19 15:55 12/22/19 15:55 12/22/19 15:55 12/22/19 16:06 Intake & Output 12/21/19 12/22/19 12/23/19 06:59 06:59 06:59 Intake Total 7956 422 9261 Output Total 1700 0 2300 Balance -335 280 -1180 Weight 94.1 kg 95 kg General appearance: PRESENT: no acute distress, obese, well-developed, well- nourished Head exam: PRESENT: atraumatic, normocephalic Respiratory exam: PRESENT: clear to auscultation genia. ABSENT: rales, rhonchi, wheezes Cardiovascular exam: PRESENT: RRR. ABSENT: diastolic murmur, rubs, systolic murmur GI/Abdominal exam: PRESENT: normal bowel sounds, soft. ABSENT: distended, guarding, mass, organolmegaly, rebound, tenderness Neurological exam: PRESENT: alert, awake, oriented to person, oriented to place, CN II-XII grossly intact. ABSENT: motor sensory deficit Results Laboratory Results: 12/22/19 05:12 12/22/19 05:12 12/22/19 12/22/19 05:12 05:12 WBC 10.6 H RBC 2.66 L Hgb 7.8 L Hct 23.5 L MCV 88 MCH 29.3 MCHC 33.2 RDW 20.1 H Plt Count 168 Sodium 135.3 L Potassium 4.4 Chloride 97 L Carbon Dioxide 23 Anion Gap 15 BUN 42 H Creatinine 6.74 H Est GFR ( Amer) 7 L Glucose 192 H Calcium 9.6 12/16/19 17:24 Blood Blood Culture - Final NO GROWTH IN 5 DAYS 12/16/19 16:34 Blood Blood Culture - Final NO GROWTH IN 5 DAYS 12/17/19 12/18/19 12/18/19 05:45 14:30 14:30 Creatine Kinase 499 H 468 H CK-MB (CK-2) 5.00 H Troponin I 0.026 NT-Pro-B Natriuret Pep [id number] H 12/19/19 12/19/19 12/19/19 00:13 07:00 12:05 Creatine Kinase CK-MB (CK-2) Troponin I 0.044 0.060 0.062 NT-Pro-B Natriuret Pep Impressions: Foot X-Ray 12/13/19 17:55 IMPRESSION: Osteopenia. Calcaneal spurs. Head CT 12/18/19 00:00 IMPRESSION: NO ACUTE INTRACRANIAL IMAGING FINDINGS. EVIDENCE OF ACUTE STROKE: NO. 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 Pathology report negative for osteomyelitis or malignancy. Initially started on vancomycin and Zosyn. Switched to doxycycline 100 mg p.o. on 12/20/2019. Continue doxycycline 100 mg p.o. twice daily for another 8 days. Surgical wound looks clean. No sign of infection. Continue wound care. Follow-up with Dr. Hines surgeon as outpatient. (2) Diabetes mellitus type 2 in obese Is this a current diagnosis for this admission?: Yes Plan: Hemoglobin A1c 6.4, down from 9.0. Accu-Cheks every 6 hours. Patient noted to be hypoglycemic and was started on D5NS. Patient does not need to be on anti-diabetic anymore based on her hypoglycemic episodes and hemoglobin A1c. Continue Accu-Chek frequently, hypoglycemia protocol, monitor blood glucose levels frequently. Encourage frequent snacking. Follow-up with PCP for evaluation of diabetes and diabetic management. (3) Dry gangrene Is this a current diagnosis for this admission?: Yes Plan: Patient has dry gangrene of her left foot mostly second and third toes. Does seem to extend past the toes however. Surgeon recommended vascular consultation for potential revascularization before visiting amputation of the toes noting that it would otherwise be very difficult for the surgical wound to heal and may be better served by BKA. Vascular surgeon Dr. Ishan Archuleta from [facility] via telephone consulted and went over lower extremity arterial Dopplers as well as her lower extremity CTA. Dr. Archuleta recommended that, though patient has extensive calcification of her arteries, he does not see any thorough occlusion to flow on his review of the imaging that will need revascularization at this time and states that no revascularization is needed prior to surgical amputation of her toes. Dr. Hines who recommends that there is no urgent need for amputation of the left lower extremity and that he would prefer that patient has an in person consultation with vascular surgery for a full assessment as outpatient prior to pursuing partial amputation of the left foot. Please follow-up with Dr. Ishan Archuleta or any vascular surgeon as outpatient. (4) Anemia in chronic kidney disease (CKD) Qualifiers: Chronic kidney disease stage: on chronic dialysis Qualified Code(s): N18.6 - End stage renal disease; D63.1 - Anemia in chronic kidney disease; Z99.2 - Dependence on renal dialysis Is this a current diagnosis for this admission?: Yes Plan: Secondary to ESRD and complicated by blood loss from surgery. Hemoglobin holding steady in the 7s. Monitor on CBC. Receiving EPO by nephrology. (5) Delirium due to another medical condition Is this a current diagnosis for this admission?: Yes Plan: Patient's family voiced that patient has had some gradual decline in her memory and that she has always been an anxious person. Patient clearly seems to have some baseline cognitive impairment. Highly recommended to follow-up with neurology as outpatient. Closely monitor SPO2, electrolytes and blood glucose levels. (6) Episode of transient neurologic symptoms Is this a current diagnosis for this admission?: Yes Plan: While inpatient patient was noted to have slurring of the face as well as worsening of eye deviation, grinding of teeth and became unresponsive. [employer] had been called. Patient was initially thought to have a stroke but then while taking patient down for CT scan, she gradually became fully alert again and moving all extremities with resolution of her prior symptoms. Head CT was normal. This episode was either caused by oxycodone 5 mg that she r eceived several hours before the episode or she could have had a TIA. Her family denies any history of seizures. 2D echo 2 months ago was unremarkable. Carotid Doppler 50 to 69% narrowing of proximal right ICA, less than 50% diameter narrowing proximal left ICA. Patient is to continue high sensitive statin, optimize BP and diabetic control. Is to follow-up with vascular surgeon for further evaluation and intervention. (7) ESRD (end stage renal disease) on dialysis Is this a current diagnosis for this admission?: Yes Plan: Hemodialysis per nephrology. (8) Hypertension Qualifiers: Hypertension type: essential hypertension Qualified Code(s): I10 - Esse ntial (primary) hypertension Is this a current diagnosis for this admission?: Yes Plan: Continue clonidine. (9) Hypoxia Is this a current diagnosis for this admission?: Yes Plan: SPO2 WNL on RA. Pulse oximetry may be partially skewed by her cold extremities/PVD. Please use earlobes for pulse oximetry instead. (10) Peripheral vascular disease in diabetes mellitus Is this a current diagnosis for this admission?: Yes Plan: Highly calcific vessels suggestive of advanced PVD noted on CTA as well as arterial Dopplers of lower extremities that were done outpatient and during this admission. Outpatient vascular surgery evaluation. Continue aspirin and statins. (11) Serratia infection Is this a current diagnosis for this admission?: Yes Plan: Serratia noted in 1 blood culture set. Initially was receiving Vanco and Zosyn for osteomyelitis. Currently switch on doxycycline p.o. Sensitive to tetracycline should be covered with doxycycline. Day 2/10 of doxycycline p.o. 100 mg twice daily.
[2019-12-23] MEDS: ACETAMINOPHEN 325 MG TABLET PO PRN ×2 (02:23→22:02)
[2019-12-23] MEDS: PANTOPRAZOLE SODIUM 40 MG TABLET.DR PO SCH (05:41)
[2019-12-23] MEDS: HEPARIN SOD (PORCINE) 5,000 UNIT/ML 1 ML VIAL SUBCUT SCH ×3 (05:41→22:02)
[2019-12-23] MEDS: CLONIDINE HCL 0.2 MG TABLET PO SCH ×4 (05:41→23:54)
[2019-12-23 06:03] LABS: ABSOLUTE EOSINOPHILS # (AUTO) 0.1 10^3/uL (0.0-0.6); ABSOLUTE LYMPHOCYTES (AUTO) 1.3 10^3/uL (0.5-4.7); ABSOLUTE MONOCYTES (AUTO) 1.4 10^3/uL (0.1-1.4); ABSOLUTE NEUT (AUTO) 11.4 10^3/uL (1.7-8.2); BASOPHILS % (AUTO) 0.2 % (0-2); HEMATOCRIT 25.7 % (36.0-47.0); HEMOGLOBIN 8.4 g/dL (12.0-15.5); MEAN CORPUSCULAR HEMOGLOBIN 28.7 pg (27.0-33.4); MEAN CORPUSCULAR HGB CONC 32.6 g/dL (32.0-36.0); MEAN CORPUSCULAR VOLUME 88 fl (80-97); MONOCYTES % (AUTO) 9.6 % (3-13); PLATELET COUNT 161 10^3/uL (150-450); RED BLOOD COUNT 2.92 10^6/uL (3.72-5.28); RED CELL DISTRIBUTION WIDTH 20.8 % (11.5-14.0); SEGMENTED NEUTROPHILS % (AUTO) 80.2 % (42-78); TOTAL CELLS COUNTED % (AUTO) 100 %; WHITE BLOOD COUNT 14.2 10^3/uL (4.0-10.5)
[2019-12-23 06:10] LABS: ANION GAP 16 (5-19); BLOOD UREA NITROGEN 28 mg/dL (7-20); CALCIUM 9.6 mg/dL (8.4-10.2); CARBON DIOXIDE 24 mmol/L (22-30); CHLORIDE 95 mmol/L (98-107); GLUCOSE 140 mg/dL (75-110); POTASSIUM 3.8 mmol/L (3.6-5.0)
[2019-12-23 06:37] LABS: HEPATITS B SURFACE ANTIGEN Negative (Negative)
[2019-12-23 07:05] LABS: HEPATITIS B CORE AB TOT Negative (Negative)
[2019-12-23] MEDS: ASPIRIN 81 MG TABLET, ENT COATED PO SCH (09:55)
[2019-12-23] MEDS: SENNOSIDES/DOCUSATE 8.6-50 MG 1 EACH TABLET PO SCH ×2 (09:55→17:15)
[2019-12-23] MEDS: DOXYCYCLINE HYCLATE 100 MG TABLET PO SCH ×2 (09:55→22:01)
[2019-12-23] MEDS ORDERED: MEGESTROL ACETATE 20 MG TABLET PO ONE (10:00)
--- NOTE | 2019-12-23 12:32 | PDOC PROGRESS REPORT ---
Subjective Progress Note for:: 12/23/19 Subjective:: Patient was sitting up in her bed at the time of examination. She is still emotional and appears to not be of sound mind. She is claiming that her who sits next to her at every dialysis treatment is out to get her. She claims that she is going to get a divorce and move down with family in [place]. The past couple of treatments she has apprently required restraints so she does not pull her needles. Because of this her SNF placement is being put on hold. Reason For Visit: GANGRENE BILATERAL TOES,ESRD ON DIALYSIS,PERIPHER Physical Exam Vital Signs: Temp Pulse Resp BP Pulse Ox 98.2 F 74 16 150/90 H 92 12/23/19 08:00 12/23/19 08:00 12/23/19 08:00 12/23/19 08:00 12/23/19 08:00 Intake & Output 12/22/19 12/23/19 12/24/19 06:59 06:59 06:59 Intake Total 280 1480 Output Total 0 2300 Balance 280 -820 Weight 95 kg 95 kg General appearance: PRESENT: no acute distress, well-developed, well-nourished, other - -emotional Mouth exam: PRESENT: moist, neck supple Neck exam: ABSENT: JVD, tracheal deviation Respiratory exam: PRESENT: clear to auscultation genia. ABSENT: crackles, rales, rhonchi, wheezes Cardiovascular exam: PRESENT: +S1, +S2 GI/Abdominal exam: PRESENT: soft. ABSENT: tenderness Extremities exam: PRESENT: pedal edema, +1 edema - on the left leg. ABSENT: tenderness, +2 edema Musculoskeletal exam: PRESENT: deformity - -right bka which is wrapped up. ABSENT: tenderness Neurological exam: PRESENT: alert, awake, oriented to person, oriented to place, oriented to time, oriented to situation Psychiatric exam: PRESENT: anxious, depressed. ABSENT: normal mood Focused psych exam: PRESENT: paranoid Skin exam: PRESENT: dry, intact, warm. ABSENT: cyanosis Results Laboratory Results: 12/23/19 05:00 12/23/19 05:00 12/23/19 12/23/19 05:00 05:00 WBC 14.2 H RBC 2.92 L Hgb 8.4 L Hct 25.7 L MCV 88 MCH 28.7 MCHC 32.6 RDW 20.8 H Plt Count 161 Seg Neutrophils % 80.2 H Sodium 134.8 L Potassium 3.8 Chloride 95 L Carbon Dioxide 24 Anion Gap 16 BUN 28 H Creatinine 5.11 H Est GFR ( Amer) 10 L Glucose 140 H Calcium 9.6 12/17/19 12/18/19 12/18/19 05:45 14:30 14:30 Creatine Kinase 499 H 468 H CK-MB (CK-2) 5.00 H Troponin I 0.026 NT-Pro-B Natriuret Pep [id number] H 12/19/19 12/19/19 12/19/19 00:13 07:00 12:05 Creatine Kinase CK-MB (CK-2) Troponin I 0.044 0.060 0.062 NT-Pro-B Natriuret Pep Impressions: Foot X-Ray 12/13/19 17:55 IMPRESSION: Osteopenia. Calcaneal spurs. Head CT 12/18/19 00:00 IMPRESSION: NO ACUTE INTRACRANIAL IMAGING FINDINGS. EVIDENCE OF ACUTE STROKE: NO. Chest X-Ray 12/19/19 08:29 IMPRESSION: Pulmonary vascular prominence without pulmonary edema or pleural effusion Stable cardiomegaly Carotid Doppler Study 12/20/19 00:00 IMPRESSION: 50 to 69% narrowing proximal right ICA by systolic velocity ratio Less than 50% diameter narrowing proximal left ICA Assessment & Plan - Diagnosis (1) Gangrene associated with type 2 diabetes mellitus Is this a current diagnosis for this admission?: Yes Plan: s/p right bka, Consultation by a vascular specialist recommends amputation the left leg. At this time the patient is not wanting that. Following with surgery as outpatient. (2) Peripheral vascular disease of foot Is this a current diagnosis for this admission?: Yes Plan: Consultation by a vascular specialist recommends amputation the left leg. At this time the patient is not wanting that. Following with surgery as outpatient. (3) ESRD (end stage renal disease) on dialysis Is this a current diagnosis for this admission?: Yes Plan: Will look to continue with dialysis tomorrow. (4) Anemia in chronic kidney disease (CKD) Qualifiers: Chronic kidney disease stage: on chronic dialysis Qualified Code(s): N18.6 - End stage renal disease; D63.1 - Anemia in chronic kidney disease; Z99.2 - Dependence on renal dialysis Is this a current diagnosis for this admission?: Yes Plan: Will look to give retacrit tomorrow. (5) Hypertension Qualifiers: Hypertension type: essential hypertension Qualified Code(s): I10 - E ssential (primary) hypertension Is this a current diagnosis for this admission?: Yes (6) Obesity Qualifiers: Obesity type: due to excess calories Obesity classification: adult class 2 (BMI 35 - 39.9) Serious obesity comorbidity presence: with serious comorbidity Body mass index: BMI 39.0-39.9 Qualified Code(s): E66.01 - Morbid (severe) obesity due to excess calories; Z68.39 - Body mass index (BMI) 39.0-39.9, adult Is this a current diagnosis for this admission?: Yes (7) Diabetes mellitus type 2 in obese Is this a current diagnosis for this admission?: Yes
--- NOTE | 2019-12-23 13:45 | PDOC PROGRESS REPORT ---
Subjective Progress Note for:: 12/23/19 Subjective:: ANGELIC ROBIN is a 64 year old female who presents the emergency room with a one-week history of bilateral foot pain. She admits the abrupt onset of pain in both feet 1 week ago. Her pain is a moderate dull pressure at rest but turns into a severe sharp searing pain with weightbearing. Her foot pain was accompanied by the development of "blisters" of her right great, second and third toes as well as her left second and third toes. The blisters have "broken" over time, becoming darkened skin with a foul odor. Her foot pain was associated with swelling in her bilateral lower extremities below the knee. She denies other associated or accompanying signs and symptoms. She she denies prior similar episodes. She has not identified any additional aggravating or ameliorating factors for her foot pain. In the emergency room she was found to have gangrene of the right great second and third toes as well as the left second and third toes. Surgical consultation with Dr. Kuo was obtained by the emergency room provider and he asked for the hospitalist service to admit the patient and consult him as well as Dr. Sadler for nephrology. Patient was subsequently admitted to the hospital for further evaluation treatment. 12/21/2019. No acute events overnight. Resting in bed no apparent distress, accompanied with relatives, very tearful about possibility of losing her other foot, otherwise denies any fever, chills, nausea, vomiting, diarrhea, cons tipation. 12/22/2019. No acute events overnight. Patient still very emotional, however cooperative with physical examination. Alert and oriented. Patient was supposed to be transferred to SNF today however they refused to accept her because patient was placed on soft restraints for some reason overnight. 12/23/2019. No acute events overnight. This morning patient resting with no apparent distress, awake however seems to be confused, very emotional and tearful, cooperative with physical examination, denies any fever, chills, nausea, vomiting, diarrhea. Has not had a bowel in several days, endorses low appetite, does not feel like eating. Has been refusing her food. Reason For Visit: GANGRENE BILATERAL TOES,ESRD ON DIALYSIS,PERIPHER Physical Exam Vital Signs: Temp Pulse Resp BP Pulse Ox 97.1 F 73 18 156/80 H 99 12/23/19 10:53 12/23/19 10:53 12/23/19 10:53 12/23/19 10:53 12/23/19 10:53 Intake & Output 12/22/19 12/23/19 12/24/19 06:59 06:59 06:59 Intake Total 280 1480 120 Output Total 0 2300 Balance 280 -820 120 Weight 95 kg 95 kg General appearance: PRESENT: no acute distress, obese, well-developed, well- nourished Head exam: PRESENT: atraumatic, normocephalic Respiratory exam: PRESENT: clear to auscultation genia. ABSENT: rales, rhonchi, wheezes Cardiovascular exam: PRESENT: RRR. ABSENT: diastolic murmur, rubs, systolic murmur GI/Abdominal exam: PRESENT: distended, normal bowel sounds, soft. ABSENT: guarding, mass, organolmegaly, rebound, tenderness Extremities exam: PRESENT: full ROM, other - Right BKA. Left second and third dry gangrene.. ABSENT: calf tenderness, clubbing, pedal edema Neurological exam: PRESENT: alert, awake, oriented to person, CN II-XII grossly intact. ABSENT: motor sensory deficit Psychiatric exam: PRESENT: unusual affect Results Laboratory Results: 12/23/19 05:00 12/23/19 05:00 12/23/19 12/23/19 05:00 05:00 WBC 14.2 H RBC 2.92 L Hgb 8.4 L Hct 25.7 L MCV 88 MCH 28.7 MCHC 32.6 RDW 20.8 H Plt Count 161 Seg Neutrophils % 80.2 H Sodium 134.8 L Potassium 3.8 Chloride 95 L Carbon Dioxide 24 Anion Gap 16 BUN 28 H Creatinine 5.11 H Est GFR ( Amer) 10 L Glucose 140 H Calcium 9.6 12/17/19 12/18/19 12/18/19 05:45 14:30 14:30 Creatine Kinase 499 H 468 H CK-MB (CK-2) 5.00 H Troponin I 0.026 NT-Pro-B Natriuret Pep 315755 H 12/19/19 12/19/19 12/19/19 00:13 07:00 12:05 Creatine Kinase CK-MB (CK-2) Troponin I 0.044 0.060 0.062 NT-Pro-B Natriuret Pep Impressions: Foot X-Ray 12/13/19 17:55 IMPRESSION: Osteopenia. Calcaneal spurs. Head CT 12/18/19 00:00 IMPRESSION: NO ACUTE INTRACRANIAL IMAGING FINDINGS. EVIDENCE OF ACUTE STROKE: NO. Chest X-Ray 12/19/19 08:29 IMPRESSION: Pulmonary vascular prominence without pulmonary edema or pleural effusion Stable cardiomegaly Carotid Doppler Study 12/20/19 00:00 IMPRESSION: 50 to 69% narrowing proximal right ICA by systolic velocity ratio Less than 50% diameter narrowing proximal left ICA Assessment and Plan - Diagnosis (1) Anorexia Is this a current diagnosis for this admission?: Yes Plan: Patient has very low appetite and has been refusing her food. Has been noted to be hypoglycemic. When asked about her poor appetite patient said that she does not feel like eating. Patient encourage to eat, start on Megace. Nursing staff has been advised to feed her frequently. Continue Megace, encourage p.o. intake. 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 Pathology report negative for osteomyelitis or malignancy. Initially started on vancomycin and Zosyn. Switched to doxycycline 100 mg p.o. on 12/20/2019. Continue doxycycline 100 mg p.o. twice daily for another 7 days. Surgical wound looks clean. No sign of infection. Continue wound care. Follow-up with Dr. Hines surgeon as outpatient. (3) Diabetes mellitus type 2 in obese Is this a current diagnosis for this admission?: Yes Plan: Hemoglobin A1c 6.4, down from 9.0. Accu-Cheks every 6 hours. Patient noted to be hypoglycemic and was started on D5NS. Patient does not need to be on anti-diabetic anymore based on her hypoglycemic episodes and hemoglobin A1c. Continue Accu-Chek frequently, hypoglycemia protocol, monitor blood glucose levels frequently. Encourage frequent snacking. Follow-up with PCP for evaluation of diabetes and diabetic management. (4) Dry gangrene Is this a current diagnosis for this admission?: Yes Plan: Patient has dry gangrene of her left foot mostly second and third toes. Does seem to extend past the toes however. Surgeon recommended vascular consultation for potential revascularization before visiting amputation of the toes noting that it would otherwise be very difficult for the surgical wound to heal and may be better served by BKA. Vascular surgeon Dr. Ishan Archuleta from [facility] via telephone consulted and went over lower extremity arterial Dopplers as well as her lower extremity CTA. Dr. Archuleta recommended that, though patient has extensive calcification of her arteries, he does not see any thorough occlusion to flow on his review of the imaging that will need revascularization at this time and states that no revascularization is needed prior to surgical amputation of her toes. Dr. Hines who recommends that there is no urgent need for amputation of the left lower extremity and that he would prefer that patient has an in person consultation with vascular surgery for a full assessment as outpatient prior to pursuing partial amputation of the left foot. Please follow-up with Dr. Ishan Archuleta or any vascular surgeon as outpatient. (5) Anemia in chronic kidney disease (CKD) Qualifiers: Chronic kidney disease stage: on chronic dialysis Qualified Code(s): N18.6 - End stage renal disease; D63.1 - Anemia in chronic kidney disease; Z99.2 - Dependence on renal dialysis Is this a current diagnosis for this admission?: Yes Plan: Secondary to ESRD and complicated by blood loss from surgery. Hemoglobin holding steady in the 7s. Monitor on CBC. Receiving EPO by nephrology. (6) Delirium due to another medical condition Is this a current diagnosis for this admission?: Yes Plan: Patient's family voiced that patient has had some gradual decline in her memory and that she has always been an anxious person. Patient clearly seems to have some baseline cognitive impairment. Highly recommended to follow-up with neurology as outpatient. Closely monitor SPO2, electrolytes and blood glucose levels. (7) Episode of transient neurologic symptoms Is this a current diagnosis for this admission?: Yes Plan: Patient still have very labile mood and is confused at times. Several days ago patient was noted to have slurring of the face as well as worsening of eye deviation, grinding of teeth and became unresponsive. [employer] O[employer]ATOR had been called. Patient was initially thought to have a stroke but then while taking patient down for CT scan, she gradually became fully alert again and moving all extremities with resolution of her prior symptoms. Head CT was normal. This episode was either caused by oxycodone 5 mg that she received several hours before the episode or she could have had a TIA. Her family denies any history of seizures. 2D echo 2 months ago was unremarkable. Carotid Doppler 50 to 69% narrowing of proximal right ICA, less than 50% diameter narrowing proximal left ICA. Patient is to continue high sensitive statin, optimize BP and diabetic control. Is to follow-up with vascular surgeon for further evaluation and intervention. (8) ESRD (end stage renal disease) on dialysis Is this a current diagnosis for this admission?: Yes Plan: Hemodialysis per nephrology. (9) Hypertension Qualifiers: Hypertension type: essential hypertension Qualified Code(s): I10 - Essential (primary) hypertension Is this a current diagnosis for this admission?: Yes Plan: Continue clonidine. (10) Hypoxia Is this a current diagnosis for this admission?: Yes Plan: SPO2 WNL on RA. Pulse oximetry may be partially skewed by her cold extremities/PVD. Please use earlobes for pulse oximetry instead. (11) Peripheral vascular disease in diabetes mellitus Is this a current diagnosis for this admission?: Yes Plan: Highly calcific vessels suggestive of advanced PVD noted on CTA as well as arterial Dopplers of lower extremities that were done outpatient and during this admission. Outpatient vascular surgery evaluation. Continue aspirin and statins. (12) Serratia infection Is this a current diagnosis for this admission?: Yes Plan: Serratia noted in 1 blood culture set. Initially was receiving Vanco and Zosyn for osteomyelitis. Currently switch on doxycycline p.o. Sensitive to tetracycline should be covered with doxycycline. Day 2/10 of doxycycline p.o. 100 mg twice daily. (13) Hypoglycemia Is this a current diagnosis for this admission?: Yes Plan: Likely due to low p.o. intake. Patient is not receiving any antidiabetic medication. Continue hypoglycemia protocol, Accu-Chek. Hold antidiabetic meds. Encourage frequent snacking.
[2019-12-23] MEDS: AMLODIPINE BESYLATE 5 MG TABLET PO SCH (15:59)
[2019-12-23] MEDS: MAGNESIUM HYDROXIDE SUSP 30 ML UDCUP PO PRN (17:16)
[2019-12-23] MEDS: METOPROLOL SUCCINATE 50 MG TAB.SR.24H PO SCH (22:01)
[2019-12-24] MEDS: ACETAMINOPHEN 325 MG TABLET PO PRN ×3 (03:06→22:36)
[2019-12-24] MEDS: HEPARIN SOD (PORCINE) 5,000 UNIT/ML 1 ML VIAL SUBCUT SCH ×3 (05:13→22:36)
[2019-12-24] MEDS: PANTOPRAZOLE SODIUM 40 MG TABLET.DR PO SCH (05:13)
[2019-12-24] MEDS ORDERED: MORPHINE SULFATE 10 MG/ML INJ IM ONE (05:15)
[2019-12-24] MEDS ORDERED: PROMETHAZINE HCL INJ 25 MG/1 ML VIAL IM ONE (05:15)
[2019-12-24] MEDS: CLONIDINE HCL 0.2 MG TABLET PO SCH ×3 (05:26→19:45)
[2019-12-24 05:45] LABS: HEMOGLOBIN 8.6 g/dL (12.0-15.5); MEAN CORPUSCULAR VOLUME 88 fl (80-97); PLATELET COUNT 166 10^3/uL (150-450); RED BLOOD COUNT 2.96 10^6/uL (3.72-5.28); WHITE BLOOD COUNT 13.2 10^3/uL (4.0-10.5)
[2019-12-24 06:12] LABS: ALBUMIN 3.3 g/dL (3.5-5.0); ALKALINE PHOSPHATASE 94 U/L (38-126); ANION GAP 16 (5-19); ASPARTATE AMINO TRANSFERASE 30 U/L (14-36); BILIRUBIN,TOTAL 1.4 mg/dL (0.2-1.3); BLOOD UREA NITROGEN 38 mg/dL (7-20); CALCIUM 9.7 mg/dL (8.4-10.2); CARBON DIOXIDE 25 mmol/L (22-30); CHLORIDE 92 mmol/L (98-107); GLUCOSE 161 mg/dL (75-110); PHOSPHORUS 5.5 mg/dL (2.5-4.5); TOTAL PROTEIN 6.8 g/dL (6.3-8.2)
[2019-12-24] MEDS ORDERED: EPOETIN ALFA-EPBX 2,000 UNIT, EPOETIN ALFA-EPBX 3,000 UNIT, EPOETIN ALFA-EPBX 20,000 UN... IV PRN ×4 (06:12)
[2019-12-24] MEDS: DEXTROSE 40% GEL 15 GM TUBE PO PRN ×2 (11:30→16:24)
--- NOTE | 2019-12-24 11:51 | PDOC PROGRESS REPORT ---
Subjective Progress Note for:: 12/24/19 Reason For Visit: Patient seen today on dialysis. She is undergoing dialysis but looks to be uncomfortable and complains of pain in both her hands as well as her left foot. Further evaluations revealed she has got dry gangrene in these affected appendages. Hemodynamically she remained stable. She denies any history of chest pains or shortness of breath. However she is confused and does not respond appropriately to other questions. Labs and medications were reviewed. Dialysis orders were reviewed with the treating dialysis nurse. Her blood sugars were okay. Physical Exam Vital Signs: Temp Pulse Resp BP Pulse Ox 98.0 F 69 17 149/74 H 100 12/23/19 23:54 12/23/19 23:54 12/23/19 23:54 12/23/19 23:54 12/23/19 23:54 Intake & Output 12/23/19 12/24/19 12/25/19 06:59 06:59 06:59 Intake Total 1480 120 Output Total 2300 Balance -820 120 Weight 95 kg 95 kg General appearance: PRESENT: mild distress Respiratory exam: PRESENT: clear to auscultation genia, decreased breath sounds. ABSENT: crackles Cardiovascular exam: PRESENT: +S1, +S2 GI/Abdominal exam: PRESENT: soft. ABSENT: tenderness Extremities exam: ABSENT: pedal edema Neurological exam: PRESENT: altered Psychiatric exam: PRESENT: depressed Skin exam: PRESENT: other - She has features indicative of dry gangrene affecting the hands bilaterally as well as the left foot mainly middle toes. Results Laboratory Results: 12/24/19 05:06 12/24/19 05:06 12/24/19 12/24/19 05:06 05:06 WBC 13.2 H RBC 2.96 L Hgb 8.6 L Hct 26.0 L MCV 88 MCH 29.0 MCHC 33.0 RDW 22.0 H Plt Count 166 Sodium 133.1 L Potassium 4.0 Chloride 92 L Carbon Dioxide 25 Anion Gap 16 BUN 38 H Creatinine 6.16 H Est GFR ( Amer) 8 L Glucose 161 H Calcium 9.7 Phosphorus 5.5 H Magnesium 2.1 Total Bilirubin 1.4 H AST 30 Alkaline Phosphatase 94 Total Protein 6.8 Albumin 3.3 L 12/17/19 12/18/19 12/18/19 05:45 14:30 14:30 Creatine Kinase 499 H 468 H CK-MB (CK-2) 5.00 H Troponin I 0.026 NT-Pro-B Natriuret Pep [id number] H 12/19/19 12/19/19 12/19/19 00:13 07:00 12:05 Creatine Kinase CK-MB (CK-2) Troponin I 0.044 0.060 0.062 NT-Pro-B Natriuret Pep Impressions: Foot X-Ray 12/13/19 17:55 IMPRESSION: Osteopenia. Calcaneal spurs. Head CT 12/18/19 00:00 IMPRESSION: NO ACUTE INTRACRANIAL IMAGING FINDINGS. EVIDENCE OF ACUTE STROKE: NO. Chest X-Ray 12/19/19 08:29 IMPRESSION: Pulmonary vascular prominence without pulmonary edema or pleural effusion Stable cardiomegaly Carotid Doppler Study 12/20/19 00:00 IMPRESSION: 50 to 69% narrowing proximal right ICA by systolic velocity ratio Less than 50% diameter narrowing proximal left ICA Assessment & Plan - Diagnosis (1) ESRD (end stage renal disease) on dialysis Is this a current diagnosis for this admission?: Yes Plan: Currently undergoing dialysis without any issues. Vital signs are stable. Dialysis being supervised. Plan to remove approximately 1.5-2 L as tolerated. Dialysis orders were reviewed with the treating dialysis nurse. Adjust erythropoietin on dialysis. (2) Peripheral vascular disease in diabetes mellitus Is this a current diagnosis for this admission?: Yes Plan: Status post right BKA. She is got evidences of severe peripheral vascular disease with gangrene of her left toes as well. It looks like she has also got bad peripheral vascular disease affecting her upper extremities bilaterally as well as seen by early dry gangrenous features which are quite symptomatic. Unfortunately she is a vasculopath because of her poor compliance with her diabetes and diet and dialysis requirements in the past. She looks to be ge tting more symptomatic with pain and ideally she would need to be evaluated by vascular surgeons to see any vascular interventions can be done to the upper extremities or lower extremities before more definitive procedures like amputation need to be entertained. (3) Hypertension Qualifiers: Hypertension type: essential hypertension Qualified Code(s): I10 - Essential (primary) hypertension Is this a current diagnosis for this admission?: Yes Plan: Fairly well controlled. However given the amount of pain it is going to be difficult to get an ideal control unless the pain is managed more vigorously. However caution needs to be entertained in usage of pain medicines given her ESRD status. See response to dialysis and ultrafiltration. Monitor. (4) Diabetes mellitus type 2 in obese Is this a current diagnosis for this admission?: Yes Plan: Advised tight control which she has not done in the past as she is been a very noncompliant patient.Not hypoglycemic currently. (5) Anemia in chronic kidney disease (CKD) Qualifiers: Chronic kidney disease stage: on chronic dialysis Qualified Code(s): N18.6 - End stage renal disease; D63.1 - Anemia in chronic kidney disease; Z99.2 - Dependence on renal dialysis Is this a current diagnosis for this admission?: Yes Plan: Adjust erythropoietin on dialysis. (6) Delirium due to another medical condition Is this a current diagnosis for this admission?: Yes Plan: Likely multifactorial in this very anxiety prone lady. She seems to be more also symptomatic now from her upper extremity involvement of her hands which adds another burden to her multifactorial pain issues.Management as per hospitalist.
[2019-12-24] MEDS: ASPIRIN 81 MG TABLET, ENT COATED PO SCH (13:07)
[2019-12-24] MEDS: MEGESTROL ACETATE 20 MG TABLET PO SCH (13:07)
[2019-12-24] MEDS: AMLODIPINE BESYLATE 5 MG TABLET PO SCH (13:08)
[2019-12-24] MEDS: SENNOSIDES/DOCUSATE 8.6-50 MG 1 EACH TABLET PO SCH ×2 (13:08→19:45)
--- NOTE | 2019-12-24 13:56 | PDOC PROGRESS REPORT ---
Subjective Progress Note for:: 12/24/19 Subjective:: ANGELIC ROBIN is a 64 year old female who presents the emergency room with a one-week history of bilateral foot pain. She admits the abrupt onset of pain in both feet 1 week ago. Her pain is a moderate dull pressure at rest but turns into a severe sharp searing pain with weightbearing. Her foot pain was accompanied by the development of "blisters" of her right great, second and third toes as well as her left second and third toes. The blisters have "broken" over time, becoming darkened skin with a foul odor. Her foot pain was associated with swelling in her bilateral lower extremities below the knee. She denies other associated or accompanying signs and symptoms. She she denies prior similar episodes. She has not identified any additional aggravating or ameliorating factors for her foot pain. In the emergency room she was found to have gangrene of the right great second and third toes as well as the left second and third toes. Surgical consultation with Dr. Kuo was obtained by the emergency room provider and he asked for the hospitalist service to admit the patient and consult him as well as Dr. Sadler for nephrology. Patient was subsequently admitted to the hospital for further evaluation treatment. 12/21/2019. No acute events overnight. Resting in bed no apparent distress, accompanied with relatives, very tearful about possibility of losing her other foot, otherwise denies any fever, chills, nausea, vomiting, diarrhea, cons tipation. 12/22/2019. No acute events overnight. Patient still very emotional, however cooperative with physical examination. Alert and oriented. Patient was supposed to be transferred to SNF today however they refused to accept her because patient was placed on soft restraints for some reason overnight. 12/23/2019. No acute events overnight. This morning patient resting with no apparent distress, awake however seems to be confused, very emotional and tearful, cooperative with physical examination, denies any fever, chills, nausea, vomiting, diarrhea. Has not had a bowel in several days, endorses low appetite, does not feel like eating. Has been refusing her food. 12/24/2019. Patient is still refusing to eat, endorsing very low appetite, noted to be hypoglycemic this morning, complaining of right hand pain, still very confused very low attention span and emotional, had a conversation over the phone with her daughter who said that she is very anxious and emotional and has had some confusion problem in the past which has been getting worse since his hospitalization. Patient denies any fever, chills, nausea, vomiting. Reason For Visit: GANGRENE BILATERAL TOES,ESRD ON DIALYSIS,PERIPHER Physical Exam Vital Signs: Temp Pulse Resp BP Pulse Ox 97.7 F 76 18 122/96 H 99 12/24/19 11:25 12/24/19 11:25 12/24/19 11:25 12/24/19 11:25 12/24/19 11:25 Intake & Output 12/23/19 12/24/19 12/25/19 06:59 06:59 06:59 Intake Total 1480 120 Output Total 2300 Balance -820 120 Weight 95 kg 95 kg General appearance: PRESENT: no acute distress, obese Head exam: PRESENT: atraumatic, normocephalic Respiratory exam: PRESENT: clear to auscultation genia. ABSENT: rales, rhonchi, wheezes Cardiovascular exam: PRESENT: RRR. ABSENT: diastolic murmur, rubs, systolic murmur GI/Abdominal exam: PRESENT: normal bowel sounds, soft. ABSENT: distended, guarding, mass, organolmegaly, rebound, tenderness Extremities exam: PRESENT: full ROM, other - Right hand diffusely tender, signs of osteoarthritis, no sign of acute infection.. ABSENT: calf tenderness, clubbing, pedal edema Neurological exam: PRESENT: alert, awake, oriented to person, CN II-XII grossly intact. ABSENT: motor sensory deficit Psychiatric exam: PRESENT: unusual affect Results Laboratory Results: 12/24/19 05:06 12/24/19 05:06 12/24/19 12/24/19 05:06 05:06 WBC 13.2 H RBC 2.96 L Hgb 8.6 L Hct 26.0 L MCV 88 MCH 29.0 MCHC 33.0 RDW 22.0 H Plt Count 166 Sodium 133.1 L Potassium 4.0 Chloride 92 L Carbon Dioxide 25 Anion Gap 16 BUN 38 H Creatinine 6.16 H Est GFR ( Amer) 8 L Glucose 161 H Calcium 9.7 Phosphorus 5.5 H Magnesium 2.1 Total Bilirubin 1.4 H AST 30 Alkaline Phosphatase 94 Total Protein 6.8 Albumin 3.3 L 07/09/0212/18/19 12/18/19 05:45 14:30 14:30 Creatine Kinase 499 H 468 H CK-MB (CK-2) 5.00 H Troponin I 0.026 NT-Pro-B Natriuret Pep [id number] H 12/19/19 12/19/19 12/19/19 00:13 07:00 12:05 Creatine Kinase CK-MB (CK-2) Troponin I 0.044 0.060 0.062 NT-Pro-B Natriuret Pep Impressions: Foot X-Ray 12/13/19 17:55 IMPRESSION: Osteopenia. Calcaneal spurs. Head CT 12/18/19 00:00 IMPRESSION: NO ACUTE INTRACRANIAL IMAGING FINDINGS. EVIDENCE OF ACUTE STROKE: NO. Chest X-Ray 12/19/19 08:29 IMPRESSION: Pulmonary vascular prominence without pulmonary edema or pleural effusion Stable cardiomegaly Carotid Doppler Study 12/20/19 00:00 IMPRESSION: 50 to 69% narrowing proximal right ICA by systolic velocity ratio Less than 50% diameter narrowing proximal left ICA Assessment and Plan - Diagnosis (1) Hypoglycemia Is this a current diagnosis for this admission?: Yes Plan: Likely due to low p.o. intake. Patient is not receiving any antidiabetic medication. Continue hypoglycemia protocol, Accu-Chek. Hold antidiabetic meds. Encourage frequent snacking. (2) Anorexia Is this a current diagnosis for this admission?: Yes Plan: Patient has very low appetite and has been refusing her food. Has been noted to be hypoglycemic. When asked about her poor appetite patient said that she does not feel like eating. Patient encourage to eat, start on Megace. Nursing staff has been advised to feed her frequently. Started on D10W 1/5 NS at 30 cc/h as patient has end-stage renal disease and to avoid overloading her. Continue Megace, encourage p.o. intake. 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 Pathology report negative for osteomyelitis or malignancy. Initially started on vancomycin and Zosyn. Switched to doxycycline 100 mg p.o. on 12/20/2019. Continue doxycycline 100 mg p.o. twice daily for another 6 days. Surgical wound looks clean. No sign of infection. Continue wound care. Follow-up with Dr. Hines surgeon as outpatient. (4) Dry gangrene Is this a current diagnosis for this admission?: Yes Plan: Patient has dry gangrene of her left foot mostly second and third toes. Does seem to extend past the toes however. Surgeon recommended vascular consultation for potential revascularization before visiting amputation of the toes noting that it would otherwise be very difficult for the surgical wound to heal and may be better served by BKA. Vascular surgeon Dr. Ishan Archuleta from [facility] via telephone consulted and went over lower extremity arterial Dopplers as well as her lower extremity CTA. Dr. Archuleta recommended that, though patient has extensive calcification of her arteries, he does not see any thorough occlusion to flow on his review of the imaging that will need revascularization at this time and states that no revascularization is needed prior to surgical amputation of her toes. Dr. Hines who recommends that there is no urgent need for amputation of the left lower extremity and that he would prefer that patient has an in person consultation with vascular surgery for a full assessment as outpatient prior to pursuing partial amputation of the left foot. Please follow-up with Dr. Ishan Archuleta or any vascular surgeon as outpatient. (5) Anemia in chronic kidney disease (CKD) Qualifiers: Chronic kidney disease stage: on chronic dialysis Qualified Code(s): N18.6 - End stage renal disease; D63.1 - Anemia in chronic kidney disease; Z99.2 - Dependence on renal dialysis Is this a current diagnosis for this admission?: Yes Plan: Secondary to ESRD and complicated by blood loss from surgery. Hemoglobin holding steady in the 7s. Monitor on CBC. Receiving EPO by nephrology. (6) Delirium due to another medical condition Is this a current diagnosis for this admission?: Yes Plan: Patient's family voiced that patient has had some gradual decline in her memory and that she has always been an anxious person however her confusion has worsened since hospitalization. Patient clearly seems to have some baseline cognitive impairment. Also noted to be on fentanyl patch since admission and was also given IV morphine last night. DC fentanyl patch, avoid opiates and benzodiazepines if possible. Highly recommended to follow-up with neurology as outpatient. Closely monitor SPO2, electrolytes and blood glucose levels. (7) Episode of transient neurologic symptoms Is this a current diagnosis for this admission?: Yes Plan: Patient still have very labile mood and is confused at times. Will obtain MRI head to rule out stroke if patient cooperates. Several days ago patient was noted to have slurring of the face as well as worsening of eye deviation, grinding of teeth and became unresponsive. [employer] O[employer]ATOR had been called. Patient was initially thought to have a stroke but then while taking patient down for CT scan, she gradually became fully alert again and moving all extremities with resolution of her prior symptoms. Head CT was normal. This episode was either caused by oxycodone 5 mg that she received several hours before the episode or she could have had a TIA. Her family denies any history of seizures. 2D echo 2 months ago was unremarkable. Carotid Doppler 50 to 69% narrowing of proximal right ICA, less than 50% diameter narrowing proximal left ICA. Patient is to continue high sensitive statin, optimize BP and diabetic control. She needs to follow-up with vascular surgeon for further evaluation and intervention. (8) ESRD (end stage renal disease) on dialysis Is this a current diagnosis for this admission?: Yes Plan: Hemodialysis per nephrology. (9) Hypertension Qualifiers: Hypertension type: essential hypertension Qualified Code(s): I10 - Essential (primary) hypertension Is this a current diagnosis for this admission?: Yes Plan: Continue clonidine. (10) Hypoxia Is this a current diagnosis for this admission?: Yes Plan: SPO2 WNL on RA. Pulse oximetry may be partially skewed by her cold extremities/PVD. Please use earlobes for pulse oximetry instead. (11) Peripheral vascular disease in diabetes mellitus Is this a current diagnosis for this admission?: Yes Plan: Highly calcific vessels suggestive of advanced PVD noted on CTA as well as arterial Dopplers of lower extremities that were done outpatient and during this admission. Outpatient vascular surgery evaluation. Continue aspirin and statins. (12) Serratia infection Is this a current diagnosis for this admission?: Yes Plan: Serratia noted in 1 blood culture set. Initially was receiving Vanco and Zosyn for osteomyelitis. Currently switch on doxycycline p.o. Sensitive to tetracycline should be covered with doxycycline. Day 2/10 of doxycycline p.o. 100 mg twice daily. (13) Diabetes mellitus type 2 in obese Is this a current diagnosis for this admission?: Yes Plan: Hemoglobin A1c 6.4, down from 9.0. Accu-Cheks every 6 hours. Patient noted to be hypoglycemic and was started on D5NS. Patient does not need to be on anti-diabetic anymore based on her hypoglycemic episodes and hemoglobin A1c. Continue Accu-Chek frequently, hypoglycemia protocol, monitor blood glucose levels frequently. Encourage frequent snacking. Follow-up with PCP for evaluation of diabetes and diabetic management.
[2019-12-24] MEDS: DOXYCYCLINE HYCLATE 100 MG TABLET PO SCH ×2 (14:07→22:36)
[2019-12-24] MEDS: KETOROLAC TROMETHAMINE INJ/PF 30 MG/1 ML SDV IV PRN (20:38)
[2019-12-24] MEDS: DEXTROSE 10%-WATER 1,000 ML with SODIUM CHLORIDE 77 MEQ IV PRN ×2 (20:57)
--- NOTE | 2019-12-24 22:13 | RADIOLOGY REPORT (SQ) ---
EXAM DESCRIPTION: MR BRAIN WITHOUT IV CONTRAST COMPLETED DATE/TME: 12/24/2019 13:56 CLINICAL HISTORY: 64 years, Female, Worsening confusion COMPARISON: CT brain 12/18/2019 TECHNIQUE: [id number] Images stored on PACS. LIMITATIONS: None. FINDINGS: Sagittal midline anatomic structures demonstrate an unremarkable appearance to the pituitary and suprasellar regions. Motion artifact significantly degrades image quality. The globes are intact. The paranasal sinuses and mastoid air cells are well aerated. Normal flow void in visualized intracranial vessels. The visualized cranial nerve complex these are unremarkable. There is no intra or extra-axial hemorrhage. Diffusion-weighted images are normal, without evidence for acute infarct. No evidence for mass or midline shift. Diffuse atrophy. A few foci of increased FLAIR/T2 white matter signal in the periventricular and subcortical regions consistent with minor small vessel ischemic change. IMPRESSION: Motion artifact. Atrophy with minor small vessel ischemic change. copyright 2010 [employer]- All Rights Reserved
[2019-12-24] MEDS: METOPROLOL SUCCINATE 50 MG TAB.SR.24H PO SCH (22:36)
[2019-12-25] MEDS: CLONIDINE HCL 0.2 MG TABLET PO SCH ×5 (01:59→23:37)
[2019-12-25 05:20] LABS: ABSOLUTE BASOPHILS # (AUTO) 0.1 10^3/uL (0.0-0.2); ABSOLUTE EOSINOPHILS # (AUTO) 0.2 10^3/uL (0.0-0.6); ABSOLUTE LYMPHOCYTES (AUTO) 1.4 10^3/uL (0.5-4.7); ABSOLUTE MONOCYTES (AUTO) 1.2 10^3/uL (0.1-1.4); ABSOLUTE NEUT (AUTO) 13.5 10^3/uL (1.7-8.2); BASOPHILS % (AUTO) 0.3 % (0-2); EOSINOPHILS % (AUTO) 1.2 % (0-6); HEMATOCRIT 27.2 % (36.0-47.0); HEMOGLOBIN 8.9 g/dL (12.0-15.5); LYMPHOCYTES % (AUTO) 8.6 % (13-45); MEAN CORPUSCULAR HEMOGLOBIN 28.8 pg (27.0-33.4); MEAN CORPUSCULAR HGB CONC 32.8 g/dL (32.0-36.0); MEAN CORPUSCULAR VOLUME 88 fl (80-97); MONOCYTES % (AUTO) 7.5 % (3-13); PLATELET COUNT 153 10^3/uL (150-450); RED CELL DISTRIBUTION WIDTH 21.8 % (11.5-14.0); SEGMENTED NEUTROPHILS % (AUTO) 82.4 % (42-78); TOTAL CELLS COUNTED % (AUTO) 100 %; WHITE BLOOD COUNT 16.4 10^3/uL (4.0-10.5)
[2019-12-25 05:27] LABS: ANION GAP 11 (5-19); BLOOD UREA NITROGEN 23 mg/dL (7-20); CALCIUM 9.4 mg/dL (8.4-10.2); CARBON DIOXIDE 28 mmol/L (22-30); CHLORIDE 96 mmol/L (98-107); GLUCOSE 207 mg/dL (75-110); POTASSIUM 3.7 mmol/L (3.6-5.0)
[2019-12-25] MEDS: HEPARIN SOD (PORCINE) 5,000 UNIT/ML 1 ML VIAL SUBCUT SCH ×3 (06:56→22:18)
[2019-12-25] MEDS: PANTOPRAZOLE SODIUM 40 MG TABLET.DR PO SCH (06:58)
[2019-12-25] MEDS: KETOROLAC TROMETHAMINE INJ/PF 30 MG/1 ML SDV IV PRN ×2 (07:54→23:36)
[2019-12-25] MEDS: MEGESTROL ACETATE 20 MG TABLET PO SCH (10:52)
[2019-12-25] MEDS: SENNOSIDES/DOCUSATE 8.6-50 MG 1 EACH TABLET PO SCH ×2 (10:52→18:05)
[2019-12-25] MEDS: ASPIRIN 81 MG TABLET, ENT COATED PO SCH (10:52)
[2019-12-25] MEDS: AMLODIPINE BESYLATE 5 MG TABLET PO SCH (10:52)
[2019-12-25] MEDS: DOXYCYCLINE HYCLATE 100 MG TABLET PO SCH ×2 (10:52→22:18)
--- NOTE | 2019-12-25 15:17 | PDOC PROGRESS REPORT ---
Subjective Progress Note for:: 12/25/19 Subjective:: ANGELIC ROBIN is a 64 year old female who presents the emergency room with a one-week history of bilateral foot pain. She admits the abrupt onset of pain in both feet 1 week ago. Her pain is a moderate dull pressure at rest but turns into a severe sharp searing pain with weightbearing. Her foot pain was accompanied by the development of "blisters" of her right great, second and third toes as well as her left second and third toes. The blisters have "broken" over time, becoming darkened skin with a foul odor. Her foot pain was associated with swelling in her bilateral lower extremities below the knee. She denies other associated or accompanying signs and symptoms. She she denies prior similar episodes. She has not identified any additional aggravating or ameliorating factors for her foot pain. In the emergency room she was found to have gangrene of the right great second and third toes as well as the left second and third toes. Surgical consultation with Dr. Kuo was obtained by the emergency room provider and he asked for the hospitalist service to admit the patient and consult him as well as Dr. Sadler for nephrology. Patient was subsequently admitted to the hospital for further evaluation treatment. 12/21/2019. No acute events overnight. Resting in bed no apparent distress, accompanied with relatives, very tearful about possibility of losing her other foot, otherwise denies any fever, chills, nausea, vomiting, diarrhea, con stipation. 12/22/2019. No acute events overnight. Patient still very emotional, however cooperative with physical examination. Alert and oriented. Patient was supposed to be transferred to SNF today however they refused to accept her because patient was placed on soft restraints for some reason overnight. 12/23/2019. No acute events overnight. This morning patient resting with no apparent distress, awake however seems to be confused, very emotional and tearful, cooperative with physical examination, denies any fever, chills, nausea, vomiting, diarrhea. Has not had a bowel in several days, endorses low appetite, does not feel like eating. Has been refusing her food. 12/24/2019. Patient is still refusing to eat, endorsing very low appetite, noted to be hypoglycemic this morning, complaining of right hand pain, still very confused very low attention span and emotional, had a conversation over the phone with her daughter who said that she is very anxious and emotional and has had some confusion problem in the past which has been getting worse since his hospitalization. Patient denies any fever, chills, nausea, vomiting. 12/25/2019. No acute events overnight. Patient is more awake today, alert and oriented, tells me she is in the hospital knows the name of the hospital and knows that she had a right AKA. Still very emotional and complaining of right hand pain, patient still endorsing low appetite and has been refusing to eat. Patient denies any fever, chills, nausea, shortness of breath or chest pain. Patient had an MRI yesterday which was not optimal due to motion artifact however it was negative for any acute stroke. Reason For Visit: GANGRENE BILATERAL TOES,ESRD ON DIALYSIS,PERIPHER Physical Exam Vital Signs: Temp Pulse Resp BP Pulse Ox 97.8 F 66 17 156/68 H 97 12/25/19 11:07 12/25/19 11:07 12/25/19 11:07 12/25/19 11:07 12/25/19 08:45 Intake & Output 12/24/19 12/25/19 12/26/19 06:59 06:59 06:59 Intake Total 120 200 240 Output Total 1800 Balance 120 -1600 240 Weight 95 kg 94.3 kg General appearance: PRESENT: no acute distress, obese, well-developed, well- nourished Head exam: PRESENT: atraumatic, normocephalic Respiratory exam: PRESENT: clear to auscultation genia. ABSENT: rales, rhonchi, wheezes Cardiovascular exam: PRESENT: RRR. ABSENT: diastolic murmur, rubs, systolic murmur GI/Abdominal exam: PRESENT: normal bowel sounds, soft. ABSENT: distended, guarding, mass, organolmegaly, rebound, tenderness Extremities exam: PRESENT: full ROM, tenderness, other - Right hand diffuse swelling and tenderness.. ABSENT: calf tenderness, clubbing, pedal edema Neurological exam: PRESENT: alert, awake, oriented to person, oriented to place, CN II-XII grossly intact. ABSENT: motor sensory deficit Results Laboratory Results: 12/25/19 04:22 12/25/19 04:22 12/25/19 12/25/19 04:22 04:22 WBC 16.4 H RBC 3.10 L Hgb 8.9 L Hct 27.2 L MCV 88 MCH 28.8 MCHC 32.8 RDW 21.8 H Plt Count 153 Seg Neutrophils % 82.4 H Sodium 134.8 L Potassium 3.7 Chloride 96 L Carbon Dioxide 28 Anion Gap 11 BUN 23 H Creatinine 4.33 H Est GFR ( Amer) 12 L Glucose 207 H Calcium 9.4 12/17/19 12/18/19 12/18/19 05:45 14:30 14:30 Creatine Kinase 499 H 468 H CK-MB (CK-2) 5.00 H Troponin I 0.026 NT-Pro-B Natriuret Pep [id number] H 12/19/19 12/19/19 12/19/19 00:13 07:00 12:05 Creatine Kinase CK-MB (CK-2) Troponin I 0.044 0.060 0.062 NT-Pro-B Natriuret Pep Impressions: Foot X-Ray 12/13/19 17:55 IMPRESSION: Osteopenia. Calcaneal spurs. Head CT 12/18/19 00:00 IMPRESSION: NO ACUTE INTRACRANIAL IMAGING FINDINGS. EVIDENCE OF ACUTE STROKE: NO. Chest X-Ray 12/19/19 08:29 IMPRESSION: Pulmonary vascular prominence without pulmonary edema or pleural effusion Stable cardiomegaly Carotid Doppler Study 12/20/19 00:00 IMPRESSION: 50 to 69% narrowing proximal right ICA by systolic velocity ratio Less than 50% diameter narrowing proximal left ICA Head MRI 12/24/19 13:56 IMPRESSION: Motion artifact. Atrophy with minor small vessel ischemic change. copyright 2010 [employer]- All Rights Reserved Assessment and Plan - Diagnosis (1) Hypoglycemia Is this a current diagnosis for this admission?: Yes Plan: Improving since being started on D10 half NS. Unfortunately patient is still refusing to eat even though she has been placed on Megace. She is reporting very low appetite. Likely due to low p.o. intake. Patient is not receiving any antidiabetic medication. Continue hypoglycemia protocol, Accu-Chek. Hold antidiabetic meds. Encourage frequent snacking. I have talked with the family to encourage her to eat more. I have also encouraged her to eat more even if she does not have an appetite. Meanwhile continue D5 half-normal, and Megace. (2) Delirium due to another medical condition Is this a current diagnosis for this admission?: Yes Plan: Mild improvement. Patient still very emotional however alert and awake and oriented x3. Patient is extremely sensitive to opiates and benzodiazepines. An MRI head was done to rule out CVA but unfortunately had a lot of motion artifact and was not optimal however as per MRI report patient did not have a CVA. Patient's family voiced that patient has had some gradual decline in her memory and that she has always been an anxious person however her confusion has worsened since hospitalization. Patient clearly seems to have some baseline cognitive impairment. Also noted to be on fentanyl patch since admission and was also given IV morphine last night. DC fentanyl patch, avoid opiates and benzodiazepines if possible. Highly recommended to follow-up with neurology as outpatient. Closely monitor SPO2, electrolytes and blood glucose levels. (3) Anorexia Is this a current diagnosis for this admission?: Yes Plan: Patient has very low appetite and has been refusing her food. Has been noted to be hypoglycemic. When asked about her poor appetite patient said that she does not feel like eating. Patient encourage to eat, start on Megace. Nursing staff has been advised to feed her frequently. Started on D10W 06/20 NS at 30 cc/h as patient has end-stage renal disease and to avoid overloading her. Continue Megace, encourage p.o. intake. 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 Pathology report negative for osteomyelitis or malignancy. Initially started on vancomycin and Zosyn. Switched to doxycycline 100 mg p.o. on 12/20/2019. Continue doxycycline 100 mg p.o. twice daily for another 5 days. Surgical wound looks clean. No sign of infection. Continue wound care. Follow-up with Dr. Hines surgeon as outpatient. (5) Dry gangrene Is this a current diagnosis for this admission?: Yes Plan: Patient has dry gangrene of her left foot mostly second and third toes. Does seem to extend past the toes however. Surgeon recommended vascular consultation for potential revascularization before visiting amputation of the toes noting that it would otherwise be very difficult for the surgical wound to heal and may be better served by BKA. Vascular surgeon Dr. Ishan Archuleta from [facility] via telephone consulted and went over lower extremity arterial Dopplers as well as her lower extremity CTA. Dr. Archuleta recommended that, though patient has extensive calcification of her arteries, he does not see any thorough occlusion to flow on his review of the imaging that will need revascularization at this time and states that no revascularization is needed prior to surgical amputation of her toes. Dr. Hines who recommends that there is no urgent need for amputation of the left lower extremity and that he would prefer that patient has an in person consultation with vascular surgery for a full assessment as outpatient prior to pursuing partial amputation of the left foot. Please follow-up with Dr. Ishan Archuleta or any vascular surgeon as outpatient. (6) Anemia in chronic kidney disease (CKD) Qualifiers: Chronic kidney disease stage: on chronic dialysis Qualified Code(s): N18.6 - End stage renal disease; D63.1 - Anemia in chronic kidney disease; Z99.2 - Dependence on renal dialysis Is this a current diagnosis for this admission?: Yes Plan: Secondary to ESRD and complicated by blood loss from surgery. Hemoglobin holding steady in the 7s. Monitor on CBC. Receiving EPO by nephrology. (7) Episode of transient neurologic symptoms Is this a current diagnosis for this admission?: Yes Plan: Patient still have very labile mood and is confused at times. Will obtain MRI head to rule out stroke if patient cooperates. Several days ago patient was noted to have slurring of the face as well as wo rsening of eye deviation, grinding of teeth and became unresponsive. LINKING MACHINE OPERATOR had been called. Patient was initially thought to have a stroke but then while taking patient down for CT scan, she gradually became fully alert again and moving all extremities with resolution of her prior symptoms. Head CT was normal. This episode was either caused by oxycodone 5 mg that she received several hours before the episode or she could have had a TIA. Her family denies any history of seizures. 2D echo 2 months ago was unremarkable. Carotid Doppler 50 to 69% narrowing of proximal right ICA, less than 50% diameter narrowing proximal left ICA. Patient is to continue high sensitive statin, optimize BP and diabetic control. She needs to follow-up with vascular surgeon for further evaluation and int ervention. (8) ESRD (end stage renal disease) on dialysis Is this a current diagnosis for this admission?: Yes Plan: Hemodialysis per nephrology. (9) Hypertension Qualifiers: Hypertension type: essential hypertension Qualified Code(s): I10 - Essential (primary) hypertension Is this a current diagnosis for this admission?: Yes Plan: Continue clonidine. (10) Hypoxia Is this a current diagnosis for this admission?: Yes Plan: SPO2 WNL on RA. Pulse oximetry may be partially skewed by her cold extremities/PVD. Please use earlobes for pulse oximetry instead. (11) Peripheral vascular disease in diabetes mellitus Is this a current diagnosis for this admission?: Yes Plan: Highly calcific vessels suggestive of advanced PVD noted on CTA as well as arterial Dopplers of lower extremities that were done outpatient and during this admission. Outpatient vascular surgery evaluation. Continue aspirin and statins. (12) Serratia infection Is this a current diagnosis for this admission?: Yes Plan: Serratia noted in 1 blood culture set. Initially was receiving Vanco and Zosyn for osteomyelitis. Currently switch on doxycycline p.o. Sensitive to tetracycline should be covered with doxycycline. Day 2/10 of doxycycline p.o. 100 mg twice daily. (13) Diabetes mellitus type 2 in obese Is this a current diagnosis for this admission?: Yes Plan: Hemoglobin A1c 6.4, down from 9.0. Accu-Cheks every 6 hours. Patient noted to be hypoglycemic and was started on D5NS. Patient does not need to be on anti-diabetic anymore based on her hypoglycemic episodes and hemoglobin A1c. Continue Accu-Chek frequently, hypoglycemia protocol, monitor blood glucose levels frequently. Encourage frequent snacking. Follow-up with PCP for evaluation of diabetes and diabetic management.
[2019-12-25] MEDS: METOPROLOL SUCCINATE 50 MG TAB.SR.24H PO SCH (22:18)
[2019-12-25] MEDS: ACETAMINOPHEN 325 MG TABLET PO PRN (23:37)
[2019-12-26 05:15] LABS: ABSOLUTE BASOPHILS # (AUTO) 0.1 10^3/uL (0.0-0.2); ABSOLUTE EOSINOPHILS # (AUTO) 0.3 10^3/uL (0.0-0.6); ABSOLUTE LYMPHOCYTES (AUTO) 1.5 10^3/uL (0.5-4.7); ABSOLUTE NEUT (AUTO) 11.7 10^3/uL (1.7-8.2); BASOPHILS % (AUTO) 0.4 % (0-2); EOSINOPHILS % (AUTO) 1.8 % (0-6); HEMATOCRIT 26.2 % (36.0-47.0); HEMOGLOBIN 8.6 g/dL (12.0-15.5); LYMPHOCYTES % (AUTO) 10.2 % (13-45); MEAN CORPUSCULAR HEMOGLOBIN 28.8 pg (27.0-33.4); MEAN CORPUSCULAR HGB CONC 32.9 g/dL (32.0-36.0); MEAN CORPUSCULAR VOLUME 88 fl (80-97); PLATELET COUNT 130 10^3/uL (150-450); RED BLOOD COUNT 2.99 10^6/uL (3.72-5.28); RED CELL DISTRIBUTION WIDTH 22.2 % (11.5-14.0); SEGMENTED NEUTROPHILS % (AUTO) 80.6 % (42-78); TOTAL CELLS COUNTED % (AUTO) 100 %; WHITE BLOOD COUNT 14.5 10^3/uL (4.0-10.5)
[2019-12-26] MEDS: CLONIDINE HCL 0.2 MG TABLET PO SCH ×3 (05:29→17:06)
[2019-12-26] MEDS: PANTOPRAZOLE SODIUM 40 MG TABLET.DR PO SCH (05:29)
[2019-12-26] MEDS: HEPARIN SOD (PORCINE) 5,000 UNIT/ML 1 ML VIAL SUBCUT SCH ×3 (05:30→21:56)
[2019-12-26 05:41] LABS: ANION GAP 13 (5-19); BLOOD UREA NITROGEN 29 mg/dL (7-20); CALCIUM 9.1 mg/dL (8.4-10.2); CARBON DIOXIDE 27 mmol/L (22-30); CHLORIDE 94 mmol/L (98-107); GLUCOSE 214 mg/dL (75-110); POTASSIUM 3.6 mmol/L (3.6-5.0)
[2019-12-26] MEDS: ACETAMINOPHEN 325 MG TABLET PO PRN ×2 (06:51→22:19)
[2019-12-26 09:36] LABS: HEPATITIS C QUANTITATION HCV Not Detected IU/mL (.)
[2019-12-26] MEDS: SENNOSIDES/DOCUSATE 8.6-50 MG 1 EACH TABLET PO SCH ×2 (09:46→17:06)
[2019-12-26] MEDS: AMLODIPINE BESYLATE 5 MG TABLET PO SCH (09:47)
[2019-12-26] MEDS: MEGESTROL ACETATE 20 MG TABLET PO SCH (09:47)
[2019-12-26] MEDS: ASPIRIN 81 MG TABLET, ENT COATED PO SCH (09:47)
[2019-12-26] MEDS: DOXYCYCLINE HYCLATE 100 MG TABLET PO SCH ×2 (09:47→22:00)
[2019-12-26] MEDS: KETOROLAC TROMETHAMINE INJ/PF 30 MG/1 ML SDV IV PRN ×2 (12:57→22:19)
--- NOTE | 2019-12-26 15:37 | PDOC PROGRESS REPORT ---
Subjective Progress Note for:: 12/26/19 Subjective:: ANGELIC ROBIN is a 64 year old female who presents the emergency room with a one-week history of bilateral foot pain. She admits the abrupt onset of pain in both feet 1 week ago. Her pain is a moderate dull pressure at rest but turns into a severe sharp searing pain with weightbearing. Her foot pain was accompanied by the development of "blisters" of her right great, second and third toes as well as her left second and third toes. The blisters have "broken" over time, becoming darkened skin with a foul odor. Her foot pain was associated with swelling in her bilateral lower extremities below the knee. She denies other associated or accompanying signs and symptoms. She she denies prior similar episodes. She has not identified any additional aggravating or ameliorating factors for her foot pain. In the emergency room she was found to have gangrene of the right great second and third toes as well as the left second and third toes. Surgical consultation with Dr. Kuo was obtained by the emergency room provider and he asked for the hospitalist service to admit the patient and consult him as well as Dr. Sadler for nephrology. Patient was subsequently admitted to the hospital for further evaluation treatment. 12/21/2019. No acute events overnight. Resting in bed no apparent distress, accompanied with relatives, very tearful about possibility of losing her other foot, otherwise denies any fever, chills, nausea, vomiting, diarrhea, cons tipation. 12/22/2019. No acute events overnight. Patient still very emotional, however cooperative with physical examination. Alert and oriented. Patient was supposed to be transferred to SNF today however they refused to accept her because patient was placed on soft restraints for some reason overnight. 12/23/2019. No acute events overnight. This morning patient resting with no apparent distress, awake however seems to be confused, very emotional and tearful, cooperative with physical examination, denies any fever, chills, nausea, vomiting, diarrhea. Has not had a bowel in several days, endorses low appetite, does not feel like eating. Has been refusing her food. 12/24/2019. Patient is still refusing to eat, endorsing very low appetite, noted to be hypoglycemic this morning, complaining of right hand pain, still very confused very low attention span and emotional, had a conversation over the phone with her daughter who said that she is very anxious and emotional and has had some confusion problem in the past which has been getting worse since his hospitalization. Patient denies any fever, chills, nausea, vomiting. 12/25/2019. No acute events overnight. Patient is more awake today, alert and oriented, tells me she is in the hospital knows the name of the hospital and knows that she had a right AKA. Still very emotional and complaining of right hand pain, patient still endorsing low appetite and has been refusing to eat. Patient denies any fever, chills, nausea, shortness of breath or chest pain. Patient had an MRI yesterday which was not optimal due to motion artifact however it was negative for any acute stroke. 12/26/2019. No acute events overnight. Saw patient this afternoon accompanied by her . As per patient is back to baseline. She is alert and oriented, sitting edge of the bed, cooperative with physical examination. Her was notified about her lack of appetite and refusal to eat. He states that she does not like the food here and prefers from outside. I will confirm that she does not like the food here and prefers to eat from [facility]. Since patient is not eating much and is also hypoglycemic I have agreed for patient to have any kind of food she prefers to encourage her to increase her p.o. intake. Her has kindly agreed to bring her food from outside the hospital. Patient denies any fever, chills, nausea, vomiting, diarrhea, constipation or any urinary symptoms. Reason For Visit: GANGRENE BILATERAL TOES,ESRD ON DIALYSIS,PERIPHER Physical Exam Vital Signs: Temp Pulse Resp BP Pulse Ox 97.5 F 63 12 142/63 H 100 12/26/19 12:00 12/26/19 12:00 12/26/19 12:00 12/26/19 12:00 12/26/19 12:00 Intake & Output 12/25/19 12/26/19 12/27/19 06:59 06:59 06:59 Intake Total 200 360 Output Total 1800 0 Balance -1600 360 Weight 94.3 kg 95.6 kg General appearance: PRESENT: no acute distress, obese, well-developed, well- nourished Head exam: PRESENT: atraumatic, normocephalic Respiratory exam: PRESENT: clear to auscultation genia. ABSENT: rales, rhonchi, wheezes Cardiovascular exam: PRESENT: RRR. ABSENT: diastolic murmur, rubs, systolic murmur GI/Abdominal exam: PRESENT: normal bowel sounds, soft. ABSENT: distended, guarding, mass, organolmegaly, rebound, tenderness Musculoskeletal exam: PRESENT: other - Right lower extremity AKA. Left lower extremity and third toes dry gangrene. Neurological exam: PRESENT: alert, awake, oriented to person, oriented to place, CN II-XII grossly intact. ABSENT: motor sensory deficit Results Laboratory Results: 12/26/19 04:34 12/26/19 04:34 12/26/19 12/26/19 04:34 04:34 WBC 14.5 H RBC 2.99 L Hgb 8.6 L Hct 26.2 L MCV 88 MCH 28.8 MCHC 32.9 RDW 22.2 H Plt Count 130 L Seg Neutrophils % 80.6 H Sodium 134.2 L Potassium 3.6 Chloride 94 L Carbon Dioxide 27 Anion Gap 13 BUN 29 H Creatinine 5.58 H Est GFR ( Amer) 9 L Glucose 214 H Calcium 9.1 12/17/19 12/18/19 12/18/19 05:45 14:30 14:30 Creatine Kinase 499 H 468 H CK-MB (CK-2) 5.00 H Troponin I 0.026 NT-Pro-B Natriuret Pep [id number] H 12/19/19 12/19/19 12/19/19 00:13 07:00 12:05 Creatine Kinase CK-MB (CK-2) Troponin I 0.044 0.060 0.062 NT-Pro-B Natriuret Pep Impressions: Foot X-Ray 12/13/19 17:55 IMPRESSION: Osteopenia. Calcaneal spurs. Head CT 12/18/19 00:00 IMPRESSION: NO ACUTE INTRACRANIAL IMAGING FINDINGS. EVIDENCE OF ACUTE STROKE: NO. Chest X-Ray 12/19/19 08:29 IMPRESSION: Pulmonary vascular prominence without pulmonary edema or pleural effusion Stable cardiomegaly Carotid Doppler Study 12/20/19 00:00 IMPRESSION: 50 to 69% narrowing proximal right ICA by systolic velocity ratio Less than 50% diameter narrowing proximal left ICA Head MRI 12/24/19 13:56 IMPRESSION: Motion artifact. Atrophy with minor small vessel ischemic change. copyright 2010 [employer]- All Rights Reserved Assessment and Plan - Diagnosis (1) Hypoglycemia Is this a current diagnosis for this admission?: Yes Plan: Improving since being started on D10 half NS. Patient's appetite has improved mildly. Today he is stating that he does not like the food in the hospital and would like to eat from [facility]. Her has kindly agreed to bring her food from outside. I have agreed to let her eat KF just encourage her to increase her p.o. intake as patient is hypoglycemic and has not been eating very well for the last several days. Likely due to low p.o. intake. Patient is not receiving any antidiabetic medic ation. Continue hypoglycemia protocol, Accu-Chek. Hold antidiabetic meds. Encourage frequent snacking. I have talked with her to encourage her to eat more. Her has kindly agreed to bring her food from outside hospital which she prefers. Meanwhile continue D5 half-normal, and Megace. (2) Delirium due to another medical condition Is this a current diagnosis for this admission?: Yes Plan: Improving. Back to baseline as per . Alert and awake and oriented x3. Patient is extremely sensitive to opiates and benzodiazepines. An MRI head was done to rule out CVA but unfortunately had a lot of motion a rtifact and was not optimal however as per MRI report patient did not have a CVA. Patient's family voiced that patient has had some gradual decline in her memory and that she has always been an anxious person however her confusion has worsened since hospitalization. Patient clearly seems to have some baseline cognitive impairment. Also noted to be on fentanyl patch since admission and was also given IV morphine last night. DC fentanyl patch, avoid opiates and benzodiazepines if possible. Highly recommended to follow-up with neurology as outpatient. Closely monitor SPO2, electrolytes and blood glucose levels. (3) Anorexia Is this a current diagnosis for this admission?: Yes Plan: Mild improvement. Plan as per above. 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 Pathology report negative for osteomyelitis or malignancy. Initially started on vancomycin and Zosyn. Switched to doxycycline 100 mg p.o. on 12/20/2019. Continue doxycycline 100 mg p.o. twice daily for another 4 days. Surgical wound looks clean. No sign of infection. Continue wound care. Follow-up with Dr. Hines surgeon as outpatient. (5) Dry gangrene Is this a current diagnosis for this admission?: Yes Plan: Patient has dry gangrene of her left foot mostly second and third toes. Does seem to extend past the toes however. Surgeon recommended vascular consultation for potential revascularization before visiting amputation of the toes noting that it would otherwise be very difficult for the surgical wound to heal and may be better served by BKA. Vascular surgeon Dr. Ishan Archuleta from [facility] via telephone consulted and went over lower extremity arterial Dopplers as well as her lower extremity CTA. Dr. Archuleta recommended that, though patient has extensive calcification of her arteries, he does not see any thorough occlusion to flow on his review of the imaging that will need revascularization at this time and states that no revascularization is needed prior to surgical amputation of her toes. Dr. Hines who recommends that there is no urgent need for amputation of the left lower extremity and that he would prefer that patient has an in person consultation with vascular surgery for a full assessment as outpatient prior to pursuing partial amputation of the left foot. Please follow-up with Dr. Ishan Archuleta or any vascular surgeon as outpatient. (6) Anemia in chronic kidney disease (CKD) Qualifiers: Chronic kidney disease stage: on chronic dialysis Qualified Code(s): N18.6 - End stage renal disease; D63.1 - Anemia in chronic kidney disease; Z99.2 - Dependence on renal dialysis Is this a current diagnosis for this admission?: Yes Plan: Secondary to ESRD and complicated by blood loss from surgery. Hemoglobin holding steady in the 7s. Monitor on CBC. Receiving EPO by nephrology. (7) Episode of transient neurologic symptoms Is this a current diagnosis for this admission?: Yes Plan: Patient still have very labile mood and is confused at times. Will obtain MRI head to rule out stroke if patient cooperates. Several days ago patient was noted to have slurring of the face as well as worsening of eye deviation, grinding of teeth and became unresponsive. KENO CLERK had been called. Patient was initially thought to have a stroke but then while taking patient down for CT scan, she gradually became fully alert again and moving all extremities with resolution of her prior symptoms. Head CT was normal. This episode was either caused by oxycodone 5 mg that she received several hours before the episode or she could have had a TIA. Her family denies any history of seizures. 2D echo 2 months ago was unremarkable. Carotid Doppler 50 to 69% narrowing of proximal right ICA, less than 50% diameter narrowing proximal left ICA. Patient is to continue high sensitive statin, optimize BP and diabetic control. She needs to follow-up with vascular surgeon for further evaluation and intervention. (8) ESRD (end stage renal disease) on dialysis Is this a current diagnosis for this admission?: Yes Plan: Hemodialysis per nephrology. (9) Hypertension Qualifiers: Hypertension type: essential hypertension Qualified Code(s): I10 - Essential (primary) hypertension Is this a current diagnosis for this admission?: Yes Plan: Continue clonidine. (10) Hypoxia Is this a current diagnosis for this admission?: Yes Plan: SPO2 WNL on RA. Pulse oximetry may be partially skewed by her cold extremities/PVD. Please use earlobes for pulse oximetry instead. (11) Peripheral vascular disease in diabetes mellitus Is this a current diagnosis for this admission?: Yes Plan: Highly calcific vessels suggestive of advanced PVD noted on CTA as well as arterial Dopplers of lower extremities that were done outpatient and during this admission. Outpatient vascular surgery evaluation. Continue aspirin and statins. (12) Serratia infection Is this a current diagnosis for this admission?: Yes Plan: Serratia noted in 1 blood culture set. Initially was receiving Vanco and Zosyn for osteomyelitis. Currently switch on doxycycline p.o. Sensitive to tetracycline should be covered with doxycycline. Day 2/10 of doxycycline p.o. 100 mg twice daily. (13) Diabetes mellitus type 2 in obese Is this a current diagnosis for this admission?: Yes Plan: Hemoglobin A1c 6.4, down from 9.0. Accu-Cheks every 6 hours. Patient noted to be hypoglycemic and was started on D5NS. Patient does not need to be on anti-diabetic anymore based on her hypoglycemic episodes and hemoglobin A1c. Continue Accu-Chek frequently, hypoglycemia protocol, monitor blood glucose levels frequently. Encourage frequent snacking. Follow-up with PCP for evaluation of diabetes and diabetic management.
[2019-12-26] MEDS: METOPROLOL SUCCINATE 50 MG TAB.SR.24H PO SCH (22:00)
[2019-12-27] MEDS: CLONIDINE HCL 0.2 MG TABLET PO SCH ×4 (00:08→17:03)
[2019-12-27 04:49] LABS: ABSOLUTE BASOPHILS # (AUTO) 0.1 10^3/uL (0.0-0.2); ABSOLUTE EOSINOPHILS # (AUTO) 0.3 10^3/uL (0.0-0.6); ABSOLUTE LYMPHOCYTES (AUTO) 1.7 10^3/uL (0.5-4.7); ABSOLUTE MONOCYTES (AUTO) 0.7 10^3/uL (0.1-1.4); ABSOLUTE NEUT (AUTO) 11.9 10^3/uL (1.7-8.2); BASOPHILS % (AUTO) 0.4 % (0-2); EOSINOPHILS % (AUTO) 2.2 % (0-6); HEMATOCRIT 28.7 % (36.0-47.0); HEMOGLOBIN 9.5 g/dL (12.0-15.5); LYMPHOCYTES % (AUTO) 11.4 % (13-45); MEAN CORPUSCULAR HEMOGLOBIN 28.8 pg (27.0-33.4); MEAN CORPUSCULAR HGB CONC 33.1 g/dL (32.0-36.0); MEAN CORPUSCULAR VOLUME 87 fl (80-97); MONOCYTES % (AUTO) 4.9 % (3-13); PLATELET COUNT 145 10^3/uL (150-450); RED CELL DISTRIBUTION WIDTH 22.3 % (11.5-14.0); SEGMENTED NEUTROPHILS % (AUTO) 81.1 % (42-78); TOTAL CELLS COUNTED % (AUTO) 100 %; WHITE BLOOD COUNT 14.6 10^3/uL (4.0-10.5)
[2019-12-27] MEDS ORDERED: EPOETIN ALFA-EPBX 2,000 UNIT, EPOETIN ALFA-EPBX 3,000 UNIT, EPOETIN ALFA-EPBX 20,000 UN... IV PRN ×4 (05:00)
[2019-12-27] MEDS: HEPARIN SOD (PORCINE) 5,000 UNIT/ML 1 ML VIAL SUBCUT SCH ×3 (05:08→22:20)
[2019-12-27 05:14] LABS: ANION GAP 16 (5-19); BLOOD UREA NITROGEN 36 mg/dL (7-20); CALCIUM 9.5 mg/dL (8.4-10.2); CARBON DIOXIDE 25 mmol/L (22-30); CHLORIDE 93 mmol/L (98-107); GLUCOSE 150 mg/dL (75-110); POTASSIUM 3.9 mmol/L (3.6-5.0)
[2019-12-27] MEDS: DEXTROSE 10%-WATER 1,000 ML with SODIUM CHLORIDE 77 MEQ IV PRN ×2 (05:29)
[2019-12-27] MEDS: PANTOPRAZOLE SODIUM 40 MG TABLET.DR PO SCH (05:29)
[2019-12-27] MEDS: MAGNESIUM HYDROXIDE SUSP 30 ML UDCUP PO PRN (09:44)
[2019-12-27] MEDS: MEGESTROL ACETATE 20 MG TABLET PO SCH (09:44)
[2019-12-27] MEDS: SENNOSIDES/DOCUSATE 8.6-50 MG 1 EACH TABLET PO SCH ×2 (09:44→17:04)
[2019-12-27] MEDS ORDERED: VANCOMYCIN HCL 0 MG in DEXTROSE 5%-WATER 250 ML IV NR (09:45)
[2019-12-27] MEDS: ASPIRIN 81 MG TABLET, ENT COATED PO SCH (11:01)
[2019-12-27] MEDS: AMLODIPINE BESYLATE 5 MG TABLET PO SCH (11:02)
[2019-12-27] MEDS: ACETAMINOPHEN 325 MG TABLET PO PRN (11:13)
--- NOTE | 2019-12-27 12:11 | PDOC PROGRESS REPORT ---
Subjective Progress Note for:: 12/27/19 Subjective:: ANGELIC ROBIN is a 64 year old female who presents the emergency room with a one-week history of bilateral foot pain. She admits the abrupt onset of pain in both feet 1 week ago. Her pain is a moderate dull pressure at rest but turns into a severe sharp searing pain with weightbearing. Her foot pain was accompanied by the development of "blisters" of her right great, second and third toes as well as her left second and third toes. The blisters have "broken" over time, becoming darkened skin with a foul odor. Her foot pain was associated with swelling in her bilateral lower extremities below the knee. She denies other associated or accompanying signs and symptoms. She she denies prior similar episodes. She has not identified any additional aggravating or ameliorating factors for her foot pain. In the emergency room she was found to have gangrene of the right great second and third toes as well as the left second and third toes. Surgical consultation with Dr. Kuo was obtained by the emergency room provider and he asked for the hospitalist service to admit the patient and consult him as well as Dr. Sadler for nephrology. Patient was subsequently admitted to the hospital for further evaluation treatment. 12/21/2019. No acute events overnight. Resting in bed no apparent distress, accompanied with relatives, very tearful about possibility of losing her other foot, otherwise denies any fever, chills, nausea, vomiting, diarrhea, cons tipation. 12/27/2019. No acute events overnight. Patient's appetite has been improving since being started regular diet, has not had any episode of hypoglycemia, unfortunately patient is developing left lower extremity third toe swelling, with foul-smelling pustular drainage and diffuse swelling of distal left lower extremity, I have reconsulted Dr. Buchanan from surgery. Patient may need anoth er BKA unfortunately. Patient denies any fever, chills, nausea, vomiting, diarrhea. Reason For Visit: GANGRENE BILATERAL TOES,ESRD ON DIALYSIS,PERIPHER Physical Exam Vital Signs: Temp Pulse Resp BP Pulse Ox 97.5 F 67 12 147/60 H 100 12/27/19 11:11 12/27/19 11:11 12/27/19 11:11 12/27/19 11:11 07/13/20 11:11 Intake & Output 12/26/19 12/27/19 12/28/19 06:59 06:59 06:59 Intake Total 360 237 Output Total 0 0 Balance 360 237 Weight 95.6 kg 95.6 kg 95.6 kg General appearance: PRESENT: no acute distress, obese, well-developed, well-nourished Head exam: PRESENT: atraumatic, normocephalic Respiratory exam: PRESENT: clear to auscultation genia. ABSENT: rales, rhonchi, wheezes Cardiovascular exam: PRESENT: RRR. ABSENT: diastolic murmur, rubs, systolic murmur GI/Abdominal exam: PRESENT: normal bowel sounds, soft. ABSENT: distended, gua rding, mass, organolmegaly, rebound, tenderness Gentrourinary exam: PRESENT: other - Right lower extremity BKA wound looks clean. Left lower extremity, second and third toes dry gangrene, third toe is swollen, tender with pustular and foul-smelling drainage. Patient also has developed diffuse swelling of the left lower extremity from below the knee extending to the foot. Neurological exam: PRESENT: alert, awake, oriented to person, oriented to place, CN II-XII grossly intact. ABSENT: motor sensory deficit Results Laboratory Results: 12/27/19 04:26 12/27/19 04:26 12/27/19 12/27/19 04:26 04:26 WBC 14.6 H RBC 3.30 L Hgb 9.5 L Hct 28.7 L MCV 87 MCH 28.8 MCHC 33.1 RDW 22.3 H Plt Count 145 L Seg Neutrophils % 81.1 H Sodium 133.5 L Potassium 3.9 Chloride 93 L Carbon Dioxide 25 Anion Gap 16 BUN 36 H Creatinine 6.82 H Est GFR ( Amer) 7 L Glucose 150 H Calcium 9.5 12/17/19 12/18/19 12/18/19 05:45 14:30 14:30 Creatine Kinase 499 H 468 H CK-MB (CK-2) 5.00 H Troponin I 0.026 NT-Pro-B Natriuret Pep [id number] H 12/19/19 12/19/19 12/19/19 00:13 07:00 12:05 Creatine Kinase CK-MB (CK-2) Troponin I 0.044 0.060 0.062 NT-Pro-B Natriuret Pep Impressions: Foot X-Ray 12/13/19 17:55 IMPRESSION: Osteopenia. Calcaneal spurs. Head CT 12/18/19 00:00 IMPRESSION: NO ACUTE INTRACRANIAL IMAGING FINDINGS. EVIDENCE OF ACUTE STROKE: NO. Chest X-Ray 12/19/19 08:29 IMPRESSION: Pulmonary vascular prominence without pulmonary edema or pleural effusion Stable cardiomegaly Carotid Doppler Study 12/20/19 00:00 IMPRESSION: 50 to 69% narrowing proximal right ICA by systolic velocity ratio Less than 50% diameter narrowing proximal left ICA Head MRI 12/24/19 13:56 IMPRESSION: Motion artifact. Atrophy with minor small vessel ischemic change. 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 Was on vancomycin and Zosyn and was switched to doxycycline. Unfortunately patient is developing infection and left great toe likely will need another BKA. We will switch back to vancomycin. Surgery has been consulted for evaluation. (2) Dry gangrene Is this a current diagnosis for this admission?: Yes Plan: Unfortunately patient is developing infection and left great toe likely will need another BKA. We will switch back to vancomycin. Surgery has been consulted for evaluation. Patient has dry gangrene of her left foot mostly second and third toes. Does seem to extend past the toes however. Surgeon recommended vascular consultation for potential revascularization before visiting amputation of the toes noting that it would otherwise be very difficult for the surgical wound to heal and may be better served by BKA. I consulted vascular surgeon Dr. Ishan Archuleta from [facility] via telephone consult and I forwarded her recent lower extremity arterial Dopplers as well as her lower extremity CTA for him to review the images directly. Dr. Archuleta recommended that, though patient has extensive calcification of her arteries, he does not see any thorough occlusion to flow on his review of the imaging that will need revascularization at this time and states that no revascularization is needed prior to surgical amputation of her toes. Discussed our conversation with Dr. Hines who recommends that there is no urgent need for amputation of the left lower extremity and that he would prefer that patient has an in person consultation with vascular surgery for a full assessment as outpatient prior to pursuing partial amputation of the left foot. (3) Diabetes mellitus type 2 in obese Is this a current diagnosis for this admission?: Yes Plan: Hemoglobin A1c 6.4. Accu-Cheks every 6 hours. Sliding scale insulin. Patient was placed on gentle D5 NS due to episodes of hypoglycemia. I have instructed nursing staff to only perform Accu-Cheks on her left fingers as I was informed that the right hand measurements often falsely depicted hypoglycemia. I will also encourage patient to improve her p.o. intake and added some supplements with meals. (4) Anemia in chronic kidney disease (CKD) Qualifiers: Chronic kidney disease stage: on chronic dialysis Qualified Code(s): N18.6 - End stage renal disease; D63.1 - Anemia in chronic kidney disease; Z99.2 - Dependence on renal dialysis Is this a current diagnosis for this admission?: Yes Plan: Secondary to ESRD and complicated by blood loss from surgery. Hemoglobin holding steady in the 7s. Monitor on CBC. Receiving EPO. (5) Delirium due to another medical condition Is this a current diagnosis for this admission?: Yes Plan: Back to baseline as per family. Patient's family voiced that patient has had some gradual decline in her memory and that she has always been an anxious person. Patient clearly seems to have some baseline cognitive impairment. I recommended to family that she has a thorough evaluation for dementia by neurosurgery in outpatient setting. Sometimes seems more delirious than usual. (6) Episode of transient neurologic symptoms Is this a current diagnosis for this admission?: Yes Plan: Patient had an episode 2 days ago where she was noted to have slurring of the face as well as worsening of eye deviation, grinding of teeth and became unresponsive. WINDING RACK OPERATOR had been called. Patient was initially thought to have a stroke but then while taking patient down for CT scan, she gradually became fully alert again and moving all extremities with resolution of her prior sympto ms. Head CT was normal. I do not believe that episode was caused by oxycodone 5 mg she received several hours before the episode. It is possible that she could have had a TIA. Her family denies any history of seizures. We will go ahead and work-up for TIA and obtain carotid Dopplers. Had echo already 2 months ago. (7) ESRD (end stage renal disease) on dialysis Is this a current diagnosis for this admission?: Yes Plan: Hemodialysis per nephrology. (8) Hypertension Qualifiers: Hypertension type: essential hypertension Qualified Code(s): I10 - Essential (primary) hypertension Is this a current diagnosis for this admission?: Yes Plan: Continue clonidine. (9) Hypoxia Is this a current diagnosis for this admission?: Yes Plan: The reading on pulse oximetry may be partially skewed by her cold extremities/PVD and I have instructed nursing staff to use ear lobes for pulse oximetry. SpO2 was normal on room air yesterday and while in the ICU. (10) Peripheral vascular disease in diabetes mellitus Is this a current diagnosis for this admission?: Yes Plan: highly calcific vessels suggestive of advanced PVD noted on CTA as well as arterial Dopplers of lower extremities that were done outpatient and during this admission. Outpatient vascular surgery evaluation. on aspirin. LDL is actually quite low so have held off on atorvastatin. (11) Serratia infection Is this a current diagnosis for this admission?: Yes Plan: Serratia noted in 1 blood culture set. Has been on Zosyn since admission with repeat negative blood cultures. I discontinued Zosyn today. Susceptibility report shows susceptible to tetracycline so should be covered by doxycycline. 10 days of antibiotic therapy should be sufficient.
--- NOTE | 2019-12-27 12:25 | PDOC PROGRESS REPORT ---
Subjective Progress Note for:: 12/27/19 Subjective:: ANGELIC ROBIN is a 64 year old female who presents the emergency room with a one-week history of bilateral foot pain. She admits the abrupt onset of pain in both feet 1 week ago. Her pain is a moderate dull pressure at rest but turns into a severe sharp searing pain with weightbearing. Her foot pain was accompanied by the development of "blisters" of her right great, second and third toes as well as her left second and third toes. The blisters have "broken" over time, becoming darkened skin with a foul odor. Her foot pain was associated with swelling in her bilateral lower extremities below the knee. She denies other associated or accompanying signs and symptoms. She she denies prior similar episodes. She has not identified any additional aggravating or ameliorating factors for her foot pain. In the emergency room she was found to have gangrene of the right great second and third toes as well as the left second and third toes. Surgical consultation with Dr. Kuo was obtained by the emergency room provider and he asked for the hospitalist service to admit the patient and consult him as well as Dr. Sadler for nephrology. Patient was subsequently admitted to the hospital for further evaluation treatment. 12/21/2019. No acute events overnight. Resting in bed no apparent distress, accompanied with relatives, very tearful about possibility of losing her other foot, otherwise denies any fever, chills, nausea, vomiting, diarrhea, cons tipation. 12/22/2019. No acute events overnight. Patient still very emotional, however cooperative with physical examination. Alert and oriented. Patient was supposed to be transferred to SNF today however they refused to accept her because patient was placed on soft restraints for some reason overnight. 12/23/2019. No acute events overnight. This morning patient resting with no apparent distress, awake however seems to be confused, very emotional and tearful, cooperative with physical examination, denies any fever, chills, nausea, vomiting, diarrhea. Has not had a bowel in several days, endorses low appetite, does not feel like eating. Has been refusing her food. 12/24/2019. Patient is still refusing to eat, endorsing very low appetite, noted to be hypoglycemic this morning, complaining of right hand pain, still very confused very low attention span and emotional, had a conversation over the phone with her daughter who said that she is very anxious and emotional and has had some confusion problem in the past which has been getting worse since his hospitalization. Patient denies any fever, chills, nausea, vomiting. 12/25/2019. No acute events overnight. Patient is more awake today, alert and oriented, tells me she is in the hospital knows the name of the hospital and knows that she had a right AKA. Still very emotional and complaining of right hand pain, patient still endorsing low appetite and has been refusing to eat. Patient denies any fever, chills, nausea, shortness of breath or chest pain. Patient had an MRI yesterday which was not optimal due to motion artifact however it was negative for any acute stroke. 12/26/2019. No acute events overnight. Saw patient this afternoon accompanied by her . As per patient is back to baseline. She is alert and oriented, sitting edge of the bed, cooperative with physical examination. Her was notified about her lack of appetite and refusal to eat. He states that she does not like the food here and prefers from outside. I will confirm that she does not like the food here and prefers to eat from [facility]. Since patient is not eating much and is also hypoglycemic I have agreed for patient to have any kind of food she prefers to encourage her to increase her p.o. intake. Her has kindly agreed to bring her food from outside the hospital. Patient denies any fever, chills, nausea, vomiting, diarrhea, constipation or any urinary symptoms. 01/13/2020. No acute events overnight. Patient output is improving since she is being provided regular food, hypoglycemia protocol, unfortunately patient has developed left fourth metatarsal swelling and, tenderness and follows discharge, otherwise denies any fever, chills, nausea, vomiting, diarrhea, constipation or any urinary symptoms. Dr. Buchanan from surgery has been reconsulted and he has kindly agreed to reevaluate her. Physical Exam Vital Signs: Temp Pulse Resp BP Pulse Ox 97.5 F 67 12 147/60 H 100 12/27/19 11:11 12/27/19 11:11 12/27/19 11:11 12/27/19 11:11 12/27/19 11:11 Intake & Output 12/26/19 12/27/19 12/28/19 06:59 06:59 06:59 Intake Total 360 237 Output Total 0 0 Balance 360 237 Weight 95.6 kg 95.6 kg 95.6 kg General appearance: PRESENT: no acute distress, well-developed, well-nourished Head exam: PRESENT: atraumatic, normocephalic Respiratory exam: PRESENT: clear to auscultation genia. ABSENT: rales, rhonchi, wheezes GI/Abdominal exam: PRESENT: normal bowel sounds, soft. ABSENT: distended, guar ding, mass, organolmegaly, rebound, tenderness Extremities exam: PRESENT: full ROM, other - Left foot third toe swelling tenderness and foul-smelling discharge, swelling proximally extending to midcalf. Right BKA. Wound looks clean.. ABSENT: calf tenderness, clubbing, pedal edema Neurological exam: PRESENT: alert, awake, oriented to person, oriented to place, CN II-XII grossly intact. ABSENT: motor sensory deficit Results Laboratory Results: 12/27/19 04:26 12/27/19 04:26 12/27/19 12/27/19 04:26 04:26 WBC 14.6 H RBC 3.30 L Hgb 9.5 L Hct 28.7 L MCV 87 MCH 28.8 MCHC 33.1 RDW 22.3 H Plt Count 145 L Seg Neutrophils % 81.1 H Sodium 133.5 L Potassium 3.9 Chloride 93 L Carbon Dioxide 25 Anion Gap 16 BUN 36 H Creatinine 6.82 H Est GFR ( Amer) 7 L Glucose 150 H Calcium 9.5 12/17/19 12/18/19 12/18/19 05:45 14:30 14:30 Creatine Kinase 499 H 468 H CK-MB (CK-2) 5.00 H Troponin I 0.026 NT-Pro-B Natriuret Pep [id number] H 12/19/19 12/19/19 12/19/19 00:13 07:00 12:05 Creatine Kinase CK-MB (CK-2) Troponin I 0.044 0.060 0.062 NT-Pro-B Natriuret Pep Impressions: Foot X-Ray 12/13/19 17:55 IMPRESSION: Osteopenia. Calcaneal spurs. Head CT 12/18/19 00:00 IMPRESSION: NO ACUTE INTRACRANIAL IMAGING FINDINGS. EVIDENCE OF ACUTE STROKE: NO. Chest X-Ray 12/19/19 08:29 IMPRESSION: Pulmonary vascular prominence without pulmonary edema or pleural effusion Stable cardiomegaly Carotid Doppler Study 12/20/19 00:00 IMPRESSION: 50 to 69% narrowing proximal right ICA by systolic velocity ratio Less than 50% diameter narrowing proximal left ICA Head MRI 12/24/19 13:56 IMPRESSION: Motion artifact. Atrophy with minor small vessel ischemic change. copyright 2010 [employer]- All Rights Reserved Assessment and Plan - Diagnosis (1) Hypoglycemia Is this a current diagnosis for this admission?: Yes Plan: Improving since being started on D10 half NS. Patient's appetite has improved mildly. Today he is stating that he does not like the food in the hospital and would like to eat from [facility]. Her has kindly agreed to bring her food from outside. I have agreed to let her eat KF just encourage her to increase her p.o. intake as patient is hypoglycemic and has not been eating very well for the last several days. Likely due to low p.o. intake. Patient is not receiving any antidiabetic medication. Continue hypoglycemia protocol, Accu-Chek. Hold antidiabetic meds. Encourage frequent snacking. I have talked with her to encourage her to eat more. Her has kindly agreed to bring her food from outside hospital which she prefers. Meanwhile continue D5 half-normal, and Megace. 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 Pathology report negative for osteomyelitis or malignancy. Initially started on vancomycin and Zosyn. Switched to doxycycline 100 mg p.o. on 12/20/2019. Continue doxycycline 100 mg p.o. twice daily for another 4 days. Surgical wound looks clean. No sign of infection. Continue wound care. Follow-up with Dr. Hines surgeon as outpatient. (3) Delirium due to another medical condition Is this a current diagnosis for this admission?: Yes Plan: Improving. Back to baseline as per . Alert and awake and oriented x3. Patient is extremely sensitive to opiates and benzodiazepines. An MRI head was done to rule out CVA but unfortunately had a lot of motion artifact and was not optimal however as per MRI report patient did not have a CVA. Patient's family voiced that patient has had some gradual decline in her memory and that she has always been an anxious person however her confusion has worsened since hospitalization. Patient clearly seems to have some baseline cognitive impairment. Also noted to be on fentanyl patch since admission and was also given IV morp waldo last night. DC fentanyl patch, avoid opiates and benzodiazepines if possible. Highly recommended to follow-up with neurology as outpatient. Closely monitor SPO2, electrolytes and blood glucose levels. (4) Anorexia Is this a current diagnosis for this admission?: Yes Plan: Mild improvement. Plan as per above. (5) Dry gangrene Is this a current diagnosis for this admission?: Yes Plan: Patient has dry gangrene of her left foot mostly second and third toes but unfortunately developed pain infection of the left fourth toe with foul-smelling drainage and swelling and tenderness extending to mid calf. Will switch back to vancomycin and I have consulted Dr. Buchanan for evaluation. Patient might need another left BKA. Does seem to extend past the toes however. Surgeon recommended vascular consultation for potential revascularization before visiting amputation of the toes noting that it would otherwise be very difficult for the surgical wound to heal and may be better served by BKA. Vascular surgeon Dr. Ishan Archuleta from [facility] via telephone consulted and went over lower extremity arterial Dopplers as well as her lower extremity CTA. Dr. Archuleta recommended that, though patient has extensive calcification of her arteries, he does not see any thorough occlusion to flow on his review of the imaging that will need revascularization at this time and states that no revascularization is needed prior to surgical amputation of her toes. Dr. Hines who recommends that there is no urgent need for amputation of the left lower extremity and that he would prefer that patient has an in person consultation with vascular surgery for a full assessment as outpatient prior to pursuing partial amputation of the left foot. Please follow-up with Dr. Ishan Archuleta or any vascular surgeon as outpatient. (6) Anemia in chronic kidney disease (CKD) Qualifiers: Chronic kidney disease stage: on chronic dialysis Qualified Code(s): N18.6 - End stage renal disease; D63.1 - Anemia in chronic kidney disease; Z99.2 - Dependence on renal dialysis Is this a current diagnosis for this admission?: Yes Plan: Secondary to ESRD and complicated by blood loss from surgery. Hemoglobin holding steady in the 7s. Monitor on CBC. Receiving EPO by nephrology. (7) Episode of transient neurologic symptoms Is this a current diagnosis for this admission?: Yes Plan: Improved. Patient is usually very emotional but as per her this is her baseline. MRI head which is not optimal due to motion artifact was negative for any acute stroke. Several days ago patient was noted to have slurring of the face as well as wors ening of eye deviation, grinding of teeth and became unresponsive. [facility] had been called. Patient was initially thought to have a stroke but then while taking patient down for CT scan, she gradually became fully alert again and moving all extremities with resolution of her prior symptoms. Head CT was normal. This episode was either caused by oxycodone 5 mg that she received several hours before the episode or she could have had a TIA. Her family denies any history of seizures. 2D echo 2 months ago was unremarkable. Carotid Doppler 50 to 69% narrowing of proximal right ICA, less than 50% diameter narrowing proximal left ICA. Patient is to continue high sensitive statin, optimize BP and diabetic control. She needs to follow-up with vascular surgeon for further evaluation and inter vention. (8) ESRD (end stage renal disease) on dialysis Is this a current diagnosis for this admission?: Yes Plan: Hemodialysis per nephrology. (9) Hypertension Qualifiers: Hypertension type: essential hypertension Qualified Code(s): I10 - Essential (primary) hypertension Is this a current diagnosis for this admission?: Yes Plan: Continue amlodipine and clonidine. (10) Hypoxia Is this a current diagnosis for this admission?: Yes Plan: SPO2 WNL on RA. Pulse oximetry may be partially skewed by her cold extremities/PVD. Please use earlobes for pulse oximetry instead. (11) Peripheral vascular disease in diabetes mellitus Is this a current diagnosis for this admission?: Yes Plan: Highly calcific vessels suggestive of advanced PVD noted on CTA as well as arterial Dopplers of lower extremities that were done outpatient and during this admission. Outpatient vascular surgery evaluation. Continue aspirin and statins. (12) Serratia infection Is this a current diagnosis for this admission?: Yes Plan: Serratia noted in 1 blood culture set. Initially was receiving Vanco and Zosyn for osteomyelitis. Currently switch on doxycycline p.o. Sensitive to tetracycline should be covered with doxycycline. Received 7 days of doxycycline 100 mg p.o. twice daily. Had to be switched back to Vanco as patient is developing left lower extremity wet gangrene. (13) Diabetes mellitus Qualifiers: Diabetes mellitus type: type 2 Is this a current diagnosis for this admission?: Yes Plan: Hemoglobin A1c 6.4, down from 9.0. Accu-Cheks every 6 hours. Patient noted to be hypoglycemic and was started on D5NS. Patient does not need to be on anti-diabetic anymore based on her hypoglycemic episodes and hemoglobin A1c. Continue Accu-Chek frequently, hypoglycemia protocol, monitor blood glucose levels frequently. Encourage frequent snacking. Follow-up with PCP for evaluation of diabetes and diabetic management.
--- NOTE | 2019-12-27 13:58 | PDOC PROGRESS REPORT ---
Subjective Progress Note for:: 12/27/19 Reason For Visit: Patient seen today on dialysis. She is not confused and disoriented like when I saw her this last Friday. She is more awake and responding appropriately to questions and looks like she is at baseline. She is complaining of worsening pain of left leg and and somewhat lesser pain of her hands. She says current pain medications is not doing enough. She obviously has worsening dry gangrene of left leg especially of her foot. She has been seen by Dr. Buchanan and he has opined and recommended that she undergo BKA of the of the leg for definitive treatment and she is in the process of conferring with her before she gives a decision. She had been recommended this earlier by the surgeons but she had chosen not to go for it. Currently being seen while undergoing dialysis. Vital signs are stable. Labs and medications were reviewed. Dialysis orders were reviewed with the treating dialysis nurse. Physical Exam Vital Signs: Temp Pulse Resp BP Pulse Ox 97.5 F 67 12 147/60 H 100 12/27/19 11:11 12/27/19 11:11 12/27/19 11:11 12/27/19 11:11 12/27/19 11:11 Intake & Output 12/26/19 12/27/19 12/28/19 06:59 06:59 06:59 Intake Total 360 237 Output Total 0 0 Balance 360 237 Weight 95.6 kg 95.6 kg 95.6 kg General appearance: PRESENT: mild distress Respiratory exam: PRESENT: clear to auscultation genia, decreased breath sounds. ABSENT: crackles Cardiovascular exam: PRESENT: +S1, +S2 GI/Abdominal exam: PRESENT: soft. ABSENT: organomegaly, tenderness Extremities exam: ABSENT: pedal edema Neurological exam: PRESENT: alert, awake, oriented to person, oriented to place Psychiatric exam: PRESENT: depressed Skin exam: PRESENT: mottled - And dry gangrenous-looking areas of multiple toes of her left foot. She is also got dry gangrene of both hand digits as well Results Laboratory Results: 12/27/19 04:26 12/27/19 04:26 12/27/19 12/27/19 04:26 04:26 WBC 14.6 H RBC 3.30 L Hgb 9.5 L Hct 28.7 L MCV 87 MCH 28.8 MCHC 33.1 RDW 22.3 H Plt Count 145 L Seg Neutrophils % 81.1 H Sodium 133.5 L Potassium 3.9 Chloride 93 L Carbon Dioxide 25 Anion Gap 16 BUN 36 H Creatinine 6.82 H Est GFR ( Amer) 7 L Glucose 150 H Calcium 9.5 12/17/19 12/18/19 12/18/19 05:45 14:30 14:30 Creatine Kinase 499 H 468 H CK-MB (CK-2) 5.00 H Troponin I 0.026 NT-Pro-B Natriuret Pep [id number] H 12/19/19 12/19/19 12/19/19 00:13 07:00 12:05 Creatine Kinase CK-MB (CK-2) Troponin I 0.044 0.060 0.062 NT-Pro-B Natriuret Pep Impressions: Foot X-Ray 12/13/19 17:55 IMPRESSION: Osteopenia. Calcaneal spurs. Head CT 12/18/19 00:00 IMPRESSION: NO ACUTE INTRACRANIAL IMAGING FINDINGS. EVIDENCE OF ACUTE STROKE: NO. Chest X-Ray 12/19/19 08:29 IMPRESSION: Pulmonary vascular prominence without pulmonary edema or pleural effusion Stable cardiomegaly Carotid Doppler Study 12/20/19 00:00 IMPRESSION: 50 to 69% narrowing proximal right ICA by systolic velocity ratio Less than 50% diameter narrowing proximal left ICA Head MRI 12/24/19 13:56 IMPRESSION: Motion artifact. Atrophy with minor small vessel ischemic change. copyright 2010 [employer]- All Rights Reserved Assessment & Plan - Diagnosis (1) ESRD (end stage renal disease) on dialysis Is this a current diagnosis for this admission?: Yes Plan: Currently undergoing dialysis without any issues. Vital signs are stable. Dialysis being supervised. Plan to remove approximately 1.5-2 L as tolerated. Dialysis orders were reviewed with the treating dialysis nurse. Adjust erythropoietin on dialysis. (2) Peripheral vascular disease in diabetes mellitus Is this a current diagnosis for this admission?: Yes Plan: Status post right BKA. She is got evidences of severe peripheral vascular disease with gangrene of her left toes as well. It looks like she has also got bad peripheral vascular disease affecting her upper extremities bilaterally as well as seen by early dry gangrenous features which are quite symptomatic. Unfortunately she is a vasculopath because of her poor compliance with her diabetes and diet and dialysis requirements in the past. She is getting much more in pain in spite of pain medications and is now seeking more definitive treatment. She has been seen and evaluated by Dr. Buchanan who was opined BKA of left leg as well. She is going to make a decision soon. (3) Hypertension Qualifiers: Hypertension type: essential hypertension Qualified Code(s): I10 - Essential (primary) hypertension Is this a current diagnosis for this admission?: Yes Plan: Fairly well controlled. However given the amount of pain it is going to be difficult to get an ideal control unless the pain is managed more vigorously. However caution needs to be entertained in usage of pain medicines given her ESRD status. See response to dialysis and ultrafiltration. Monitor. (4) Diabetes mellitus type 2 in obese Is this a current diagnosis for this admission?: Yes Plan: Advised tight control which she has not done in the past as she is been a very noncompliant patient.Not hypoglycemic currently. (5) Anemia in chronic kidney disease (CKD) Qualifiers: Chronic kidney disease stage: on chronic dialysis Qualified Code(s): N18.6 - End stage renal disease; D63.1 - Anemia in chronic kidney disease; Z99.2 - Dependence on renal dialysis Is this a current diagnosis for this admission?: Yes Plan: Adjust erythropoietin on dialysis. (6) Delirium due to another medical condition Is this a current diagnosis for this admission?: Yes Plan: Currently resolved.
[2019-12-27] MEDS: KETOROLAC TROMETHAMINE INJ/PF 30 MG/1 ML SDV IV PRN ×2 (14:44→20:44)
--- NOTE | 2019-12-27 16:24 | PDOC PROGRESS REPORT ---
Subjective Progress Note for:: 12/27/19 Reason For Visit: GANGRENE BILATERAL TOES,ESRD ON DIALYSIS,PERIPHER Requested to see patient again for progressive ischemia left foot. Patient is all day status post right below the knee amputation by Dr. Buchanan. Restrepo is transferring from bed to chair. She is currently on dialysis. She has increased pain, foul smell, leukocytosis all related to her ischemic, progressively infected left leg. Physical Exam Vital Signs: Temp Pulse Resp BP Pulse Ox 97.5 F 67 12 147/60 H 100 12/27/19 11:11 12/27/19 11:11 12/27/19 11:11 12/27/19 11:11 12/27/19 11:11 Intake & Output 12/26/19 12/27/19 12/28/19 06:59 06:59 06:59 Intake Total 360 237 Output Total 0 0 Balance 360 237 Weight 95.6 kg 95.6 kg 95.6 kg General appearance: PRESENT: other Eye exam: PRESENT: other - Disconjugate gaze Musculoskeletal exam: PRESENT: other - Right BKA a stump examined: Johnnie and stitches in place. Posterior skin flap looks excellent. Several areas of the superior and lateral skin with epidermal lysis, skin sloughing. No foul smell or active drainage Left leg examined. Four ischemic toes, worsening ischemic foot especially on plantar surface, with ischemic changes extending past ankle up the lower leg, with edema and tenderness Results Laboratory Results: 12/27/19 04:26 12/27/19 04:26 12/27/19 12/27/19 04:26 04:26 WBC 14.6 H RBC 3.30 L Hgb 9.5 L Hct 28.7 L MCV 87 MCH 28.8 MCHC 33.1 RDW 22.3 H Plt Count 145 L Seg Neutrophils % 81.1 H Sodium 133.5 L Potassium 3.9 Chloride 93 L Carbon Dioxide 25 Anion Gap 16 BUN 36 H Creatinine 6.82 H Est GFR ( Amer) 7 L Glucose 150 H Calcium 9.5 12/17/19 12/18/19 12/18/19 05:45 14:30 14:30 Creatine Kinase 499 H 468 H CK-MB (CK-2) 5.00 H Troponin I 0.026 NT-Pro-B Natriuret Pep [id number] H 12/19/19 12/19/1912/18/20 00:13 07:00 12:05 Creatine Kinase CK-MB (CK-2) Troponin I 0.044 0.060 0.062 NT-Pro-B Natriuret Pep Impressions: Foot X-Ray 12/13/19 17:55 IMPRESSION: Osteopenia. Calcaneal spurs. Head CT 12/18/19 00:00 IMPRESSION: NO ACUTE INTRACRANIAL IMAGING FINDINGS. EVIDENCE OF ACUTE STROKE: NO. Chest X-Ray 12/19/19 08:29 IMPRESSION: Pulmonary vascular prominence without pulmonary edema or pleural effusion Stable cardiomegaly Carotid Doppler Study 12/20/19 00:00 IMPRESSION: 50 to 69% narrowing proximal right ICA by systolic velocity ratio Less than 50% diameter narrowing proximal left ICA Head MRI 12/24/19 13:56 IMPRESSION: Motion artifact. Atrophy with minor small vessel ischemic change. copyright 2010 [employer]- All Rights Reserved Assessment & Plan - Diagnosis (1) Dry gangrene Is this a current diagnosis for this admission?: Yes Plan: Impression: Nearly 2-week status post right BKA with reasonable healing stump wound; progressive ischemia with infectious features left leg in diabetic end- stage renal failure patient Recommendations: 1. Patient now experiencing progression of severe peripheral vascular disease complicated by diabetes mellitus and end-stage renal failure with localized gangrene of the toes progressing to gangrenous foot and lower leg with evolving infection. The most appropriate management of this problem would be a left [id number] amputation given the ischemic and edematous changes to the lower leg. 2. I discussed this with the patient and she acknowledges her foot and leg are ischemic and need to be operated on, however she will not consent to an amputation at this moment. I then spoke to her , Jaylon, and explained the current situation, and my recommendation again for a left [id number] amputation. He to is appreciative of our services but would like to think about this. 3. I discussed this with the hospitalist. We will keep patient n.p.o. after midnight, and remain prepared for amputation should the patient and family consent. (2) Gangrene Is this a current diagnosis for this admission?: Yes (3) Gangrene associated with type 2 diabetes mellitus Is this a current diagnosis for this admission?: Yes (4) Hypoxia Is this a current diagnosis for this admission?: Yes (5) Obesity Qualifiers: Obesity type: due to excess calories Obesity classification: adult class 2 (BMI 35 - 39.9) Serious obesity comorbidity presence: with serious comorbidity Body mass index: BMI 39.0-39.9 Qualified Code(s): E66.01 - Morbid (severe) obesity due to excess calories; Z68.39 - Body mass index (BMI) 39.0-39.9, adult Is this a current diagnosis for this admission?: Yes (6) Peripheral vascular disease in diabetes mellitus Is this a current diagnosis for this admission?: Yes (7) Peripheral vascular disease of foot Is this a current diagnosis for this admission?: Yes
[2019-12-27] MEDS ORDERED: VANCOMYCIN HCL 1,500 MG in DEXTROSE 5%-WATER 250 ML IV ONE (18:00)
[2019-12-27] MEDS: METOPROLOL SUCCINATE 50 MG TAB.SR.24H PO SCH (22:19)
[2019-12-28] MEDS: CLONIDINE HCL 0.2 MG TABLET PO SCH ×4 (01:37→17:31)
[2019-12-28] MEDS: KETOROLAC TROMETHAMINE INJ/PF 30 MG/1 ML SDV IV PRN ×3 (03:12→21:58)
[2019-12-28] MEDS: HEPARIN SOD (PORCINE) 5,000 UNIT/ML 1 ML VIAL SUBCUT SCH ×3 (06:03→21:32)
[2019-12-28] MEDS: PANTOPRAZOLE SODIUM 40 MG TABLET.DR PO SCH (06:15)
[2019-12-28 06:38] LABS: ABSOLUTE BASOPHILS # (AUTO) 0.1 10^3/uL (0.0-0.2); ABSOLUTE EOSINOPHILS # (AUTO) 0.2 10^3/uL (0.0-0.6); ABSOLUTE LYMPHOCYTES (AUTO) 1.4 10^3/uL (0.5-4.7); BASOPHILS % (AUTO) 0.4 % (0-2); EOSINOPHILS % (AUTO) 1.2 % (0-6); HEMATOCRIT 27.4 % (36.0-47.0); HEMOGLOBIN 9.1 g/dL (12.0-15.5); LYMPHOCYTES % (AUTO) 10.2 % (13-45); MEAN CORPUSCULAR HEMOGLOBIN 28.9 pg (27.0-33.4); MEAN CORPUSCULAR HGB CONC 33.1 g/dL (32.0-36.0); MEAN CORPUSCULAR VOLUME 87 fl (80-97); MONOCYTES % (AUTO) 7.6 % (3-13); PLATELET COUNT 122 10^3/uL (150-450); RED BLOOD COUNT 3.14 10^6/uL (3.72-5.28); RED CELL DISTRIBUTION WIDTH 21.8 % (11.5-14.0); SEGMENTED NEUTROPHILS % (AUTO) 80.6 % (42-78); TOTAL CELLS COUNTED % (AUTO) 100 %; WHITE BLOOD COUNT 13.6 10^3/uL (4.0-10.5)
[2019-12-28 06:55] LABS: ANION GAP 11 (5-19); BLOOD UREA NITROGEN 22 mg/dL (7-20); CARBON DIOXIDE 27 mmol/L (22-30); CHLORIDE 95 mmol/L (98-107); GLUCOSE 123 mg/dL (75-110); POTASSIUM 4.1 mmol/L (3.6-5.0)
[2019-12-28] MEDS: DEXTROSE 50%-WATER 25 GM/50 ML DISP.SYRIN IV PRN (06:55)
[2019-12-28] MEDS: SENNOSIDES/DOCUSATE 8.6-50 MG 1 EACH TABLET PO SCH ×2 (10:07→17:31)
[2019-12-28] MEDS: MEGESTROL ACETATE 20 MG TABLET PO SCH (10:07)
[2019-12-28] MEDS: AMLODIPINE BESYLATE 5 MG TABLET PO SCH (10:07)
[2019-12-28] MEDS: ASPIRIN 81 MG TABLET, ENT COATED PO SCH (10:07)
[2019-12-28] MEDS: PIPERACILLIN SODIUM/TAZOBACTAM 2.25 GM in NORMAL SALINE 50 ML IV SCH ×2 (10:08→17:32)
[2019-12-28] MEDS ORDERED: MORPHINE SULFATE 10 MG/ML INJ IV PRN (11:37)
--- NOTE | 2019-12-28 11:52 | PDOC PROGRESS REPORT ---
Subjective Progress Note for:: 12/28/19 Subjective:: 64 year old female who presents the emergency room with a one-week history of bilateral foot pain. She admits the abrupt onset of pain in both feet 1 week ago. Her pain is a moderate dull pressure at rest but turns into a severe sharp searing pain with weightbearing. Her foot pain was accompanied by the development of "blisters" of her right great, second and third toes as well as her left second and third toes. The blisters have "broken" over time, becoming darkened skin with a foul odor. Her foot pain was associated with swelling in her bilateral lower extremities below the knee. She denies other associated or accompanying signs and symptoms. She she denies prior similar episodes. She has not identified any additional aggravating or ameliorating factors for her foot pain. In the emergency room she was found to have gangrene of the right great second and third toes as well as the left second and third toes. Surgical consultation with Dr. Kuo was obtained by the emergency room provider and he asked for the hospitalist service to admit the patient and consult him as well as Dr. Sadler for nephrology. Patient was subsequently admitted to the hospital for further evaluation treatment. 12/21/2019. No acute events overnight. Resting in bed no apparent distress, accompanied with relatives, very tearful about possibility of losing her other foot, otherwise denies any fever, chills, nausea, vomiting, diarrhea, constipation. 12/22/2019. No acute events overnight. Patient still very emotional, however cooperative with physical examination. Alert and oriented. Patient was supposed to be transferred to SNF today however they refused to accept her because patient was placed on soft restraints for some reason overnight. 12/23/2019. No acute events overnight. This morning patient resting with no apparent distress, awake however seems to be confused, very emotional and tearful, cooperative with physical examination, denies any fever, chills, nausea, vomiting, diarrhea. Has not had a bowel in several days, endorses low appetite, does not feel like eating. Has been refusing her food. 12/24/2019. Patient is still refusing to eat, endorsing very low appetite, noted to be hypoglycemic this morning, complaining of right hand pain, still very confused very low attention span and emotional, had a conversation over the phone with her daughter who said that she is very anxious and emotional and has had some confusion problem in the past which has been getting worse since his hospitalization. Patient denies any fever, chills, nausea, vomiting. 12/25/2019. No acute events overnight. Patient is more awake today, alert and oriented, tells me she is in the hospital knows the name of the hospital and knows that she had a right AKA. Still very emotional and complaining of right hand pain, patient still endorsing low appetite and has been refusing to eat. Patient denies any fever, chills, nausea, shortness of breath or chest pain. Patient had an MRI yesterday which was not optimal due to motion artifact however it was negative for any acute stroke. 12/26/2019. No acute events overnight. Saw patient this afternoon accompanied by her . As per patient is back to baseline. She is alert and oriented, sitting edge of the bed, cooperative with physical examination. Her was notified about her lack of appetite and refusal to eat. He states that she does not like the food here and prefers from outside. I will confirm that she does not like the food here and prefers to eat from [facility]. Since patient is not eating much and is also hypoglycemic I have agreed for patient to have any kind of food she prefers to encourage her to increase her p.o. intake. Her has kindly agreed to bring her food from outside the hospital. Patient denies any fever, chills, nausea, vomiting, diarrhea, constipation or any urinary symptoms. 12/27/2019. No acute events overnight. Patient output is improving since she is being provided regular food, hypoglycemia protocol, unfortunately patient has d eveloped left fourth metatarsal swelling and, tenderness and follows discharge, otherwise denies any fever, chills, nausea, vomiting, diarrhea, constipation or any urinary symptoms. Dr. Buchanan from surgery has been reconsulted and he has kindly agreed to reevaluate her. 12/28/2019-tried to have a discussion with the patient about the need for left AKA. Patient is not willing to give a consent. Looks to me patient is confused and unable to take right decisions. So capacity exam will be requested. To start her back on renal diet and to discontinue IV fluids. Started on IV morphine 2 mg every 4 as needed for pain. As per the pharmacy Zosyn is added to the vancomycin. Reason For Visit: GANGRENE BILATERAL TOES,ESRD ON DIALYSIS,PERIPHER Physical Exam Vital Signs: Temp Pulse Resp BP Pulse Ox 97.6 F 73 16 125/72 98 12/28/19 06:45 12/28/19 06:45 12/28/19 06:45 12/28/19 06:45 12/28/19 01:10 Intake & Output 12/27/19 12/28/19 12/29/19 06:59 06:59 06:59 Intake Total 237 Output Total 0 1900 Balance 237 -1900 Weight 95.6 kg 95.6 kg General appearance: PRESENT: obese, well-developed, other - Patient is not cooperative. Head exam: PRESENT: atraumatic Eye exam: PRESENT: conjunctiva pale, PERRLA Ear exam: PRESENT: normal external ear exam Mouth exam: PRESENT: neck supple Teeth exam: PRESENT: poor dentation Neck exam: ABSENT: carotid bruit, JVD, lymphadenopathy, thyromegaly Respiratory exam: PRESENT: decreased breath sounds Cardiovascular exam: PRESENT: tachycardia GI/Abdominal exam: PRESENT: normal bowel sounds, soft. ABSENT: distended, guarding, mass, organolmegaly, rebound, tenderness Rectal exam: PRESENT: deferred Extremities exam: PRESENT: other - Patient has a right BKA and stump wound is healing well., Left lower extremity with gangrenous changes affecting the toes. Patient has a severe peripheral vascular disease left lower leg look ischemic. Neurological exam: PRESENT: altered, CN II-XII grossly intact Psychiatric exam: PRESENT: agitated, anxious Results Laboratory Results: 12/28/19 05:48 12/28/19 05:48 12/28/19 12/28/19 05:48 05:48 WBC 13.6 H RBC 3.14 L Hgb 9.1 L Hct 27.4 L MCV 87 MCH 28.9 MCHC 33.1 RDW 21.8 H Plt Count 122 L Seg Neutrophils % 80.6 H Sodium 133.4 L Potassium 4.1 Chloride 95 L Carbon Dioxide 27 Anion Gap 11 BUN 22 H Creatinine 4.67 H Est GFR ( Amer) 11 L Glucose 123 H Calcium 9.0 12/17/19 12/18/19 12/18/19 05:45 14:30 14:30 Creatine Kinase 499 H 468 H CK-MB (CK-2) 5.00 H Troponin I 0.026 NT-Pro-B Natriuret Pep [id number] H 12/19/19 12/19/19 12/19/19 00:13 07:00 12:05 Creatine Kinase CK-MB (CK-2) Troponin I 0.044 0.060 0.062 NT-Pro-B Natriuret Pep Impressions: Foot X-Ray 12/13/19 17:55 IMPRESSION: Osteopenia. Calcaneal spurs. Head CT 12/18/19 00:00 IMPRESSION: NO ACUTE INTRACRANIAL IMAGING FINDINGS. EVIDENCE OF ACUTE STROKE: NO. Chest X-Ray 12/19/19 08:29 IMPRESSION: Pulmonary vascular prominence without pulmonary edema or pleural e ffusion Stable cardiomegaly Carotid Doppler Study 12/20/19 00:00 IMPRESSION: 50 to 69% narrowing proximal right ICA by systolic velocity ratio Less than 50% diameter narrowing proximal left ICA Head MRI 12/24/19 13:56 IMPRESSION: Motion artifact. Atrophy with minor small vessel ischemic change. copyright 2010 [employer]- All Rights Reserved Assessment and Plan - Diagnosis (1) Diabetic wet gangrene of the foot Is this a current diagnosis for this admission?: Yes Plan: Status post right BKA (12/16/2019). Pathology report negative for osteomyelitis or malignancy. Initially started on vancomycin and Zosyn. Switched to doxycycline 100 mg p.o. on 12/20/2019. Continue doxycycline 100 mg p.o. twice daily for another 4 days. Surgical wound looks clean. No sign of infection. Continue wound care. Follow-up with Dr. Hines surgeon as outpatient. 12/28/2019-left lower extremity looks ischemic. With gangrenous changes affecting the toes. Surgical team recommended left AKA. Patient is not coopera tive and refusing to sign consent. Capacity exam will be requested. In the meantime we will continue IV vancomycin and Zosyn. Latest blood cultures are negative initial blood cultures are positive for Serratia. (2) Delirium due to another medical condition Is this a current diagnosis for this admission?: Yes Plan: Improving. Back to baseline as per . Alert and awake and oriented x3. Patient is extremely sensitive to opiates and benzodiazepines. An MRI head was done to rule out CVA but unfortunately had a lot of motion artifact and was not optimal however as per MRI report patient did not have a CVA. Patient's family voiced that patient has had some gradual decline in her memory and that she has always been an anxious person however her confusion has worsened since hospitalization. Patient clearly seems to have some baseline cognitive impairment. Also noted to be on fentanyl patch since admission and was also given IV morphine last night. DC fentanyl patch, avoid opiates and benzodiazepines if possible. Highly recommended to follow-up with neurology as outpatient. Closely monitor SPO2, electrolytes and blood glucose levels. 12/28/2019-patient is confused and agitated. Not cooperative. Refusing to sign a consent for left AKA that was needed. Capacity exam will be requested. (3) Anorexia Is this a current diagnosis for this admission?: Yes Plan: Mild improvement. Plan as per above. (4) Dry gangrene Is this a current diagnosis for this admission?: Yes Plan: Patient has dry gangrene of her left foot mostly second and third toes but unfortunately developed pain infection of the left fourth toe with foul-smelling drainage and swelling and tenderness extending to mid calf. Will switch back to vancomycin and I have consulted Dr. Buchanan for evaluation. Patient might need another left BKA. Does seem to extend past the toes however. Surgeon recommended vascular consultation for potential revascularization before visiting amputation of the toes noting that it would otherwise be very difficult for the surgical wound to heal and may be better served by BKA. Vascular surgeon Dr. Ishan Archuleta from [facility] via telephone consulted and went over lower extremity arterial Dopplers as well as her lower extremity CTA. Dr. Archuleta recommended that, though patient has extensive calcification of her arteries, he does not see any thorough occlusion to flow on his review of the imaging that will need revascularization at this time and states that no revascularization is needed prior to surgical amputation of her toes. Dr. Hines who recommends that there is no urgent need for amputation of the left lower extremity and that he would prefer that patient has an in person consultation with vascular surgery for a full assessment as outpatient prior to pursuing partial amputation of the left foot. Please follow-up with Dr. Ishan Archuleta or any vascular surgeon as outpatient. 12/28/2019-sickle consult was done by Dr. Buchanan recommendation is left AKA. Patient is not cooperative and refusing to give a consent. Patient is confused and agitated. Capacity exam is requested. To discontinue n.p.o. at this time started on renal diet. (5) ESRD (end stage renal disease) on dialysis Is this a current diagnosis for this admission?: No Plan: Hemodialysis per nephrology. 12/28/2019-she had a dialysis session yesterday. Repeat dialysis tomorrow. (6) Anemia in chronic kidney disease (CKD) Qualifiers: Chronic kidney disease stage: on chronic dialysis Qualified Code(s): N18.6 - End stage renal disease; D63.1 - Anemia in chronic kidney disease; Z99.2 - Dependence on renal dialysis Is this a current diagnosis for this admission?: No Plan: Secondary to ESRD and complicated by blood loss from surgery. Hemoglobin holding steady in the 7s. Monitor on CBC. Receiving EPO by nephrology. 12/28/2019-patient has history of anemia of chronic disease hemoglobin is 9.1. Most likely secondary to ESRD. (7) Episode of transient neurologic symptoms Is this a current diagnosis for this admission?: Yes Plan: Improved. Patient is usually very emotional but as per her this is her baseline. MRI head which is not optimal due to motion artifact was negative for any acute stroke. Several days ago patient was noted to have slurring of the face as well as worsening of eye deviation, grinding of teeth and became unresponsive. PMO CONSULTANT had been called. Patient was initially thought to have a stroke but then while taking patient down for CT scan, she gradually became fully alert again and moving all extremities with resolution of her prior symptoms. Head CT was normal. This episode was either caused by oxycodone 5 mg that she received several hours before the episode or she could have had a TIA. Her family denies any history of seizures. 2D echo 2 months ago was unremarkable. Carotid Doppler 50 to 69% narrowing of proximal right ICA, less than 50% diameter narrowing proximal left ICA. Patient is to continue high sensitive statin, optimize BP and diabetic control. She needs to follow-up with vascular surgeon for further evaluation and intervention. 12/28/2019-patient is confused and agitated. Unable to communicate reasonably. Capacity exam will be requested. (8) Serratia infection Is this a current diagnosis for this admission?: Yes Plan: Serratia noted in 1 blood culture set. Initially was receiving Vanco and Zosyn for osteomyelitis. Currently switch on doxycycline p.o. Sensitive to tetracycline should be covered with doxycycline. Received 7 days of doxycycline 100 mg p.o. twice daily. Had to be switched back to Vanco as patient is developing left lower extremity wet gangrene. 12/28/2019-patient is presently on IV vancomycin, as per her with recommendations to add IV Zosyn. Repeat blood cultures are negative. (9) Diabetes mellitus type 2 in obese Is this a current diagnosis for this admission?: No Plan: Hemoglobin A1c 6.4, down from 9.0. Accu-Cheks every 6 hours. Patient noted to be hypoglycemic and was started on D5NS. Patient does not need to be on anti-diabetic anymore based on her hypoglycemic episodes and hemoglobin A1c. Continue Accu-Chek frequently, hypoglycemia protocol, monitor blood glucose levels frequently. Encourage frequent snacking. Follow-up with PCP for evaluation of diabetes and diabetic management.
--- NOTE | 2019-12-28 14:58 | PSYCHOLOGICAL NOTE ---
Psych Note - Psych Note Date seen by psych provider: 12/28/19 Psych Note: Patient is likely suffering from grief (as evidenced by her reporting she was devastated after her amputation surgery) surrounding the amputation of her right foot and is having difficultly clearly seeing her current situation with her left foot. She appears to be struggling emotionally and while she orientated and highly educated, she is unable to clearly articulate appropriate decision making with regard to safety issues and demonstrated impaired insight with realistic planing for future medical procedures which suggests she is may or may not fully understand the current complexities of medical conditions, procedures and outcomes. She demonstrated impair judgment as evidenced by her inability to problem solve simple safety concerns; this would suggest that her ability to make well informed decisions regarding her medical care and treatment is comprised. Thus it is recommended for the patient to have a medical POA such as the patient's , if felt to be appropriate, taking into consideration the time constrains and/or the medical urgency for this patient. The patient is recommended for a referral to grief consulting with respect to her recent amputation of her right foot and ongoing evolving medical condition. She may benefit from psychotropic medication in the future; please contact the behavioral health office [phone].
[2019-12-28] MEDS: METOPROLOL SUCCINATE 50 MG TAB.SR.24H PO SCH (21:58)
[2019-12-29] MEDS: CLONIDINE HCL 0.2 MG TABLET PO SCH ×4 (00:38→17:12)
[2019-12-29] MEDS ORDERED: EPOETIN ALFA-EPBX 2,000 UNIT, EPOETIN ALFA-EPBX 3,000 UNIT, EPOETIN ALFA-EPBX 20,000 UN... IV PRN ×4 (05:00)
[2019-12-29 05:54] LABS: ABSOLUTE BASOPHILS # (AUTO) 0.1 10^3/uL (0.0-0.2); ABSOLUTE EOSINOPHILS # (AUTO) 0.1 10^3/uL (0.0-0.6); ABSOLUTE LYMPHOCYTES (AUTO) 1.5 10^3/uL (0.5-4.7); ABSOLUTE MONOCYTES (AUTO) 1.2 10^3/uL (0.1-1.4); ABSOLUTE NEUT (AUTO) 12.2 10^3/uL (1.7-8.2); BASOPHILS % (AUTO) 0.4 % (0-2); EOSINOPHILS % (AUTO) 0.8 % (0-6); HEMATOCRIT 26.5 % (36.0-47.0); HEMOGLOBIN 8.7 g/dL (12.0-15.5); LYMPHOCYTES % (AUTO) 9.8 % (13-45); MEAN CORPUSCULAR HGB CONC 32.8 g/dL (32.0-36.0); MEAN CORPUSCULAR VOLUME 88 fl (80-97); MONOCYTES % (AUTO) 7.7 % (3-13); PLATELET COUNT 109 10^3/uL (150-450); RED CELL DISTRIBUTION WIDTH 21.2 % (11.5-14.0); SEGMENTED NEUTROPHILS % (AUTO) 81.3 % (42-78); TOTAL CELLS COUNTED % (AUTO) 100 %
[2019-12-29] MEDS: HEPARIN SOD (PORCINE) 5,000 UNIT/ML 1 ML VIAL SUBCUT SCH ×3 (06:14→21:02)
[2019-12-29 06:24] LABS: ALBUMIN 3.3 g/dL (3.5-5.0); ALKALINE PHOSPHATASE 83 U/L (38-126); ANION GAP 17 (5-19); ASPARTATE AMINO TRANSFERASE 24 U/L (14-36); BILIRUBIN,DIRECT 1.1 mg/dL (0.0-0.4); BILIRUBIN,TOTAL 1.8 mg/dL (0.2-1.3); BLOOD UREA NITROGEN 31 mg/dL (7-20); CALCIUM 9.5 mg/dL (8.4-10.2); CARBON DIOXIDE 24 mmol/L (22-30); CHLORIDE 94 mmol/L (98-107); GLUCOSE 128 mg/dL (75-110); POTASSIUM 4.7 mmol/L (3.6-5.0); TOTAL PROTEIN 6.7 g/dL (6.3-8.2)
[2019-12-29] MEDS: PANTOPRAZOLE SODIUM 40 MG TABLET.DR PO SCH (06:26)
[2019-12-29] MEDS: PIPERACILLIN SODIUM/TAZOBACTAM 2.25 GM in NORMAL SALINE 50 ML IV SCH ×2 (06:26→17:12)
[2019-12-29] MEDS: KETOROLAC TROMETHAMINE INJ/PF 30 MG/1 ML SDV IV PRN ×2 (06:27→16:22)
[2019-12-29] MEDS: MEGESTROL ACETATE 20 MG TABLET PO SCH ×2 (09:20→10:53)
[2019-12-29] MEDS: SENNOSIDES/DOCUSATE 8.6-50 MG 1 EACH TABLET PO SCH ×2 (09:20→17:12)
[2019-12-29] MEDS: AMLODIPINE BESYLATE 5 MG TABLET PO SCH ×3 (09:20→11:08)
[2019-12-29] MEDS: ASPIRIN 81 MG TABLET, ENT COATED PO SCH ×3 (09:20→11:08)
[2019-12-29] MEDS: ACETAMINOPHEN 325 MG TABLET PO PRN (10:58)
--- NOTE | 2019-12-29 12:28 | PDOC PROGRESS REPORT ---
Subjective Progress Note for:: 12/29/19 Subjective:: 64 year old female who presents the emergency room with a one-week history of bilateral foot pain. She admits the abrupt onset of pain in both feet 1 week ago. Her pain is a moderate dull pressure at rest but turns into a severe sharp searing pain with weightbearing. Her foot pain was accompanied by the development of "blisters" of her right great, second and third toes as well as her left second and third toes. The blisters have "broken" over time, becoming darkened skin with a foul odor. Her foot pain was associated with swelling in her bilateral lower extremities below the knee. She denies other associated or accompanying signs and symptoms. She she denies prior similar episodes. She has not identified any additional aggravating or ameliorating factors for her foot pain. In the emergency room she was found to have gangrene of the right great second and third toes as well as the left second and third toes. Surgical consultation with Dr. Kuo was obtained by the emergency room provider and he asked for the hospitalist service to admit the patient and consult him as well as Dr. Sadler for nephrology. Patient was subsequently admitted to the hospital for further evaluation treatment. 12/21/2019. No acute events overnight. Resting in bed no apparent distress, accompanied with relatives, very tearful about possibility of losing her other foot, otherwise denies any fever, chills, nausea, vomiting, diarrhea, constipation. 12/22/2019. No acute events overnight. Patient still very emotional, however cooperative with physical examination. Alert and oriented. Patient was supposed to be transferred to SNF today however they refused to accept her because patient was placed on soft restraints for some reason overnight. 12/23/2019. No acute events overnight. This morning patient resting with no apparent distress, awake however seems to be confused, very emotional and tearful, cooperative with physical examination, denies any fever, chills, nausea, vomiting, diarrhea. Has not had a bowel in several days, endorses low appetite, does not feel like eating. Has been refusing her food. 12/24/2019. Patient is still refusing to eat, endorsing very low appetite, noted to be hypoglycemic this morning, complaining of right hand pain, still very confused very low attention span and emotional, had a conversation over the phone with her daughter who said that she is very anxious and emotional and has had some confusion problem in the past which has been getting worse since his hospitalization. Patient denies any fever, chills, nausea, vomiting. 12/25/2019. No acute events overnight. Patient is more awake today, alert and oriented, tells me she is in the hospital knows the name of the hospital and knows that she had a right AKA. Still very emotional and complaining of right hand pain, patient still endorsing low appetite and has been refusing to eat. Patient denies any fever, chills, nausea, shortness of breath or chest pain. Patient had an MRI yesterday which was not optimal due to motion artifact however it was negative for any acute stroke. 12/26/2019. No acute events overnight. Saw patient this afternoon accompanied by her . As per patient is back to baseline. She is alert and oriented, sitting edge of the bed, cooperative with physical examination. Her was notified about her lack of appetite and refusal to eat. He states that she does not like the food here and prefers from outside. I will confirm that she does not like the food here and prefers to eat from [facility]. Since patient is not eating much and is also hypoglycemic I have agreed for patient to have any kind of food she prefers to encourage her to increase her p.o. intake. Her has kindly agreed to bring her food from outside the hospital. Patient denies any fever, chills, nausea, vomiting, diarrhea, constipation or any urinary symptoms. 12/27/2019. No acute events overnight. Patient output is improving since she is being provided regular food, hypoglycemia protocol, unfortunately patient has d eveloped left fourth metatarsal swelling and, tenderness and follows discharge, otherwise denies any fever, chills, nausea, vomiting, diarrhea, constipation or any urinary symptoms. Dr. Buchanan from surgery has been reconsulted and he has kindly agreed to reevaluate her. 12/28/2019-tried to have a discussion with the patient about the need for left AKA. Patient is not willing to give a consent. Looks to me patient is confused and unable to take right decisions. So capacity exam will be requested. To start her back on renal diet and to discontinue IV fluids. Started on IV morphine 2 mg every 4 as needed for pain. As per the pharmacy Zosyn is added to the vancomycin. 12/29/2019-psych evaluation was done yesterday the recommendation is patient need a power of litigation attorney associate like her because at this moment patient is unable to take good decisions and lacks the capacity of understanding the current medical issues. I spoke to Jaylon Villasenor this morning he wants me to call him back tomorrow to discuss the plan Reason For Visit: GANGRENE BILATERAL TOES,ESRD ON DIALYSIS,PERIPHER Physical Exam Vital Signs: Temp Pulse Resp BP Pulse Ox 98.3 F 81 18 129/60 H 100 12/28/19 23:58 12/28/19 23:58 12/28/19 23:58 12/28/19 23:58 12/28/19 23:58 Intake & Output 12/28/19 12/29/19 12/30/19 06:59 06:59 06:59 Intake Total 320 1050 Output Total 1900 0 2000 Balance -1900 320 -950 Weight 95.6 kg 83.5 kg General appearance: PRESENT: other - Patient is in moderate distress, not cooperative. Head exam: PRESENT: atraumatic Eye exam: PRESENT: PERRLA Mouth exam: PRESENT: moist, tongue midline Teeth exam: PRESENT: poor dentation Neck exam: ABSENT: carotid bruit, JVD, lymphadenopathy, thyromegaly Respiratory exam: PRESENT: decreased breath sounds Cardiovascular exam: PRESENT: RRR. ABSENT: diastolic murmur, rubs, systolic murmur GI/Abdominal exam: PRESENT: normal bowel sounds, soft. ABSENT: distended, guarding, mass, organolmegaly, rebound, tenderness Rectal exam: PRESENT: deferred Extremities exam: PRESENT: other - Patient has a right BKA and has severe left lower leg peripheral vascular disease with wet gangrene affecting the toes. Neurological exam: PRESENT: altered Psychiatric exam: PRESENT: agitated, anxious Results Laboratory Results: 12/29/19 04:53 12/29/19 04:53 12/29/19 12/29/19 04:53 04:53 WBC 15.0 H RBC 3.00 L Hgb 8.7 L Hct 26.5 L MCV 88 MCH 29.0 MCHC 32.8 RDW 21.2 H Plt Count 109 L Seg Neutrophils % 81.3 H Sodium 134.6 L Potassium 4.7 Chloride 94 L Carbon Dioxide 24 Anion Gap 17 BUN 31 H Creatinine 6.12 H Est GFR ( Amer) 8 L Glucose 128 H Calcium 9.5 Magnesium 2.3 Total Bilirubin 1.8 H AST 24 Alkaline Phosphatase 83 Total Protein 6.7 Albumin 3.3 L 12/17/19 12/18/19 12/18/19 05:45 14:30 14:30 Creatine Kinase 499 H 468 H CK-MB (CK-2) 5.00 H Troponin I 0.026 NT-Pro-B Natriuret Pep [id number] H 12/19/19 12/19/19 12/19/19 00:13 07:00 12:05 Creatine Kinase CK-MB (CK-2) Troponin I 0.044 0.060 0.062 NT-Pro-B Natriuret Pep Impressions: Foot X-Ray 12/13/19 17:55 IMPRESSION: Osteopenia. Calcaneal spurs. Head CT 12/18/19 00:00 IMPRESSION: NO ACUTE INTRACRANIAL IMAGING FINDINGS. EVIDENCE OF ACUTE STROKE: NO. Chest X-Ray 12/19/19 08:29 IMPRESSION: Pulmonary vascular prominence without pulmonary edema or pleural effusion Stable cardiomegaly Carotid Doppler Study 12/20/19 00:00 IMPRESSION: 50 to 69% narrowing proximal right ICA by systolic velocity ratio Less than 50% diameter narrowing proximal left ICA Head MRI 12/24/19 13:56 IMPRESSION: Motion artifact. Atrophy with minor small vessel ischemic change. copyright 2010 [employer]- All Rights Reserved Assessment and Plan - Diagnosis (1) Diabetic wet gangrene of the foot Is this a current diagnosis for this admission?: Yes Plan: Status post right BKA (12/16/2019). Pathology report negative for osteomyelitis or malignancy. Initially started on vancomycin and Zosyn. Switched to doxycycline 100 mg p.o. on 12/20/2019. Continue doxycycline 100 mg p.o. twice daily for another 4 days. Surgical wound looks clean. No sign of infection. Continue wound care. Follow-up with Dr. Hines surgeon as outpatient. 12/28/2019-left lower extremity looks ischemic. With gangrenous changes affecting the toes. Surgical team recommended left AKA. Patient is not cooperative and refusing to sign consent. Capacity exam will be requested. In the meantime we will continue IV vancomycin and Zosyn. Latest blood cultures are negative initial blood cultures are positive for Serratia. 12/29/2019-psych evaluation was done there impression is patient lacks the capacity in understanding the current medical conditions and the prognosis. Recommendation is patient's needs to be the power of litigation attorney associate. I spoke to Jaylon Villasenor this morning to discuss the plan of care he wants me to call him back tomorrow. In the meantime we will continue the present management. (2) Delirium due to another medical condition Is this a current diagnosis for this admission?: Yes Plan: Improving. Back to baseline as per . Alert and awake and oriented x3. Patient is extremely sensitive to opiates and benzodiazepines. An MRI head was done to rule out CVA but unfortunately had a lot of motion artifact and was not optimal however as per MRI report patient did not have a CVA. Patient's family voiced that patient has had some gradual decline in her memory and that she has always been an anxious person however her confusion has worsened since hospitalization. Patient clearly seems to have some baseline cognitive impairment. Also noted to be on fentanyl patch since admission and was also given IV morphine last night. DC fentanyl patch, avoid opiates and benzodiazepines if possible. Highly recommended to follow-up with neurology as outpatient. Closely monitor SPO2, electrolytes and blood glucose levels. 12/28/2019-patient is confused and agitated. Not cooperative. Refusing to sign a consent for left AKA that was needed. Capacity exam will be requested. 12/28-pt is anxoius/agitated, she failed a capacity exam yesterday. (3) Anorexia Is this a current diagnosis for this admission?: Yes Plan: Mild improvement. Plan as per above. (4) Dry gangrene Is this a current diagnosis for this admission?: Yes Plan: Patient has dry gangrene of her left foot mostly second and third toes but unfortunately developed pain infection of the left fourth toe with foul-smelling drainage and swelling and tenderness extending to mid calf. Will switch back to vancomycin and I have consulted Dr. Buchanan for evaluation. Patient might need another left BKA. Does seem to extend past the toes however. Surgeon recommended vascular consultation for potential revascularization before visiting amputation of the toes noting that it would otherwise be very difficult for the surgical wound to heal and may be better served by BKA. Vascular surgeon Dr. Ishan Archuleta from [facility] via telephone consulted and went over lower extremity arterial Dopplers as well as her lower extremity CTA. Dr. Archuleta recommended that, though patient has extensive calcification of her arteries, he does not see any thorough occlusion to flow on his review of the imaging that will need revascularization at this time and states that no revascularization is needed prior to surgical amputation of her toes. Dr. Hines who recommends that there is no urgent need for amputation of the left lower extremity and that he would prefer that patient has an in person consultation with vascular surgery for a full assessment as outpatient prior to pursuing partial amputation of the left foot. Please follow-up with Dr. Ishan Archuleta or any vascular surgeon as outpatient. 12/28/2019-sickle consult was done by Dr. Buchanan recommendation is left AKA. Patient is not cooperative and refusing to give a consent. Patient is confused and agitated. Capacity exam is requested. To discontinue n.p.o. at this time started on renal diet. 12/29/2019-patient need a left AKA, failed capacity exam. I discussed the plan of care with patient's he wants me to call him back tomorrow to discuss the plan. (5) ESRD (end stage renal disease) on dialysis Is this a current diagnosis for this admission?: No Plan: Hemodialysis per nephrology. 12/28/2019-she had a dialysis session yesterday. Repeat dialysis tomorrow. (6) Anemia in chronic kidney disease (CKD) Qualifiers: Chronic kidney disease stage: on chronic dialysis Qualified Code(s): N18.6 - End stage renal disease; D63.1 - Anemia in chronic kidney disease; Z99.2 - Dependence on renal dialysis Is this a current diagnosis for this admission?: No Plan: Secondary to ESRD and complicated by blood loss from surgery. Hemoglobin holding steady in the 7s. Monitor on CBC. Receiving EPO by nephrology. 12/28/2019-patient has history of anemia of chronic disease hemoglobin is 9.1. Most likely secondary to ESRD. (7) Episode of transient neurologic symptoms Is this a current diagnosis for this admission?: Yes Plan: Improved. Patient is usually very emotional but as per her this is her baseline. MRI head which is not optimal due to motion artifact was negative for any acute stroke. Several days ago patient was noted to have slurring of the face as well as worsening of eye deviation, grinding of teeth and became unresponsive. [employer] had been called. Patient was initially thought to have a stroke but then while taking patient down for CT scan, she gradually became fully alert again and moving all extremities with resolution of her prior symptoms. Head CT was normal. This episode was either caused by oxycodone 5 mg that she received several hours before the episode or she could have had a TIA. Her family denies any history of seizures. 2D echo 2 months ago was unremarkable. Carotid Doppler 50 to 69% narrowing of proximal right ICA, less than 50% diamet er narrowing proximal left ICA. Patient is to continue high sensitive statin, optimize BP and diabetic control. She needs to follow-up with vascular surgeon for further evaluation and intervention. 12/28/2019-patient is confused and agitated. Unable to communicate reasonably. Capacity exam will be requested. (8) Serratia infection Is this a current diagnosis for this admission?: Yes Plan: Serratia noted in 1 blood culture set. Initially was receiving Vanco and Zosyn for osteomyelitis. Currently switch on doxycycline p.o. Sensitive to tetracycline should be covered with doxycycline. Received 7 days of doxycycline 100 mg p.o. twice daily. Had to be switched back to Vanco as patient is developing left lower extremity wet gangrene. 12/28/2019-patient is presently on IV vancomycin, as per her with recommendations to add IV Zosyn. Repeat blood cultures are negative. (9) Diabetes mellitus type 2 in obese Is this a current diagnosis for this admission?: No Plan: Hemoglobin A1c 6.4, down from 9.0. Accu-Cheks every 6 hours. Patient noted to be hypoglycemic and was started on D5NS. Patient does not need to be on anti-diabetic anymore based on her hypoglycemic episodes and hemoglobin A1c. Continue Accu-Chek frequently, hypoglycemia protocol, monitor blood glucose levels frequently. Encourage frequent snacking. Follow-up with PCP for evaluation of diabetes and diabetic management.
--- NOTE | 2019-12-29 13:05 | PDOC PROGRESS REPORT ---
Subjective Progress Note for:: 12/29/19 Reason For Visit: Seen on dialysis today. She is undergoing dialysis without any issues. However she is moving her left leg like she might be in constant pain and she admits to that fact. She is however confused and disoriented to most of the questions 1 am asking her. Fortunately she is not moving her arms to throw off the dialysis line. Labs and medications were reviewed. Dialysis orders were reviewed with the treating dialysis nurse. Physical Exam Vital Signs: Temp Pulse Resp BP Pulse Ox 98.3 F 81 18 129/60 H 100 12/28/19 23:58 12/28/19 23:58 12/28/19 23:58 12/28/19 23:58 12/28/19 23:58 Intake & Output 12/28/19 12/29/19 12/30/19 06:59 06:59 06:59 Intake Total 320 1050 Output Total 1900 0 2000 Balance -1900 320 -950 Weight 95.6 kg 83.5 kg General appearance: PRESENT: disheveled, mild distress Exam: She is confused and disoriented. Respiratory exam: PRESENT: clear to auscultation genia, decreased breath sounds. ABSENT: crackles Cardiovascular exam: PRESENT: +S1, +S2 GI/Abdominal exam: PRESENT: soft. ABSENT: organomegaly, tenderness Extremities exam: ABSENT: pedal edema Neurological exam: PRESENT: altered Skin exam: PRESENT: mottled - With gangrenous features of toes of her left leg/foot. Results Laboratory Results: 12/29/19 04:53 12/29/19 04:53 12/29/19 12/29/19 04:53 04:53 WBC 15.0 H RBC 3.00 L Hgb 8.7 L Hct 26.5 L MCV 88 MCH 29.0 MCHC 32.8 RDW 21.2 H Plt Count 109 L Seg Neutrophils % 81.3 H Sodium 134.6 L Potassium 4.7 Chloride 94 L Carbon Dioxide 24 Anion Gap 17 BUN 31 H Creatinine 6.12 H Est GFR ( Amer) 8 L Glucose 128 H Calcium 9.5 Magnesium 2.3 Total Bilirubin 1.8 H AST 24 Alkaline Phosphatase 83 Total Protein 6.7 Albumin 3.3 L 12/17/19 12/18/19 12/18/19 05:45 14:30 14:30 Creatine Kinase 499 H 468 H CK-MB (CK-2) 5.00 H Troponin I 0.026 NT-Pro-B Natriuret Pep [id number] H 12/19/19 12/19/19 12/19/19 00:13 07:00 12:05 Creatine Kinase CK-MB (CK-2) Troponin I 0.044 0.060 0.062 NT-Pro-B Natriuret Pep Impressions: Foot X-Ray 12/13/19 17:55 IMPRESSION: Osteopenia. Calcaneal spurs. Head CT 12/18/19 00:00 IMPRESSION: NO ACUTE INTRACRANIAL IMAGING FINDINGS. EVIDENCE OF ACUTE STROKE: NO. Chest X-Ray 12/19/19 08:29 IMPRESSION: Pulmonary vascular prominence without pulmonary edema or pleural effusion Stable cardiomegaly Carotid Doppler Study 12/20/19 00:00 IMPRESSION: 50 to 69% narrowing proximal right ICA by systolic velocity ratio Less than 50% diameter narrowing proximal left ICA Head MRI 12/24/19 13:56 IMPRESSION: Motion artifact. Atrophy with minor small vessel ischemic change. copyright 2010 [employer]- All Rights Reserved Assessment & Plan - Diagnosis (1) ESRD (end stage renal disease) on dialysis Is this a current diagnosis for this admission?: No Plan: Currently undergoing dialysis without any issues. Vital signs are stable. Dialysis being supervised. Plan to remove approximately 1.5-2 L as tolerated. Dialysis orders were reviewed with the treating dialysis nurse. Adjust e rythropoietin on dialysis. (2) Peripheral vascular disease in diabetes mellitus Is this a current diagnosis for this admission?: Yes Plan: Status post right BKA. She is got evidences of severe peripheral vascular disease with gangrene of her left toes as well. It looks like she has also got bad peripheral vascular disease affecting her upper extremities bilaterally as well as seen by early dry gangrenous features which are quite symptomatic. Unfortunately she is a vasculopath because of her poor compliance with her diabetes and diet and dialysis requirements in the past. She is getting much more in pain in spite of pain medications and is now seeking more definitive treatment. She has been seen and evaluated by Dr. Buchanan who was opined BKA of left leg as well. She is going to make a decision soon.As per discussions done with the hospitalist since patient is completely disoriented and confused discussions are now ongoing with her who apparently holds POA for planning of definitive treatment before she gets a whole lot worse. (3) Hypertension Qualifiers: Hypertension type: essential hypertension Qualified Code(s): I10 - Raymond al (primary) hypertension Is this a current diagnosis for this admission?: Yes Plan: Fairly well controlled. Monitor. (4) Diabetes mellitus type 2 in obese Is this a current diagnosis for this admission?: No Plan: Advised tight control which she has not done in the past as she is been a very noncompliant patient.Not hypoglycemic currently. (5) Anemia in chronic kidney disease (CKD) Qualifiers: Chronic kidney disease stage: on chronic dialysis Qualified Code(s): N18.6 - End stage renal disease; D63.1 - Anemia in chronic kidney disease; Z99.2 - Dependence on renal dialysis Is this a current diagnosis for this admission?: No Plan: Adjust erythropoietin on dialysis. (6) Delirium due to another medical condition Is this a current diagnosis for this admission?: Yes Plan: Presently the patient is delirious which is multifactorial. Further management as per hospitalist.
[2019-12-29] MEDS ORDERED: MORPHINE SULFATE 10 MG/ML INJ IV ONE (15:00)
[2019-12-29] MEDS: BRIMONIDINE TARTRATE 0.2% OPH SOLN 5 ML OU SCH (17:35)
[2019-12-29] MEDS: TIMOLOL MALEATE 0.5% OPH SOLN 5 ML OU SCH (17:35)
[2019-12-29] MEDS ORDERED: VANCOMYCIN HCL 750 MG in DEXTROSE 5%-WATER 250 ML IV SCH (18:00)
[2019-12-29] MEDS: METOPROLOL SUCCINATE 50 MG TAB.SR.24H PO SCH (21:16)
[2019-12-30] MEDS: CLONIDINE HCL 0.2 MG TABLET PO SCH ×4 (00:08→17:34)
[2019-12-30] MEDS: HEPARIN SOD (PORCINE) 5,000 UNIT/ML 1 ML VIAL SUBCUT SCH ×3 (05:03→22:13)
[2019-12-30] MEDS: PANTOPRAZOLE SODIUM 40 MG TABLET.DR PO SCH (05:08)
[2019-12-30] MEDS: PIPERACILLIN SODIUM/TAZOBACTAM 2.25 GM in NORMAL SALINE 50 ML IV SCH ×2 (05:08→17:34)
[2019-12-30] MEDS: TIMOLOL MALEATE 0.5% OPH SOLN 5 ML OU SCH ×2 (10:03→17:35)
[2019-12-30] MEDS: BRIMONIDINE TARTRATE 0.2% OPH SOLN 5 ML OU SCH ×2 (10:05→17:34)
[2019-12-30] MEDS: ASPIRIN 81 MG TABLET, ENT COATED PO SCH ×2 (10:28→10:36)
[2019-12-30] MEDS: MEGESTROL ACETATE 20 MG TABLET PO SCH (10:28)
[2019-12-30] MEDS: AMLODIPINE BESYLATE 5 MG TABLET PO SCH (10:29)
[2019-12-30] MEDS: SENNOSIDES/DOCUSATE 8.6-50 MG 1 EACH TABLET PO SCH ×3 (10:29→17:34)
[2019-12-30] MEDS: DEXTROSE 50%-WATER 25 GM/50 ML DISP.SYRIN IV PRN (11:25)
--- NOTE | 2019-12-30 12:14 | PDOC PROGRESS REPORT ---
Subjective Progress Note for:: 12/30/19 Subjective:: 64 year old female who presents the emergency room with a one-week history of bilateral foot pain. She admits the abrupt onset of pain in both feet 1 week ago. Her pain is a moderate dull pressure at rest but turns into a severe sharp searing pain with weightbearing. Her foot pain was accompanied by the development of "blisters" of her right great, second and third toes as well as her left second and third toes. The blisters have "broken" over time, becoming darkened skin with a foul odor. Her foot pain was associated with swelling in her bilateral lower extremities below the knee. She denies other associated or accompanying signs and symptoms. She she denies prior similar episodes. She has not identified any additional aggravating or ameliorating factors for her foot pain. In the emergency room she was found to have gangrene of the right great second and third toes as well as the left second and third toes. Surgical consultation with Dr. Kuo was obtained by the emergency room provider and he asked for the hospitalist service to admit the patient and consult him as well as Dr. Sadler for nephrology. Patient was subsequently admitted to the hospital for further evaluation treatment. 12/21/2019. No acute events overnight. Resting in bed no apparent distress, accompanied with relatives, very tearful about possibility of losing her other foot, otherwise denies any fever, chills, nausea, vomiting, diarrhea, constipation. 12/22/2019. No acute events overnight. Patient still very emotional, however cooperative with physical examination. Alert and oriented. Patient was supposed to be transferred to SNF today however they refused to accept her because patient was placed on soft restraints for some reason overnight. 12/23/2019. No acute events overnight. This morning patient resting with no apparent distress, awake however seems to be confused, very emotional and tearful, cooperative with physical examination, denies any fever, chills, nausea, vomiting, diarrhea. Has not had a bowel in several days, endorses low appetite, does not feel like eating. Has been refusing her food. 12/24/2019. Patient is still refusing to eat, endorsing very low appetite, noted to be hypoglycemic this morning, complaining of right hand pain, still very confused very low attention span and emotional, had a conversation over the phone with her daughter who said that she is very anxious and emotional and has had some confusion problem in the past which has been getting worse since his hospitalization. Patient denies any fever, chills, nausea, vomiting. 12/25/2019. No acute events overnight. Patient is more awake today, alert and oriented, tells me she is in the hospital knows the name of the hospital and knows that she had a right AKA. Still very emotional and complaining of right hand pain, patient still endorsing low appetite and has been refusing to eat. Patient denies any fever, chills, nausea, shortness of breath or chest pain. Patient had an MRI yesterday which was not optimal due to motion artifact however it was negative for any acute stroke. 12/26/2019. No acute events overnight. Saw patient this afternoon accompanied by her . As per patient is back to baseline. She is alert and oriented, sitting edge of the bed, cooperative with physical examination. Her was notified about her lack of appetite and refusal to eat. He states that she does not like the food here and prefers from outside. I will confirm that she does not like the food here and prefers to eat from [facility]. Since patient is not eating much and is also hypoglycemic I have agreed for patient to have any kind of food she prefers to encourage her to increase her p.o. intake. Her has kindly agreed to bring her food from outside the hospital. Patient denies any fever, chills, nausea, vomiting, diarrhea, constipation or any urinary symptoms. 12/27/2019. No acute events overnight. Patient output is improving since she is being provided regular food, hypoglycemia protocol, unfortunately patient has d eveloped left fourth metatarsal swelling and, tenderness and follows discharge, otherwise denies any fever, chills, nausea, vomiting, diarrhea, constipation or any urinary symptoms. Dr. Buchanan from surgery has been reconsulted and he has kindly agreed to reevaluate her. 12/28/2019-tried to have a discussion with the patient about the need for left AKA. Patient is not willing to give a consent. Looks to me patient is confused and unable to take right decisions. So capacity exam will be requested. To start her back on renal diet and to discontinue IV fluids. Started on IV morphine 2 mg every 4 as needed for pain. As per the pharmacy Zosyn is added to the vancomycin. 12/29/2019-psych evaluation was done yesterday the recommendation is patient need a power of gamma facilities operator like her because at this moment patient is unable to take good decisions and lacks the capacity of understanding the current medical issues. I spoke to Jaylon this morning he wants me to call him back tomorrow to discuss the plan 12/30/2019-pt status was discussed with patient's daughter Marta, as per her Jaylon Villasenor he agreed for left AKA. He is on the way to the hospital signed the consent. Surgery is notified. They want to keep her n.p.o. from midnight for surgery tomorrow. On examination patient has chronic skin changes affecting the right hand middle finger index finger. Right radial pulses are poor. Will request for right upper extremity Doppler. Reason For Visit: GANGRENE BILATERAL TOES,ESRD ON DIALYSIS,PERIPHER Physical Exam Vital Signs: Temp Pulse Resp BP Pulse Ox 97.9 F 74 12 142/71 H 99 12/30/19 07:34 12/30/19 07:34 12/30/19 07:34 12/30/19 07:34 12/30/19 07:34 Intake & Output 12/29/19 12/30/19 12/31/19 06:59 06:59 06:59 Intake Total 320 1500 Output Total 0 2000 Balance 320 -500 Weight 83.5 kg 83.2 kg General appearance: PRESENT: no acute distress, obese Head exam: PRESENT: atraumatic Eye exam: PRESENT: conjunctiva pale, PERRLA Mouth exam: PRESENT: moist, tongue midline Teeth exam: PRESENT: poor dentation Neck exam: ABSENT: carotid bruit, JVD, lymphadenopathy, thyromegaly Respiratory exam: PRESENT: decreased breath sounds Cardiovascular exam: PRESENT: RRR. ABSENT: diastolic murmur, rubs, systolic murmur GI/Abdominal exam: PRESENT: normal bowel sounds, soft. ABSENT: distended, guarding, mass, organolmegaly, rebound, tenderness Rectal exam: PRESENT: deferred Extremities exam: PRESENT: other - Patient has a right BKA, left lower extremity with wet gangrene with ischemic changes. Right upper extremity examination shows chronic skin changes with blackish discoloration of the right middle finger. Neurological exam: PRESENT: alert, awake, oriented to person, oriented to place, oriented to time, oriented to situation, CN II-XII grossly intact. ABSENT: motor sensory deficit Psychiatric exam: PRESENT: appropriate affect, normal mood. ABSENT: homicidal ideation, suicidal ideation Skin exam: PRESENT: dry, intact, warm. ABSENT: cyanosis, rash Results Laboratory Results: 12/29/19 04:53 12/29/19 04:53 12/17/19 12/18/19 12/18/19 05:45 14:30 14:30 Creatine Kinase 499 H 468 H CK-MB (CK-2) 5.00 H Troponin I 0.026 NT-Pro-B Natriuret Pep [id number] H 12/19/19 12/19/19 12/19/19 00:13 07:00 12:05 Creatine Kinase CK-MB (CK-2) Troponin I 0.044 0.060 0.062 NT-Pro-B Natriuret Pep Impressions: Foot X-Ray 12/13/19 17:55 IMPRESSION: Osteopenia. Calcaneal spurs. Head CT 12/18/19 00:00 IMPRESSION: NO ACUTE INTRACRANIAL IMAGING FINDINGS. EVIDENCE OF ACUTE STROKE: NO. Chest X-Ray 12/19/19 08:29 IMPRESSION: Pulmonary vascular prominence without pulmonary edema or pleural effusion Stable cardiomegaly Carotid Doppler Study 12/20/19 00:00 IMPRESSION: 50 to 69% narrowing proximal right ICA by systolic velocity ratio Less than 50% diameter narrowing proximal left ICA Head MRI 12/24/19 13:56 IMPRESSION: Motion artifact. Atrophy with minor small vessel ischemic change. copyright 2010 [employer]- All Rights Reserved Assessment and Plan - Diagnosis (1) Diabetic wet gangrene of the foot Is this a current diagnosis for this admission?: Yes Plan: Status post right BKA (12/16/2019). Pathology report negative for osteomyelitis or malignancy. Initially started on vancomycin and Zosyn. Switched to doxycycline 100 mg p.o. on 12/20/2019. Continue doxycycline 100 mg p.o. twice daily for another 4 days. Surgical wound looks clean. No sign of infection. Continue wound care. Follow-up with Dr. Hines surgeon as outpatient. 12/28/2019-left lower extremity looks ischemic. With gangrenous changes affecting the toes. Surgical team recommended left AKA. Patient is not cooperative and refusing to sign consent. Capacity exam will be requested. In the meantime we will continue IV vancomycin and Zosyn. Latest blood cultures are negative initial blood cultures are positive for Serratia. 12/29/2019-psych evaluation was done there impression is patient lacks the capacity in understanding the current medical conditions and the prognosis. Recommendation is patient's needs to be the power of gamma facilities operator. I spoke to Jaylon Villasenor this morning to discuss the plan of care he wants me to call him back tomorrow. In the meantime we will continue the present management. 12/30/2019-family agreed for left AKA. Patient's is on the way to the hospital to sign the consent. Surgery is notified. Patient is going to be n.p.o. from midnight for surgery tomorrow. Patient has a severe peripheral vascular disease also affecting the right arm. Chronic skin changes affecting the fingertips of the right hand. Arrange for the right upper extremity ultrasound. (2) Delirium due to another medical condition Is this a current diagnosis for this admission?: Yes Plan: Improving. Back to baseline as per . Alert and awake and oriented x3. Patient is extremely sensitive to opiates and benzodiazepines. An MRI head was done to rule out CVA but unfortunately had a lot of motion artifact and was not optimal however as per MRI report patient did not have a CVA. Patient's family voiced that patient has had some gradual decline in her memory and that she has always been an anxious person however her confusion has worsened since hospitalization. Patient clearly seems to have some baseline cognitive impairment. Also noted to be on fentanyl patch since admission and was also given IV morphine last night. DC fentanyl patch, avoid opiates and benzodiazepines if possible. Highly recommended to follow-up with neurology as outpatient. Closely monitor SPO2, electrolytes and blood glucose levels. 12/28/2019-patient is confused and agitated. Not cooperative. Refusing to sign a consent for left AKA that was needed. Capacity exam will be requested. 12/28-pt is anxoius/agitated, she failed a capacity exam yesterday. 12/30/2019-patient is current confused this morning. But not agitated. Last night nurses told me patient slide off the bed. But no obvious injuries are seen. (3) Anorexia Is this a current diagnosis for this admission?: Yes Plan: Mild improvement. Plan as per above. (4) Dry gangrene Is this a current diagnosis for this admission?: Yes Plan: Patient has dry gangrene of her left foot mostly second and third toes but unfortunately developed pain infection of the left fourth toe with foul-smelling drainage and swelling and tenderness extending to mid calf. Will switch back to vancomycin and I have consulted Dr. Buchanan for evaluation. Patient might need another left BKA. Does seem to extend past the toes however. Surgeon recommended vascular consultation for potential revascularization before visiting amputation of the toes noting that it would otherwise be very difficult for the surgical wound to heal and may be better served by BKA. Vascular surgeon Dr. Ishan Archuleta from [facility] via telephone consulted and went over lower extremity arterial Dopplers as well as her lower extremity CTA. Dr. Archuleta recommended that, though patient has extensive calcification of her arteries, he does not see any thorough occlusion to flow on his review of the imaging that will need revascularization at this time and states that no revascularization is needed prior to surgical amputation of her toes. Dr. Hines who recommends that there is no urgent need for amputation of the left lower extremity and that he would prefer that patient has an in person consultation with vascular surgery for a full assessment as outpatient prior to pursuing partial amputation of the left foot. Please follow-up with Dr. Ishan Archuleta or any vascular surgeon as outpatient. 12/28/2019-sickle consult was done by Dr. Buchanan recommendation is left AKA. Patient is not cooperative and refusing to give a consent. Patient is confused and agitated. Capacity exam is requested. To discontinue n.p.o. at this time started on renal diet. 12/29/2019-patient need a left AKA, failed capacity exam. I discussed the plan of care with patient's he wants me to call him back tomorrow to discuss the plan. 12/30/2019-family agreed for left AKA. Surgery is notified patient is going to be n.p.o. from midnight. (5) ESRD (end stage renal disease) on dialysis Is this a current diagnosis for this admission?: No Plan: Hemodialysis per nephrology. 12/28/2019-she had a dialysis session yesterday. Repeat dialysis tomorrow. (6) Anemia in chronic kidney disease (CKD) Qualifiers: Chronic kidney disease stage: on chronic dialysis Qualified Code(s): N18.6 - End stage renal disease; D63.1 - Anemia in chronic kidney disease; Z99.2 - Dependence on renal dialysis Is this a current diagnosis for this admission?: No Plan: Secondary to ESRD and complicated by blood loss from surgery. Hemoglobin holding steady in the 7s. Monitor on CBC. Receiving EPO by nephrology. 12/28/2019-patient has history of anemia of chronic disease hemoglobin is 9.1. Most likely secondary to ESRD. (7) Episode of transient neurologic symptoms Is this a current diagnosis for this admission?: Yes Plan: Improved. Patient is usually very emotional but as per her this is her baseline. MRI head which is not optimal due to motion artifact was negative for any acute stroke. Several days ago patient was noted to have slurring of the face as well as w orsening of eye deviation, grinding of teeth and became unresponsive. [employer] had been called. Patient was initially thought to have a stroke but then while taking patient down for CT scan, she gradually became fully alert again and moving all extremities with resolution of her prior symptoms. Head CT was normal. This episode was either caused by oxycodone 5 mg that she received several hours before the episode or she could have had a TIA. Her family denies any history of seizures. 2D echo 2 months ago was unremarkable. Carotid Doppler 50 to 69% narrowing of proximal right ICA, less than 50% diameter narrowing proximal left ICA. Patient is to continue high sensitive statin, optimize BP and diabetic control. She needs to follow-up with vascular surgeon for further evaluation and in tervention. 12/28/2019-patient is confused and agitated. Unable to communicate reasonably. Capacity exam will be requested. (8) Serratia infection Is this a current diagnosis for this admission?: Yes Plan: Serratia noted in 1 blood culture set. Initially was receiving Vanco and Zosyn for osteomyelitis. Currently switch on doxycycline p.o. Sensitive to tetracycline should be covered with doxycycline. Received 7 days of doxycycline 100 mg p.o. twice daily. Had to be switched back to Vanco as patient is developing left lower extremity wet gangrene. 12/28/2019-patient is presently on IV vancomycin, as per her with recommendations to add IV Zosyn. Repeat blood cultures are negative. (9) Diabetes mellitus type 2 in obese Is this a current diagnosis for this admission?: No Plan: Hemoglobin A1c 6.4, down from 9.0. Accu-Cheks every 6 hours. Patient noted to be hypoglycemic and was started on D5NS. Patient does not need to be on anti-diabetic anymore based on her hypoglycemic episodes and hemoglobin A1c. Continue Accu-Chek frequently, hypoglycemia protocol, monitor blood glucose levels frequently. Encourage frequent snacking. Follow-up with PCP for evaluation of diabetes and diabetic management.
--- NOTE | 2019-12-30 17:01 | PDOC PROGRESS REPORT ---
Subjective Progress Note for:: 12/30/19 Subjective:: Pains along the right middle fingertip with appears to be dusky. Reason For Visit: GANGRENE BILATERAL TOES,ESRD ON DIALYSIS,PERIPHER Physical Exam Vital Signs: Temp Pulse Resp BP Pulse Ox 97.8 F 76 20 142/75 H 100 12/30/19 15:58 12/30/19 15:58 12/30/19 15:58 12/30/19 15:58 12/30/19 15:58 Intake & Output 12/29/19 12/30/19 12/31/19 06:59 06:59 06:59 Intake Total 320 1500 120 Output Total 0 2000 Balance 320 -500 120 Weight 83.5 kg 83.2 kg Exam: Right BKA stump healing fairly well. Small areas of skin avulsion on the medial aspect of the right BKA and right distal thigh. We will order Rylee lott for this. Right middle fingertip has some mild ischemic changes and is cool but the rest of the fingers are warm. Unable to palpate right wrist pulses. This may be part of diffuse atherosclerotic disease. Her dialysis fistula is on the left arm with no evidence of steal syndrome. Left toes remain gangrenous. Family appears to be agreeing to a left AKA possibly this Friday. Results Laboratory Results: 12/29/19 04:53 12/29/19 04:53 12/17/19 12/18/19 12/18/19 05:45 14:30 14:30 Creatine Kinase 499 H 468 H CK-MB (CK-2) 5.00 H Troponin I 0.026 NT-Pro-B Natriuret Pep [id number] H 12/19/19 12/19/19 12/19/19 00:13 07:00 12:05 Creatine Kinase CK-MB (CK-2) Troponin I 0.044 0.060 0.062 NT-Pro-B Natriuret Pep Impressions: Foot X-Ray 12/13/19 17:55 IMPRESSION: Osteopenia. Calcaneal spurs. Head CT 12/18/19 00:00 IMPRESSION: NO ACUTE INTRACRANIAL IMAGING FINDINGS. EVIDENCE OF ACUTE STROKE: NO. Chest X-Ray 12/19/19 08:29 IMPRESSION: Pulmonary vascular prominence without pulmonary edema or pleural effusion Stable cardiomegaly Carotid Doppler Study 12/20/19 00:00 IMPRESSION: 50 to 69% narrowing proximal right ICA by systolic velocity ratio Less than 50% diameter narrowing proximal left ICA Head MRI 12/24/19 13:56 IMPRESSION: Motion artifact. Atrophy with minor small vessel ischemic change. copyright 2011 [employer]- All Rights Reserved Assessment & Plan - Time Critical Time spent with patient: 15-24 minutes - Plan Summary Plan Summary: Recommendations: Apply Silvadene dressing to the right BKA skin excoriations twice a day. We will be available to do left AKA whenever family consent.
[2019-12-30] MEDS: SILVER SULFADIAZINE 1% CREAM 50 GM TP SCH (18:44)
[2019-12-30] MEDS: METOPROLOL SUCCINATE 50 MG TAB.SR.24H PO SCH (22:18)
[2019-12-31] MEDS: CLONIDINE HCL 0.2 MG TABLET PO SCH ×4 (00:06→17:55)
[2019-12-31] MEDS: LORAZEPAM INJ 2 MG/1 ML VIAL IV PRN ×3 (00:19→21:06)
[2019-12-31] MEDS ORDERED: EPOETIN ALFA-EPBX 2,000 UNIT, EPOETIN ALFA-EPBX 3,000 UNIT, EPOETIN ALFA-EPBX 20,000 UN... IV PRN ×4 (05:00)
[2019-12-31] MEDS: HEPARIN SOD (PORCINE) 5,000 UNIT/ML 1 ML VIAL SUBCUT SCH ×3 (05:41→21:13)
[2019-12-31] MEDS: PANTOPRAZOLE SODIUM 40 MG TABLET.DR PO SCH (05:43)
[2019-12-31] MEDS: PIPERACILLIN SODIUM/TAZOBACTAM 2.25 GM in NORMAL SALINE 50 ML IV SCH ×2 (06:01→17:26)
[2019-12-31 08:22] LABS: HEMATOCRIT 24.3 % (36.0-47.0); MEAN CORPUSCULAR HEMOGLOBIN 29.1 pg (27.0-33.4); MEAN CORPUSCULAR HGB CONC 32.7 g/dL (32.0-36.0); MEAN CORPUSCULAR VOLUME 89 fl (80-97); PLATELET COUNT 105 10^3/uL (150-450); RED BLOOD COUNT 2.74 10^6/uL (3.72-5.28); RED CELL DISTRIBUTION WIDTH 21.1 % (11.5-14.0); WHITE BLOOD COUNT 17.4 10^3/uL (4.0-10.5)
[2019-12-31 08:33] LABS: ANION GAP 16 (5-19); BLOOD UREA NITROGEN 38 mg/dL (7-20); CALCIUM 9.6 mg/dL (8.4-10.2); CARBON DIOXIDE 24 mmol/L (22-30); CHLORIDE 96 mmol/L (98-107); GLUCOSE 186 mg/dL (75-110); POTASSIUM 4.9 mmol/L (3.6-5.0)
[2019-12-31 08:37] LABS: VANCOMYCIN,TROUGH 21.6 ug/mL (5.0-20.0)
[2019-12-31] MEDS ORDERED: LORAZEPAM INJ 2 MG/1 ML VIAL IV ONE (08:59)
--- NOTE | 2019-12-31 10:09 | PDOC PROGRESS REPORT ---
Subjective Progress Note for:: 12/31/19 Subjective:: 64 year old female who presents the emergency room with a one-week history of bilateral foot pain. She admits the abrupt onset of pain in both feet 1 week ago. Her pain is a moderate dull pressure at rest but turns into a severe sharp searing pain with weightbearing. Her foot pain was accompanied by the development of "blisters" of her right great, second and third toes as well as her left second and third toes. The blisters have "broken" over time, becoming darkened skin with a foul odor. Her foot pain was associated with swelling in her bilateral lower extremities below the knee. She denies other associated or accompanying signs and symptoms. She she denies prior similar episodes. She has not identified any additional aggravating or ameliorating factors for her foot pain. In the emergency room she was found to have gangrene of the right great second and third toes as well as the left second and third toes. Surgical consultation with Dr. Kuo was obtained by the emergency room provider and he asked for the hospitalist service to admit the patient and consult him as well as Dr. Sadler for nephrology. Patient was subsequently admitted to the hospital for further evaluation treatment. 12/21/2019. No acute events overnight. Resting in bed no apparent distress, accompanied with relatives, very tearful about possibility of losing her other foot, otherwise denies any fever, chills, nausea, vomiting, diarrhea, constipation. 12/22/2019. No acute events overnight. Patient still very emotional, however cooperative with physical examination. Alert and oriented. Patient was supposed to be transferred to SNF today however they refused to accept her because patient was placed on soft restraints for some reason overnight. 12/23/2019. No acute events overnight. This morning patient resting with no apparent distress, awake however seems to be confused, very emotional and tearful, cooperative with physical examination, denies any fever, chills, nausea, vomiting, diarrhea. Has not had a bowel in several days, endorses low appetite, does not feel like eating. Has been refusing her food. 12/24/2019. Patient is still refusing to eat, endorsing very low appetite, noted to be hypoglycemic this morning, complaining of right hand pain, still very confused very low attention span and emotional, had a conversation over the phone with her daughter who said that she is very anxious and emotional and has had some confusion problem in the past which has been getting worse since his hospitalization. Patient denies any fever, chills, nausea, vomiting. 12/25/2019. No acute events overnight. Patient is more awake today, alert and oriented, tells me she is in the hospital knows the name of the hospital and knows that she had a right AKA. Still very emotional and complaining of right hand pain, patient still endorsing low appetite and has been refusing to eat. Patient denies any fever, chills, nausea, shortness of breath or chest pain. Patient had an MRI yesterday which was not optimal due to motion artifact however it was negative for any acute stroke. 12/26/2019. No acute events overnight. Saw patient this afternoon accompanied by her . As per patient is back to baseline. She is alert and oriented, sitting edge of the bed, cooperative with physical examination. Her was notified about her lack of appetite and refusal to eat. He states that she does not like the food here and prefers from outside. I will confirm that she does not like the food here and prefers to eat from [facility]. Since patient is not eating much and is also hypoglycemic I have agreed for patient to have any kind of food she prefers to encourage her to increase her p.o. intake. Her has kindly agreed to bring her food from outside the hospital. Patient denies any fever, chills, nausea, vomiting, diarrhea, constipation or any urinary symptoms. 12/27/2019. No acute events overnight. Patient output is improving since she is being provided regular food, hypoglycemia protocol, unfortunately patient has d eveloped left fourth metatarsal swelling and, tenderness and follows discharge, otherwise denies any fever, chills, nausea, vomiting, diarrhea, constipation or any urinary symptoms. Dr. Buchanan from surgery has been reconsulted and he has kindly agreed to reevaluate her. 12/28/2019-tried to have a discussion with the patient about the need for left AKA. Patient is not willing to give a consent. Looks to me patient is confused and unable to take right decisions. So capacity exam will be requested. To start her back on renal diet and to discontinue IV fluids. Started on IV morphine 2 mg every 4 as needed for pain. As per the pharmacy Zosyn is added to the vancomycin. 12/29/2019-psych evaluation was done yesterday the recommendation is patient need a power of attorney lawyer like her because at this moment patient is unable to take good decisions and lacks the capacity of understanding the current medical issues. I spoke to Jaylonnan Villasenor this morning he wants me to call him back tomorrow to discuss the plan 12/30/2019-pt status was discussed with patient's daughter Marta, as per her Jaylon Villasenor he agreed for left AKA. He is on the way to the hospital signed the consent. Surgery is notified. They want to keep her n.p.o. from midnight for surgery tomorrow. On examination patient has chronic skin changes affecting the right hand middle finger index finger. Right radial pulses are poor. Will request for right upper extremity Doppler. 12/30-pt is agitated and confused, refusi ultrasound examination of the right arm. Patient status discussed with Zac she is on the way from [place]. She is requesting for strong pain medications for pain management. Started on IV morphine 3 mg every 4 hours. She will be also on IV Ativan as needed for agitation. Overall prognosis poor condition is critical. Discussed about hospice issues if the family not agreeing for left AKA. Reason For Visit: GANGRENE BILATERAL TOES,ESRD ON DIALYSIS,PERIPHER Physical Exam Vital Signs: Temp Pulse Resp BP Pulse Ox 98.0 F 72 16 167/67 H 99 12/31/19 07:53 12/31/19 07:53 12/31/19 07:53 12/31/19 07:53 12/31/19 07:53 Intake & Output 12/30/19 12/31/19 01/01/20 06:59 06:59 06:59 Intake Total 1500 220 50 Output Total 2000 0 Balance -500 220 50 Weight 83.2 kg 84.2 kg General appearance: PRESENT: well-developed, other - In moderate to severe distress Head exam: PRESENT: atraumatic Eye exam: PRESENT: conjunctiva pink, EOMI, PERRLA. ABSENT: scleral icterus Mouth exam: PRESENT: neck supple Teeth exam: PRESENT: poor dentation Neck exam: ABSENT: carotid bruit, JVD, lymphadenopathy, thyromegaly Respiratory exam: PRESENT: decreased breath sounds Cardiovascular exam: PRESENT: RRR. ABSENT: diastolic murmur, rubs, systolic murmur GI/Abdominal exam: PRESENT: normal bowel sounds, soft. ABSENT: distended, guarding, mass, organolmegaly, rebound, tenderness Rectal exam: PRESENT: deferred Extremities exam: PRESENT: other Neurological exam: PRESENT: altered Psychiatric exam: PRESENT: agitated, anxious Results Laboratory Results: 12/31/19 07:47 12/31/19 07:47 12/31/19 12/31/19 07:47 07:47 WBC 17.4 H RBC 2.74 L Hgb 8.0 L Hct 24.3 L MCV 89 MCH 29.1 MCHC 32.7 RDW 21.1 H Plt Count 105 L Sodium 135.6 L Potassium 4.9 Chloride 96 L Carbon Dioxide 24 Anion Gap 16 BUN 38 H Creatinine 6.72 H Est GFR ( Amer) 7 L Glucose 186 H Calcium 9.6 12/17/19 12/18/19 12/18/19 05:45 14:30 14:30 Creatine Kinase 499 H 468 H CK-MB (CK-2) 5.00 H Troponin I 0.026 NT-Pro-B Natriuret Pep [id number] H 12/19/19 12/19/19 12/19/19 00:13 07:00 12:05 Creatine Kinase CK-MB (CK-2) Troponin I 0.044 0.060 0.062 NT-Pro-B Natriuret Pep Impressions: Foot X-Ray 12/13/19 17:55 IMPRESSION: Osteopenia. Calcaneal spurs. Head CT 12/18/19 00:00 IMPRESSION: NO ACUTE INTRACRANIAL IMAGING FINDINGS. EVIDENCE OF ACUTE STROKE: NO. Chest X-Ray 12/19/19 08:29 IMPRESSION: Pulmonary vascular prominence without pulmonary edema or pleural effusion Stable cardiomegaly Carotid Doppler Study 12/20/19 00:00 IMPRESSION: 50 to 69% narrowing proximal right ICA by systolic velocity ratio Less than 50% diameter narrowing proximal left ICA Head MRI 12/24/19 13:56 IMPRESSION: Motion artifact. Atrophy with minor small vessel ischemic change. copyright 2010 [employer]- All Rights Reserved Assessment and Plan - Diagnosis (1) Diabetic wet gangrene of the foot Is this a current diagnosis for this admission?: Yes Plan: Status post right BKA (12/16/2019). Pathology report negative for osteomyelitis or malignancy. Initially started on vancomycin and Zosyn. Switched to doxycycline 100 mg p.o. on 12/20/2019. Continue doxycycline 100 mg p.o. twice daily for another 4 days. Surgical wound looks clean. No sign of infection. Continue wound care. Follow-up with Dr. Hines surgeon as outpatient. 12/28/2019-left lower extremity looks ischemic. With gangrenous changes affecting the toes. Surgical team recommended left AKA. Patient is not cooperative and refusing to sign consent. Capacity exam will be requested. In the meantime we will continue IV vancomycin and Zosyn. Latest blood cultures are negative initial blood cultures are positive for Serratia. 12/29/2019-psych evaluation was done there impression is patient lacks the capacity in understanding the current medical conditions and the prognosis. Recommendation is patient's needs to be the power of attorney lawyer. I spoke to Jaylon Villasenor this morning to discuss the plan of care he wants me to call him back tomorrow. In the meantime we will continue the present management. 12/30/2019-family agreed for left AKA. Patient's is on the way to the hospital to sign the consent. Surgery is notified. Patient is going to be n.p.o. from midnight for surgery tomorrow. Patient has a severe peripheral vascular disease also affecting the right arm. Chronic skin changes affecting the fingertips of the right hand. Arrange for the right upper extremity ultrasound. 12/31/2019- still thinking about giving a consent for lt AKA. Patient also has necrotic changes in the right middle finger index finger and ring finger. Patient refused ultrasound at this morning. To give IV Ativan 1 mg and try to do the ultrasound Doppler examination today. Case was discussed with Janice she is requesting to start on morphine. She is also thinking about hospice. (2) Delirium due to another medical condition Is this a current diagnosis for this admission?: Yes Plan: Improving. Back to baseline as per . Alert and awake and oriented x3. Patient is extremely sensitive to opiates and benzodiazepines. An MRI head was done to rule out CVA but unfortunately had a lot of motion artifact and was not optimal however as per MRI report patient did not have a CVA. Patient's family voiced that patient has had some gradual decline in her memory and that she has always been an anxious person however her confusion has worsened since hospitalization. Patient clearly seems to have some baseline cognitive impairment. Also noted to be on fentanyl patch since admission and was also given IV morphine last night. DC fentanyl patch, avoid opiates and benzodiazepines if possible. Highly recommended to follow-up with neurology as outpatient. Closely monitor SPO2, electrolytes and blood glucose levels. 12/28/2019-patient is confused and agitated. Not cooperative. Refusing to sign a consent for left AKA that was needed. Capacity exam will be requested. 12/28-pt is anxoius/agitated, she failed a capacity exam yesterday. 12/30/2019-patient is current confused this morning. But not agitated. Last night nurses told me patient slide off the bed. But no obvious injuries are seen. 12/31/2019-patient is confused and agitated. Not cooperative. (3) Anorexia Is this a current diagnosis for this admission?: Yes Plan: Mild improvement. Plan as per above. (4) Dry gangrene Is this a current diagnosis for this admission?: Yes Plan: Patient has dry gangrene of her left foot mostly second and third toes but unfortunately developed pain infection of the left fourth toe with foul-smelling drainage and swelling and tenderness extending to mid calf. Will switch back to vancomycin and I have consulted Dr. Buchanan for evaluation. Patient might need another left BKA. Does seem to extend past the toes however. Surgeon recommended vascular consultation for potential revascularization before visiting amputation of the toes noting that it would otherwise be very difficult for the surgical wound to heal and may be better served by BKA. Vascular surgeon Dr. Ishan Archuleta from [facility] via telephone consulted and went over lower extremity arterial Dopplers as well as her lower extremity CTA. Dr. Archuleta recommended that, though patient has extensive calcification of her arteries, he does not see any thorough occlusion to flow on his review of the imaging that will need revascularization at this time and states that no revascularization is needed prior to surgical amputation of her toes. Dr. Hines who recommends that there is no urgent need for amputation of the left lower extremity and that he would prefer that patient has an in person consultation with vascular surgery for a full assessment as outpatient prior to pursuing partial amputation of the left foot. Please follow-up with Dr. Ishan Archuleta or any vascular surgeon as outpatient. 12/28/2019-sickle consult was done by Dr. Buchanan recommendation is left AKA. Patient is not cooperative and refusing to give a consent. Patient is confused and agitated. Capacity exam is requested. To discontinue n.p.o. at this time started on renal diet. 12/29/2019-patient need a left AKA, failed capacity exam. I discussed the plan of care with patient's he wants me to call him back tomorrow to discuss the plan. 12/30/2019-family agreed for left AKA. Surgery is notified patient is going to be n.p.o. from midnight. 12/31/2019-patient's change his mind he does not want to give the consent for left BKA and he wants to wait until Friday. Patient's daughter Courtney is on the way from [place]. Hopefully family will decide either with the hospice or left AKA. (5) ESRD (end stage renal disease) on dialysis Is this a current diagnosis for this admission?: No Plan: Hemodialysis per nephrology. 12/28/2019-she had a dialysis session yesterday. Repeat dialysis tomorrow. (6) Anemia in chronic kidney disease (CKD) Qualifiers: Chronic kidney disease stage: on chronic dialysis Qualified Code(s): N18.6 - End stage renal disease; D63.1 - Anemia in chronic kidney disease; Z99.2 - Dependence on renal dialysis Is this a current diagnosis for this admission?: No Plan: Secondary to ESRD and complicated by blood loss from surgery. Hemoglobin holding steady in the 7s. Monitor on CBC. Receiving EPO by nephrology. 12/28/2019-patient has history of anemia of chronic disease hemoglobin is 9.1. Most likely secondary to ESRD. 12/31/2019 patient's hemoglobin is 8. Anemia of chronic disease most likely secondary to end-stage kidney disease. (7) Episode of transient neurologic symptoms Is this a current diagnosis for this admission?: Yes Plan: Improved. Patient is usually very emotional but as per her this is her baseline. MRI head which is not optimal due to motion artifact was negative for any acute stroke. Several days ago patient was noted to have slurring of the face as well as worsening of eye deviation, grinding of teeth and became unresponsive. CABLE INSTALLATION MANAGER had been called. Patient was initially thought to have a stroke but then while taking patient down for CT scan, she gradually became fully alert again and moving all extremities with resolution of her prior symptoms. Head CT was normal. This episode was either caused by oxycodone 5 mg that she received several hours before the episode or she could have had a TIA. Her family denies any history of seizures. 2D echo 2 months ago was unremarkable. Carotid Doppler 50 to 69% narrowing of proximal right ICA, less than 50% diameter narrowing proximal left ICA. Patient is to continue high sensitive statin, optimize BP and diabetic control. She needs to follow-up with vascular surgeon for further evaluation and intervention. 12/28/2019-patient is confused and agitated. Unable to communicate reasonably. Capacity exam will be requested. (8) Serratia infection Is this a current diagnosis for this admission?: Yes Plan: Serratia noted in 1 blood culture set. Initially was receiving Vanco and Zosyn for osteomyelitis. Currently switch on doxycycline p.o. Sensitive to tetracycline should be covered with doxycycline. Received 7 days of doxycycline 100 mg p.o. twice daily. Had to be switched back to Vanco as patient is developing left lower extremity wet gangrene. 12/28/2019-patient is presently on IV vancomycin, as per her with recommendations to add IV Zosyn. Repeat blood cultures are negative. (9) Diabetes mellitus type 2 in obese Is this a current diagnosis for this admission?: No Plan: Hemoglobin A1c 6.4, down from 9.0. Accu-Cheks every 6 hours. Patient noted to be hypoglycemic and was started on D5NS. Patient does not need to be on anti-diabetic anymore based on her hypoglycemic episodes and hemoglobin A1c. Continue Accu-Chek frequently, hypoglycemia protocol, monitor blood glucose levels frequently. Encourage frequent snacking. Follow-up with PCP for evaluation of diabetes and diabetic management. - Time Anticipated discharge: Hospice Within: within 48 hours
[2019-12-31] MEDS: TIMOLOL MALEATE 0.5% OPH SOLN 5 ML OU SCH ×2 (10:35→17:27)
[2019-12-31] MEDS: BRIMONIDINE TARTRATE 0.2% OPH SOLN 5 ML OU SCH ×2 (10:35→17:27)
[2019-12-31] MEDS: KETOROLAC TROMETHAMINE INJ/PF 30 MG/1 ML SDV IV PRN (11:19)
[2019-12-31] MEDS: ASPIRIN 81 MG TABLET, ENT COATED PO SCH (12:36)
[2019-12-31] MEDS: SENNOSIDES/DOCUSATE 8.6-50 MG 1 EACH TABLET PO SCH ×2 (12:36→17:19)
--- NOTE | 2019-12-31 13:32 | PDOC PROGRESS REPORT ---
Subjective Progress Note for:: 12/31/19 Reason For Visit: Patient seen on dialysis today. She has been in a lot of pain and she has been given narcotics that she is sleeping. She is easily arousable though. Denies history of chest pain or shortness of breath. Family which includes and daughter still struggling to make firm and definitive decisions about left BKA and possible amputations of upper extremities as well with evolving and progressive gangrene of her fingers now as well. Labs and medications were reviewed. Dialysis orders were reviewed with the treating dialysis nurse. Physical Exam Vital Signs: Temp Pulse Resp BP Pulse Ox 98.0 F 72 16 167/67 H 99 12/31/19 07:53 12/31/19 07:53 12/31/19 07:53 12/31/19 07:53 12/31/19 07:53 Intake & Output 12/30/19 12/31/19 01/01/20 06:59 06:59 06:59 Intake Total 1500 220 50 Output Total 2000 0 0 Balance -500 220 50 Weight 83.2 kg 84.2 kg General appearance: PRESENT: no acute distress Respiratory exam: PRESENT: clear to auscultation genia, decreased breath sounds. ABSENT: crackles Cardiovascular exam: PRESENT: +S1, +S2 GI/Abdominal exam: PRESENT: soft. ABSENT: organomegaly, tenderness Extremities exam: ABSENT: pedal edema Neurological exam: PRESENT: altered Results Laboratory Results: 12/31/19 07:47 12/31/19 07:47 12/31/19 12/31/19 07:47 07:47 WBC 17.4 H RBC 2.74 L Hgb 8.0 L Hct 24.3 L MCV 89 MCH 29.1 MCHC 32.7 RDW 21.1 H Plt Count 105 L Sodium 135.6 L Potassium 4.9 Chloride 96 L Carbon Dioxide 24 Anion Gap 16 BUN 38 H Creatinine 6.72 H Est GFR ( Amer) 7 L Glucose 186 H Calcium 9.6 12/17/19 12/18/19 12/18/19 05:45 14:30 14:30 Creatine Kinase 499 H 468 H CK-MB (CK-2) 5.00 H Troponin I 0.026 NT-Pro-B Natriuret Pep [id number] H 12/19/19 12/19/19 12/19/19 00:13 07:00 12:05 Creatine Kinase CK-MB (CK-2) Troponin I 0.044 0.060 0.062 NT-Pro-B Natriuret Pep Impressions: Foot X-Ray 12/13/19 17:55 IMPRESSION: Osteopenia. Calcaneal spurs. Head CT 12/18/19 00:00 IMPRESSION: NO ACUTE INTRACRANIAL IMAGING FINDINGS. EVIDENCE OF ACUTE STROKE: NO. Chest X-Ray 12/19/19 08:29 IMPRESSION: Pulmonary vascular prominence without pulmonary edema or pleural effusion Stable cardiomegaly Carotid Doppler Study 12/20/19 00:00 IMPRESSION: 50 to 69% narrowing proximal right ICA by systolic velocity ratio Less than 50% diameter narrowing proximal left ICA Head MRI 12/24/19 13:56 IMPRESSION: Motion artifact. Atrophy with minor small vessel ischemic change. copyright 2010 [employer]- All Rights Reserved Assessment & Plan - Diagnosis (1) ESRD (end stage renal disease) on dialysis Is this a current diagnosis for this admission?: No Plan: Currently undergoing dialysis without any issues. Vital signs are stable. Dialysis being supervised. Plan to remove approximately 1.5 L as tolerated. Dialysis orders were reviewed with the treating dialysis nurse. Adjust erythropoietin on dialysis. (2) Peripheral vascular disease in diabetes mellitus Is this a current diagnosis for this admission?: Yes Plan: Status post right BKA. She is got evidences of severe peripheral vascular disease with gangrene of her left toes as well. It looks like she has also got bad peripheral vascular disease affecting her upper extremities bilaterally as well as seen by early dry gangrenous features which are quite symptomatic. Unfortunately she is a vasculopath because of her poor compliance with her diabetes and diet and dialysis requirements in the past. She is getting much more in pain in spite of pain medications and is now seeking more definitive treatment. She is now in need of her left BKA or an AKA besides possible amputations of the upper extremities as well with evolving gangrenous features of her fingers now. Family which includes her and daughter is struggling to make any firm definitive recommendations for interventions. Daughter on way from [place]. (3) Hypertension Qualifiers: Hypertension type: essential hypertension Qualified Code(s): I10 - Essential (primary) hypertension Is this a current diagnosis for this admission?: Yes Plan: Fairly well controlled. Monitor. (4) Diabetes mellitus type 2 in obese Is this a current diagnosis for this admission?: No Plan: Advised tight control which she has not done in the past as she is been a very noncompliant patient.Not hypoglycemic currently. (5) Anemia in chronic kidney disease (CKD) Qualifiers: Chronic kidney disease stage: on chronic dialysis Qualified Code(s): N18.6 - End stage renal disease; D63.1 - Anemia in chronic kidney disease; Z99.2 - Dependence on renal dialysis Is this a current diagnosis for this admission?: No Plan: Adjust erythropoietin on dialysis. (6) Delirium due to another medical condition Is this a current diagnosis for this admission?: Yes Plan: Presently the patient is delirious which is multifactorial. Further management as per hospitalist.
[2019-12-31] MEDS: MORPHINE SULFATE 10 MG/ML INJ IV PRN (14:41)
--- NOTE | 2019-12-31 15:16 | RADIOLOGY REPORT (SQ) ---
EXAM DESCRIPTION: ARTERIAL UPPER EXTREM UNILAT IMAGES COMPLETED DATE/TIME: 12/31/2019 1:12 pm REASON FOR STUDY: severe peripheral vasular disease COMPARISON: None. TECHNIQUE: Dynamic and static harman scale and color images acquired of the bilateral upper extremity arteries. Additional selected spectral images recorded. Images saved to PACS. LIMITATIONS: None. FINDINGS: RIGHT UPPER EXTREMITY: SUBCLAVIAN: Normal Doppler waveforms. No velocity elevation to suggest stenosis. AXILLARY: Normal Doppler waveforms. No velocity elevation to suggest stenosis. Normal color Doppler evaluation. BRACHIAL: Normal Doppler waveforms. No velocity elevation to suggest stenosis. Normal color Doppler evaluation. RADIAL: Normal Doppler waveforms. No velocity elevation to suggest stenosis. Normal color Doppler e valuation. ULNAR: Normal Doppler waveforms. No velocity elevation to suggest stenosis. Normal color Doppler ev aluation. OTHER: No other significant finding. IMPRESSION: Normal right upper extremity arterial duplex. TECHNICAL DOCUMENTATION: JOB ID: [id number] 2010 [email or web address]- All Rights Reserved Reading location - IP/workstation name: [email or web address]
[2019-12-31] MEDS: MEGESTROL ACETATE 20 MG TABLET PO SCH (16:05)
[2019-12-31] MEDS: AMLODIPINE BESYLATE 5 MG TABLET PO SCH (16:06)
[2019-12-31] MEDS: SILVER SULFADIAZINE 1% CREAM 50 GM TP SCH ×2 (16:21→17:27)
[2019-12-31] MEDS ORDERED: MORPHINE SULFATE 10 MG/ML INJ IV ONE (17:00)
[2019-12-31] MEDS ORDERED: VANCOMYCIN HCL 500 MG in DEXTROSE 5%-WATER 100 ML IV SCH (18:00)
[2019-12-31] MEDS: METOPROLOL SUCCINATE 50 MG TAB.SR.24H PO SCH (21:57)
[2020-01-01] MEDS: CLONIDINE HCL 0.2 MG TABLET PO SCH ×4 (00:03→18:01)
[2020-01-01] MEDS: LORAZEPAM INJ 2 MG/1 ML VIAL IV PRN ×4 (01:20→21:03)
[2020-01-01] MEDS: HEPARIN SOD (PORCINE) 5,000 UNIT/ML 1 ML VIAL SUBCUT SCH ×3 (05:28→22:49)
[2020-01-01] MEDS: PANTOPRAZOLE SODIUM 40 MG TABLET.DR PO SCH (05:29)
[2020-01-01] MEDS: PIPERACILLIN SODIUM/TAZOBACTAM 2.25 GM in NORMAL SALINE 50 ML IV SCH ×2 (05:32→17:37)
[2020-01-01] MEDS ORDERED: FENTANYL CITRATE INJ/PF 100 MCG/2 ML AMPUL ONE ×2 (07:37→10:22)
[2020-01-01] MEDS ORDERED: MIDAZOLAM 2 MG/2 ML INJ ONE (07:37)
[2020-01-01] MEDS ORDERED: ONDANSETRON HCL INJ/PF 4 MG/2 ML SDV ONE (07:37)
[2020-01-01] MEDS ORDERED: PROPOFOL INJ 200 MG/20 ML VIAL IV ONE (07:38)
[2020-01-01] MEDS ORDERED: SUCCINYLCHOLINE CHLORIDE INJ 200 MG/10 ML VIAL ONE (08:31)
[2020-01-01] MEDS ORDERED: ONDANSETRON HCL INJ/PF 4 MG/2 ML SDV IV PRN (08:51)
[2020-01-01] MEDS ORDERED: MORPHINE SULFATE 10 MG/ML INJ IV PRN ×2 (08:51→10:26)
[2020-01-01] MEDS ORDERED: DIPHENHYDRAMINE HCL 50 MG/ML VIAL IV PRN (08:51)
[2020-01-01] MEDS ORDERED: FENTANYL CITRATE INJ/PF 100 MCG/2 ML AMPUL IV PRN ×3 (08:51)
[2020-01-01] MEDS ORDERED: OXYCODONE-ACETAMINOPHEN 5-325 MG TABLET PO PRN ×3 (08:51→10:25)
[2020-01-01] MEDS ORDERED: PROMETHAZINE HCL INJ 25 MG/1 ML VIAL IV PRN ×2 (08:51)
[2020-01-01] MEDS ORDERED: MEPERIDINE HCL/PF INJ 25 MG/1 ML DISP.SYRIN IV PRN (08:51)
--- NOTE | 2020-01-01 10:23 | Operative Report ---
Operative Report DATE OF SURGERY: 01/01/20 PREOPERATIVE DIAGNOSIS: Gangrene left toes,. Arterial insufficiency left leg POSTOPERATIVE DIAGNOSIS: Same OPERATION: Left above-knee amputation SURGEON: RASHAAD SUNG ANESTHESIA: GA TISSUE REMOVED OR ALTERED: Left leg COMPLICATIONS: None ESTIMATED BLOOD LOSS: 50 cc QUANTITATIVE BLOOD LOSS: 50 INTRAOPERATIVE FINDINGS: Calcified arteries PROCEDURE: After adequate general anesthesia patient was placed in supine position and the left lower leg prepped and draped in the usual sterile fashion. Appropriate timeout was then called. A fishmouth incision was then made just above the knee and the incision deepened through the fascia and muscle with the use of cautery. The femoral vessels were identified and isolated and clamped divided and ligated with 0 Vicryl and suture ligated also with 2-0 Vicryl. The anterior muscles were then divided. The muscles were retracted cephalic and femur identified. The periosteum was then elevated proximally and subsequently divided with with a saw. The posterior muscles or the hamstring muscles were then divided with the use of cautery. The lateral collateral small arteries that were calcified and then clamped divided and ligated with 2-0 Vicryl ties. The sciatic nerve was pulled out and right angle clamp placed as proximal as possible and divided distal to the clamp and subsequently ligated with 0 Vicryl tie. The lower leg specimen was then removed off the table and sent for pathology. The stump subsequently irrigated with saline solution and further hemostasis obtained with cautery and smaller arteries were clamped and ligated with 2-0 Vicryl ties. Adequate hemostasis was noted. The end of the femur was subsequently filed to finger smoothness. The fascia around the bone was closed with [id number]-[id number] suture using 0 Vicryl. The muscle and anterior fascia were then closed with interrupted sutures using 0 Vicryl. Abraham drains were placed on each corner brought inside divided muscle area. There were then anchored to the skin with 2-0 nylon. The skin was then reapproximated with genesis. Xeroform gauze placed over the skin incision site and stump dressed with 4 x 4 ABD and wrapped with Kerlix and 6inch Bakari bandage. Patient tolerated procedure well and brought to the recovery room in satisfactory condition
--- NOTE | 2020-01-01 10:47 | PDOC PROGRESS REPORT ---
Subjective Progress Note for:: 01/01/20 Subjective:: 64 year old female who presents the emergency room with a one-week history of bilateral foot pain. She admits the abrupt onset of pain in both feet 1 week ago. Her pain is a moderate dull pressure at rest but turns into a severe sharp searing pain with weightbearing. Her foot pain was accompanied by the development of "blisters" of her right great, second and third toes as well as her left second and third toes. The blisters have "broken" over time, becoming darkened skin with a foul odor. Her foot pain was associated with swelling in her bilateral lower extremities below the knee. She denies other associated or accompanying signs and symptoms. She she denies prior similar episodes. She has not identified any additional aggravating or ameliorating factors for her foot pain. In the emergency room she was found to have gangrene of the right great second and third toes as well as the left second and third toes. Surgical consultation with Dr. Kuo was obtained by the emergency room provider and he asked for the hospitalist service to admit the patient and consult him as well as Dr. Sadler for nephrology. Patient was subsequently admitted to the hospital for further evaluation treatment. 12/21/2019. No acute events overnight. Resting in bed no apparent distress, accompanied with relatives, very tearful about possibility of losing her other foot, otherwise denies any fever, chills, nausea, vomiting, diarrhea, constipation. 12/22/2019. No acute events overnight. Patient still very emotional, however cooperative with physical examination. Alert and oriented. Patient was supposed to be transferred to SNF today however they refused to accept her because patient was placed on soft restraints for some reason overnight. 12/23/2019. No acute events overnight. This morning patient resting with no apparent distress, awake however seems to be confused, very emotional and tearful, cooperative with physical examination, denies any fever, chills, nausea, vomiting, diarrhea. Has not had a bowel in several days, endorses low appetite, does not feel like eating. Has been refusing her food. 12/24/2019. Patient is still refusing to eat, endorsing very low appetite, noted to be hypoglycemic this morning, complaining of right hand pain, still very confused very low attention span and emotional, had a conversation over the phone with her daughter who said that she is very anxious and emotional and has had some confusion problem in the past which has been getting worse since his hospitalization. Patient denies any fever, chills, nausea, vomiting. 12/25/2019. No acute events overnight. Patient is more awake today, alert and oriented, tells me she is in the hospital knows the name of the hospital and knows that she had a right AKA. Still very emotional and complaining of right hand pain, patient still endorsing low appetite and has been refusing to eat. Patient denies any fever, chills, nausea, shortness of breath or chest pain. Patient had an MRI yesterday which was not optimal due to motion artifact however it was negative for any acute stroke. 12/26/2019. No acute events overnight. Saw patient this afternoon accompanied by her . As per patient is back to baseline. She is alert and oriented, sitting edge of the bed, cooperative with physical examination. Her was notified about her lack of appetite and refusal to eat. He states that she does not like the food here and prefers from outside. I will confirm that she does not like the food here and prefers to eat from [facility]. Since patient is not eating much and is also hypoglycemic I have agreed for patient to have any kind of food she prefers to encourage her to increase her p.o. intake. Her has kindly agreed to bring her food from outside the hospital. Patient denies any fever, chills, nausea, vomiting, diarrhea, constipation or any urinary symptoms. 12/27/2019. No acute events overnight. Patient output is improving since she is being provided regular food, hypoglycemia protocol, unfortunately patient has d eveloped left fourth metatarsal swelling and, tenderness and follows discharge, otherwise denies any fever, chills, nausea, vomiting, diarrhea, constipation or any urinary symptoms. Dr. Buchanan from surgery has been reconsulted and he has kindly agreed to reevaluate her. 12/28/2019-tried to have a discussion with the patient about the need for left AKA. Patient is not willing to give a consent. Looks to me patient is confused and unable to take right decisions. So capacity exam will be requested. To start her back on renal diet and to discontinue IV fluids. Started on IV morphine 2 mg every 4 as needed for pain. As per the pharmacy Zosyn is added to the vancomycin. 12/29/2019-psych evaluation was done yesterday the recommendation is patient need a power of veneer glue jointer feedback like her because at this moment patient is unable to take good decisions and lacks the capacity of understanding the current medical issues. I spoke to Jaylon Villasenor this morning he wants me to call him back tomorrow to discuss the plan 12/30/2019-pt status was discussed with patient's daughter Marta, as per her Jaylon Villasenor he agreed for left AKA. He is on the way to the hospital signed the consent. Surgery is notified. They want to keep her n.p.o. from midnight for surgery tomorrow. On examination patient has chronic skin changes affecting the right hand middle finger index finger. Right radial pulses are poor. Will request for right upper extremity Doppler. 12/30-pt is agitated and confused, refusi ultrasound examination of the right arm. Patient status discussed with Zac she is on the way from [place]. She is requesting for strong pain medications for pain management. Started on IV morphine 3 mg every 4 hours. She will be also on IV Ativan as needed for agitation. Overall prognosis poor condition is critical. Discussed about hospice issues if the family not agreeing for left AKA. 01/01/2020-right upper extremity ultrasound was done negative for vascular disease as per the radiology. She went for left AKA operation was successful. Patient was seen in the PACU. at te tme of My examination patient is sleeping comfortably. Reason For Visit: GANGRENE BILATERAL TOES,ESRD ON DIALYSIS,PERIPHER Physical Exam Vital Signs: Temp Pulse Resp BP Pulse Ox 98.0 F 76 17 143/84 H 93 01/01/20 07:24 01/01/20 07:24 01/01/20 07:24 01/01/20 07:24 01/01/20 07:24 Intake & Output 12/31/19 01/01/20 01/02/20 06:59 06:59 06:59 Intake Total 220 200 50 Output Total 0 1000 Balance 220 -800 50 Weight 84.2 kg 85.2 kg General appearance: PRESENT: no acute distress, obese Head exam: PRESENT: atraumatic Eye exam: PRESENT: PERRLA Ear exam: PRESENT: normal external ear exam Mouth exam: PRESENT: neck supple Teeth exam: PRESENT: poor dentation Neck exam: ABSENT: carotid bruit, JVD, lymphadenopathy, thyromegaly Respiratory exam: PRESENT: decreased breath sounds Cardiovascular exam: PRESENT: RRR. ABSENT: diastolic murmur, rubs, systolic murmur GI/Abdominal exam: PRESENT: normal bowel sounds, soft. ABSENT: distended, guarding, mass, organolmegaly, rebound, tenderness Rectal exam: PRESENT: deferred Extremities exam: PRESENT: other - Patient has left AKA now and has a right BKA, right hand fingers indicate blackish discoloration at the fingertips. Radial pulse in the right hand is good. Neurological exam: PRESENT: altered Results Laboratory Results: 12/31/19 07:47 12/31/19 07:47 12/17/19 12/18/19 12/18/19 05:45 14:30 14:30 Creatine Kinase 499 H 468 H CK-MB (CK-2) 5.00 H Troponin I 0.026 NT-Pro-B Natriuret Pep [id number] H 12/19/19 12/19/19 12/19/19 00:13 07:00 12:05 Creatine Kinase CK-MB (CK-2) Troponin I 0.044 0.060 0.062 NT-Pro-B Natriuret Pep Impressions: Foot X-Ray 12/13/19 17:55 IMPRESSION: Osteopenia. Calcaneal spurs. Head CT 12/18/19 00:00 IMPRESSION: NO ACUTE INTRACRANIAL IMAGING FINDINGS. EVIDENCE OF ACUTE STROKE: NO. Chest X-Ray 12/19/19 08:29 IMPRESSION: Pulmonary vascular prominence without pulmonary edema or pleural effusion Stable cardiomegaly Carotid Doppler Study 12/20/19 00:00 IMPRESSION: 50 to 69% narrowing proximal right ICA by systolic velocity ratio Less than 50% diameter narrowing proximal left ICA Head MRI 12/24/19 13:56 IMPRESSION: Motion artifact. Atrophy with minor small vessel ischemic change. copyright 2011 [employer] All Rights Reserved Upper Extremity Ultrasound 12/31/19 00:00 IMPRESSION: Normal right upper extremity arterial duplex. Assessment and Plan - Diagnosis (1) Diabetic wet gangrene of the foot Is this a current diagnosis for this admission?: Yes Plan: Status post right BKA (12/16/2019). Pathology report negative for osteomyelitis or malignancy. Initially started on vancomycin and Zosyn. Switched to doxycycline 100 mg p.o. on 12/20/2019. Continue doxycycline 100 mg p.o. twice daily for another 4 days. Surgical wound looks clean. No sign of infection. Continue wound care. Follow-up with Dr. Hines surgeon as outpatient. 12/28/2019-left lower extremity looks ischemic. With gangrenous changes affecting the toes. Surgical team recommended left AKA. Patient is not cooperative and refusing to sign consent. Capacity exam will be requested. In the meantime we will continue IV vancomycin and Zosyn. Latest blood cultures are negative initial blood cultures are positive for Serratia. 12/29/2019-psych evaluation was done there impression is patient lacks the capacity in understanding the current medical conditions and the prognosis. Recommendation is patient's needs to be the power of veneer glue jointer feedback. I spoke to Jaylonnan Villasenor this morning to discuss the plan of care he wants me to call him back tomorrow. In the meantime we will continue the present management. 12/30/2019-family agreed for left AKA. Patient's is on the way to the hospital to sign the consent. Surgery is notified. Patient is going to be n.p.o. from midnight for surgery tomorrow. Patient has a severe peripheral vascular disease also affecting the right arm. Chronic skin changes affecting the fingertips of the right hand. Arrange for the right upper extremity ultrasound. 12/31/2019- still thinking about giving a consent for lt AKA. Patient also has necrotic changes in the right middle finger index finger and ring finger. Patient refused ultrasound at this morning. To give IV Ativan 1 mg and try to do the ultrasound Doppler examination today. Case was discussed with Janice she is requesting to start on morphine. She is also thinking about hospice. 01/01/20-patient went for left AKA, Dr. De La Vega called me and told me the surgery was successful. Patient was seen in the PACU. Comfortably sleeping. Receiving IV morphine for pain. (2) Delirium due to another medical condition Is this a current diagnosis for this admission?: Yes Plan: Improving. Back to baseline as per . Alert and awake and oriented x3. Patient is extremely sensitive to opiates and benzodiazepines. An MRI head was done to rule out CVA but unfortunately had a lot of motion artifact and was not optimal however as per MRI report patient did not have a CVA. Patient's family voiced that patient has had some gradual decline in her memory and that she has always been an anxious person however her confusion has worsened since hospitalization. Patient clearly seems to have some baseline cognitive impairment. Also noted to be on fentanyl patch since admission and was also given IV morphine last night. DC fentanyl patch, avoid opiates and benzodiazepines if possible. Highly recommended to follow-up with neurology as outpatient. Closely monitor SPO2, electrolytes and blood glucose levels. 12/28/2019-patient is confused and agitated. Not cooperative. Refusing to sign a consent for left AKA that was needed. Capacity exam will be requested. 12/28-pt is anxoius/agitated, she failed a capacity exam yesterday. 12/30/2019-patient is current confused this morning. But not agitated. Last night nurses told me patient slide off the bed. But no obvious injuries are seen. 12/31/2019-patient is confused and agitated. Not cooperative. (3) Anorexia Is this a current diagnosis for this admission?: Yes Plan: Mild improvement. Plan as per above. (4) Dry gangrene Is this a current diagnosis for this admission?: Yes Plan: Patient has dry gangrene of her left foot mostly second and third toes but unfortunately developed pain infection of the left fourth toe with foul-smelling drainage and swelling and tenderness extending to mid calf. Will switch back to vancomycin and I have consulted Dr. Buchanan for evaluation. Patient might need another left BKA. Does seem to extend past the toes however. Surgeon recommended vascular consultation for potential revascularization before visiting amputation of the toes noting that it would otherwise be very difficult for the surgical wound to heal and may be better served by BKA. Vascular surgeon Dr. Ishan Archuleta from [facility] via telephone consulted and went over lower extremity arterial Dopplers as well as her lower extremity CTA. Dr. Archuleta recommended that, though patient has extensive calcification of her arteries, he does not see any thorough occlusion to flow on his review of the imaging that will need revascularization at this time and states that no revascularization is needed prior to surgical amputation of her toes. Dr. Hines who recommends that there is no urgent need for amputation of the left lower extremity and that he would prefer that patient has an in person consultation with vascular surgery for a full assessment as outpatient prior to pursuing partial amputation of the left foot. Please follow-up with Dr. Ishan Archuleta or any vascular surgeon as outpatient. 12/28/2019-sickle consult was done by Dr. Buchanan recommendation is left AKA. Patient is not cooperative and refusing to give a consent. Patient is confused and agitated. Capacity exam is requested. To discontinue n.p.o. at this time started on renal diet. 12/29/2019-patient need a left AKA, failed capacity exam. I discussed the plan of care with patient's he wants me to call him back tomorrow to discuss the plan. 12/30/2019-family agreed for left AKA. Surgery is notified patient is going to be n.p.o. from midnight. 12/31/2019-patient's change his mind he does not want to give the consent for left BKA and he wants to wait until Friday. Patient's daughter Courtney is on the way from [place]. Hopefully family will decide either with the hospice or left AKA. 01/01/2020-after getting the consent from a patient's , had a successful left AKA. Patient was seen in the PACU unit. Physical therapy consult will be requested. Patient may to need to go to long-term care facility. (5) ESRD (end stage renal disease) on dialysis Is this a current diagnosis for this admission?: No Plan: Hemodialysis per nephrology. 12/28/2019-she had a dialysis session yesterday. Repeat dialysis tomorrow. (6) Anemia in chronic kidney disease (CKD) Qualifiers: Chronic kidney disease stage: on chronic dialysis Qualified Code(s): N18.6 - End stage renal disease; D63.1 - Anemia in chronic kidney disease; Z99.2 - Dependence on renal dialysis Is this a current diagnosis for this admission?: No Plan: Secondary to ESRD and complicated by blood loss from surgery. Hemoglobin holding steady in the 7s. Monitor on CBC. Receiving EPO by nephrology. 12/28/2019-patient has history of anemia of chronic disease hemoglobin is 9.1. Most likely secondary to ESRD. 12/31/2019 patient's hemoglobin is 8. Anemia of chronic disease most likely secondary to end-stage kidney disease. (7) Episode of transient neurologic symptoms Is this a current diagnosis for this admission?: Yes Plan: Improved. Patient is usually very emotional but as per her this is her baseline. MRI head which is not optimal due to motion artifact was negative for any acute stroke. Several days ago patient was noted to have slurring of the face as well as worsening of eye deviation, grinding of teeth and became unresponsive. FUSING MACHINE TENDER had been called. Patient was initially thought to have a stroke but then while taking patient down for CT scan, she gradually became fully alert again and moving all extremities with resolution of her prior symptoms. Head CT was normal. This episode was either caused by oxycodone 5 mg that she received several hours before the episode or she could have had a TIA. Her family denies any history of seizures. 2D echo 2 months ago was unremarkable. Carotid Doppler 50 to 69% narrowing of proximal right ICA, less than 50% diameter narrowing proximal left ICA. Patient is to continue high sensitive statin, optimize BP and diabetic control. She needs to follow-up with vascular surgeon for further evaluation and interven tion. 12/28/2019-patient is confused and agitated. Unable to communicate reasonably. Capacity exam will be requested. (8) Serratia infection Is this a current diagnosis for this admission?: Yes Plan: Serratia noted in 1 blood culture set. Initially was receiving Vanco and Zosyn for osteomyelitis. Currently switch on doxycycline p.o. Sensitive to tetracycline should be covered with doxycycline. Received 7 days of doxycycline 100 mg p.o. twice daily. Had to be switched back to Vanco as patient is developing left lower extremity wet gangrene. 12/28/2019-patient is presently on IV vancomycin, as per her with recommendations to add IV Zosyn. Repeat blood cultures are negative. (9) Diabetes mellitus type 2 in obese Is this a current diagnosis for this admission?: No Plan: Hemoglobin A1c 6.4, down from 9.0. Accu-Cheks every 6 hours. Patient noted to be hypoglycemic and was started on D5NS. Patient does not need to be on anti-diabetic anymore based on her hypoglycemic episodes and hemoglobin A1c. Continue Accu-Chek frequently, hypoglycemia protocol, monitor blood glucose levels frequently. Encourage frequent snacking. Follow-up with PCP for evaluation of diabetes and diabetic management. - Time Anticipated discharge: Hospice Within: within 72 hours
[2020-01-01] MEDS: AMLODIPINE BESYLATE 5 MG TABLET PO SCH (11:15)
[2020-01-01] MEDS: ASPIRIN 81 MG TABLET, ENT COATED PO SCH (11:15)
[2020-01-01] MEDS: MEGESTROL ACETATE 20 MG TABLET PO SCH (11:15)
[2020-01-01] MEDS: SENNOSIDES/DOCUSATE 8.6-50 MG 1 EACH TABLET PO SCH ×2 (11:15→18:01)
[2020-01-01] MEDS: TIMOLOL MALEATE 0.5% OPH SOLN 5 ML OU SCH ×2 (11:16→18:01)
[2020-01-01] MEDS: BRIMONIDINE TARTRATE 0.2% OPH SOLN 5 ML OU SCH ×2 (11:16→18:01)
[2020-01-01] MEDS: SILVER SULFADIAZINE 1% CREAM 50 GM TP SCH ×2 (11:17→17:34)
[2020-01-01] MEDS: KETOROLAC TROMETHAMINE INJ/PF 30 MG/1 ML SDV IV PRN ×2 (14:09→20:17)
[2020-01-01] MEDS: MORPHINE SULFATE 10 MG/ML INJ IV PRN (17:37)
[2020-01-01] MEDS: DEXTROSE 50%-WATER 25 GM/50 ML DISP.SYRIN IV PRN (22:01)
[2020-01-02] MEDS: CLONIDINE HCL 0.2 MG TABLET PO SCH ×4 (01:35→17:05)
[2020-01-02] MEDS: METOPROLOL SUCCINATE 50 MG TAB.SR.24H PO SCH ×2 (01:35→22:06)
[2020-01-02] MEDS: PANTOPRAZOLE SODIUM 40 MG TABLET.DR PO SCH (05:45)
[2020-01-02] MEDS: HEPARIN SOD (PORCINE) 5,000 UNIT/ML 1 ML VIAL SUBCUT SCH ×3 (05:45→22:06)
[2020-01-02] MEDS: PIPERACILLIN SODIUM/TAZOBACTAM 2.25 GM in NORMAL SALINE 50 ML IV SCH ×2 (05:47→17:24)
[2020-01-02] MEDS: LORAZEPAM INJ 2 MG/1 ML VIAL IV PRN ×3 (08:32→17:24)
--- NOTE | 2020-01-02 09:23 | PDOC PROGRESS REPORT ---
Subjective Progress Note for:: 01/02/20 Subjective:: 64 year old female who presents the emergency room with a one-week history of bilateral foot pain. She admits the abrupt onset of pain in both feet 1 week ago. Her pain is a moderate dull pressure at rest but turns into a severe sharp searing pain with weightbearing. Her foot pain was accompanied by the development of "blisters" of her right great, second and third toes as well as her left second and third toes. The blisters have "broken" over time, becoming darkened skin with a foul odor. Her foot pain was associated with swelling in her bilateral lower extremities below the knee. She denies other associated or accompanying signs and symptoms. She she denies prior similar episodes. She has not identified any additional aggravating or ameliorating factors for her foot pain. In the emergency room she was found to have gangrene of the right great second and third toes as well as the left second and third toes. Surgical consultation with Dr. Kuo was obtained by the emergency room provider and he asked for the hospitalist service to admit the patient and consult him as well as Dr. Sadler for nephrology. Patient was subsequently admitted to the hospital for further evaluation treatment. 12/21/2019. No acute events overnight. Resting in bed no apparent distress, accompanied with relatives, very tearful about possibility of losing her other foot, otherwise denies any fever, chills, nausea, vomiting, diarrhea, constipation. 12/22/2019. No acute events overnight. Patient still very emotional, however cooperative with physical examination. Alert and oriented. Patient was supposed to be transferred to SNF today however they refused to accept her because patient was placed on soft restraints for some reason overnight. 12/23/2019. No acute events overnight. This morning patient resting with no apparent distress, awake however seems to be confused, very emotional and tearful, cooperative with physical examination, denies any fever, chills, nausea, vomiting, diarrhea. Has not had a bowel in several days, endorses low appetite, does not feel like eating. Has been refusing her food. 12/24/2019. Patient is still refusing to eat, endorsing very low appetite, noted to be hypoglycemic this morning, complaining of right hand pain, still very confused very low attention span and emotional, had a conversation over the phone with her daughter who said that she is very anxious and emotional and has had some confusion problem in the past which has been getting worse since his hospitalization. Patient denies any fever, chills, nausea, vomiting. 12/25/2019. No acute events overnight. Patient is more awake today, alert and oriented, tells me she is in the hospital knows the name of the hospital and knows that she had a right AKA. Still very emotional and complaining of right hand pain, patient still endorsing low appetite and has been refusing to eat. Patient denies any fever, chills, nausea, shortness of breath or chest pain. Patient had an MRI yesterday which was not optimal due to motion artifact however it was negative for any acute stroke. 12/26/2019. No acute events overnight. Saw patient this afternoon accompanied by her . As per patient is back to baseline. She is alert and oriented, sitting edge of the bed, cooperative with physical examination. Her was notified about her lack of appetite and refusal to eat. He states that she does not like the food here and prefers from outside. I will confirm that she does not like the food here and prefers to eat from [facility]. Since patient is not eating much and is also hypoglycemic I have agreed for patient to have any kind of food she prefers to encourage her to increase her p.o. intake. Her has kindly agreed to bring her food from outside the hospital. Patient denies any fever, chills, nausea, vomiting, diarrhea, constipation or any urinary symptoms. 12/27/2019. No acute events overnight. Patient output is improving since she is being provided regular food, hypoglycemia protocol, unfortunately patient has d eveloped left fourth metatarsal swelling and, tenderness and follows discharge, otherwise denies any fever, chills, nausea, vomiting, diarrhea, constipation or any urinary symptoms. Dr. Buchanan from surgery has been reconsulted and he has kindly agreed to reevaluate her. 12/28/2019-tried to have a discussion with the patient about the need for left AKA. Patient is not willing to give a consent. Looks to me patient is confused and unable to take right decisions. So capacity exam will be requested. To start her back on renal diet and to discontinue IV fluids. Started on IV morphine 2 mg every 4 as needed for pain. As per the pharmacy Zosyn is added to the vancomycin. 12/29/2019-psych evaluation was done yesterday the recommendation is patient need a power of deputy county attorney like her because at this moment patient is unable to take good decisions and lacks the capacity of understanding the current medical issues. I spoke to Jaylon Villasenor this morning he wants me to call him back tomorrow to discuss the plan 12/30/2019-pt status was discussed with patient's daughter Marta, as per her Jaylon Villasenor he agreed for left AKA. He is on the way to the hospital signed the consent. Surgery is notified. They want to keep her n.p.o. from midnight for surgery tomorrow. On examination patient has chronic skin changes affecting the right hand middle finger index finger. Right radial pulses are poor. Will request for right upper extremity Doppler. 12/30-pt is agitated and confused, refusi ultrasound examination of the right arm. Patient status discussed with aZc she is on the way from [place]. She is requesting for strong pain medications for pain management. Started on IV morphine 3 mg every 4 hours. She will be also on IV Ativan as needed for agitation. Overall prognosis poor condition is critical. Discussed about hospice issues if the family not agreeing for left AKA. 01/01/2020-right upper extremity ultrasound was done negative for vascular disease as per the radiology. She went for left AKA operation was successful. Patient was seen in the PACU. at te tme of My examination patient is sleeping comfortably. 01/02/2020-patient has a left AKA yesterday. Tolerated the procedure very well. No postop complications. On examination this morning patient is comfortably sleeping in the bed. Receiving IV morphine and IV Ativan on a as needed basis. Reason For Visit: GANGRENE BILATERAL TOES,ESRD ON DIALYSIS,PERIPHER Physical Exam Vital Signs: Temp Pulse Resp BP Pulse Ox 98.1 F 92 17 123/91 H 94 01/02/20 08:47 01/02/20 08:47 01/02/20 08:47 01/02/20 08:47 01/02/20 04:18 Intake & Output 01/01/20 01/02/20 01/03/20 06:59 06:59 06:59 Intake Total 200 425 50 Output Total 1000 50 Balance -800 375 50 Weight 85.2 kg 86 kg General appearance: PRESENT: no acute distress, well-developed Head exam: PRESENT: atraumatic Eye exam: PRESENT: conjunctiva pale, PERRLA Mouth exam: PRESENT: moist, tongue midline Teeth exam: PRESENT: poor dentation Neck exam: ABSENT: carotid bruit, JVD, lymphadenopathy, thyromegaly Cardiovascular exam: PRESENT: RRR. ABSENT: diastolic murmur, rubs, systolic murmur GI/Abdominal exam: PRESENT: normal bowel sounds, soft. ABSENT: distended, guarding, mass, organolmegaly, rebound, tenderness Rectal exam: PRESENT: deferred Extremities exam: PRESENT: other - Patient has a left AKA and right BKA with stump wound looks clean. Neurological exam: PRESENT: altered Psychiatric exam: PRESENT: appropriate affect, normal mood. ABSENT: homicidal ideation, suicidal ideation Results Laboratory Results: 12/31/19 07:47 12/31/19 07:47 12/17/19 12/18/19 12/18/19 05:45 14:30 14:30 Creatine Kinase 499 H 468 H CK-MB (CK-2) 5.00 H Troponin I 0.026 NT-Pro-B Natriuret Pep [id number] H 12/19/19 12/19/19 12/19/19 00:13 07:00 12:05 Creatine Kinase CK-MB (CK-2) Troponin I 0.044 0.060 0.062 NT-Pro-B Natriuret Pep Impressions: Foot X-Ray 12/13/19 17:55 IMPRESSION: Osteopenia. Calcaneal spurs. Head CT 12/18/19 00:00 IMPRESSION: NO ACUTE INTRACRANIAL IMAGING FINDINGS. EVIDENCE OF ACUTE STROKE: NO. Chest X-Ray 12/19/19 08:29 IMPRESSION: Pulmonary vascular prominence without pulmonary edema or pleural effusion Stable cardiomegaly Carotid Doppler Study 12/20/19 00:00 IMPRESSION: 50 to 69% narrowing proximal right ICA by systolic velocity ratio Less than 50% diameter narrowing proximal left ICA Head MRI 12/24/19 13:56 IMPRESSION: Motion artifact. Atrophy with minor small vessel ischemic change. copyright 2010 [employer]- All Rights Reserved Upper Extremity Ultrasound 12/31/19 00:00 IMPRESSION: Normal right upper extremity arterial duplex. Assessment and Plan - Diagnosis (1) Diabetic wet gangrene of the foot Is this a current diagnosis for this admission?: Yes Plan: Status post right BKA (12/16/2019). Pathology report negative for osteomyelitis or malignancy. Initially started on vancomycin and Zosyn. Switched to doxycycline 100 mg p.o. on 12/20/2019. Continue doxycycline 100 mg p.o. twice daily for another 4 days. Surgical wound looks clean. No sign of infection. Continue wound care. Follow-up with Dr. Hines surgeon as outpatient. 12/28/2019-left lower extremity looks ischemic. With gangrenous changes affecting the toes. Surgical team recommended left AKA. Patient is not cooperative and refusing to sign consent. Capacity exam will be requested. In the meantime we will continue IV vancomycin and Zosyn. Latest blood cultures are negative initial blood cultures are positive for Serratia. 12/29/2019-psych evaluation was done there impression is patient lacks the capacity in understanding the current medical conditions and the prognosis. Recommendation is patient's needs to be the power of deputy county attorney. I spoke to Jaylon Villasenor this morning to discuss the plan of care he wants me to call him back tomorrow. In the meantime we will continue the present management. 12/30/2019-family agreed for left AKA. Patient's is on the way to the hospital to sign the consent. Surgery is notified. Patient is going to be n.p.o. from midnight for surgery tomorrow. Patient has a severe peripheral vascular disease also affecting the right arm. Chronic skin changes affecting the fingertips of the right hand. Arrange for the right upper extremity ultrasound. 12/31/2019- still thinking about giving a consent for lt AKA. Patient also has necrotic changes in the right middle finger index finger and ring finger. Patient refused ultrasound at this morning. To give IV Ativan 1 mg and try to do the ultrasound Doppler examination today. Case was discussed with Janice she is requesting to start on morphine. She is also thinking about hospice. 01/01/20-patient went for left AKA, Dr. De La Vega called me and told me the surgery was successful. Patient was seen in the PACU. Comfortably sleeping. Receiving IV morphine for pain. 01/02/2020-patient has a left AKA was done. No postop complications noticed. Patient is comfortably in the bed sleeping at this time. (2) Delirium due to another medical condition Is this a current diagnosis for this admission?: Yes Plan: Improving. Back to baseline as per . Alert and awake and oriented x3. Patient is extremely sensitive to opiates and benzodiazepines. An MRI head was done to rule out CVA but unfortunately had a lot of motion artifact and was not optimal however as per MRI report patient did not have a CVA. Patient's family voiced that patient has had some gradual decline in her memory and that she has always been an anxious person however her confusion has worsened since hospitalization. Patient clearly seems to have some baseline cognitive impairment. Also noted to be on fentanyl patch since admission and was also given IV morphine last night. DC fentanyl patch, avoid opiates and benzodiazepines if possible. Highly recommended to follow-up with neurology as outpatient. Closely monitor SPO2, electrolytes and blood glucose levels. 12/28/2019-patient is confused and agitated. Not cooperative. Refusing to sign a consent for left AKA that was needed. Capacity exam will be requested. 12/28-pt is anxoius/agitated, she failed a capacity exam yesterday. 12/30/2019-patient is current confused this morning. But not agitated. Last night nurses told me patient slide off the bed. But no obvious injuries are seen. 12/31/2019-patient is confused and agitated. Not cooperative. (3) Anorexia Is this a current diagnosis for this admission?: Yes Plan: Mild improvement. Plan as per above. (4) Dry gangrene Is this a current diagnosis for this admission?: Yes Plan: Patient has dry gangrene of her left foot mostly second and third toes but unfo rtunately developed pain infection of the left fourth toe with foul-smelling drainage and swelling and tenderness extending to mid calf. Will switch back to vancomycin and I have consulted Dr. Buchanan for evaluation. Patient might need another left BKA. Does seem to extend past the toes however. Surgeon recommended vascular consultation for potential revascularization before visiting amputation of the toes noting that it would otherwise be very difficult for the surgical wound to heal and may be better served by BKA. Vascular surgeon Dr. Ishan Archuleta from [facility] via telephone consulted and went over lower extremity arterial Dopplers as well as her lower extremity CTA. Dr. Archuleta recommended that, though patient has extensive calcification of her arteries, he does not see any thorough occlusion to flow on his review of the imaging that will need revascularization at this time and states that no revascularization is needed prior to surgical amputation of her toes. Dr. Hines who recommends that there is no urgent need for amputation of the left lower extremity and that he would prefer that patient has an in person consultation with vascular surgery for a full assessment as outpatient prior to pursuing partial amputation of the left foot. Please follow-up with Dr. Ishan Archuleta or any vascular surgeon as outpatient. 12/28/2019-sickle consult was done by Dr. Buchanan recommendation is left AKA. Patient is not cooperative and refusing to give a consent. Patient is confused and agitated. Capacity exam is requested. To discontinue n.p.o. at this time started on renal diet. 12/29/2019-patient need a left AKA, failed capacity exam. I discussed the plan of care with patient's he wants me to call him back tomorrow to discuss the plan. 12/30/2019-family agreed for left AKA. Surgery is notified patient is going to be n.p.o. from midnight. 12/31/2019-patient's change his mind he does not want to give the consent for left BKA and he wants to wait until Friday. Patient's daughter Courtney is on the way from [place]. Hopefully family will decide either with the hospice or left AKA. 01/01/2020-after getting the consent from a patient's , had a successful left AKA. Patient was seen in the PACU unit. Physical therapy consult will be requested. Patient may to need to go to long-term care facility. 01/02/2020-patient has a successful left AKA. Comfortably sleeping in the bed at this time. (5) ESRD (end stage renal disease) on dialysis Is this a current diagnosis for this admission?: No Plan: Hemodialysis per nephrology. 12/28/2019-she had a dialysis session yesterday. Repeat dialysis tomorrow. 01/02/2020-patient is on dialysis. Nephrology on board. Dialysis schedule as per the nephrology team recommendations. (6) Anemia in chronic kidney disease (CKD) Qualifiers: Chronic kidney disease stage: on chronic dialysis Qualified Code(s): N18.6 - End stage renal disease; D63.1 - Anemia in chronic kidney disease; Z99.2 - Dependence on renal dialysis Is this a current diagnosis for this admission?: No Plan: Secondary to ESRD and complicated by blood loss from surgery. Hemoglobin holding steady in the 7s. Monitor on CBC. Receiving EPO by nephrology. 12/28/2019-patient has history of anemia of chronic disease hemoglobin is 9.1. Most likely secondary to ESRD. 12/31/2019 patient's hemoglobin is 8. Anemia of chronic disease most likely secondary to end-stage kidney disease. 01/02/2020-patient has anemia of chronic disease most likely secondary to end- stage kidney disease. (7) Episode of transient neurologic symptoms Is this a current diagnosis for this admission?: Yes Plan: Improved. Patient is usually very emotional but as per her this is her baseline. MRI head which is not optimal due to motion artifact was negative for any acute stroke. Several days ago patient was noted to have slurring of the face as well as worsening of eye deviation, grinding of teeth and became unresponsive. RECEPTION MANAGER had been called. Patient was initially thought to have a stroke but then while taking patient down for CT scan, she gradually became fully alert again and moving all extremities with resolution of her prior symptoms. Head CT was normal. This episode was either caused by oxycodone 5 mg that she received several hours before the episode or she could have had a TIA. Her family denies any history of seizures. 2D echo 2 months ago was unremarkable. Carotid Doppler 50 to 69% narrowing of proximal right ICA, less than 50% diameter narrowing proximal left ICA. Patient is to continue high sensitive statin, optimize BP and diabetic control. She needs to follow-up with vascular surgeon for further evaluation and intervention. 12/28/2019-patient is confused and agitated. Unable to communicate reasonably. Capacity exam will be requested. (8) Serratia infection Is this a current diagnosis for this admission?: Yes Plan: Serratia noted in 1 blood culture set. Initially was receiving Vanco and Zosyn for osteomyelitis. Currently switch on doxycycline p.o. Sensitive to tetracycline should be covered with doxycycline. Received 7 days of doxycycline 100 mg p.o. twice daily. Had to be switched back to Vanco as patient is developing left lower extremity wet gangrene. 12/28/2019-patient is presently on IV vancomycin, as per her with recommendations to add IV Zosyn. Repeat blood cultures are negative. 01/02/2020-patient is receiving IV vancomycin and IV Zosyn at this time. Latest blood cultures from 12/15-. To discontinue antibiotics from today. (9) Diabetes mellitus type 2 in obese Is this a current diagnosis for this admission?: No Plan: Hemoglobin A1c 6.4, down from 9.0. Accu-Cheks every 6 hours. Patient noted to be hypoglycemic and was started on D5NS. Patient does not need to be on anti-diabetic anymore based on her hypoglycemic episodes and hemoglobin A1c. Continue Accu-Chek frequently, hypoglycemia protocol, monitor blood glucose levels frequently. Encourage frequent snacking. Follow-up with PCP for evaluation of diabetes and diabetic management. - Time Anticipated discharge: SNF Within: Other - 1week
[2020-01-02] MEDS: ASPIRIN 81 MG TABLET, ENT COATED PO SCH (09:56)
[2020-01-02] MEDS: BRIMONIDINE TARTRATE 0.2% OPH SOLN 5 ML OU SCH ×2 (09:56→17:05)
[2020-01-02] MEDS: SENNOSIDES/DOCUSATE 8.6-50 MG 1 EACH TABLET PO SCH ×2 (09:57→17:05)
[2020-01-02] MEDS: MEGESTROL ACETATE 20 MG TABLET PO SCH (09:57)
[2020-01-02] MEDS: AMLODIPINE BESYLATE 5 MG TABLET PO SCH (09:57)
[2020-01-02] MEDS: TIMOLOL MALEATE 0.5% OPH SOLN 5 ML OU SCH ×2 (09:58→17:07)
[2020-01-02] MEDS: SILVER SULFADIAZINE 1% CREAM 50 GM TP SCH ×2 (12:11→17:30)
[2020-01-02] MEDS: MORPHINE SULFATE 10 MG/ML INJ IV PRN ×2 (12:49→18:56)
[2020-01-02] MEDS ORDERED: MORPHINE SULFATE 10 MG/ML INJ ONE (16:15)
[2020-01-02] MEDS ORDERED: MORPHINE SULFATE 10 MG/ML INJ IV ONE (17:00)
--- NOTE | 2020-01-02 17:24 | PDOC PROGRESS REPORT ---
Subjective Progress Note for:: 01/02/20 Subjective:: Pains on the left AKA stump Reason For Visit: GANGRENE BILATERAL TOES,ESRD ON DIALYSIS,PERIPHER Physical Exam Vital Signs: Temp Pulse Resp BP Pulse Ox 97.9 F 82 19 146/95 H 94 01/02/20 16:00 01/02/20 16:00 01/02/20 16:00 01/02/20 16:00 01/02/20 16:00 Intake & Output 01/01/20 01/02/20 01/03/20 06:59 06:59 06:59 Intake Total 200 425 50 Output Total 1000 50 0 Balance -800 375 50 Weight 85.2 kg 86 kg Exam: Dressing on the left AKA was changed. The medial drain was removed since it was not draining. The lateral drain was left in place and still slightly draining bloody fluid. A new dressing with 4 x 4 ABD and Kerlix and Bakari bandage were placed. We will recheck the stump in the next 24 to 48 hours and possibly remove the remaining drain. The skin excoriation on the right BKA appears to be getting better and the upper part thigh region appears dry and the distal part below the knee appears to be getting smaller and both lesions appear to be responding to Silvadene cream dressings. Results Laboratory Results: 12/31/19 07:47 12/31/19 07:47 12/17/19 12/18/19 12/18/19 05:45 14:30 14:30 Creatine Kinase 499 H 468 H CK-MB (CK-2) 5.00 H Troponin I 0.026 NT-Pro-B Natriuret Pep [id number] H 12/19/19 12/19/19 12/19/19 00:13 07:00 12:05 Creatine Kinase CK-MB (CK-2) Troponin I 0.044 0.060 0.062 NT-Pro-B Natriuret Pep Impressions: Foot X-Ray 12/13/19 17:55 IMPRESSION: Osteopenia. Calcaneal spurs. Head CT 12/18/19 00:00 IMPRESSION: NO ACUTE INTRACRANIAL IMAGING FINDINGS. EVIDENCE OF ACUTE STROKE: NO. Chest X-Ray 12/19/19 08:29 IMPRESSION: Pulmonary vascular prominence without pulmonary edema or pleural effusion Stable cardiomegaly Carotid Doppler Study 12/20/19 00:00 IMPRESSION: 50 to 69% narrowing proximal right ICA by systolic velocity ratio Less than 50% diameter narrowing proximal left ICA Head MRI 12/24/19 13:56 IMPRESSION: Motion artifact. Atrophy with minor small vessel ischemic change. copyright 2011 [employer]- All Rights Reserved Upper Extremity Ultrasound 12/31/19 00:00 IMPRESSION: Normal right upper extremity arterial duplex. Assessment & Plan - Plan Summary Plan Summary: Postop day #1 post left AKA for gangrene of the left toes. The stump appears to be doing well although somewhat edematous. The medial drain was removed since it was not draining and lateral drain left in place to be removed in 24 to 48 hours. Okay to make arrangements for discharge later this week. May need to be in rehab facility.
[2020-01-03] MEDS: CLONIDINE HCL 0.2 MG TABLET PO SCH ×6 (00:59→23:49)
[2020-01-03] MEDS: PANTOPRAZOLE SODIUM 40 MG TABLET.DR PO SCH (05:17)
[2020-01-03] MEDS: HEPARIN SOD (PORCINE) 5,000 UNIT/ML 1 ML VIAL SUBCUT SCH ×3 (05:17→21:40)
[2020-01-03] MEDS: PIPERACILLIN SODIUM/TAZOBACTAM 2.25 GM in NORMAL SALINE 50 ML IV SCH (05:33)
[2020-01-03] MEDS: KETOROLAC TROMETHAMINE INJ/PF 30 MG/1 ML SDV IV PRN (05:48)
[2020-01-03] MEDS: LORAZEPAM INJ 2 MG/1 ML VIAL IV PRN ×2 (07:10→21:42)
[2020-01-03] MEDS ORDERED: EPOETIN ALFA-EPBX 2,000 UNIT, EPOETIN ALFA-EPBX 3,000 UNIT, EPOETIN ALFA-EPBX 20,000 UN... IV PRN ×4 (07:37)
[2020-01-03 07:39] LABS: HEMATOCRIT 20.3 % (36.0-47.0); MEAN CORPUSCULAR HEMOGLOBIN 29.4 pg (27.0-33.4); MEAN CORPUSCULAR HGB CONC 31.8 g/dL (32.0-36.0); MEAN CORPUSCULAR VOLUME 92 fl (80-97); RED BLOOD COUNT 2.19 10^6/uL (3.72-5.28); RED CELL DISTRIBUTION WIDTH 23.5 % (11.5-14.0); WHITE BLOOD COUNT 21.7 10^3/uL (4.0-10.5)
[2020-01-03 08:28] LABS: VANCOMYCIN,TROUGH 22.1 ug/mL (5.0-20.0)
[2020-01-03 08:35] LABS: PLATELET COUNT 95 10^3/uL (150-450)
--- NOTE | 2020-01-03 08:36 | PDOC PROGRESS REPORT ---
Subjective Progress Note for:: 01/03/20 Reason For Visit: GANGRENE BILATERAL TOES,ESRD ON DIALYSIS,PERIPHER Patient examined on dialysis; level of alertness depressed Physical Exam Vital Signs: Temp Pulse Resp BP Pulse Ox 98.0 F 94 17 123/77 89 L 01/03/20 00:07 01/03/20 00:07 01/03/20 00:07 01/03/20 00:07 01/03/20 00:07 Intake & Output 01/02/20 01/03/20 01/04/20 06:59 06:59 06:59 Intake Total 425 150 Output Total 50 0 Balance 375 150 Weight 86 kg 74.8 kg General appearance: PRESENT: other - On dialysis; minimally responsive; Extremities exam: PRESENT: other - Right BKA dressing removed; limited areas of epidermal lysis by; treated with Silvadene; genesis and stitches remain in place. No evidence of Necrosis. Left AKA stump dressing removed; residual Abraham drain removed; genesis intact. Results Laboratory Results: 12/31/19 07:47 12/17/19 12/18/19 12/18/19 05:45 14:30 14:30 Creatine Kinase 499 H 468 H CK-MB (CK-2) 5.00 H Troponin I 0.026 NT-Pro-B Natriuret Pep [id number] H 12/19/19 12/19/19 12/19/19 00:13 07:00 12:05 Creatine Kinase CK-MB (CK-2) Troponin I 0.044 0.060 0.062 NT-Pro-B Natriuret Pep Impressions: Foot X-Ray 12/13/19 17:55 IMPRESSION: Osteopenia. Calcaneal spurs. Head CT 12/18/19 00:00 IMPRESSION: NO ACUTE INTRACRANIAL IMAGING FINDINGS. EVIDENCE OF ACUTE STROKE: NO. Chest X-Ray 12/19/19 08:29 IMPRESSION: Pulmonary vascular prominence without pulmonary edema or pleural effusion Stable cardiomegaly Carotid Doppler Study 12/20/19 00:00 IMPRESSION: 50 to 69% narrowing proximal right ICA by systolic velocity ratio Less than 50% diameter narrowing proximal left ICA Head MRI 12/24/19 13:56 IMPRESSION: Motion artifact. Atrophy with minor small vessel ischemic change. copyright 2011 [employer]- All Rights Reserved Upper Extremity Ultrasound 12/31/19 00:00 IMPRESSION: Normal right upper extremity arterial duplex. Assessment & Plan - Diagnosis (1) Dry gangrene Is this a current diagnosis for this admission?: Yes Plan: Impression: Patient nearly 3-week status post right BKA, 48 hours status post left AKA with stable postoperative findings; all drains left stump removed; evolving dry gangrene of the angers bilaterally. Plan: 1. Dressing changes to both stumps as ordered 2. We will of aggressiveness of care including CODE STATUS may need to be addressed. (2) Gangrene Is this a current diagnosis for this admission?: Yes (3) Gangrene associated with type 2 diabetes mellitus Is this a current diagnosis for this admission?: Yes (4) Hypoxia Is this a current diagnosis for this admission?: Yes (5) Obesity Qualifiers: Obesity type: due to excess calories Obesity classification: adult class 2 (BMI 35 - 39.9) Serious obesity comorbidity presence: with serious comorbidity Body mass index: BMI 39.0-39.9 Qualified Code(s): E66.01 - Morbid (severe) obesity due to excess calories; Z68.39 - Body mass index (BMI) 39.0-39.9, adult Is this a current diagnosis for this admission?: Yes (6) Peripheral vascular disease in diabetes mellitus Is this a current diagnosis for this admission?: Yes (7) Peripheral vascular disease of foot Is this a current diagnosis for this admission?: Yes
[2020-01-03 08:39] LABS: ABSOLUTE LYMPHOCYTES# (MANUAL) 1.5 10^3/uL (0.5-4.7); ABSOLUTE MONOCYTES # (MANUAL) 1.1 10^3/uL (0.1-1.4); BASOPHILS % (MANUAL) 0 % (0-2); EOSINOPHILS % (MANUAL) 0 % (0-6); LYMPHOCYTES % (MANUAL) 5 % (13-45); MONOCYTES % (MANUAL) 5 % (3-13); SEGMENTED NEUTROPHILS % (MAN) 88 % (42-78); TOTAL CELLS COUNTED 100
[2020-01-03 08:42] LABS: ANISOCYTOSIS 3+; PLATELET COMMENT DECREASED; POIKILOCYTOSIS SLIGHT; POLYCHROMASIA SLIGHT; TARGET CELLS SLIGHT
[2020-01-03 08:46] LABS: HEMOGLOBIN 6.4 g/dL (12.0-15.5)
[2020-01-03] MEDS ORDERED: NORMAL SALINE 250 ML IV PRN ×2 (09:04)
--- NOTE | 2020-01-03 09:11 | PDOC PROGRESS REPORT ---
Subjective Progress Note for:: 01/03/20 Subjective:: 64 year old female who presents the emergency room with a one-week history of bilateral foot pain. She admits the abrupt onset of pain in both feet 1 week ago. Her pain is a moderate dull pressure at rest but turns into a severe sharp searing pain with weightbearing. Her foot pain was accompanied by the development of "blisters" of her right great, second and third toes as well as her left second and third toes. The blisters have "broken" over time, becoming darkened skin with a foul odor. Her foot pain was associated with swelling in her bilateral lower extremities below the knee. She denies other associated or accompanying signs and symptoms. She she denies prior similar episodes. She has not identified any additional aggravating or ameliorating factors for her foot pain. In the emergency room she was found to have gangrene of the right great second and third toes as well as the left second and third toes. Surgical consultation with Dr. Kuo was obtained by the emergency room provider and he asked for the hospitalist service to admit the patient and consult him as well as Dr. Sadler for nephrology. Patient was subsequently admitted to the hospital for further evaluation treatment. 12/21/2019. No acute events overnight. Resting in bed no apparent distress, accompanied with relatives, very tearful about possibility of losing her other foot, otherwise denies any fever, chills, nausea, vomiting, diarrhea, constipation. 12/22/2019. No acute events overnight. Patient still very emotional, however cooperative with physical examination. Alert and oriented. Patient was supposed to be transferred to SNF today however they refused to accept her because patient was placed on soft restraints for some reason overnight. 12/23/2019. No acute events overnight. This morning patient resting with no apparent distress, awake however seems to be confused, very emotional and tearful, cooperative with physical examination, denies any fever, chills, nausea, vomiting, diarrhea. Has not had a bowel in several days, endorses low appetite, does not feel like eating. Has been refusing her food. 12/24/2019. Patient is still refusing to eat, endorsing very low appetite, noted to be hypoglycemic this morning, complaining of right hand pain, still very confused very low attention span and emotional, had a conversation over the phone with her daughter who said that she is very anxious and emotional and has had some confusion problem in the past which has been getting worse since his hospitalization. Patient denies any fever, chills, nausea, vomiting. 12/25/2019. No acute events overnight. Patient is more awake today, alert and oriented, tells me she is in the hospital knows the name of the hospital and knows that she had a right AKA. Still very emotional and complaining of right hand pain, patient still endorsing low appetite and has been refusing to eat. Patient denies any fever, chills, nausea, shortness of breath or chest pain. Patient had an MRI yesterday which was not optimal due to motion artifact however it was negative for any acute stroke. 12/26/2019. No acute events overnight. Saw patient this afternoon accompanied by her . As per patient is back to baseline. She is alert and oriented, sitting edge of the bed, cooperative with physical examination. Her was notified about her lack of appetite and refusal to eat. He states that she does not like the food here and prefers from outside. I will confirm that she does not like the food here and prefers to eat from [facility]. Since patient is not eating much and is also hypoglycemic I have agreed for patient to have any kind of food she prefers to encourage her to increase her p.o. intake. Her has kindly agreed to bring her food from outside the hospital. Patient denies any fever, chills, nausea, vomiting, diarrhea, constipation or any urinary symptoms. 12/27/2019. No acute events overnight. Patient output is improving since she is being provided regular food, hypoglycemia protocol, unfortunately patient has d eveloped left fourth metatarsal swelling and, tenderness and follows discharge, otherwise denies any fever, chills, nausea, vomiting, diarrhea, constipation or any urinary symptoms. Dr. Buchanan from surgery has been reconsulted and he has kindly agreed to reevaluate her. 12/28/2019-tried to have a discussion with the patient about the need for left AKA. Patient is not willing to give a consent. Looks to me patient is confused and unable to take right decisions. So capacity exam will be requested. To start her back on renal diet and to discontinue IV fluids. Started on IV morphine 2 mg every 4 as needed for pain. As per the pharmacy Zosyn is added to the vancomycin. 12/29/2019-psych evaluation was done yesterday the recommendation is patient need a power of criminal attorney like her because at this moment patient is unable to take good decisions and lacks the capacity of understanding the current medical issues. I spoke to Jaylon Villasenor this morning he wants me to call him back tomorrow to discuss the plan 12/30/2019-pt status was discussed with patient's daughter Marta, as per her Jaylon Villasenor he agreed for left AKA. He is on the way to the hospital signed the consent. Surgery is notified. They want to keep her n.p.o. from midnight for surgery tomorrow. On examination patient has chronic skin changes affecting the right hand middle finger index finger. Right radial pulses are poor. Will request for right upper extremity Doppler. 12/30-pt is agitated and confused, refusi ultrasound examination of the right arm. Patient status discussed with Zac she is on the way from [place]. She is requesting for strong pain medications for pain management. Started on IV morphine 3 mg every 4 hours. She will be also on IV Ativan as needed for agitation. Overall prognosis poor condition is critical. Discussed about hospice issues if the family not agreeing for left AKA. 01/01/2020-right upper extremity ultrasound was done negative for vascular disease as per the radiology. She went for left AKA operation was successful. Patient was seen in the PACU. at te tme of My examination patient is sleeping comfortably. 01/02/2020-patient has a left AKA yesterday. Tolerated the procedure very well. No postop complications. On examination this morning patient is comfortably sleeping in the bed. Receiving IV morphine and IV Ativan on a as needed basis. 01/03/2020-patient is in the dialysis unit, tolerating the dialysis well. Surgery seen the patient this morning drain is removed from the left AKA. Johnnie are in place. Blood cultures are negative. Plan is to discontinue IV antibiotics from today. WBC is 17,000. Afebrile. Patient is a stable. over All prognosis is poor to discuss with the family about CODE STATUS and a hospice referral. Reason For Visit: GANGRENE BILATERAL TOES,ESRD ON DIALYSIS,PERIPHER Physical Exam Vital Signs: Temp Pulse Resp BP Pulse Ox 98.0 F 94 17 123/77 89 L 07/20/20 00:07 01/03/20 00:07 01/03/20 00:07 01/03/20 00:07 01/03/20 00:07 Intake & Output 01/02/20 01/03/20 01/04/20 06:59 06:59 06:59 Intake Total 425 150 Output Total 50 0 Balance 375 150 Weight 86 kg 74.8 kg General appearance: PRESENT: no acute distress, well-developed Head exam: PRESENT: atraumatic Eye exam: PRESENT: PERRLA Teeth exam: PRESENT: poor dentation Neck exam: ABSENT: carotid bruit, JVD, lymphadenopathy, thyromegaly Respiratory exam: PRESENT: decreased breath sounds Cardiovascular exam: PRESENT: RRR. ABSENT: diastolic murmur, rubs, systolic murmur GI/Abdominal exam: PRESENT: normal bowel sounds, soft. ABSENT: distended, guarding, mass, organolmegaly, rebound, tenderness Rectal exam: PRESENT: deferred Extremities exam: PRESENT: other - Right BKA with johnnie intact. Left AKA and drain was removed today. Neurological exam: PRESENT: altered Psychiatric exam: PRESENT: appropriate affect, normal mood. ABSENT: homicidal ideation, suicidal ideation Results Laboratory Results: 01/03/20 07:00 01/03/20 07:00 WBC 21.7 H RBC 2.19 L Hgb 6.4 L Hct 20.3 L MCV 92 MCH 29.4 MCHC 31.8 L RDW 23.5 H Plt Count 95 L Seg Neutrophils % Not Reportable 12/17/19 12/18/19 12/18/19 05:45 14:30 14:30 Creatine Kinase 499 H 468 H CK-MB (CK-2) 5.00 H Troponin I 0.026 NT-Pro-B Natriuret Pep [id number] H 12/19/19 12/19/19 12/19/19 00:13 07:00 12:05 Creatine Kinase CK-MB (CK-2) Troponin I 0.044 0.060 0.062 NT-Pro-B Natriuret Pep Impressions: Foot X-Ray 12/13/19 17:55 IMPRESSION: Osteopenia. Calcaneal spurs. Head CT 12/18/19 00:00 IMPRESSION: NO ACUTE INTRACRANIAL IMAGING FINDINGS. EVIDENCE OF ACUTE STROKE: NO. Chest X-Ray 12/19/19 08:29 IMPRESSION: Pulmonary vascular prominence without pulmonary edema or pleural effusion Stable cardiomegaly Carotid Doppler Study 12/20/19 00:00 IMPRESSION: 50 to 69% narrowing proximal right ICA by systolic velocity ratio Less than 50% diameter narrowing proximal left ICA Head MRI 12/24/19 13:56 IMPRESSION: Motion artifact. Atrophy with minor small vessel ischemic change. copyright 2010 [employer]- All Rights Reserved Upper Extremity Ultrasound 12/31/19 00:00 IMPRESSION: Normal right upper extremity arterial duplex. Assessment and Plan - Diagnosis (1) Diabetic wet gangrene of the foot Is this a current diagnosis for this admission?: Yes Plan: Status post right BKA (12/16/2019). Pathology report negative for osteomyelitis or malignancy. Initially started on vancomycin and Zosyn. Switched to doxycycline 100 mg p.o. on 12/20/2019. Continue doxycycline 100 mg p.o. twice daily for another 4 days. Surgical wound looks clean. No sign of infection. Continue wound care. Follow-up with Dr. Hines surgeon as outpatient. 12/28/2019-left lower extremity looks ischemic. With gangrenous changes affecting the toes. Surgical team recommended left AKA. Patient is not cooperative and refusing to sign consent. Capacity exam will be requested. In the meantime we will continue IV vancomycin and Zosyn. Latest blood cultures are negative initial blood cultures are positive for Serratia. 12/29/2019-psych evaluation was done there impression is patient lacks the capacity in understanding the current medical conditions and the prognosis. Recommendation is patient's needs to be the power of criminal attorney. I spoke to Jaylon Villasenor this morning to discuss the plan of care he wants me to call him back tomorrow. In the meantime we will continue the present management. 12/30/2019-family agreed for left AKA. Patient's is on the way to the hospital to sign the consent. Surgery is notified. Patient is going to be n.p.o. from midnight for surgery tomorrow. Patient has a severe peripheral v ascular disease also affecting the right arm. Chronic skin changes affecting the fingertips of the right hand. Arrange for the right upper extremity ultrasound. 12/31/2019- still thinking about giving a consent for lt AKA. Patient also has necrotic changes in the right middle finger index finger and ring finger. Patient refused ultrasound at this morning. To give IV Ativan 1 mg and try to do the ultrasound Doppler examination today. Case was discussed with Janice she is requesting to start on morphine. She is also thinking about hospice. 01/01/20-patient went for left AKA, Dr. De La Vega called me and told me the surgery was successful. Patient was seen in the PACU. Comfortably sleeping. Receiving IV morphine for pain. 01/02/2020-patient has a left AKA was done. No postop complications noticed. Patient is comfortably in the bed sleeping at this time. 01/03/2020-seen by Dr. Buchanan today. He remove the drain from the left AKA. To continue to keep the johnnie. Surgical wound looks clean. (2) Delirium due to another medical condition Is this a current diagnosis for this admission?: Yes Plan: Improving. Back to baseline as per . Alert and awake and oriented x3. Patient is extremely sensitive to opiates and benzodiazepines. An MRI head was done to rule out CVA but unfortunately had a lot of motion artifact and was not optimal however as per MRI report patient did not have a CVA. Patient's family voiced that patient has had some gradual decline in her memory and that she has always been an anxious person however her confusion has worsened since hospitalization. Patient clearly seems to have some baseline cognitive impairment. Also noted to be on fentanyl patch since admission and was also given IV morphine last night. DC fentanyl patch, avoid opiates and benzodiazepines if possible. Highly recommended to follow-up with neurology as outpatient. Closely monitor SPO2, electrolytes and blood glucose levels. 12/28/2019-patient is confused and agitated. Not cooperative. Refusing to sign a consent for left AKA that was needed. Capacity exam will be requested. 12/28-pt is anxoius/agitated, she failed a capacity exam yesterday. 12/30/2019-patient is current confused this morning. But not agitated. Last night nurses told me patient slide off the bed. But no obvious injuries are seen. 12/31/2019-patient is confused and agitated. Not cooperative. 01/03/2020-altered mental status/acute metabolic encephalopathy may be multifactorial. Include recent surgeries for the both lower extremities ended up with right BKA and left AKA, necrotic lesions on the right hand fingertips, dialysis patient, hemoglobin is 6.5 today. (3) Anorexia Is this a current diagnosis for this admission?: Yes Plan: Mild improvement. Plan as per above. (4) Dry gangrene Is this a current diagnosis for this admission?: Yes Plan: Impression: Patient nearly 3-week status post right BKA, 48 hours status post left AKA with stable postoperative findings; all drains left stump removed; evolving dry gangrene of the angers bilaterally. Plan: 1. Dressing changes to both stumps as ordered 2. We will of aggressiveness of care including CODE STATUS may need to be addressed. (5) ESRD (end stage renal disease) on dialysis Is this a current diagnosis for this admission?: No Plan: Hemodialysis per nephrology. 12/28/2019-she had a dialysis session yesterday. Repeat dialysis tomorrow. 01/02/2020-patient is on dialysis. Nephrology on board. Dialysis schedule as per the nephrology team recommendations. 01/03/2020-patient is seen in the dialysis unit today tolerating the dialysis well. Blood pressures are stable. (6) Anemia in chronic kidney disease (CKD) Qualifiers: Chronic kidney disease stage: on chronic dialysis Qualified Code(s): N18.6 - End stage renal disease; D63.1 - Anemia in chronic kidney disease; Z99.2 - Dependence on renal dialysis Is this a current diagnosis for this admission?: No Plan: Secondary to ESRD and complicated by blood loss from surgery. Hemoglobin holding steady in the 7s. Monitor on CBC. Receiving EPO by ne phrology. 12/28/2019-patient has history of anemia of chronic disease hemoglobin is 9.1. Most likely secondary to ESRD. 12/31/2019 patient's hemoglobin is 8. Anemia of chronic disease most likely s econdary to end-stage kidney disease. 01/02/2020-patient has anemia of chronic disease most likely secondary to end- stage kidney disease. 07/05/2019-hemoglobin is 6.5. No obvious source of bleeding. Anemia of chronic disease most likely secondary to end-stage renal disease. request for 2 units of PRBC today. (7) Episode of transient neurologic symptoms Is this a current diagnosis for this admission?: Yes Plan: Improved. Patient is usually very emotional but as per her this is her baseline. MRI head which is not optimal due to motion artifact was negative for any acute stroke. Several days ago patient was noted to have slurring of the face as well as worsening of eye deviation, grinding of teeth and became unresponsive. [employer] had been called. Patient was initially thought to have a stroke but then while taking patient down for CT scan, she gradually became fully alert again and moving all extremities with resolution of her prior symptoms. Head CT was normal. This episode was either caused by oxycodone 5 mg that she received several hours before the episode or she could have had a TIA. Her family denies any history of seizures. 2D echo 2 months ago was unremarkable. Carotid Doppler 50 to 69% narrowing of proximal right ICA, less than 50% diameter narrowing proximal left ICA. Patient is to continue high sensitive statin, optimize BP and diabetic control. She needs to follow-up with vascular surgeon for further evaluation and intervention. 12/28/2019-patient is confused and agitated. Unable to communicate reasonably. Capacity exam will be requested. (8) Serratia infection Is this a current diagnosis for this admission?: Yes Plan: Serratia noted in 1 blood culture set. Initially was receiving Vanco and Zosyn for osteomyelitis. Currently switch on doxycycline p.o. Sensitive to tetracycline should be covered with doxycycline. Received 7 days of doxycycline 100 mg p.o. twice daily. Had to be switched back to Vanco as patient is developing left lower extremity wet gangrene. 12/28/2019-patient is presently on IV vancomycin, as per her with recommendations to add IV Zosyn. Repeat blood cultures are negative. 01/02/2020-patient is receiving IV vancomycin and IV Zosyn at this time. Latest blood cultures from 12/15-. To discontinue antibiotics from today. 01/03/2020-patient received IV Zosyn and vancomycin for 2 weeks has a left AKA was done recent right BKA. Plan is to discontinue IV antibiotics from today. (9) Diabetes mellitus type 2 in obese Is this a current diagnosis for this admission?: No Plan: Hemoglobin A1c 6.4, down from 9.0. Accu-Cheks every 6 hours. Patient noted to be hypoglycemic and was started on D5NS. Patient does not need to be on anti-diabetic anymore based on her hypoglycemic episodes and hemoglobin A1c. Continue Accu-Chek frequently, hypoglycemia protocol, monitor blood glucose levels frequently. Encourage frequent snacking. Follow-up with PCP for evaluation of diabetes and diabetic management. 01/03/2020-patient has type 2 diabetes mellitus glucose is 236. Plan is to continue insulin sliding scale at this time. - Time Anticipated discharge: Hospice Within: within 72 hours
[2020-01-03 09:17] LABS: ANION GAP 18 (5-19); BLOOD UREA NITROGEN 47 mg/dL (7-20); CALCIUM 9.6 mg/dL (8.4-10.2); CARBON DIOXIDE 23 mmol/L (22-30); CHLORIDE 100 mmol/L (98-107); GLUCOSE 214 mg/dL (75-110); POTASSIUM 4.9 mmol/L (3.6-5.0)
[2020-01-03] MEDS: BRIMONIDINE TARTRATE 0.2% OPH SOLN 5 ML OU SCH ×2 (11:15→18:09)
[2020-01-03] MEDS: TIMOLOL MALEATE 0.5% OPH SOLN 5 ML OU SCH ×2 (11:15→17:42)
[2020-01-03] MEDS: ASPIRIN 81 MG TABLET, ENT COATED PO SCH ×2 (11:16→11:37)
[2020-01-03] MEDS: SENNOSIDES/DOCUSATE 8.6-50 MG 1 EACH TABLET PO SCH ×2 (11:16→17:41)
[2020-01-03] MEDS: MEGESTROL ACETATE 20 MG TABLET PO SCH ×2 (11:16→11:40)
[2020-01-03] MEDS: AMLODIPINE BESYLATE 5 MG TABLET PO SCH ×2 (11:16→11:39)
[2020-01-03] MEDS: SILVER SULFADIAZINE 1% CREAM 50 GM TP SCH ×2 (11:21→18:07)
[2020-01-03] MEDS: MORPHINE SULFATE 10 MG/ML INJ IV PRN (17:49)
--- NOTE | 2020-01-03 18:58 | PDOC PROGRESS REPORT ---
Subjective Progress Note for:: 01/03/20 Subjective:: I am seeing the patient during dialysis this morning. Patient was given IV lorazepam so she is basically lethargic and unable to verbalize anything. She was also moving her arm so much that our dialysis nurse is at bedside holding her hand to hold treatment. Her blood pressure is mildly elevated at the start of the treatment. Labs were not immediately done prior to dialysis so it was drawn during the start of dialysis treatment. Her hemoglobin was found to be as low as 6.4 but it was too late to do blood transfusion so we got blood for type and screen and hopefully blood will be transfused in the floor. Significantly over the weekend the patient underwent left above-knee amputation on December 31. Some of her fingers has been also grayish-black in color signifying poor blood flow but duplex of right upper extremities was normal on December 30. Reason For Visit: GANGRENE BILATERAL TOES,ESRD ON DIALYSIS,PERIPHER Physical Exam Vital Signs: Temp Pulse Resp BP Pulse Ox 98.0 F 94 17 123/77 89 L 01/03/20 00:07 01/03/20 00:07 01/03/20 00:07 01/03/20 00:07 01/03/20 00:07 Intake & Output 01/02/20 01/03/20 01/04/20 06:59 06:59 06:59 Intake Total 425 150 Output Total 50 0 Balance 375 150 Weight 86 kg 74.8 kg Vitals during dialysis: Blood pressure 161/92, pulse rate of 92, blood flow rate of 400 mL/min and dialysate flow rate of 800 mL/min. Exam: General appearance: PRESENT: no acute distress, lethargic but has been moving her arms quite frequently during dialysis, patient appeared to have lost weight since she was initially admitted. Head exam: PRESENT: atraumatic, normocephalic Eye exam: PRESENT: conjunctiva pale, PERRLA. ABSENT: scleral icterus Neck exam: ABSENT: JVD Respiratory exam: PRESENT: Normal breath sounds. ABSENT: crackles, rales, rhonchi, unlabored, wheezes Cardiovascular exam: PRESENT: Regular rate rhythm -+S1, +S2. ABSENT: diastolic murmur, systolic murmur GI/Abdominal exam: PRESENT: normal bowel sounds, soft. ABSENT: guarding, mass, tenderness Extremities exam: ABSENT: No edema; black discoloration of a couple of fingers on the right hand and one finger in the left hand. Good when here healing on right BKA. Positive left AKA Neurological exam: PRESENT: Lethargic and currently nonverbal Skin exam: PRESENT: dry, warm, Cardiovascular exam: PRESENT: +S1, +S2 GI/Abdominal exam: PRESENT: soft. ABSENT: organomegaly, tenderness Results Laboratory Results: 01/03/20 07:00 01/03/20 07:00 01/03/20 01/03/20 07:00 07:00 WBC 21.7 H RBC 2.19 L Hgb 6.4 L Hct 20.3 L MCV 92 MCH 29.4 MCHC 31.8 L RDW 23.5 H Plt Count 95 L Seg Neutrophils % Not Reportable Sodium 141.2 Potassium 4.9 Chloride 100 Carbon Dioxide 23 Anion Gap 18 BUN 47 H Creatinine 8.05 H Est GFR ( Amer) 6 L Glucose 214 H Calcium 9.6 12/17/19 12/18/19 12/18/19 05:45 14:30 14:30 Creatine Kinase 499 H 468 H CK-MB (CK-2) 5.00 H Troponin I 0.026 NT-Pro-B Natriuret Pep [id number] H 12/19/19 12/19/19 12/19/19 00:13 07:00 12:05 Creatine Kinase CK-MB (CK-2) Troponin I 0.044 0.060 0.062 NT-Pro-B Natriuret Pep Impressions: Foot X-Ray 12/13/19 17:55 IMPRESSION: Osteopenia. Calcaneal spurs. Head CT 12/18/19 00:00 IMPRESSION: NO ACUTE INTRACRANIAL IMAGING FINDINGS. EVIDENCE OF ACUTE STROKE: NO. Chest X-Ray 12/19/19 08:29 IMPRESSION: Pulmonary vascular prominence without pulmonary edema or pleural effusion Stable cardiomegaly Carotid Doppler Study 12/20/19 00:00 IMPRESSION: 50 to 69% narrowing proximal right ICA by systolic velocity ratio Less than 50% diameter narrowing proximal left ICA Head MRI 12/24/19 13:56 IMPRESSION: Motion artifact. Atrophy with minor small vessel ischemic change. copyright 2010 [facility]- All Rights Reserved Upper Extremity Ultrasound 12/31/19 00:00 IMPRESSION: Normal right upper extremity arterial duplex. Assessment & Plan - Diagnosis (1) ESRD (end stage renal disease) on dialysis Is this a current diagnosis for this admission?: No Plan: We will do dialysis today for 3 hours, using the patient's AV fistula, with 2 potassium bath, blood flow rate of 400 mL per minute, dialysate flow rate of 800 mL per minute, ultrafiltration 2 to 2.5 L as tolerated, no heparin and Procrit with 25,000 units during dialysis intravenously. Her dialysis nurse is watching the patient very closely holding her hand where her AV fistula is. She is being monitored very closely. (2) Peripheral vascular disease in diabetes mellitus Is this a current diagnosis for this admission?: Yes Plan: Patient has severe peripheral arterial disease, status post right BKA on December 14 and recently left AKA on December 31 with clinical evidence of vascular disease in her upper extremities although not supported by arterial duplex. Prognosis of the patient is poor at this point. (3) Hypertension Qualifiers: Hypertension type: essential hypertension Qualified Code(s): I10 - Essential (primary) hypertension Is this a current diagnosis for this admission?: Yes Plan: Mostly controlled. (4) Diabetes mellitus type 2 in obese Is this a current diagnosis for this admission?: No Plan: Labile. (5) Anemia in chronic kidney disease (CKD) Qualifiers: Chronic kidney disease stage: on chronic dialysis Qualified Code(s): N18.6 - End stage renal disease; D63.1 - Anemia in chronic kidney disease; Z99.2 - Dependence on renal dialysis Is this a current diagnosis for this admission?: No Plan: Retacrit this given today during dialysis the patient will need blood transfusion post dialysis treatment. Hospitalist has ordered blood transfusion. (6) Delirium due to another medical condition Is this a current diagnosis for this admission?: Yes - Notes Notes: Unfortunately overall prognosis is very poor for this patient. - Time Time with patient: 15-25 minutes
[2020-01-03] MEDS: METOPROLOL SUCCINATE 50 MG TAB.SR.24H PO SCH (21:40)
[2020-01-04] MEDS: HEPARIN SOD (PORCINE) 5,000 UNIT/ML 1 ML VIAL SUBCUT SCH ×3 (05:47→22:21)
[2020-01-04] MEDS: CLONIDINE HCL 0.2 MG TABLET PO SCH ×3 (05:47→17:03)
[2020-01-04] MEDS: PANTOPRAZOLE SODIUM 40 MG TABLET.DR PO SCH (05:48)
[2020-01-04] MEDS: MORPHINE SULFATE 10 MG/ML INJ IV PRN ×2 (06:08→10:54)
[2020-01-04] MEDS: LORAZEPAM INJ 2 MG/1 ML VIAL IV PRN ×2 (07:43→22:26)
--- NOTE | 2020-01-04 08:26 | PDOC PROGRESS REPORT ---
Subjective Progress Note for:: 01/04/20 Subjective:: Appears to have continued pain from the left AKA. Reason For Visit: GANGRENE BILATERAL TOES,ESRD ON DIALYSIS,PERIPHER Physical Exam Vital Signs: Temp Pulse Resp BP Pulse Ox 98.4 F 96 12 106/69 100 01/03/20 16:00 01/03/20 23:36 01/03/20 23:36 01/03/20 23:36 01/03/20 23:36 Intake & Output 01/03/20 01/04/20 01/05/20 06:59 06:59 06:59 Intake Total 150 100 Output Total 0 2300 Balance 150 -2200 Weight 74.8 kg 72.4 kg Exam: Left AKA stump looks good with mild blood tinge on the drain site. The right BKA stump looks good. Ischemia on the right distal third finger appears stable. Patient looks a little pale. She had a unit packed cells in the hemodialysis yesterday and to get another 1 tomorrow during hemodialysis. Results Laboratory Results: 01/03/20 07:00 01/03/20 07:00 01/03/20 01/03/20 01/03/20 07:00 07:00 09:23 WBC 21.7 H RBC 2.19 L Hgb 6.4 L Hct 20.3 L MCV 92 MCH 29.4 MCHC 31.8 L RDW 23.5 H Plt Count 95 L Seg Neutrophils % Not Reportable Sodium 141.2 Potassium 4.9 Chloride 100 Carbon Dioxide 23 Anion Gap 18 BUN 47 H Creatinine 8.05 H Est GFR ( Amer) 6 L Glucose 214 H Calcium 9.6 Blood Type B POSITIVE Antibody Screen NEGATIVE 12/17/19 12/18/19 12/18/19 05:45 14:30 14:30 Creatine Kinase 499 H 468 H CK-MB (CK-2) 5.00 H Troponin I 0.026 NT-Pro-B Natriuret Pep [id number] H 12/19/19 12/19/19 12/19/19 00:13 07:00 12:05 Creatine Kinase CK-MB (CK-2) Troponin I 0.044 0.060 0.062 NT-Pro-B Natriuret Pep Impressions: Foot X-Ray 12/13/19 17:55 IMPRESSION: Osteopenia. Calcaneal spurs. Head CT 12/18/19 00:00 IMPRESSION: NO ACUTE INTRACRANIAL IMAGING FINDINGS. EVIDENCE OF ACUTE STROKE: NO. Chest X-Ray 12/19/19 08:29 IMPRESSION: Pulmonary vascular prominence without pulmonary edema or pleural effusion Stable cardiomegaly Carotid Doppler Study 12/20/19 00:00 IMPRESSION: 50 to 69% narrowing proximal right ICA by systolic velocity ratio Less than 50% diameter narrowing proximal left ICA Head MRI 12/24/19 13:56 IMPRESSION: Motion artifact. Atrophy with minor small vessel ischemic change. copyright 2011 [employer]- All Rights Reserved Upper Extremity Ultrasound 12/31/19 00:00 IMPRESSION: Normal right upper extremity arterial duplex. Assessment & Plan - Time Critical Time spent with patient: 15-24 minutes - Plan Summary Plan Summary: Postop day #3 post left AKA. Left AKA stump looks good. Had a unit of packed cells for hemoglobin of 6.5 yesterday during hemodialysis. To have second unit of packed cells tomorrow at hemodialysis. We will sign off. Arrange follow-up at the surgical clinic in about 4 weeks for removal of skin genesis.
[2020-01-04] MEDS: ASPIRIN 81 MG TABLET, ENT COATED PO SCH (09:45)
[2020-01-04] MEDS: SENNOSIDES/DOCUSATE 8.6-50 MG 1 EACH TABLET PO SCH ×2 (09:45→17:03)
[2020-01-04] MEDS: AMLODIPINE BESYLATE 5 MG TABLET PO SCH (09:45)
[2020-01-04] MEDS: MEGESTROL ACETATE 20 MG TABLET PO SCH (09:45)
[2020-01-04] MEDS: BRIMONIDINE TARTRATE 0.2% OPH SOLN 5 ML OU SCH ×2 (09:48→17:04)
[2020-01-04] MEDS: SILVER SULFADIAZINE 1% CREAM 50 GM TP SCH ×2 (09:48→17:05)
[2020-01-04] MEDS: TIMOLOL MALEATE 0.5% OPH SOLN 5 ML OU SCH ×2 (09:48→17:05)
[2020-01-04 10:05] LABS: HEMATOCRIT 24.9 % (36.0-47.0); MEAN CORPUSCULAR HEMOGLOBIN 30.1 pg (27.0-33.4); MEAN CORPUSCULAR HGB CONC 32.3 g/dL (32.0-36.0); MEAN CORPUSCULAR VOLUME 93 fl (80-97); RED BLOOD COUNT 2.67 10^6/uL (3.72-5.28); RED CELL DISTRIBUTION WIDTH 24.2 % (11.5-14.0); WHITE BLOOD COUNT 17.3 10^3/uL (4.0-10.5)
[2020-01-04 10:25] LABS: PLATELET COUNT 85 10^3/uL (150-450)
[2020-01-04 10:38] LABS: ABSOLUTE LYMPHOCYTES# (MANUAL) 0.7 10^3/uL (0.5-4.7); ABSOLUTE MONOCYTES # (MANUAL) 0.5 10^3/uL (0.1-1.4); BASOPHILS % (MANUAL) 0 % (0-2); EOSINOPHILS % (MANUAL) 0 % (0-6); LYMPHOCYTES % (MANUAL) 4 % (13-45); MONOCYTES % (MANUAL) 3 % (3-13); NUCLEATED RED BLOOD CELLS 2 /100 WBC (0); PLATELET COMMENT ADEQUATE; SEGMENTED NEUTROPHILS % (MAN) 93 % (42-78); TOTAL CELLS COUNTED 100
[2020-01-04 10:39] LABS: ANISOCYTOSIS SLIGHT; PLATELET LARGE PRESENT; TEAR DROP CELLS SLIGHT; TOXIC VACUOLATION PRESENT
[2020-01-04] MEDS ORDERED: HYDROMORPHONE HCL INJ/PF 2 MG/ML AMPULE IV PRN (16:06)
--- NOTE | 2020-01-04 16:30 | PDOC PROGRESS REPORT ---
Subjective Progress Note for:: 01/04/20 Subjective:: Per previous physician: "64 year old female who presents the emergency room with a one-week history of bilateral foot pain. She admits the abrupt onset of pain in both feet 1 week ago. Her pain is a moderate dull pressure at rest but turns into a severe sharp searing pain with weightbearing. Her foot pain was accompanied by the development of "blisters" of her right great, second and third toes as well as her left second and third toes. The blisters have "broken" over time, becoming darkened skin with a foul odor. Her foot pain was associated with swelling in her bilateral lower extremities below the knee. She denies other associated or accompanying signs and symptoms. She she denies prior similar episodes. She has not identified any additional aggravating or ameliorating factors for her foot pain. In the emergency room she was found to have gangrene of the right great second and third toes as well as the left second and third toes. Surgical consultation with Dr. Kuo was obtained by the emergency room provider and he asked for the hospitalist service to admit the patient and consult him as well as Dr. Sadler for nephrology. Patient was subsequently admitted to the hospital for further evaluation treatment. 12/21/2019. No acute events overnight. Resting in bed no apparent distress, accompanied with relatives, very tearful about possibility of losing her other foot, otherwise denies any fever, chills, nausea, vomiting, diarrhea, constipation. 12/22/2019. No acute events overnight. Patient still very emotional, however cooperative with physical examination. Alert and oriented. Patient was supposed to be transferred to SNF today however they refused to accept her because patient was placed on soft restraints for some reason overnight. 12/23/2019. No acute events overnight. This morning patient resting with no apparent distress, awake however seems to be confused, very emotional and tearful, cooperative with physical examination, denies any fever, chills, nausea, vomiting, diarrhea. Has not had a bowel in several days, endorses low appetite, does not feel like eating. Has been refusing her food. 12/24/2019. Patient is still refusing to eat, endorsing very low appetite, noted to be hypoglycemic this morning, complaining of right hand pain, still very confused very low attention span and emotional, had a conversation over the phone with her daughter who said that she is very anxious and emotional and has had some confusion problem in the past which has been getting worse since his hospitalization. Patient denies any fever, chills, nausea, vomiting. 12/25/2019. No acute events overnight. Patient is more awake today, alert and oriented, tells me she is in the hospital knows the name of the hospital and knows that she had a right AKA. Still very emotional and complaining of right hand pain, patient still endorsing low appetite and has been refusing to eat. Patient denies any fever, chills, nausea, shortness of breath or chest pain. Patient had an MRI yesterday which was not optimal due to motion artifact however it was negative for any acute stroke. 12/26/2019. No acute events overnight. Saw patient this afternoon accompanied by her . As per patient is back to baseline. She is alert and oriented, sitting edge of the bed, cooperative with physical examination. Her was notified about her lack of appetite and refusal to eat. He states that she does not like the food here and prefers from outside. I will confirm that she does not like the food here and prefers to eat from [facility]. Since patient is not eating much and is also hypoglycemic I have agreed for patient to have any kind of food she prefers to encourage her to increase her p.o. intake. Her has kindly agreed to bring her food from outside the hospital. Patient denies any fever, chills, nausea, vomiting, diarrhea, constipation or any urinary symptoms. 12/27/2019. No acute events overnight. Patient output is improving since she is being provided regular food, hypoglycemia protocol, unfortunately patient has developed left fourth metatarsal swelling and, tenderness and follows discharge, otherwise denies any fever, chills, nausea, vomiting, diarrhea, constipation or any urinary symptoms. Dr. Buchanan from surgery has been reconsulted and he has kindly agreed to reevaluate her. 12/28/2019-tried to have a discussion with the patient about the need for left AKA. Patient is not willing to give a consent. Looks to me patient is confused and unable to take right decisions. So capacity exam will be requested. To start her back on renal diet and to discontinue IV fluids. Started on IV morphine 2 mg every 4 as needed for pain. As per the pharmacy Zosyn is added to the vancomycin. 12/29/2019-psych evaluation was done yesterday the recommendation is patient need a power of civil litigation attorney like her because at this moment patient is unable to take good decisions and lacks the capacity of understanding the current medical issues. I spoke to Jaylon Villasenor this morning he wants me to call him back tomorrow to discuss the plan 12/30/2019-pt status was discussed with patient's daughter Marta, as per her Jaylon Villasenor he agreed for left AKA. He is on the way to the hospital signed the consent. Surgery is notified. They want to keep her n.p.o. from midnight for surgery tomorrow. On examination patient has chronic skin changes affecting the right hand middle finger index finger. Right radial pulses are poor. Will request for right upper extremity Doppler. 12/30-pt is agitated and confused, refusi ultrasound examination of the right arm. Patient status discussed with Zac she is on the way from [place]. She is requesting for strong pain medications for pain management. Started on IV morphine 3 mg every 4 hours. She will be also on IV Ativan as needed for agitation. Overall prognosis poor condition is critical. Discussed about hospice issues if the family not agreeing for left AKA. 01/01/2020-right upper extremity ultrasound was done negative for vascular disease as per the radiology. She went for left AKA operation was successful. Patient was seen in the PACU. at te tme of My examination patient is sleeping comfortably. 01/02/2020-patient has a left AKA yesterday. Tolerated the procedure very well. No postop complications. On examination this morning patient is comfortably sleeping in the bed. Receiving IV morphine and IV Ativan on a as needed basis. 01/03/2020-patient is in the dialysis unit, tolerating the dialysis well. Surgery seen the patient this morning drain is removed from the left AKA. [place] are in place. Blood cultures are negative. Plan is to discontinue IV antibiotics from today. WBC is 17,000. Afebrile. Patient is a stable. over All prognosis is poor to discuss with the family about CODE STATUS and a hospice referral." 01/04/2020 Patient does not seem to be improving today based on previous documentation. She is mostly moaning and does not speak any intelligible words during my encoun ter. She is currently getting a significant dose of morphine for her pain regularly. Switched this to Dilaudid due to ESRD. We will try to wean narcotics as able and reassess her mentation as I suspect her family will be hesitant to agree to hospice if the patient is under the influence of sedating medications. This will be challenging due to her severe pain from her recent amputation. We may not be able to achieve this goal in the end. I will speak to the family regarding hospice plans as I certainly believe the patient is a candidate for hospice. Given her multiple amputations already and her highly likely future need for upper limb amputations given current severe ulcerations, I believe she has a very poor overall prognosis and is unlikely to survive the next 6 months. Reason For Visit: GANGRENE BILATERAL TOES,ESRD ON DIALYSIS,PERIPHER Physical Exam Vital Signs: Temp Pulse Resp BP Pulse Ox 98.0 F 95 16 135/65 H 94 01/04/20 12:00 01/04/20 12:00 01/04/20 12:00 01/04/20 12:00 01/04/20 12:00 Intake & Output 01/03/20 01/04/20 01/05/20 06:59 06:59 06:59 Intake Total 150 100 Output Total 0 2300 Balance 150 -2200 Weight 74.8 kg 72.4 kg General appearance: PRESENT: mild distress, well-developed, well-nourished Head exam: PRESENT: atraumatic, normocephalic Eye exam: PRESENT: conjunctiva pink Mouth exam: PRESENT: moist Respiratory exam: PRESENT: clear to auscultation genia. ABSENT: rales, rhonchi, wheezes Cardiovascular exam: PRESENT: RRR. ABSENT: diastolic murmur, rubs, systolic murmur GI/Abdominal exam: PRESENT: normal bowel sounds, soft. ABSENT: distended, guarding, mass, organolmegaly, rebound, tenderness Extremities exam: PRESENT: other - Left AKA wound healing, staple line well- appearing; right BKA with some mild skin irritation/ulceration Neurological exam: PRESENT: alert, altered. ABSENT: awake, oriented to person, oriented to place, oriented to time, oriented to situation Psychiatric exam: PRESENT: agitated Skin exam: PRESENT: dry, warm Results Laboratory Results: 01/04/20 09:15 01/03/20 07:00 01/04/20 09:15 WBC 17.3 H RBC 2.67 L Hgb 8.0 L Hct 24.9 L MCV 93 MCH 30.1 MCHC 32.3 RDW 24.2 H Plt Count 85 L Seg Neutrophils % Not Reportable 12/17/19 12/18/19 12/18/19 05:45 14:30 14:30 Creatine Kinase 499 H 468 H CK-MB (CK-2) 5.00 H Troponin I 0.026 NT-Pro-B Natriuret Pep [id number] H 12/19/19 12/19/19 12/19/19 00:13 07:00 12:05 Creatine Kinase CK-MB (CK-2) Troponin I 0.044 0.060 0.062 NT-Pro-B Natriuret Pep Impressions: Foot X-Ray 12/13/19 17:55 IMPRESSION: Osteopenia. Calcaneal spurs. Head CT 12/18/19 00:00 IMPRESSION: NO ACUTE INTRACRANIAL IMAGING FINDINGS. EVIDENCE OF ACUTE STROKE: NO. Chest X-Ray 12/19/19 08:29 IMPRESSION: Pulmonary vascular prominence without pulmonary edema or pleural effusion Stable cardiomegaly Carotid Doppler Study 12/20/19 00:00 IMPRESSION: 50 to 69% narrowing proximal right ICA by systolic velocity ratio Less than 50% diameter narrowing proximal left ICA Head MRI 12/24/19 13:56 IMPRESSION: Motion artifact. Atrophy with minor small vessel ischemic change. copyright 2011 [employer]- All Rights Reserved Upper Extremity Ultrasound 12/31/19 00:00 IMPRESSION: Normal right upper extremity arterial duplex. Assessment and Plan - Diagnosis (1) Dry gangrene Is this a current diagnosis for this admission?: Yes Plan: Per previous physician: "Impression: Patient nearly 3-week status post right BKA, 48 hours status post left AKA with stable postoperative findings; all drains left stump removed; evolving dry gangrene of the angers bilaterally. Plan: 1. Dressing changes to both stumps as ordered 2. We will of aggressiveness of care including CODE STATUS may need to be addressed." 01/04/2020 Status post bilateral lower extremity amputations Fingers may need to be amputated in the near future (2) Delirium due to another medical condition Is this a current diagnosis for this admission?: Yes Plan: Per previous physician: "Improving. Back to baseline as per . Alert and awake and oriented x3. Patient is extremely sensitive to opiates and benzodiazepines. An MRI head was done to rule out CVA but unfortunately had a lot of motion artifact and was not optimal however as per MRI report patient did not have a CVA. Patient's family voiced that patient has had some gradual decline in her memory and that she has always been an anxious person however her confusion has worsened since hospitalization. Patient clearly seems to have some baseline cognitive impairment. Also noted to be on fentanyl patch since admission and was also given IV morphine last night. DC fentanyl patch, avoid opiates and benzodiazepines if possible. Highly recommended to follow-up with neurology as outpatient. Closely monitor SPO2, electrolytes and blood glucose levels. 12/28/2019-patient is confused and agitated. Not cooperative. Refusing to sign a consent for left AKA that was needed. Capacity exam will be requested. 12/28-pt is anxoius/agitated, she failed a capacity exam yesterday. 12/30/2019-patient is current confused this morning. But not agitated. Last night nurses told me patient slide off the bed. But no obvious injuries are see n. 12/31/2019-patient is confused and agitated. Not cooperative. 01/03/2020-altered mental status/acute metabolic encephalopathy may be multifactorial. Include recent surgeries for the both lower extremities ended up with right BKA and left AKA, necrotic lesions on the right hand fingertips, dialysis patient, hemoglobin is 6.5 today. " 01/04/2020 Continues to have altered mental status. Stopped morphine and replaced with Dilaudid in setting of ESRD as this can cause delirium. Try to wean narcotics as pain level allows. (3) Diabetes mellitus type 2 in obese Is this a current diagnosis for this admission?: No Plan: Hemoglobin A1c 6.4, down from 9.0. Accu-Cheks every 6 hours. Patient noted to be hypoglycemic and was started on D5NS. Patient does not need to be on anti-diabetic anymore based on her hypoglycemic episodes and hemoglobin A1c. Continue Accu-Chek frequently, hypoglycemia protocol, monitor blood glucose levels frequently. Encourage frequent snacking. Follow-up with PCP for evaluation of diabetes and diabetic management. 01/03/2020-patient has type 2 diabetes mellitus glucose is 236. Plan is to continue insulin sliding scale at this time. 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 Pathology report negative for osteomyelitis or malignancy. Initially started on vancomycin and Zosyn. Switched to doxycycline 100 mg p.o. on 12/20/2019. Continue doxycycline 100 mg p.o. twice daily for another 4 days. Surgical wound looks clean. No sign of infection. Continue wound care. Follow-up with Dr. Hines surgeon as outpatient. 12/28/2019-left lower extremity looks ischemic. With gangrenous changes affecting the toes. Surgical team recommended left AKA. Patient is not cooperative and refusing to sign consent. Capacity exam will be requested. In the meantime we will continue IV vancomycin and Zosyn. Latest blood cultures are negative initial blood cultures are positive for Serratia. 12/29/2019-psych evaluation was done there impression is patient lacks the capacity in understanding the current medical conditions and the prognosis. Recommendation is patient's needs to be the power of civil litigation attorney. I spoke to Jaylon Villsaenor this morning to discuss the plan of care he wants me to call him back tomorrow. In the meantime we will continue the present management. 12/30/2019-family agreed for left AKA. Patient's is on the way to the hospital to sign the consent. Surgery is notified. Patient is going to be n.p.o. from midnight for surgery tomorrow. Patient has a severe peripheral vascular disease also affecting the right arm. Chronic skin changes affecting the fingertips of the right hand. Arrange for the right upper extremity ultrasound. 12/31/2019- still thinking about giving a consent for lt AKA. Patient also has necrotic changes in the right middle finger index finger and ring finger. Patient refused ultrasound at this morning. To give IV Ativan 1 mg and try to do the ultrasound Doppler examination today. Case was discussed with Janice she is requesting to start on morphine. She is also thinking about hospice. 01/01/20-patient went for left AKA, Dr. De La Vega called me and told me the surgery was successful. Patient was seen in the PACU. Comfortably sleeping. Receiving IV morphine for pain. 01/02/2020-patient has a left AKA was done. No postop complications noticed. Patient is comfortably in the bed sleeping at this time. 01/03/2020-seen by Dr. Buchanan today. He remove the drain from the left AKA. To continue to keep the genesis. Surgical wound looks clean." 01/04/2020 General surgery has signed off. They state patient can follow-up with them in the clinic. (5) ESRD (end stage renal disease) on dialysis Is this a current diagnosis for this admission?: No Plan: Her previous physician: "Hemodialysis per nephrology. 12/28/2019-she had a dialysis session yesterday. Repeat dialysis tomorrow. 01/02/2020-patient is on dialysis. Nephrology on board. Dialysis schedule as per the nephrology team recommendations. 01/03/2020-patient is seen in the dialysis unit today tolerating the dialysis well. Blood pressures are stable." 01/03/2022 May be appropriate for to stop dialysis in the near future if family chooses to make her hospice (6) Episode of transient neurologic symptoms Is this a current diagnosis for this admission?: Yes Plan: Per previous physician: "Improved. Patient is usually very emotional but as per her this is her baseline. MRI head which is not optimal due to motion artifact was negative for any acute stroke. Several days ago patient was noted to have slurring of the face as well as w orsening of eye deviation, grinding of teeth and became unresponsive. [facility] had been called. Patient was initially thought to have a stroke but then while taking patient down for CT scan, she gradually became fully alert again and moving all extremities with resolution of her prior symptoms. Head CT was normal. This episode was either caused by oxycodone 5 mg that she received several hours before the episode or she could have had a TIA. Her family denies any history of seizures. 2D echo 2 months ago was unremarkable. Carotid Doppler 50 to 69% narrowing of proximal right ICA, less than 50% diameter narrowing proximal left ICA. Patient is to continue high sensitive statin, optimize BP and diabetic control. She needs to follow-up with vascular surgeon for further evaluation and in tervention. 12/28/2019-patient is confused and agitated. Unable to communicate reasonably. Capacity exam will be requested." 01/04/2020 Not at baseline mentation per my discussion with nephrology. Patient is usually alert and oriented prior to this admission. (7) Serratia infection Is this a current diagnosis for this admission?: Yes Plan: Per previous physician: "Serratia noted in 1 blood culture set. Initially was receiving Vanco and Zosyn for osteomyelitis. Currently switch on doxycycline p.o. Sensitive to tetracycline should be covered with doxycycline. Received 7 days of doxycycline 100 mg p.o. twice daily. Had to be switched back to Vanco as patient is developing left lower extremity wet gangrene. 12/28/2019-patient is presently on IV vancomycin, as per her with recommendations to add IV Zosyn. Repeat blood cultures are negative. 01/02/2020-patient is receiving IV vancomycin and IV Zosyn at this time. Latest blood cultures from 12/15-. To discontinue antibiotics from today. 01/03/2020-patient received IV Zosyn and vancomycin for 2 weeks has a left AKA was done recent right BKA. Plan is to discontinue IV antibiotics from today." 01/04/2020 Antibiotics have been stopped by prior physician yesterday. 2 weeks total antibiotics completed with vancomycin and Zosyn. Definitive source control completed with BKA (8) Anemia in chronic kidney disease (CKD) Qualifiers: Chronic kidney disease stage: on chronic dialysis Qualified Code(s): N18.6 - End stage renal disease; D63.1 - Anemia in chronic kidney disease; Z99.2 - Dep endence on renal dialysis Is this a current diagnosis for this admission?: No (9) Anorexia Is this a current diagnosis for this admission?: Yes - Time Time Spent with patient: 25-34 minutes Medications reviewed and adjusted accordingly: Yes Anticipated discharge: SNF, Acute Rehab, Hospice Within: within 72 hours - Inpatient Certification Based on my medical assessment, after consideration of the patient's comorbidities, presenting symptoms, or acuity I expect that the services needed warrant INPATIENT care.: Yes I certify that my determination is in accordance with my understanding of Medicare's requirements for reasonable and necessary INPATIENT services [42 CFR 412.3e].: Yes Medical Necessity: Significant Comorbidiites Make Outpatient Treatment Too Risky, Need Close Monitoring Due to Risk of Patient Decompensation, Risk of Complication if Not Cared For in Hospital, Risk of Diagnosis Which Will Require Inpatient Eval/Care/Monitoring
[2020-01-04] MEDS: METOPROLOL SUCCINATE 50 MG TAB.SR.24H PO SCH (22:20)
[2020-01-05] MEDS: CLONIDINE HCL 0.2 MG TABLET PO SCH ×4 (00:11→17:13)
[2020-01-05] MEDS ORDERED: NORMAL SALINE 1000 ML 1,000 ML IV PRN (05:00)
[2020-01-05] MEDS ORDERED: EPOETIN ALFA-EPBX 30,000 UNIT in SYRINGE, DISPOSABLE, 1 EACH IV PRN (05:00)
[2020-01-05] MEDS: PANTOPRAZOLE SODIUM 40 MG TABLET.DR PO SCH (05:22)
[2020-01-05] MEDS: HEPARIN SOD (PORCINE) 5,000 UNIT/ML 1 ML VIAL SUBCUT SCH ×3 (05:22→22:31)
[2020-01-05 08:06] LABS: HEMATOCRIT 25.4 % (36.0-47.0); HEMOGLOBIN 8.2 g/dL (12.0-15.5); MEAN CORPUSCULAR HEMOGLOBIN 30.2 pg (27.0-33.4); MEAN CORPUSCULAR HGB CONC 32.2 g/dL (32.0-36.0); MEAN CORPUSCULAR VOLUME 94 fl (80-97); RED BLOOD COUNT 2.71 10^6/uL (3.72-5.28); RED CELL DISTRIBUTION WIDTH 24.2 % (11.5-14.0); WHITE BLOOD COUNT 17.5 10^3/uL (4.0-10.5)
[2020-01-05 08:24] LABS: BLOOD UREA NITROGEN 52 mg/dL (7-20); CHLORIDE 100 mmol/L (98-107); GLUCOSE 201 mg/dL (75-110)
[2020-01-05 08:29] LABS: CARBON DIOXIDE 19 mmol/L (22-30)
[2020-01-05 08:33] LABS: ANION GAP 23 (5-19)
[2020-01-05 09:08] LABS: ABSOLUTE LYMPHOCYTES# (MANUAL) 1.4 10^3/uL (0.5-4.7); ABSOLUTE MONOCYTES # (MANUAL) 0.5 10^3/uL (0.1-1.4); BASOPHILS % (MANUAL) 0 % (0-2); EOSINOPHILS % (MANUAL) 0 % (0-6); HYPOCHROMASIA SLIGHT; LYMPHOCYTES % (MANUAL) 8 % (13-45); MONOCYTES % (MANUAL) 3 % (3-13); PLATELET COUNT 82 10^3/uL (150-450); POLYCHROMASIA 1+; SEGMENTED NEUTROPHILS % (MAN) 89 % (42-78); TOTAL CELLS COUNTED 100
[2020-01-05 09:09] LABS: ANISOCYTOSIS 3+; PLATELET COMMENT DECREASED; POIKILOCYTOSIS 1+; TARGET CELLS 1+
[2020-01-05] MEDS: AMLODIPINE BESYLATE 5 MG TABLET PO SCH (10:19)
[2020-01-05] MEDS: MEGESTROL ACETATE 20 MG TABLET PO SCH (10:19)
[2020-01-05] MEDS: ASPIRIN 81 MG TABLET, ENT COATED PO SCH (10:19)
[2020-01-05] MEDS: SENNOSIDES/DOCUSATE 8.6-50 MG 1 EACH TABLET PO SCH ×2 (10:20→17:13)
--- NOTE | 2020-01-05 11:26 | PDOC PROGRESS REPORT ---
Subjective Progress Note for:: 01/05/20 Subjective:: Appears less pains. Just came back from hemodialysis with the and not transfused with a hemoglobin up to 8.2 Reason For Visit: GANGRENE BILATERAL TOES,ESRD ON DIALYSIS,PERIPHER Physical Exam Vital Signs: Temp Pulse Resp BP Pulse Ox 97.3 F 96 20 151/89 H 99 01/05/20 06:08 01/05/20 06:08 01/05/20 06:08 01/05/20 06:08 01/05/20 06:08 Intake & Output 01/04/20 01/05/20 01/06/20 06:59 06:59 06:59 Intake Total 100 Output Total 2300 Balance -2200 Weight 72.4 kg 72.4 kg Exam: The left AKA stump appears to be clean and healing well. Small amount of bloody drainage from the lateral drain site. The right BKA stump appeared to be improving with dry skin excoriations. The stump itself appears to be healing well. Her right 2nd-4th fingertips remain dusky and cool. Continue with wound dressings every other day for the left AKA stump. We will sign off and call for any questions. Results Laboratory Results: 01/05/20 06:45 01/05/20 06:45 01/05/20 01/05/20 06:45 06:45 WBC 17.5 H RBC 2.71 L Hgb 8.2 L Hct 25.4 L MCV 94 MCH 30.2 MCHC 32.2 RDW 24.2 H Plt Count 82 L Seg Neutrophils % Not Reportable Sodium 141.8 Potassium 5.0 Chloride 100 Carbon Dioxide 19 L Anion Gap 23 H BUN 52 H Creatinine 7.19 H Est GFR ( Amer) 7 L Glucose 201 H Calcium 10.0 12/17/19 12/18/19 12/18/19 05:45 14:30 14:30 Creatine Kinase 499 H 468 H CK-MB (CK-2) 5.00 H Troponin I 0.026 NT-Pro-B Natriuret Pep [id number] H 12/19/19 12/19/19 12/19/19 00:13 07:00 12:05 Creatine Kinase CK-MB (CK-2) Troponin I 0.044 0.060 0.062 NT-Pro-B Natriuret Pep Impressions: Foot X-Ray 12/13/19 17:55 IMPRESSION: Osteopenia. Calcaneal spurs. Head CT 12/18/19 00:00 IMPRESSION: NO ACUTE INTRACRANIAL IMAGING FINDINGS. EVIDENCE OF ACUTE STROKE: NO. Chest X-Ray 12/19/19 08:29 IMPRESSION: Pulmonary vascular prominence without pulmonary edema or pleural effusion Stable cardiomegaly Carotid Doppler Study 12/20/19 00:00 IMPRESSION: 50 to 69% narrowing proximal right ICA by systolic velocity ratio Less than 50% diameter narrowing proximal left ICA Head MRI 12/24/19 13:56 IMPRESSION: Motion artifact. Atrophy with minor small vessel ischemic change. copyright 2010 [employer]- All Rights Reserved Upper Extremity Ultrasound 12/31/19 00:00 IMPRESSION: Normal right upper extremity arterial duplex.
[2020-01-05] MEDS: TIMOLOL MALEATE 0.5% OPH SOLN 5 ML OU SCH ×2 (11:55→17:34)
[2020-01-05] MEDS: BRIMONIDINE TARTRATE 0.2% OPH SOLN 5 ML OU SCH ×2 (11:56→17:33)
[2020-01-05] MEDS: SILVER SULFADIAZINE 1% CREAM 50 GM TP SCH ×2 (11:57→19:11)
--- NOTE | 2020-01-05 14:20 | RADIOLOGY REPORT (SQ) ---
EXAM DESCRIPTION: CT HEAD WITHOUT IMAGES COMPLETED DATE/TIME: 01/05/2020 2:04 pm REASON FOR STUDY: CVA suspected COMPARISON: 12/18/2019 TECHNIQUE: Axial images acquired through the brain without intravenous contrast. Images reviewed wi th bone, brain and subdural windows. Additional sagittal and coronal reconstructions were generated. Images stored on PACS. All CT scanners at this facility use dose modulation, iterative reconstruction, and/or weight based d osing when appropriate to reduce radiation dose to as low as reasonably achievable (ALARA). [facility]: Dose Right [facility]: CareDose [facility]: Dose Right [facility]: Teradose 4D [facility]: GoodApril RADIATION DOSE: CT Rad equipment meets quality standard of care and radiation dose reduction techniq ues were employed. CTDIvol: 48.6 mGy. DLP: 904 mGy-cm. mGy. LIMITATIONS: None. FINDINGS: VENTRICLES: Prominent. CEREBRUM: No masses. No hemorrhage. No midline shift. Areas of low density in the white matter mos t likely due to chronic micro-vascular ischemic change. No evidence for acute infarction. CEREBELLUM: No masses. No hemorrhage. No alteration of density. No evidence for acute infarction. EXTRAAXIAL SPACES: Mild age-related involutional change. No fluid collections. No masses. ORBITS AND GLOBE: No intra- or extraconal masses. Normal contour of globe without masses. CALVARIUM: No fracture. PARANASAL SINUSES: No fluid or mucosal thickening. SOFT TISSUES: No mass or hematoma. OTHER: No other significant finding. IMPRESSION: MILD CHRONIC CHANGES OF ATROPHY AND MICROVASCULAR ISCHEMIA. NO ACUTE PROCESS. EVIDENCE OF ACUTE STROKE: NO. TECHNICAL DOCUMENTATION: JOB ID: [id number] Quality ID # [id number]: Final reports with documentation of one or more dose reduction techniques (e.g., Au tomated exposure control, adjustment of the mA and/or kV according to patient size, use of iterative reconstruction technique) 2010 [email or web address]- All Rights Reserved Reading location - IP/workstation name: [email or web address]
[2020-01-05 17:22] LABS: ARTERIAL BLOOD BASE EXCESS 0.6 mmol/L; ARTERIAL BLOOD FIO2 4L; ARTERIAL BLOOD H2CO3 1.52 mmol/L (1.05-1.35); ARTERIAL BLOOD HCO3 26.8 mmol/L (20-24); ARTERIAL BLOOD O2 SATURATION 85 % (94-98); ARTERIAL BLOOD PCO2 50.4 mmHg (35-45); ARTERIAL BLOOD PH 7.34 (7.35-7.45); ARTERIAL BLOOD PO2 52.7 mmHg (80-100); ARTERIAL BLOOD TOTAL CO2 28.3 mmol/L (21-25)
--- NOTE | 2020-01-05 18:09 | PDOC PROGRESS REPORT ---
Subjective Progress Note for:: 01/05/20 Subjective:: Per previous physician: "64 year old female who presents the emergency room with a one-week history of bilateral foot pain. She admits the abrupt onset of pain in both feet 1 week ago. Her pain is a moderate dull pressure at rest but turns into a severe sharp searing pain with weightbearing. Her foot pain was accompanied by the development of "blisters" of her right great, second and third toes as well as her left second and third toes. The blisters have "broken" over time, becoming darkened skin with a foul odor. Her foot pain was associated with swelling in her bilateral lower extremities below the knee. She denies other associated or accompanying signs and symptoms. She she denies prior similar episodes. She has not identified any additional aggravating or ameliorating factors for her foot pain. In the emergency room she was found to have gangrene of the right great second and third toes as well as the left second and third toes. Surgical consultation with Dr. Kuo was obtained by the emergency room provider and he asked for the hospitalist service to admit the patient and consult him as well as Dr. Sadler for nephrology. Patient was subsequently admitted to the hospital for further evaluation treatment. 12/21/2019. No acute events overnight. Resting in bed no apparent distress, accompanied with relatives, very tearful about possibility of losing her other foot, otherwise denies any fever, chills, nausea, vomiting, diarrhea, constipation. 12/22/2019. No acute events overnight. Patient still very emotional, however cooperative with physical examination. Alert and oriented. Patient was supposed to be transferred to SNF today however they refused to accept her because patient was placed on soft restraints for some reason overnight. 12/23/2019. No acute events overnight. This morning patient resting with no apparent distress, awake however seems to be confused, very emotional and tearful, cooperative with physical examination, denies any fever, chills, nausea, vomiting, diarrhea. Has not had a bowel in several days, endorses low appetite, does not feel like eating. Has been refusing her food. 12/24/2019. Patient is still refusing to eat, endorsing very low appetite, noted to be hypoglycemic this morning, complaining of right hand pain, still very confused very low attention span and emotional, had a conversation over the phone with her daughter who said that she is very anxious and emotional and has had some confusion problem in the past which has been getting worse since his hospitalization. Patient denies any fever, chills, nausea, vomiting. 12/25/2019. No acute events overnight. Patient is more awake today, alert and oriented, tells me she is in the hospital knows the name of the hospital and knows that she had a right AKA. Still very emotional and complaining of right hand pain, patient still endorsing low appetite and has been refusing to eat. Patient denies any fever, chills, nausea, shortness of breath or chest pain. Patient had an MRI yesterday which was not optimal due to motion artifact however it was negative for any acute stroke. 12/26/2019. No acute events overnight. Saw patient this afternoon accompanied by her . As per patient is back to baseline. She is alert and oriented, sitting edge of the bed, cooperative with physical examination. Her was notified about her lack of appetite and refusal to eat. He states that she does not like the food here and prefers from outside. I will confirm that she does not like the food here and prefers to eat from [facility]. Since patient is not eating much and is also hypoglycemic I have agreed for patient to have any kind of food she prefers to encourage her to increase her p.o. intake. Her has kindly agreed to bring her food from outside the hospital. Patient denies any fever, chills, nausea, vomiting, diarrhea, constipation or any urinary symptoms. 12/27/2019. No acute events overnight. Patient output is improving since she is being provided regular food, hypoglycemia protocol, unfortunately patient has developed left fourth metatarsal swelling and, tenderness and follows discharge, otherwise denies any fever, chills, nausea, vomiting, diarrhea, constipation or any urinary symptoms. Dr. Buchanan from surgery has been reconsulted and he has kindly agreed to reevaluate her. 12/28/2019-tried to have a discussion with the patient about the need for left AKA. Patient is not willing to give a consent. Looks to me patient is confused and unable to take right decisions. So capacity exam will be requested. To start her back on renal diet and to discontinue IV fluids. Started on IV morphine 2 mg every 4 as needed for pain. As per the pharmacy Zosyn is added to the vancomycin. 12/29/2019-psych evaluation was done yesterday the recommendation is patient need a power of city attorney like her because at this moment patient is unable to take good decisions and lacks the capacity of understanding the current medical issues. I spoke to Jaylon Villasenor this morning he wants me to call him back tomorrow to discuss the plan 12/30/2019-pt status was discussed with patient's daughter Marta, as per her Jaylon Villasenor he agreed for left AKA. He is on the way to the hospital signed the consent. Surgery is notified. They want to keep her n.p.o. from midnight for surgery tomorrow. On examination patient has chronic skin changes affecting the right hand middle finger index finger. Right radial pulses are poor. Will request for right upper extremity Doppler. 12/30-pt is agitated and confused, refusi ultrasound examination of the right arm. Patient status discussed with Zac she is on the way from [place]. She is requesting for strong pain medications for pain management. Started on IV morphine 3 mg every 4 hours. She will be also on IV Ativan as needed for agitation. Overall prognosis poor condition is critical. Discussed about hospice issues if the family not agreeing for left AKA. 01/01/2020-right upper extremity ultrasound was done negative for vascular disease as per the radiology. She went for left AKA operation was successful. Patient was seen in the PACU. at te tme of My examination patient is sleeping comfortably. 01/02/2020-patient has a left AKA yesterday. Tolerated the procedure very well. No postop complications. On examination this morning patient is comfortably sleeping in the bed. Receiving IV morphine and IV Ativan on a as needed basis. 01/03/2020-patient is in the dialysis unit, tolerating the dialysis well. Surgery seen the patient this morning drain is removed from the left AKA. [place] are in place. Blood cultures are negative. Plan is to discontinue IV antibiotics from today. WBC is 17,000. Afebrile. Patient is a stable. over All prognosis is poor to discuss with the family about CODE STATUS and a hospice referral." 01/04/2020 Patient does not seem to be improving today based on previous documentation. She is mostly moaning and does not speak any intelligible words during my encoun ter. She is currently getting a significant dose of morphine for her pain regularly. Switched this to Dilaudid due to ESRD. We will try to wean narcotics as able and reassess her mentation as I suspect her family will be hesitant to agree to hospice if the patient is under the influence of sedating medications. This will be challenging due to her severe pain from her recent amputation. We may not be able to achieve this goal in the end. I will speak to the family regarding hospice plans as I certainly believe the patient is a candidate for hospice. Given her multiple amputations already and her highly likely future need for upper limb amputations given current severe ulcerations, I believe she has a very poor overall prognosis and is unlikely to survive the next 6 months. 01/05/2020 Patient is still rather somnolent but is arousable to the point where she moans/groans however she is still not speaking words. I am concerned that she may be retaining CO2 and I ordered an ABG. Results later came back that her CO2 was over 50 which is quite a bit higher than her previous ABG. I discussed with nursing to have respiratory therapy come and apply BiPAP/CPAP in order to help with CO2 retention as well as oxygenation which was low on ABG as well. I believe the narcotics have been contributing to her known severe MARCELO and we may be able to restore some semblance of her prior relatively good mentation. I will hold off on discussing palliative options with the family until the patient is spent the night on BiPAP. It is possible she may wake up and begin talking again tomorrow if the CO2 truly is the cause of her obtundation. All that said, she still has a very poor long-term prognosis due to what I presume are extremely calcified arteries causing peripheral ischemic limbs that will continue to require progressive amputations. Ordered a CT head which did not show any acute abnormalities. Reason For Visit: GANGRENE BILATERAL TOES,ESRD ON DIALYSIS,PERIPHER Physical Exam Vital Signs: Temp Pulse Resp BP Pulse Ox 97.5 F 95 18 155/72 H 100 01/05/20 15:23 01/05/20 15:23 01/05/20 17:31 01/05/20 15:23 01/05/20 17:31 Intake & Output 01/04/20 01/05/20 01/06/20 06:59 06:59 06:59 Intake Total 100 Output Total 2300 Balance -2200 Weight 72.4 kg 72.4 kg General appearance: PRESENT: no acute distress, cooperative, disheveled, well- developed, well-nourished Head exam: PRESENT: atraumatic, normocephalic Eye exam: PRESENT: conjunctiva pink Mouth exam: PRESENT: moist Respiratory exam: PRESENT: clear to auscultation genia. ABSENT: rales, rhonchi, wheezes Cardiovascular exam: PRESENT: RRR. ABSENT: diastolic murmur, rubs, systolic murmur GI/Abdominal exam: PRESENT: normal bowel sounds, soft. ABSENT: distended, guarding, mass, organolmegaly, rebound, tenderness Neurological exam: PRESENT: altered. ABSENT: alert, awake Skin exam: PRESENT: dry, intact, warm, other - Stump wounds appear to be healing gradually, clean in appearance Results Laboratory Results: 01/05/20 06:45 01/05/20 06:45 01/05/20 01/05/20 01/05/20 06:45 06:45 16:58 WBC 17.5 H RBC 2.71 L Hgb 8.2 L Hct 25.4 L MCV 94 MCH 30.2 MCHC 32.2 RDW 24.2 H Plt Count 82 L Seg Neutrophils % Not Reportable Carbonic Acid 1.52 H HCO3/H2CO3 Ratio 17:1 ABG pH 7.34 L ABG pCO2 50.4 H ABG pO2 52.7 L ABG HCO3 26.8 H ABG O2 Saturation 85 L ABG Base Excess 0.6 FiO2 4L Sodium 141.8 Potassium 5.0 Chloride 100 Carbon Dioxide 19 L Anion Gap 23 H BUN 52 H Creatinine 7.19 H Est GFR ( Amer) 7 L Glucose 201 H Calcium 10.0 12/17/19 12/18/19 12/18/19 05:45 14:30 14:30 Creatine Kinase 499 H 468 H CK-MB (CK-2) 5.00 H Troponin I 0.026 NT-Pro-B Natriuret Pep [id number] H 12/19/19 12/19/19 12/19/19 00:13 07:00 12:05 Creatine Kinase CK-MB (CK-2) Troponin I 0.044 0.060 0.062 NT-Pro-B Natriuret Pep Impressions: Foot X-Ray 12/13/19 17:55 IMPRESSION: Osteopenia. Calcaneal spurs. Chest X-Ray 12/19/19 08:29 IMPRESSION: Pulmonary vascular prominence without pulmonary edema or pleural effusion Stable cardiomegaly Carotid Doppler Study 12/20/19 00:00 IMPRESSION: 50 to 69% narrowing proximal right ICA by systolic velocity ratio Less than 50% diameter narrowing proximal left ICA Head MRI 12/24/19 13:56 IMPRESSION: Motion artifact. Atrophy with minor small vessel ischemic change. copyright 2011 [employer]- All Rights Reserved Upper Extremity Ultrasound 12/31/19 00:00 IMPRESSION: Normal right upper extremity arterial duplex. Head CT 01/05/20 00:00 IMPRESSION: MILD CHRONIC CHANGES OF ATROPHY AND MICROVASCULAR ISCHEMIA. NO ACUTE PROCESS. EVIDENCE OF ACUTE STROKE: NO. Assessment and Plan - Diagnosis (1) Dry gangrene Is this a current diagnosis for this admission?: Yes Plan: Per previous physician: "Impression: Patient nearly 3-week status post right BKA, 48 hours status post left AKA with stable postoperative findings; all drains left stump removed; evolving dry gangrene of the angers bilaterally. Plan: 1. Dressing changes to both stumps as ordered 2. We will of aggressiveness of care including CODE STATUS may need to be addressed." 01/04/2020 Status post bilateral lower extremity amputations Fingers may need to be amputated in the near future 01/05/2020 General surgery has signed off (2) Acute respiratory failure with hypoxia and hypercapnia Is this a current diagnosis for this admission?: Yes Plan: Likely multifactorial: Postoperative delirium combined with severe MARCELO combined with continued narcotics use Reduce narcotics dosing and benzo dosing as able ABG done revealing high CO2 and low O2 BiPAP started Watch for improvement in mentation (3) Delirium due to another medical condition Is this a current diagnosis for this admission?: Yes Plan: Per previous physician: "Improving. Back to baseline as per . Alert and awake and oriented x3. Patient is extremely sensitive to opiates and benzodiazepines. An MRI head was done to rule out CVA but unfortunately had a lot of motion a rtifact and was not optimal however as per MRI report patient did not have a CVA. Patient's family voiced that patient has had some gradual decline in her memory and that she has always been an anxious person however her confusion has worsened since hospitalization. Patient clearly seems to have some baseline cognitive impairment. Also noted to be on fentanyl patch since admission and was also given IV morphine last night. DC fentanyl patch, avoid opiates and benzodiazepines if possible. Highly recommended to follow-up with neurology as outpatient. Closely monitor SPO2, electrolytes and blood glucose levels. 12/28/2019-patient is confused and agitated. Not cooperative. Refusing to sign a consent for left AKA that was needed. Capacity exam will be requested. 12/28-pt is anxoius/agitated, she failed a capacity exam yesterday. 12/30/2019-patient is current confused this morning. But not agitated. Last night nurses told me patient slide off the bed. But no obvious injuries are seen. 12/31/2019-patient is confused and agitated. Not cooperative. 01/03/2020-altered mental status/acute metabolic encephalopathy may be multifactorial. Include recent surgeries for the both lower extremities ended up with right BKA and left AKA, necrotic lesions on the right hand fingertips, dialysis patient, hemoglobin is 6.5 today. " 01/04/2020 Continues to have altered mental status. Stopped morphine and replaced with Dilaudid in setting of ESRD as this can cause delirium. Try to wean narcotics as pain level allows. 01/05/2020 Likely due to severe MARCELO with CO2 retention and hypoxemia combined with narcotics and benzos Treatment as above Mentation does not improve on BiPAP and weaning narcotics, would encourage palliative talks continue with family (4) Diabetes mellitus type 2 in obese Is this a current diagnosis for this admission?: No (5) Diabetic wet gangrene of the foot Is this a current diagnosis for this admission?: Yes (6) ESRD (end stage renal disease) on dialysis Is this a current diagnosis for this admission?: No (7) Episode of transient neurologic symptoms Is this a current diagnosis for this admission?: Yes (8) Serratia infection Is this a current diagnosis for this admission?: Yes (9) Anemia in chronic kidney disease (CKD) Qualifiers: Chronic kidney disease stage: on chronic dialysis Qualified Code(s): N18.6 - End stage renal disease; D63.1 - Anemia in chronic kidney disease; Z99.2 - Dependence on renal dialysis Is this a current diagnosis for this admission?: No (10) Anorexia Is this a current diagnosis for this admission?: Yes - Time Time Spent with patient: 35 or more minutes Medications reviewed and adjusted accordingly: Yes Anticipated discharge: SNF Within: within 72 hours - Inpatient Certification Based on my medical assessment, after consideration of the patient's comorbidities, presenting symptoms, or acuity I expect that the services needed warrant INPATIENT care.: Yes I certify that my determination is in accordance with my understanding of Medicare's requirements for reasonable and necessary INPATIENT services [42 CFR 412.3e].: Yes Medical Necessity: Significant Comorbidiites Make Outpatient Treatment Too Risky, Need Close Monitoring Due to Risk of Patient Decompensation, Risk of Complication if Not Cared For in Hospital, Risk of Diagnosis Which Will Require Inpatient Eval/Care/Monitoring
--- NOTE | 2020-01-05 21:08 | PDOC PROGRESS REPORT ---
Subjective Progress Note for:: 01/05/20 Subjective:: Obtained the patient during dialysis this morning. Patient continues to have altered mentation and just moans and groans during dialysis but not as agitated as 2 days ago. She has not been eating orally due to her mental status. So far her dialysis is going smoothly though. Reason For Visit: GANGRENE BILATERAL TOES,ESRD ON DIALYSIS,PERIPHER Physical Exam Vital Signs: Temp Pulse Resp BP Pulse Ox 97.3 F 96 20 151/89 H 99 01/05/20 06:08 01/05/20 06:08 01/05/20 06:08 01/05/20 06:08 01/05/20 06:08 Intake & Output 01/04/20 01/05/20 01/06/20 06:59 06:59 06:59 Intake Total 100 Output Total 2300 Balance -2200 Weight 72.4 kg 72.4 kg Vitals during dialysis: Blood pressure 158/101, heart rate of 100, blood flow rate of 400 mL/min and dialysate flow rate of 800 mL/min. Exam: General appearance: PRESENT: no acute distress, moans and groans only Head exam: PRESENT: atraumatic, normocephalic Eye exam: PRESENT: Eyes are closed Neck exam: ABSENT: JVD Respiratory exam: PRESENT: Diminished breath sounds. ABSENT: crackles, rales, rhonchi, unlabored, wheezes Cardiovascular exam: PRESENT: Regular rate rhythm -+S1, +S2. ABSENT: diastolic murmur, systolic murmur GI/Abdominal exam: PRESENT: normal bowel sounds, soft. ABSENT: guarding, mass, tenderness Extremities exam: ABSENT: No edema Neurological exam: PRESENT: Lethargic and has no meaningful verbal output. Skin exam: PRESENT: dry, warm, Cardiovascular exam: PRESENT: +S1, +S2 GI/Abdominal exam: PRESENT: soft. ABSENT: organomegaly, tenderness Results Laboratory Results: 01/05/20 06:45 01/05/20 06:45 01/04/20 01/05/20 01/05/20 09:15 06:45 06:45 WBC 17.3 H 17.5 H RBC 2.67 L 2.71 L Hgb 8.0 L 8.2 L Hct 24.9 L 25.4 L MCV 93 94 MCH 30.1 30.2 MCHC 32.3 32.2 RDW 24.2 H 24.2 H Plt Count 85 L 82 L Seg Neutrophils % Not Reportable Not Reportable Sodium 141.8 Potassium 5.0 Chloride 100 Carbon Dioxide 19 L Anion Gap 23 H BUN 52 H Creatinine 7.19 H Est GFR ( Amer) 7 L Glucose 201 H Calcium 10.0 12/17/19 12/18/19 12/18/19 05:45 14:30 14:30 Creatine Kinase 499 H 468 H CK-MB (CK-2) 5.00 H Troponin I 0.026 NT-Pro-B Natriuret Pep [id number] H 12/19/19 12/19/19 12/19/19 00:13 07:00 12:05 Creatine Kinase CK-MB (CK-2) Troponin I 0.044 0.060 0.062 NT-Pro-B Natriuret Pep Impressions: Foot X-Ray 12/13/19 17:55 IMPRESSION: Osteopenia. Calcaneal spurs. Head CT 12/18/19 00:00 IMPRESSION: NO ACUTE INTRACRANIAL IMAGING FINDINGS. EVIDENCE OF ACUTE STROKE: NO. Chest X-Ray 12/19/19 08:29 IMPRESSION: Pulmonary vascular prominence without pulmonary edema or pleural effusion Stable cardiomegaly Carotid Doppler Study 12/20/19 00:00 IMPRESSION: 50 to 69% narrowing proximal right ICA by systolic velocity ratio Less than 50% diameter narrowing proximal left ICA Head MRI 12/24/19 13:56 IMPRESSION: Motion artifact. Atrophy with minor small vessel ischemic change. copyright 2010 [employer]- All Rights Reserved Upper Extremity Ultrasound 12/31/19 00:00 IMPRESSION: Normal right upper extremity arterial duplex. Assessment & Plan - Diagnosis (1) ESRD (end stage renal disease) on dialysis Is this a current diagnosis for this admission?: No Plan: We will do dialysis today for 3 hours, using the patient's AV fistula, with 2 potassium bath, blood flow rate of 400 mL per minute, dialysate flow rate of 800 mL per minute, ultrafiltration 0.5 L as tolerated, no heparin and Procrit with 30,000 units during dialysis intravenously. Her dialysis nurse is monitoring the patient very closely. (2) Peripheral vascular disease in diabetes mellitus Is this a current diagnosis for this admission?: Yes Plan: Patient has severe peripheral arterial disease, status post right BKA on December 14 and recently left AKA on December 31 with clinical evidence of vascular disease in her upper extremities although not supported by arterial duplex. Prognosis of the patient is poor at this point. (3) Hypertension Qualifiers: Hypertension type: essential hypertension Qualified Code(s): I10 - Essential (primary) hypertension Is this a current diagnosis for this admission?: Yes Plan: Mostly controlled. (4) Diabetes mellitus type 2 in obese Is this a current diagnosis for this admission?: No Plan: Labile. (5) Anemia in chronic kidney disease (CKD) Qualifiers: Chronic kidney disease stage: on chronic dialysis Qualified Code(s): N18.6 - End stage renal disease; D63.1 - Anemia in chronic kidney disease; Z99.2 - Dependence on renal dialysis Is this a current diagnosis for this admission?: No Plan: Retacrit this given today during dialysis . He was transfused 1 unit of packed RBC 2 days ago. Her hemoglobin is improved from 6.4 to now 8.2. (6) Delirium due to another medical condition Is this a current diagnosis for this admission?: Yes Plan: Likely due to combination of anesthesia, pain medications and acute illness. Hospitalist is trying to wean her off pain medication. - Notes Notes: Prognosis of this patient is very poor due to severe peripheral arterial disease on the upper and lower extremities. Quality of life will not be as good for this hospitalization if ever she survives this. Have spoken yesterday to 20 about consideration of hospice care. However he is trying to see if patient's mental status will improve first tapering of pain medications for having conversation with the family. - Time Time with patient: 15-25 minutes
[2020-01-05] MEDS: METOPROLOL SUCCINATE 50 MG TAB.SR.24H PO SCH (22:31)
[2020-01-06] MEDS: LORAZEPAM INJ 2 MG/1 ML VIAL IV PRN (01:58)
[2020-01-06] MEDS: CLONIDINE HCL 0.2 MG TABLET PO SCH ×5 (05:53→23:33)
[2020-01-06] MEDS: HEPARIN SOD (PORCINE) 5,000 UNIT/ML 1 ML VIAL SUBCUT SCH ×3 (05:54→22:31)
[2020-01-06] MEDS: PANTOPRAZOLE SODIUM 40 MG TABLET.DR PO SCH (05:54)
[2020-01-06] MEDS: ASPIRIN 81 MG TABLET, ENT COATED PO SCH (09:55)
[2020-01-06] MEDS: AMLODIPINE BESYLATE 5 MG TABLET PO SCH (09:56)
[2020-01-06] MEDS: MEGESTROL ACETATE 20 MG TABLET PO SCH (09:56)
[2020-01-06] MEDS: SENNOSIDES/DOCUSATE 8.6-50 MG 1 EACH TABLET PO SCH ×2 (09:56→17:59)
[2020-01-06] MEDS: TIMOLOL MALEATE 0.5% OPH SOLN 5 ML OU SCH ×2 (10:21→17:59)
[2020-01-06] MEDS: BRIMONIDINE TARTRATE 0.2% OPH SOLN 5 ML OU SCH ×2 (10:21→17:58)
[2020-01-06] MEDS: SILVER SULFADIAZINE 1% CREAM 50 GM TP SCH ×2 (10:22→18:59)
--- NOTE | 2020-01-06 13:32 | PDOC PROGRESS REPORT ---
Subjective Progress Note for:: 01/06/20 Subjective:: No adverse events overnight. She has remained on BiPAP and she looks a bit agitated but she is not waking up and interacting. She tries to pull the BiPAP mask off but is only able to get it off of her nose and it still covers her mouth. Reason For Visit: GANGRENE BILATERAL TOES,ESRD ON DIALYSIS,PERIPHER Physical Exam Vital Signs: Temp Pulse Resp BP Pulse Ox 97.8 F 100 13 152/74 H 100 01/06/20 11:13 01/06/20 11:13 01/06/20 11:14 01/06/20 11:13 01/06/20 11:14 Intake & Output 01/05/20 01/06/20 01/07/20 06:59 06:59 06:59 Weight 72.4 kg 72.4 kg General appearance: PRESENT: Mild distress, cooperative, disheveled, well- developed, well-nourished Head exam: PRESENT: atraumatic, normocephalic Eye exam: PRESENT: conjunctiva pink Mouth exam: PRESENT: moist Respiratory exam: PRESENT: clear to auscultation genia. ABSENT: rales, rhonchi, wheezes Cardiovascular exam: PRESENT: RRR. ABSENT: diastolic murmur, rubs, systolic murmur GI/Abdominal exam: PRESENT: normal bowel sounds, soft. ABSENT: distended, guarding, mass, organolmegaly, rebound, tenderness Neurological exam: PRESENT: altered. ABSENT: alert, awake Skin exam: PRESENT: dry, intact, warm, other - Stump wounds appear to be healing gradually, clean in appearance. She has black blisters on the tips of her index and middle fingers on the right hand, and on the ring finger of the left hand Results Laboratory Results: 01/05/20 06:45 01/05/20 06:45 01/05/20 16:58 Carbonic Acid 1.52 H HCO3/H2CO3 Ratio 17:1 ABG pH 7.34 L ABG pCO2 50.4 H ABG pO2 52.7 L ABG HCO3 26.8 H ABG O2 Saturation 85 L ABG Base Excess 0.6 FiO2 4L 12/17/19 12/18/19 12/18/19 05:45 14:30 14:30 Creatine Kinase 499 H 468 H CK-MB (CK-2) 5.00 H Troponin I 0.026 NT-Pro-B Natriuret Pep [id number] H 12/19/19 12/19/19 12/19/19 00:13 07:00 12:05 Creatine Kinase CK-MB (CK-2) Troponin I 0.044 0.060 0.062 NT-Pro-B Natriuret Pep Impressions: Foot X-Ray 12/13/19 17:55 IMPRESSION: Osteopenia. Calcaneal spurs. Chest X-Ray 12/19/19 08:29 IMPRESSION: Pulmonary vascular prominence without pulmonary edema or pleural effusion Stable cardiomegaly Carotid Doppler Study 12/20/19 00:00 IMPRESSION: 50 to 69% narrowing proximal right ICA by systolic velocity ratio Less than 50% diameter narrowing proximal left ICA Head MRI 12/24/19 13:56 IMPRESSION: Motion artifact. Atrophy with minor small vessel ischemic change. copyright 2010 [employer]- All Rights Reserved Upper Extremity Ultrasound 12/31/19 00:00 IMPRESSION: Normal right upper extremity arterial duplex. Head CT 01/05/20 00:00 IMPRESSION: MILD CHRONIC CHANGES OF ATROPHY AND MICROVASCULAR ISCHEMIA. NO ACUTE PROCESS. EVIDENCE OF ACUTE STROKE: NO. Assessment and Plan - Diagnosis (1) Acute respiratory failure with hypoxia and hypercapnia Is this a current diagnosis for this admission?: Yes Plan: We got the BiPAP repositioned. We will give it a trial and check an ABG later on. We are also trying to let some of the medication were out of her system. If this proves unsuccessful, will revisit the discussion of palliative care and hospice with the family. (2) Adverse effect of narcotic Qualifiers: Encounter type: initial encounter Qualified Code(s): T40.605A - Adverse effect of unspecified narcotics, initial encounter Is this a current diagnosis for this admission?: Yes Plan: Holding sedating medications (3) Anorexia Is this a current diagnosis for this admission?: Yes (4) Delirium due to another medical condition Is this a current diagnosis for this admission?: Yes Plan: BiPAP to help lower CO2, holding sedating medications (5) Diabetes mellitus type 2 in obese Is this a current diagnosis for this admission?: Yes Plan: Continue current regimen (6) Dry gangrene Is this a current diagnosis for this admission?: Yes Plan: She has had bilateral lower extremity amputations, and if she survives this hospitalization she will wind up likely having to have her fingers amputated (7) ESRD (end stage renal disease) on dialysis Is this a current diagnosis for this admission?: Yes (8) Diabetic wet gangrene of the foot Is this a current diagnosis for this admission?: Yes Plan: She has had a right below the knee amputation and left [id number] amputation this hospitalization. General surgery is following. - Time Time Spent with patient: 25-34 minutes Anticipated discharge: Hospice Within: Other
[2020-01-06] MEDS: METOPROLOL SUCCINATE 50 MG TAB.SR.24H PO SCH (22:31)
[2020-01-07] MEDS ORDERED: ACETAMINOPHEN 650 MG SUPP.RECT PR ONE (04:09)
[2020-01-07] MEDS ORDERED: ACETAMINOPHEN 650 MG SUPP.RECT PR PRN (04:10)
[2020-01-07] MEDS ORDERED: NORMAL SALINE 1000 ML 1,000 ML IV PRN (05:00)
[2020-01-07] MEDS ORDERED: EPOETIN ALFA-EPBX 30,000 UNIT in SYRINGE, DISPOSABLE, 1 EACH IV PRN (05:00)
[2020-01-07] MEDS: HEPARIN SOD (PORCINE) 5,000 UNIT/ML 1 ML VIAL SUBCUT SCH ×3 (05:43→22:15)
[2020-01-07] MEDS: PANTOPRAZOLE SODIUM 40 MG TABLET.DR PO SCH (05:43)
[2020-01-07] MEDS: CLONIDINE HCL 0.2 MG TABLET PO SCH ×4 (05:44→23:07)
[2020-01-07 06:26] LABS: HEMATOCRIT 29.7 % (36.0-47.0); HEMOGLOBIN 9.4 g/dL (12.0-15.5); MEAN CORPUSCULAR HEMOGLOBIN 30.1 pg (27.0-33.4); MEAN CORPUSCULAR HGB CONC 31.8 g/dL (32.0-36.0); MEAN CORPUSCULAR VOLUME 95 fl (80-97); RED BLOOD COUNT 3.14 10^6/uL (3.72-5.28); RED CELL DISTRIBUTION WIDTH 24.5 % (11.5-14.0)
[2020-01-07 06:29] LABS: PLATELET COUNT 75 10^3/uL (150-450)
[2020-01-07 06:40] LABS: BLOOD UREA NITROGEN 57 mg/dL (7-20); CALCIUM 10.1 mg/dL (8.4-10.2); CARBON DIOXIDE 20 mmol/L (22-30); CHLORIDE 100 mmol/L (98-107); GLUCOSE 300 mg/dL (75-110); POTASSIUM 4.8 mmol/L (3.6-5.0)
[2020-01-07 06:43] LABS: ABSOLUTE LYMPHOCYTES# (MANUAL) 0.5 10^3/uL (0.5-4.7); ABSOLUTE MONOCYTES # (MANUAL) 0.5 10^3/uL (0.1-1.4); BASOPHILS % (MANUAL) 0 % (0-2); EOSINOPHILS % (MANUAL) 0 % (0-6); LYMPHOCYTES % (MANUAL) 3 % (13-45); MONOCYTES % (MANUAL) 3 % (3-13); NUCLEATED RED BLOOD CELLS 6 /100 WBC (0); SEGMENTED NEUTROPHILS % (MAN) 94 % (42-78); TOTAL CELLS COUNTED 100
[2020-01-07 06:46] LABS: ANISOCYTOSIS 3+; PLATELET COMMENT DECREASED; POIKILOCYTOSIS SLIGHT; POLYCHROMASIA SLIGHT; TARGET CELLS SLIGHT; WHITE BLOOD COUNT 17.1 10^3/uL (4.0-10.5)
[2020-01-07 06:49] LABS: ANION GAP 22 (5-19)
--- NOTE | 2020-01-07 08:34 | RADIOLOGY REPORT (SQ) ---
EXAM DESCRIPTION: CHEST SINGLE VIEW IMAGES COMPLETED DATE/TIME: 01/07/2020 8:16 am REASON FOR STUDY: LETHARGY COMPARISON: 12/19/2019. EXAM PARAMETERS: NUMBER OF VIEWS: One view. TECHNIQUE: Single frontal radiographic view of the chest acquired. RADIATION DOSE: NA LIMITATIONS: None. FINDINGS: LUNGS AND PLEURA: No opacities, masses or pneumothorax. No pleural effusion. MEDIASTINUM AND HILAR STRUCTURES: No masses. Contour normal. HEART AND VASCULAR STRUCTURES: Cardiomegaly. Mild vascular prominence. BONES: No acute findings. HARDWARE: None in the chest. OTHER: No other significant finding. IMPRESSION: CARDIOMEGALY. MILD VASCULAR PROMINENCE. TECHNICAL DOCUMENTATION: JOB ID: [id number] 2010 [employer]- All Rights Reserved Reading location - IP/workstation name: [email or web address]
[2020-01-07] MEDS: ASPIRIN 81 MG TABLET, ENT COATED PO SCH (09:23)
[2020-01-07] MEDS: AMLODIPINE BESYLATE 5 MG TABLET PO SCH (09:23)
[2020-01-07] MEDS: SENNOSIDES/DOCUSATE 8.6-50 MG 1 EACH TABLET PO SCH ×2 (09:23→17:02)
[2020-01-07] MEDS: MEGESTROL ACETATE 20 MG TABLET PO SCH (09:23)
[2020-01-07] MEDS: TIMOLOL MALEATE 0.5% OPH SOLN 5 ML OU SCH ×2 (09:51→17:47)
[2020-01-07] MEDS: BRIMONIDINE TARTRATE 0.2% OPH SOLN 5 ML OU SCH ×2 (09:51→17:46)
--- NOTE | 2020-01-07 11:33 | PDOC PROGRESS REPORT ---
Subjective Progress Note for:: 01/07/20 Subjective:: I am seeing the patient during dialysis this morning. Her clinical condition remains unchanged if not worse. For the last few days she was weaned off being given a lot of pain medications and any sedating medication but her mental status did not change. Her ABG on January 04 showed mild CO2 retention with PCO2 of 50.4 so he was also tried on BiPAP to see if the mental status will improve but it did not. Now she is on nasal cannula during dialysis and continues to be unresponsive with nonpurposeful movement of her upper extremities. Patient has not had any oral intake including solids or fluids for the last 5 days postoperatively. Today she has some low-grade temperature and so blood cultures were obtained. Chest x-ray only showed mild vascular prominence. Currently she is tolerating dialysis thus far. Reason For Visit: GANGRENE BILATERAL TOES,ESRD ON DIALYSIS,PERIPHER Physical Exam Vital Signs: Temp Pulse Resp BP Pulse Ox 99.6 F 111 H 22 H 154/82 H 100 01/07/20 09:03 01/07/20 07:14 01/07/20 08:17 01/07/20 07:14 01/07/20 08:17 Intake & Output 01/06/20 01/07/20 01/08/20 06:59 06:59 06:59 Weight 72.4 kg 72.4 kg Vitals during dialysis: Blood pressure 173/87, heart rate of 102, temperature of 100.9-99.6, blood flow rate of 400 mL/min and dialysate flow rate of 800 mL/min. Exam: General appearance: PRESENT: no acute distress, nonverbal Head exam: PRESENT: atraumatic, normocephalic, she almost has a sunken face from admission indicating weight loss Eye exam: PRESENT: Eyes are currently close Neck exam: ABSENT: JVD Respiratory exam: PRESENT: Diminished breath sounds. ABSENT: crackles, rales, rhonchi, unlabored, wheezes Cardiovascular exam: PRESENT: Regular rate rhythm -+S1, +S2. ABSENT: diastolic murmur, systolic murmur GI/Abdominal exam: PRESENT: normal bowel sounds, soft. ABSENT: guarding, mass, tenderness Extremities exam: ABSENT: No edema; right BKA, left AKA, black discoloration of fingertips on the right index and middle finger and the left fourth finger Neurological exam: PRESENT: Lethargic and nonverbal. Skin exam: PRESENT: dry, warm, Cardiovascular exam: PRESENT: +S1, +S2 GI/Abdominal exam: PRESENT: soft. ABSENT: organomegaly, tenderness Results Laboratory Results: 01/07/20 05:36 01/07/20 05:36 01/07/20 01/07/20 05:36 05:36 WBC 17.1 H RBC 3.14 L Hgb 9.4 L Hct 29.7 L MCV 95 MCH 30.1 MCHC 31.8 L RDW 24.5 H Plt Count 75 L Seg Neutrophils % Not Reportable Sodium 141.8 Potassium 4.8 Chloride 100 Carbon Dioxide 20 L Anion Gap 22 H BUN 57 H Creatinine 6.31 H Est GFR ( Amer) 8 L Glucose 300 H Calcium 10.1 12/17/19 12/18/19 12/18/19 05:45 14:30 14:30 Creatine Kinase 499 H 468 H CK-MB (CK-2) 5.00 H Troponin I 0.026 NT-Pro-B Natriuret Pep [id number] H 12/19/19 12/19/19 12/19/19 00:13 07:00 12:05 Creatine Kinase CK-MB (CK-2) Troponin I 0.044 0.060 0.062 NT-Pro-B Natriuret Pep Impressions: Foot X-Ray 12/13/19 17:55 IMPRESSION: Osteopenia. Calcaneal spurs. Carotid Doppler Study 12/20/19 00:00 IMPRESSION: 50 to 69% narrowing proximal right ICA by systolic velocity ratio Less than 50% diameter narrowing proximal left ICA Head MRI 12/24/19 13:56 IMPRESSION: Motion artifact. Atrophy with minor small vessel ischemic change. copyright 2010 [employer]- All Rights Reserved Upper Extremity Ultrasound 12/31/19 00:00 IMPRESSION: Normal right upper extremity arterial duplex. Head CT 01/05/20 00:00 IMPRESSION: MILD CHRONIC CHANGES OF ATROPHY AND MICROVASCULAR ISCHEMIA. NO ACUTE PROCESS. EVIDENCE OF ACUTE STROKE: NO. Chest X-Ray 01/07/20 00:00 IMPRESSION: CARDIOMEGALY. MILD VASCULAR PROMINENCE. Assessment & Plan - Diagnosis (1) ESRD (end stage renal disease) on dialysis Is this a current diagnosis for this admission?: Yes Plan: We will do dialysis today for 3 hours, using the patient's AV fistula, with 2 potassium bath, blood flow rate of 400 mL per minute, dialysate flow rate of 800 mL per minute, no ultrafiltration , no heparin and Procrit with 30,000 units during dialysis intravenously. Her dialysis nurse is monitoring the patient very closely. (2) Peripheral vascular disease in diabetes mellitus Is this a current diagnosis for this admission?: Yes Plan: Patient has severe peripheral arterial disease, status post right BKA on December 14 and recently left AKA on December 31 with clinical evidence of vascular disease in her upper extremities although not supported by arterial duplex. Prognosis of the patient is poor at this point. (3) Delirium due to another medical condition Is this a current diagnosis for this admission?: Yes Plan: Initially thought to be due to combination of anesthesia, pain medications and acute illness. As mentioned above she has been weaned off her pain medication and other sedating medications. She was also tried on BiPAP with minimal CO2 retention, unfortunately nothing seems to matter as her mental status has not been improved. (4) Hypertension Qualifiers: Hypertension type: essential hypertension Qualified Code(s): I10 - Essential (primary) hypertension Is this a current diagnosis for this admission?: Yes Plan: Mostly controlled. (5) Diabetes mellitus type 2 in obese Is this a current diagnosis for this admission?: Yes Plan: Labile. (6) Anemia in chronic kidney disease (CKD) Qualifiers: Chronic kidney disease stage: on chronic dialysis Qualified Code(s): N18.6 - End stage renal disease; D63.1 - Anemia in chronic kidney disease; Z99.2 - Dependence on renal dialysis Is this a current diagnosis for this admission?: No Plan: Retacrit this given today during dialysis . She was transfused 1 unit of packed RBC 2 days ago. - Notes Notes: Overall prognosis is grim. Discussed with Dr. Ball today. I recommend hospice and discontinuation of dialysis. Dr. Ball will try to talk to the family today. - Time Time with patient: 15-25 minutes
[2020-01-07] MEDS: SILVER SULFADIAZINE 1% CREAM 50 GM TP SCH ×2 (14:42→17:49)
--- NOTE | 2020-01-07 17:33 | PDOC PROGRESS REPORT ---
Subjective Progress Note for:: 01/07/20 Subjective:: No adverse events overnight. She has not had any significant change in her mental status. When she does move, she mostly just moans and wails without opening her eyes. Her hands are cold. Had a long talk with her and her daughter today and they have decided to change her CODE STATUS to DNR. Reason For Visit: GANGRENE BILATERAL TOES,ESRD ON DIALYSIS,PERIPHER Physical Exam Vital Signs: Temp Pulse Resp BP Pulse Ox 98.7 F 104 H 18 154/85 H 100 01/07/20 15:20 01/07/20 15:20 01/07/20 15:20 01/07/20 15:20 01/07/20 15:20 Intake & Output 01/06/20 01/07/20 01/08/20 06:59 06:59 06:59 Output Total 0 Balance 0 Weight 72.4 kg 72.4 kg General appearance: PRESENT: Mild distress, cooperative, disheveled, well- developed, well-nourished Head exam: PRESENT: atraumatic, normocephalic Eye exam: PRESENT: conjunctiva pink Mouth exam: PRESENT: moist Respiratory exam: PRESENT: clear to auscultation genia. ABSENT: rales, rhonchi, wheezes Cardiovascular exam: PRESENT: RRR. ABSENT: diastolic murmur, rubs, systolic murmur GI/Abdominal exam: PRESENT: normal bowel sounds, soft. ABSENT: distended, guarding, mass, organolmegaly, rebound, tenderness Neurological exam: PRESENT: altered. ABSENT: alert, awake Skin exam: PRESENT: dry, intact, warm, other - Stump wounds appear to be healing gradually, clean in appearance. She has black blisters on the tips of her index and middle fingers on the right hand, and on the ring finger of the left hand. The fingers and hands now have a generally dusky appearance and are cold to the touch distal to the wrist Results Laboratory Results: 01/07/20 05:36 01/07/20 05:36 01/07/20 01/07/20 05:36 05:36 WBC 17.1 H RBC 3.14 L Hgb 9.4 L Hct 29.7 L MCV 95 MCH 30.1 MCHC 31.8 L RDW 24.5 H Plt Count 75 L Seg Neutrophils % Not Reportable Sodium 141.8 Potassium 4.8 Chloride 100 Carbon Dioxide 20 L Anion Gap 22 H BUN 57 H Creatinine 6.31 H Est GFR ( Amer) 8 L Glucose 300 H Calcium 10.1 12/17/19 12/18/19 12/18/19 05:45 14:30 14:30 Creatine Kinase 499 H 468 H CK-MB (CK-2) 5.00 H Troponin I 0.026 NT-Pro-B Natriuret Pep [id number] H 12/19/19 12/19/19 12/19/19 00:13 07:00 12:05 Creatine Kinase CK-MB (CK-2) Troponin I 0.044 0.060 0.062 NT-Pro-B Natriuret Pep Impressions: Foot X-Ray 12/13/19 17:55 IMPRESSION: Osteopenia. Calcaneal spurs. Carotid Doppler Study 12/20/19 00:00 IMPRESSION: 50 to 69% narrowing proximal right ICA by systolic velocity ratio Less than 50% diameter narrowing proximal left ICA Head MRI 12/24/19 13:56 IMPRESSION: Motion artifact. Atrophy with minor small vessel ischemic change. copyright 2011 [employer]- All Rights Reserved Upper Extremity Ultrasound 12/31/19 00:00 IMPRESSION: Normal right upper extremity arterial duplex. Head CT 01/05/20 00:00 IMPRESSION: MILD CHRONIC CHANGES OF ATROPHY AND MICROVASCULAR ISCHEMIA. NO ACUTE PROCESS. EVIDENCE OF ACUTE STROKE: NO. Chest X-Ray 01/07/20 00:00 IMPRESSION: CARDIOMEGALY. MILD VASCULAR PROMINENCE. Assessment and Plan - Diagnosis (1) Acute respiratory failure with hypoxia and hypercapnia Is this a current diagnosis for this admission?: Yes Plan: She has not had any improvement with BiPAP. We continue with supplemental O2 as needed to maintain SPO2 greater than 90% (2) Adverse effect of narcotic Qualifiers: Encounter type: initial encounter Qualified Code(s): T40.605A - Adverse effect of unspecified narcotics, initial encounter Is this a current diagnosis for this admission?: Yes Plan: All of the sedating medications have been out of her system now for several days with no change in her mental status (3) Anorexia Is this a current diagnosis for this admission?: Yes Plan: She has not been able to eat anything and a few days. had decided to make her DNR and is considering home hospice versus hospice house. (4) Delirium due to another medical condition Is this a current diagnosis for this admission?: Yes Plan: The BiPAP has not helped and her sedating medications have been held. I think this is a progression of her limb ischemia. (5) Diabetes mellitus type 2 in obese Is this a current diagnosis for this admission?: Yes Plan: Continue current regimen (6) Dry gangrene Is this a current diagnosis for this admission?: Yes Plan: She has had bilateral lower extremity amputations, and if she survives this hospitalization she will wind up likely having to have her fingers amputated. The ischemia in her hands has progressed. Family has made her DNR and is considering a setting for hospice. I think she would be appropriate for inpatient hospice. 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 General surgery is following. - Time Time Spent with patient: 25-34 minutes Anticipated Discharge Disposition: Hospice Center Anticipated Discharge: within 72 hours
[2020-01-07] MEDS: METOPROLOL SUCCINATE 50 MG TAB.SR.24H PO SCH (22:15)
[2020-01-08] MEDS: CLONIDINE HCL 0.2 MG TABLET PO SCH ×2 (06:03→11:33)
[2020-01-08] MEDS: PANTOPRAZOLE SODIUM 40 MG TABLET.DR PO SCH (06:03)
[2020-01-08] MEDS: HEPARIN SOD (PORCINE) 5,000 UNIT/ML 1 ML VIAL SUBCUT SCH ×2 (06:03→15:16)
[2020-01-08] MEDS: ASPIRIN 81 MG TABLET, ENT COATED PO SCH (11:28)
[2020-01-08] MEDS: MEGESTROL ACETATE 20 MG TABLET PO SCH (11:31)
[2020-01-08] MEDS: AMLODIPINE BESYLATE 5 MG TABLET PO SCH (11:31)
[2020-01-08] MEDS: SENNOSIDES/DOCUSATE 8.6-50 MG 1 EACH TABLET PO SCH (11:32)
[2020-01-08] MEDS: TIMOLOL MALEATE 0.5% OPH SOLN 5 ML OU SCH (11:50)
[2020-01-08] MEDS: BRIMONIDINE TARTRATE 0.2% OPH SOLN 5 ML OU SCH (11:50)
[2020-01-08] MEDS: SILVER SULFADIAZINE 1% CREAM 50 GM TP SCH (11:50)
[2020-01-08] MEDS ORDERED: NORMAL SALINE 1000 ML 1,000 ML IV PRN (11:58)
[2020-01-08] MEDS ORDERED: HYDRALAZINE HCL INJ/PF 20 MG/1 ML SDV IV PRN (11:59)
[2020-01-08] MEDS ORDERED: CLONIDINE 0.3 MG/24 HR PATCH.TDWK TD SCH (13:00)
[2020-01-08 16:19] VITALS: BP 155/91
--- NOTE | 2020-01-10 18:34 | Death Summary ---
Summary Date : 01/08/20 Autopsy: No Resuscitation Status: Do Not Resuscitate Primary Care Provider: Dr Gissel Acuna - Final Diagnosis (1) Hypoglycemia Is this a current diagnosis for this admission?: Yes (2) Diabetic wet gangrene of the foot Is this a current diagnosis for this admission?: Yes (3) Delirium due to another medical condition Is this a current diagnosis for this admission?: Yes (4) Anorexia Is this a current diagnosis for this admission?: Yes (5) Dry gangrene Is this a current diagnosis for this admission?: Yes (6) Anemia in chronic kidney disease (CKD) Is this a current diagnosis for this admission?: No (7) Episode of transient neurologic symptoms Is this a current diagnosis for this admission?: Yes (8) ESRD (end stage renal disease) on dialysis Is this a current diagnosis for this admission?: Yes (9) Hypertension Is this a current diagnosis for this admission?: Yes (10) Hypoxia Is this a current diagnosis for this admission?: Yes (11) Peripheral vascular disease in diabetes mellitus Is this a current diagnosis for this admission?: Yes (12) Serratia infection Is this a current diagnosis for this admission?: Yes (13) Diabetes mellitus Is this a current diagnosis for this admission?: Yes Hospital Course:: ANGELIC ROBIN is a 64 year old female who presents the emergency room with a one-week history of bilateral foot pain. She admits the abrupt onset of pain in both feet 1 week ago. Her pain is a moderate dull pressure at rest but turns into a severe sharp searing pain with weightbearing. Her foot pain was accompanied by the development of "blisters" of her right great, second and third toes as well as her left second and third toes. The blisters have "broken" over time, becoming darkened skin with a foul odor. Her foot pain was associated with swelling in her bilateral lower extremities below the knee. She denies other associated or accompanying signs and symptoms. She she denies prior similar episodes. She has not identified any additional aggravating or ameliorating factors for her foot pain. In the emergency room she was found to have gangrene of the right great second and third toes as well as the left second and third toes. Surgical consultation with Dr. Kuo was obtained by the emergency room provider and he asked for the hospitalist service to admit the patient and consult him as well as Dr. Sadler for nephrology. Patient was subsequently admitted to the hospital for further evaluation treatment. Patient had a prolonged hospitalization due to her multiple comorbidities and in hospital complications. Initially she had right BKA due to gangrene caused by her diabetes and severe peripheral vascular disease, patient developed left lower extremity gangrene and unfortunately she had to have an AKA, during hospitalization patient was getting more delirious and anorexic and was refusing to eat, to be started on D5NS and hypoglycemia protocol, her diabetic regimen was held, she was developed right hand ischemia and dry gangrene and complaining of right hand pain, patient was initially supposed to be transition to rehab but unfortunately her condition kept getting deteriorating and after family discussion family decided to transition her care to DNR/DNI. Plan was to transfer patient to inpatient hospice however patient was decompensating and becoming more lethargic, unresponsive, and apneic, patient peacefully on the evening of 01/08/2020.
== END 2020-01-08 20:22 | disposition expired | DRG 239 ==
LOC: ER 16:46 → EH 12-14 02:03 → 4W 12-14 14:20 → 4N 12-17 06:51 → ICU 12-18 16:11 → 4N 12-19 12:38
PROVIDERS: ADMIT Internal Medicine Critical Care Medicine; ATTEND Family Medicine
PROC: 0Y6F0ZZ Detachment at Right Knee Region, Open Approach (ICD-10-PCS; 2019-12-15)
PROC: 5A1D70Z Performance of Urinary Filtration, Intermittent, Less than 6 Hours Per Day (ICD-10-PCS; 2019-12-16)
PROC: 30233N1 Transfusion of Nonautologous Red Blood Cells into Peripheral Vein, Percutaneous Approach (ICD-10-PCS; 2020-01-03)
PROC: 0Y6G0ZZ Detachment at Left Knee Region, Open Approach (ICD-10-PCS; principal; 2020-01-05)
PROC: 5A09357 Assistance with Respiratory Ventilation, Less than 24 Consecutive Hours, Continuous Positive Airway Pressure (ICD-10-PCS; 2020-01-05)
DX: E11.52 Type 2 diabetes mellitus with diabetic peripheral angiopathy with gangrene (principal); N18.6 End stage renal disease; J96.01 Acute respiratory failure with hypoxia; J96.02 Acute respiratory failure with hypercapnia; R78.81 Bacteremia; I96 Gangrene, not elsewhere classified; I12.0 Hypertensive chronic kidney disease with stage 5 chronic kidney disease or end stage renal disease; I31.9 Disease of pericardium, unspecified; N25.81 Secondary hyperparathyroidism of renal origin; E11.649 Type 2 diabetes mellitus with hypoglycemia without coma; D63.1 Anemia in chronic kidney disease; F50.89 Other specified eating disorder; E11.22 Type 2 diabetes mellitus with diabetic chronic kidney disease; Z68.34 Body mass index [BMI] 34.0-34.9, adult; R41.0 Disorientation, unspecified; A48.8 Other specified bacterial diseases; I25.10 Atherosclerotic heart disease of native coronary artery without angina pectoris; F41.9 Anxiety disorder, unspecified; E11.319 Type 2 diabetes mellitus with unspecified diabetic retinopathy without macular edema; H54.60 Unqualified visual loss, one eye, unspecified; K80.20 Calculus of gallbladder without cholecystitis without obstruction; M19.011 Primary osteoarthritis, right shoulder; M17.0 Bilateral primary osteoarthritis of knee; M10.9 Gout, unspecified; F41.1 Generalized anxiety disorder; E66.01 Morbid (severe) obesity due to excess calories; Z66 Do not resuscitate; T40.605A Adverse effect of unspecified narcotics, initial encounter; B96.89 Other specified bacterial agents as the cause of diseases classified elsewhere; M79.89 Other specified soft tissue disorders; G47.33 Obstructive sleep apnea (adult) (pediatric); R94.31 Abnormal electrocardiogram [ECG] [EKG]; Z20.828 Contact with and (suspected) exposure to other viral communicable diseases; Z89.511 Acquired absence of right leg below knee; Z99.2 Dependence on renal dialysis; Z91.15 Patient's noncompliance with renal dialysis; Z95.5 Presence of coronary angioplasty implant and graft; Z87.891 Personal history of nicotine dependence; Z83.3 Family history of diabetes mellitus; Z82.49 Family history of ischemic heart disease and other diseases of the circulatory system
CPT/HCPCS: 01232; 01482; 36415; 36430; 36600; 70450; 70551; 71045; 80048; 80053; 80061; 80202; 82550; 82553; 82803; 82962; 83036; 83735; 83880; 84100; 84132; 84484; 85025; 85027; 85610; 86317; 86704; 86850; 86900; 86901; 86920; 87040; 87077; 87150; 87186; 87340; 87522; 87635; 88305; 88307; 88311; 93005; 93010; 93880; 93925; 93931; 94660; 94799; 99140; 99285; 99291; 99292; C9803; J0131; J0171; J0330; J0360; J1100; J1170; J1644; J1815; J1885; J2060; J2250; J2270; J2310; J2405; J2543; J2550; J2704; J3010; J3370; J3486; J3490; J7042; J7060; L1830; P9016; Q5105